=== PATIENT | female | born 1955 | race Caucasian/White ===

== ENCOUNTER 2024-09-24 08:42 | Outpatient (REF) | payer MEDICARE, OTHER, SELFPAY ==
--- NOTE | ~2024-09-24 | XR_ITS ---
CLINICAL HISTORY: S42.309A - Unspecified fracture of shaft of humerus, unspecified arm, in... 2 view right humerus Comparison: None Findings: There is a comminuted humeral neck fracture. No significant arthritic change. No radiopaque foreign body. IMPRESSION: 1. Comminuted humeral neck fracture This document has been electronically signed by: Keegan Jiang MD on 09/25/2024 05:34:53
--- OUTSIDE RECORDS SUMMARY | 2024-09-27 08:45 | XMS_ITS | Encounter Summary ---
Author Organization [facility] Address [address] [place] [address] Care Team Providers Care Extract Operator Name Role Phone Arabella Decker NP Primary Care Provider [phone] Reason for Visit * Auth/Cert (Routine) Specialty Diagnoses / Procedures Referred By Contac t Referred To Contact Diagnoses Malignant neoplasm of ascending colon (CMS/HCC) Malignant neoplasm of ascending colon Procedures NE LAP SURG COLECTOMY PARTIAL W REMOVAL OF TERMINAL ILEUM W ILEOCOLOSTOMY NE HOSPITAL IP/OBS CARE INITIAL MODERATE LEVEL PER DAY LAPAROSCOPIC COLECTOMY ; ? OPEN Diogo Martinez MD [address] [place] [id number] Phone: tel: fax: Referral ID Status Reason Start Date Expiration Date Visits Re quested Visits Authorized [id number] 08/05/2024 1 1 Encounter Details Date Type Department Care Team (Late st Contact Info) Description 08/30/2024 7:31 AM EST Anesthesia Event [facility] Main OR [address] [place] [address] Ramesh Larios MD [address] [place] [address] [phone] Shira Diamond CRNA [address] [place] [id number] Anesthesia Record Procedure Summary Procedure Name Responsible [...] information of this case with the next grocery department manager assuming care of this patient (MD Shawna) [...] 6 L/min O2 via simple mask. -Naresh, CUSTOMER ASSISTANCE REPRESENTATIVE 1012 an stop data 1014 Out of Room 1014 Transport to PACU/ICU Patien t reassessed and ready for transfer, airway stable. Patient transport to designated recovery area. {Transport to PACU/ICU:[id number]} 1019 Handoff to RN I completed my [...] Procedure Summary Date: 08/30/24 Room / Location: [facility] OR [facility] OR Anesthesia Start: 730 Anesthesia Stop: Procedure: [...] stable (see nursing record), report accepted by [facility] CONSULTANT. Stable on release, transfer of care guidelines [...] AM EST 69 y.o. female scheduled for [NE LAP SURG COLECTOMY PARTIAL W REMOVAL OF TERMINAL ILEUM W*] Ht Readings from Last 1 Encounters: 08/10/24 1.626 m (64 ) Wt Readings from Last 1 Encounters: 08/10/24 86.2 kg (190 lb) Body mass index is 32.61 kg/m??. Past Medical History: Diagnosis Date Angina pectoris ([facility]) Anxiety 11/06/2018 DX:Anxiety Arthritis Blindness 2004 Cancer, colon ([facility]) CHF (congestive heart failure) ([facility]) Colon polyp Constipation 11/06/2018 DX:Constipation Depression 11/06/2018 DX:Depression Diabetes mellitus type 1, uncomplicated, on termite helper insulin pump ([facility]) 11/06/2018 DX:Diabetes mellitus type 2, uncomplicated ([facility]) GERD (gastroesophageal reflux disease) 11/06/2018 DX:GERD (gastroesophageal [...] by mouth 2 (two) times a day. swdusthkjp-rjscvoqrrncbd-aofcylqm (FIORICET, ESGIC) 50-325-40 mg per tablet Take [...] 75 mL/hr, Last Rate: 75 mL/hr (08/30/24 0783) PRN medications: Insert peripheral IV AND Maintain [...] Signed Date: 08/23/2024 07:29 ET Workstation ID: [id number] Transcribed By: Self Edit Transcribed Date: 08/23/2024 [...] Signed Date: 08/05/2024 15:06 ET Workstation ID: [id number] Transcribed By: Self Edit Transcribed Date: 08/05/2024 [...] and spouse who. Anesthesia Plan discussed with CUSTOMER ASSISTANCE REPRESENTATIVE and attending. Anesthesia Evaluation Patient summary reviewed [...] Care Team (Late st Contact Info) Description 10/28/2024 10:45 AM EDT Office Visit [facility] Hematology Oncology [address] [place] [phone] Quoc Bernal MD [address] [place] [address] 12/14/2024 11:15 AM EDT Office Visit General Surgery - [place] [address] [place] [address] Diogo Martinez MD [address] [place] [address] documented as of this encounter Procedures Procedure [...] mg documented in this encounter Care Teams Extract Operator Relationship Specialty Start Date End Date Arabella Decker NP [facility] [address] [place] [address] PCP - General 08/20/23 documented as of this encounter
--- OUTSIDE RECORDS SUMMARY | 2024-09-27 08:46 | XMS_ITS | Encounter Summary ---
Author Organization [facility] Address [address] [place] [address] Care Team Providers Care Sliver Machine Operator Name Role Phone Arabella Decker NP Primary Care Provider [phone] Reason for Visit * Auth/Cert (Routine) Specialty Diagnoses / Procedures Referred By Contac t Referred To Contact Diagnoses Malignant neoplasm of ascending colon (CMS/HCC) Malignant neoplasm of ascending colon Procedures RI LAP SURG COLECTOMY PARTIAL W REMOVAL OF TERMINAL ILEUM W ILEOCOLOSTOMY RI HOSPITAL IP/OBS CARE INITIAL MODERATE LEVEL PER DAY LAPAROSCOPIC COLECTOMY ; ? OPEN Diogo Martinez MD [address] [address] Phone: tel: fax: Referral ID Status Reason Start Date Expiration Date Visits Re quested Visits Authorized [id number] 08/05/2024 1 1 Encounter Details Date Type Department Care Team (Latest Contact Info) Description 08/30/2024 5:55 AM EST - 09/01/2024 11:13 AM EST Hospital Encounter [facility] Surgical Unit [address] [place] [address] Diogo Martinez MD [address] [address] Shayy Garcia MD [address] [place] [address] Malignant neoplasm of ascending colon (CMS/HCC) Discharge [...] Martinez's operative note. She was admitted to [facility] and [facility] protocols were followed. [facility] was consulted for medical comanagement. The patient [...] Center 09/14/2024 3:45 PM Diogo Martinez MD [facility] [address] [facility] [place] Discharge Medication List: Your medication list [...] 1 tablet (300 mg total) by mouth. okklvjnotv-xomeycjmmsfhj-aqapdbwx 50-325-40 mg per tablet Commonly known as: [...] Your Medications These medications were sent to [facility]/pharmacy #[id number] - [address] [address] acetaminophen 500 mg tablet oxyCODONE 5 mg [...] mouth 1 (one) time each day. insulin lispro-aabc (LYUMJEV U-100 INSULIN SUBQ) Inject under the skin. isosorbide mononitrate (IMDUR) 60 mg 24 hr tablet Take 1 tablet (60 mg total) by mouth 1 (one) time each day. 05/05/2023 meclizine (ANTIVERT) 25 mg tablet Take 1 [...] by mouth 1 (one) time each day. ranolazine (RANEXA) 500 mg 12 hr tablet [...] by mouth 2 (two) times a day. insulin infusion set-cartridge combo pack isosorbide mononitrate (IMDUR) 120 mg 24 hr tablet Take 60 mg by mouth 1 (one) time each day. 09/24/2024 acetaminophen (TYLENOL) 500 mg tablet Take 2 tablets (1,000 mg total) by mouth every 8 (eight) hours for 10 days. 30 tablet 09/01/2024 09/11/2024 oxyCODONE (ROXICODONE) 5 mg immediate release tablet Take 1 tablet (5 mg total) by mouth every 6 (six) hours if needed for severe pain. 12 tablet 09/01/2024 09/24/2024 pantoprazole (PROTONIX) 40 mg EC tablet Take [...] RN - 09/01/2024 11:09 AM EST 09/01/24 7252 Transportation Transportation at discharge Family What day [...] is soft, without significant tenderness and nondistended. [place] appear C/D/I Musculoskeletal Exam: No lower extremity [...] bypass grafting in 2013 and again around 8149-2373 at which time she required 5 cardiac stents Family Mediator is Dr. Roberts through [facility] -- Continue statin, beta-alvarez -- Resume Plavix [...] Discharge Needs Discipline following for SNF placement Head Of Ethics And Compliance Informed Choice Informed Choice Given? Yes Transportation Transportation at discharge Family (Spouse to transport home once ready for d/c) ICC met with pt and spouse at bedside. Demographics confirmed. Pt pharmacy [facility]. Pt will d/c home with self care when ready * Shayy Garcia MD - 08/31/2024 3:36 PM EST [facility] Provider Response Note PATIENT: CAIT MEDRANO : 1955 ADMIT DATE: 08/30/2024 10:39 AM DISCH DATE: RESPONDING PROVIDER #: [id number] PROVIDER RESPONSE TEXT: Provider disagrees with the [...] per H&P BMI 32.36 per 08/31/24 C: [phone] The patient's clinical indicators include: Options provided: [...] PRN medications: buprenorphine, buprenorphine, [Held by provider] aedollsunm-hmjwnratpolzd-mucgcsvq, dextrose 50%, dextrose 50%, dextrose, dextrose, glucagon [...] bypass grafting in 2013 and again around 5814-1452 at which time she required 5 cardiac stents Family Mediator is Dr. Roberts through [facility] -- Continue statin, beta-alvarez -- Resume Plavix [...] barriers to meeting goals/advancing plan of care: Jewish of bladder & bowel function and pain [...] angioplasty with 5 cardiac stents. Her primary storage engineer is Dr. Ángel Roberts with the [facility]. Remote hysterectomy and subsequent development of [...] Date Noted Malignant neoplasm of ascending colon ([facility]/HCC) 08/05/2024 Anxiety 11/06/2018 Diabetes mellitus type 2, uncomplicated ([facility]) 11/06/2018 Depression 11/06/2018 Hypercholesteremia 11/06/2018 GERD (gastroesophageal [...] 1 tablet (300 mg total) by mouth. onhzidcdbe-thflmkmyyxtji-sxmgsjfk (FIORICET, ESGIC) 50-325-40 mg per tablet Take [...] Signed Date: 08/05/2024 15:06 ET Workstation ID: [id number] Transcribed By: Self Edit Transcribed Date: 08/05/2024 [...] Signed Date: 08/23/2024 07:29 ET Workstation ID: [id number] Transcribed By: Self Edit Transcribed Date: 08/23/2024 [...] Signed Date: 08/23/2024 07:29 ET Workstation ID: [id number] Transcribed By: Self Edit Transcribed Date: 08/23/2024 [...] OPEN (R) OPERATIVE NOTE Date: 08/30/2024 Location: [facility] OR Name: Cait Medrano, : 1955, Diagnosis Pre-Op Diagnosis Codes: * Malignant neoplasm of ascending colon (CMS/HCC) [C18.2] Post-op Diagnosis * Malignant neoplasm of ascending colon (CMS/HCC) [C18.2] Procedures LAPAROSCOPIC COLECTOMY ? OPEN 93324 - RI LAP SURG COLECTOMY PARTIAL W REMOVAL OF TERMINAL ILEUM W ILEOCOLOSTOMY Indications: Cait Medrano is a 69 y.o. female who is having surgery for Pre-Op Diagnosis Codes: * Malignant neoplasm of ascending colon (CMS/HCC) [C18.2]. Surgeon(s) & Sleep Medicine Physician(s) * Diogo Martinez MD - Primary Sleep Medicine Physician: Imer Scott PA-C Anesthesia: general ASA: IV [...] RN - 08/30/2024 6:06 AM EST MALIKA-SPOUSE [phone] documented in this encounter Consult Notes * [...] a past medical history of Angina pectoris ([facility]), Anxiety (11/06/2018), Arthritis, Blindness (2003), Cancer, colon ([facility]), CHF (congestive heart failure) ([facility]), Colon polyp, Constipation (11/06/2018), Depression (11/06/2018), Diabetes mellitus type 1, uncomplicated, on manager terminal insulin pump ([facility]) (11/06/2018), GERD (gastroesophageal reflux disease) (11/06/2018), Heart disease, Hiatal hernia, Hypercholesteremia (11/06/2018), Hypertension, Joint pain, Migraines (11/06/2018), Myocardial infarction ([facility]), PONV (postoperative nausea and vomiting), and Sleep [...] mouth 2 (two) times a day. 08/29/2024 yfvzahiidx-smvklzuxniyms-xdgbnard (FIORICET, ESGIC) 50-325-40 mg per tablet Take [...] 5 cardiac stents. She is followed by storage engineer Dr. Ángel Roberts at [facility]. - Patient does report she occasionally [...] has been seen in the past by [facility] and [facility] Samson Aguilar. She is also followed by [...] Description 10/28/2024 10:45 AM EDT Office Visit [facility] Hematology Oncology [address] [place] [phone] Quoc Bernal MD [address] [place] [address] 12/14/2024 11:15 AM EDT Office Visit General Surgery [facility] [address] [phone] Diogo Martinez MD [address] [address] documented as of this encounter Procedures Procedure [...] EST Malignant neoplasm of ascending colon (CMS/HCC) RI LAP SURG COLECTOMY PARTIAL W REMOVAL OF TERMINAL ILEUM W ILEOCOLOSTOMY 08/30/2024 7:33 AM EST Malignant neoplasm of ascending colon (CMS/HCC) POCT GLUCOSE BLOOD Routine 08/30/2024 6: 20 AM EST documented in this encounter Results * (ABNORMAL) CBC auto differential (09/01/2024 6:25 AM EST) WBC 6.8 4.8 - 10.8 K/mcL LAB HEMETOLOGY METHOD 09/01/2024 6:56 AM [facility] RBC 3.40(L) 3.80 - 4.80 M/mcL LAB HEMETOLOGY METHOD 09/01/2024 6:56 AM [facility] Hemoglobin 10.4(L) 11.5 - 16.0 g/dL LAB HEMETOLOGY METHOD 09/01/2024 6:56 AM [facility] Hematocrit 33.4(L) 35.0 - 47.0 % LAB HEMETOLOGY METHOD 09/01/2024 6:56 AM [facility] MCV 98.5(H) 79.0 - 98.0 FL LAB HEMETOLOGY METHOD 09/01/2024 6:56 AM [facility] MCH 30.7 27.0 - 32.0 pcg LAB HEMETOLOGY METHOD 09/01/2024 6:56 AM [facility] MCHC 31.1(L) 32.0 - 37.0 g/dL LAB HEMETOLOGY METHOD 09/01/2024 6:56 AM [facility] RDW 13.5 11.0 - 15.0 % LAB HEMETOLOGY METHOD 09/01/2024 6:56 AM [facility] Platelets 184 130 - 400 K/mcL LAB HEMETOLOGY METHOD 09/01/2024 6:56 AM [facility] MPV 11.8(H) 7.0 - 11.0 FL LAB HEMETOLOGY METHOD 09/01/2024 6:56 AM [facility] NRBC 0.0 <1.0 % LAB HEMETOLOGY METHOD 09/01/2024 6:56 AM [facility] NRBC Absolute 0.00 <0.10 K/mcL LAB HEMETOLOGY METHOD 09/01/2024 6:56 AM [facility] Neutrophils Relative 58.5 % LAB HEMETOLOGY METHOD 09/01/2024 6:56 AM [facility] Lymphocytes Relative 27.2 % LAB HEMETOLOGY METHOD 09/01/2024 6:56 AM [facility] Monocytes Relative 12.4 % LAB HEMETOLOGY METHOD 09/01/2024 6:56 AM [facility] Eosinophils Relative 1.2 % LAB HEMETOLOGY METHOD 09/01/2024 6:56 AM [facility] Basophils Relative 0.4 % LAB HEMETOLOGY METHOD 09/01/2024 6:56 AM [facility] Immature Granulocytes Relative 0.3 % LAB HEMETOLOGY METHOD 09/01/2024 6:56 AM [facility] Neutrophils Absolute 3.95 1.50 - 7.00 K/mcL LAB HEMETOLOGY METHOD 09/01/2024 6:56 AM EST [facility] Lymphocytes Absolute 1.84 1.00 - 5.00 K/[facility] LAB HEMETOLOGY METHOD 09/01/2024 6:56 AM EST [facility] Monocytes Absolute 0.84 0.20 - 1.00 K/[facility] LAB HEMETOLOGY METHOD 09/01/2024 6:56 AM EST [facility] Eosinophils Absolute 0.08 0.00 - 0.50 K/[facility] LAB HEMETOLOGY METHOD 09/01/2024 6:56 AM EST [facility] Basophils Absolute 0.03 0.00 - 0.20 K/[facility] LAB HEMETOLOGY METHOD 09/01/2024 6:56 AM [facility] Immature Granulocytes Absolute 0.02 0.00 - 0.03 K/[facility] LAB HEMETOLOGY METHOD 09/01/2024 6:56 AM EST [facility] Blood Venous blood specimen / Unknown Venipuncture / Unknown 09/01/2024 6:25 AM EST 09/01/2024 6:40 AM EST us Terrie POWELL LAB BLOOD ORDERABLES Final Re sult Performing Organization Address [facility] Co de Phone Number [facility] [address] [place] [address], * Phosphorus (09/01/2024 6:25 AM EST) Phosphorus 3.9 2.5 - 4.5 mg/dL LAB CHEMISTRY METHOD 09/01/2024 7:29 AM EST [facility] Blood Venous blood specimen / Unknown Venipuncture / Unknown 09/01/2024 6:25 AM EST 09/01/2024 6:38 AM EST us Terrie POWELL LAB BLOOD ORDERABLES Final Re sult [facility] [address] [place] [address], * Magnesium (09/01/2024 6:25 AM EST) [facility] Magnesium 2.3 1.9 - 2.6 mg/dL LAB CHEMISTRY METHOD 09/01/2024 7:29 AM EST [facility] Blood Venous blood specimen / Unknown Venipuncture / Unknown 09/01/2024 6:25 AM EST 09/01/2024 6:38 AM EST Terrie POWELL LAB BLOOD ORDERABLES Final Re sult Performing Organization Address [facility]/ZIP Co de Phone Number [facility] [address] [place] [address], [place] [phone] * (ABNORMAL) Basic metabolic panel (09/01/2024 6:25 AM EST) [facility] Sodium 142 133 - 145 mmol/L LAB CHEMISTRY METHOD 09/01/2024 7:29 AM [facility] Potassium 3.9 3.5 - 5.5 mmol/L LAB CHEMISTRY METHOD 09/01/2024 7:29 AM [facility] Chloride 109 96 - 110 mmol/L LAB CHEMISTRY METHOD 09/01/2024 7:29 AM [facility] CO2 28 21 - 32 mmol/L LAB CHEMISTRY METHOD 09/01/2024 7:29 AM [facility] Anion Gap 5 3 - 11 LAB CHEMISTRY METHOD 09/01/2024 7:29 AM [facility] Glucose 124(H) 70 - 100 mg/dL LAB CHEMISTRY METHOD 09/01/2024 7:29 AM [facility] BUN 7 5 - 25 mg/dL LAB CHEMISTRY METHOD 09/01/2024 7:29 AM [facility] Creatinine 0.84 0.50 - 1.10 mg/dL LAB CHEMISTRY METHOD 09/01/2024 7:29 AM EST [facility] eGFR 76 >=60 mL/min/1. 73m2 LAB CHEMISTRY METHOD 09/01/2024 7:29 AM [facility] Comment:Calculation based on the??Chronic Kidney Disease Epidemiology Collaboration (CKD-EPI) equation refit??without adjustment for race. BUN/Creatinine Ratio 8.3 LAB CHEMISTRY METHOD 09/01/2024 7:29 AM [facility] Calcium 8.4(L) 8.5 - 10.5 mg/dL LAB CHEMISTRY METHOD 09/01/2024 7:29 AM [facility] Blood Venous blood specimen / Unknown Venipuncture / Unknown 09/01/2024 6:25 AM EST 09/01/2024 6:38 AM EST Terrie POWELL LAB BLOOD ORDERABLES Final Re sult [facility] [address] [place] [address], * (ABNORMAL) CBC auto differential (08/31/2024 6:35 AM EST) WBC 9.7 4.8 - 10.8 K/mcL LAB HEMETOLOGY METHOD 08/31/2024 7:07 AM [facility] RBC 3.60(L) 3.80 - 4.80 M/mcL LAB HEMETOLOGY METHOD 08/31/2024 7:07 AM [facility] Hemoglobin 11.2(L) 11.5 - 16.0 g/dL LAB HEMETOLOGY METHOD 08/31/2024 7:07 AM [facility] Hematocrit 36.2 35.0 - 47.0 % LAB HEMETOLOGY METHOD 08/31/2024 7:07 AM [facility] MCV 99.5(H) 79.0 - 98.0 FL LAB HEMETOLOGY METHOD 08/31/2024 7:07 AM [facility] MCH 30.8 27.0 - 32.0 pcg LAB HEMETOLOGY METHOD 08/31/2024 7:07 AM [facility] MCHC 30.9(L) 32.0 - 37.0 g/dL LAB HEMETOLOGY METHOD 08/31/2024 7:07 AM [facility] RDW 13.5 11.0 - 15.0 % LAB HEMETOLOGY METHOD 08/31/2024 7:07 AM [facility] Platelets 216 130 - 400 K/mcL LAB HEMETOLOGY METHOD 08/31/2024 7:07 AM [facility] MPV 11.8(H) 7.0 - 11.0 FL LAB HEMETOLOGY METHOD 08/31/2024 7:07 AM [facility] NRBC 0.0 <1.0 % LAB HEMETOLOGY METHOD 08/31/2024 7:07 AM [facility] NRBC Absolute 0.00 <0.10 K/mcL LAB HEMETOLOGY METHOD 08/31/2024 7:07 AM [facility] Neutrophils Relative 67.3 % LAB HEMETOLOGY METHOD 08/31/2024 7:07 AM [facility] Lymphocytes Relative 21.5 % LAB HEMETOLOGY METHOD 08/31/2024 7:07 AM [facility] Monocytes Relative 10.0 % LAB HEMETOLOGY METHOD 08/31/2024 7:07 AM [facility] Eosinophils Relative 0.6 % LAB HEMETOLOGY METHOD 08/31/2024 7:07 AM [facility] Basophils Relative 0.2 % LAB HEMETOLOGY METHOD 08/31/2024 7:07 AM [facility] Immature Granulocytes Relative 0.4 % LAB HEMETOLOGY METHOD 08/31/2024 7:07 AM EST [facility] Neutrophils Absolute 6.53 1.50 - 7.00 K/mcL LAB HEMETOLOGY METHOD 08/31/2024 7:07 AM EST [facility] Lymphocytes Absolute 2.09 1.00 - 5.00 K/mcL LAB HEMETOLOGY METHOD 08/31/2024 7:07 AM EST [facility] Monocytes Absolute 0.97 0.20 - 1.00 K/[facility] LAB HEMETOLOGY METHOD 08/31/2024 7:07 AM EST [facility] Eosinophils Absolute 0.06 0.00 - 0.50 K/[facility] LAB HEMETOLOGY METHOD 08/31/2024 7:07 AM [facility] Basophils Absolute 0.02 0.00 - 0.20 K/mcL LAB HEMETOLOGY METHOD 08/31/2024 7:07 AM EST [facility] Immature Granulocytes Absolute 0.04(H) 0.00 - 0.03 K/[facility] LAB HEMETOLOGY METHOD 08/31/2024 7:07 AM [facility] Blood Venous blood specimen / Unknown Venipuncture / Unknown 08/31/2024 6:35 AM EST 08/31/2024 6:58 AM EST us ANDRE Howard LAB BLOOD ORDERABLES Final Result [facility] [address] [place] [address], * (ABNORMAL) Basic metabolic panel (08/31/2024 6:35 AM EST) Sodium 138 133 - 145 mmol/L LAB CHEMISTRY METHOD 08/31/2024 7:48 AM EST [facility] Potassium 3.4(L) 3.5 - 5.5 mmol/L LAB CHEMISTRY METHOD 08/31/2024 7:48 AM EST [facility] Chloride 107 96 - 110 mmol/L LAB CHEMISTRY METHOD 08/31/2024 7:48 AM [facility] CO2 25 21 - 32 mmol/L LAB CHEMISTRY METHOD 08/31/2024 7:48 AM [facility] Anion Gap 6 3 - 11 LAB CHEMISTRY METHOD 08/31/2024 7:48 AM [facility] Glucose 147(H) 70 - 100 mg/dL LAB CHEMISTRY METHOD 08/31/2024 7:48 AM [facility] BUN 9 5 - 25 mg/dL LAB CHEMISTRY METHOD 08/31/2024 7:48 AM [facility] Comment:Results verified by repeat testing Creatinine 0.94 0.50 - 1.10 mg/dL LAB CHEMISTRY METHOD 08/31/2024 7:48 AM [facility] eGFR 67 >=60 mL/min/1. 73m2 LAB CHEMISTRY METHOD 08/31/2024 7:48 AM [facility] Comment:Calculation based on the??Chronic Kidney Disease Epidemiology Collaboration (CKD-EPI) equation refit??without adjustment for race. BUN/Creatinine Ratio 9.6 LAB CHEMISTRY METHOD 08/31/2024 7:48 AM [facility] Calcium 8.5 8.5 - 10.5 mg/dL LAB CHEMISTRY METHOD 08/31/2024 7:48 AM [facility] Blood Venous blood specimen / Unknown Venipuncture / Unknown 08/31/2024 6:35 AM EST 08/31/2024 6:58 AM EST us ANDRE Howard LAB BLOOD ORDERABLES Final Result [facility] [address] [place] [address], * Tissue exam (08/30/2024 9:41 AM EST) [...] Stage pT3N2b, see synoptic. 09/01/2024 4:27 PM [facility]) [facility] Gross Description A. Colon, right: Labeled [...] the index mass. The uninvolved mucosa is gai-ufvp-rep glistening with normal folds throughout. Multiple possible [...] fletcher-pink and glistening. Gross photographs are taken. Corporate Quality Engineer sections are submitted as follows: 1, perpendicular [...] lymph nodes each, six pieces each 18, office machines sales representative larger grossly positive possible lymph node, two pieces 19, office machines sales representative larger grossly positive possible lymph node, two pieces ELSA 09/01/2024 4:27 PM EST [facility] HOSPITAL LAB Synoptic Checklist COLON AND RECTUM: [...] Additional Findings: ?Adenoma(s) ?? Comment(s): ?performed on [id number] and reported as RENÉ, HER2 Negative (1+) 09/01/2024 4:27 PM EST [facility] Disclaimer Unless otherwise specified, all tissue is 10% NB formalin fixed and paraffin embedded. 09/01/2024 4:27 PM EST [facility] Tissue (Colon) 08/30/2024 9: 41 AM EST 08/30/2024 10:49 AM EST Diogo Martinez MD LAB PATHOLOGY ORDERABLES Fi nal Result [facility] [address] [place] [address], * (ABNORMAL) POCT Glucose, blood (08/30/2024 6:20 AM EST) Glucose POCT 150(H) 70 - 100 mg/dL 08/30/2024 6:22 AM EST [facility] Blood Capillary blood specimen / Unknown 08/30/2024 6:20 AM EST 08/30/2024 6:23 AM EST us Diogo Martinez MD LAB POINT OF CARE T EST DOCKED DEVICE UNSOLICITED RESULTS Final Result [facility] LAB [address] [place] [address], documented in this encounter Visit Diagnoses Diagnosis [...] Training Kits, available at [facility]: Yes Given 08/30/2024 6:51 AM EST 12 [...] REMS Program and training materials, available at [facility] and in order Reference Links, must be reviewed prior to ordering, dispensing, or administration., I am aware of the [facility] Program requirements and have reviewed the [facility] Training Kits[facility]: Yes Given 08/31/2024 9:18 PM EST 12 [...] Tandem t:slim X2, Insulin Type? lispro (HumaLOG), Adrian / Cartridge Size? Other, Other: Adrian / Cartridge Size? 300ml, Volume Remaining in Adrian? 190ml, Time and Date of last Adrian Fill/Cartridge Change known? Yes, Date? 08/29/2024, Time? [...] Alma Marie RN)143 (Given - Provider: [place] Castillo, DOMINGA)2118 (Given - Provider: Cira Marquez, DOMINGA) 0546 [...] the [facility] Training Kits[facility]: Yes 0651 (Given - Provider: Lizbeth Gill [...] REMS Program and training materials, available [facility] and in order Reference Links, must be reviewed prior to ordering, dispensing, or administration., I am aware of the [facility] Program requirements and have reviewed the [facility] Training Kits, [facility]: Yes 812 (Given - Provider: [place] [...] 2110 (Given - Provider: Alma Marie RN) 211 (Given - Provider: Cira Marquez, DOMINGA) isosorbide mononitrate (IMDUR) 24 hr tablet 60 mg 60 mg, oral, Daily, First dose on Fri08/30/24 at 1530, Do not crush or chew. 1628 (Not Given - Provider: Tammy Cheung RN - Reason: Other - Comment: took this morning) 0812 (Given - Provider: [place] Castillo RN) 818 (Given - Provider: [place] Castillo RN) magnesium oxide (MAG-OX) tablet 400 mg (CANCELED) 400 mg, oral, 2 times daily, First dose on Fri08/31/24 at 0900, Recovery & On Unit 08 (Given - Provider: [place] Castillo RN)2119 (Given - Provider: Cira Marquez, DOMINGA) 817 (Given - Provider: [place] Castillo RN) [...] [place] Castillo RN) 0547 (Given - Provider: Cria Wilmette, RN) potassium chloride (KLOR-CON M20) CR tablet [...] Marie RN) 812 (Given - Provider: [place] Castillo RN)2118 (Given - Provider: Cira Marquez, DOMINGA) 818 [...] Tandem t:slim X2, Insulin Type? lispro (HumaLOG), Adrian / Cartridge Size? Other, Other: Adrian / Cartridge Size? 300ml, Volume Remaining in Adrian? 190ml, Time and Date of last Adrian Fill/Cartridge Change known? Yes, Date? 08/29/2024, Time? [...] PRN, heartburn, indigestion, Starting on Fri08/31/24 at 202, Ordered as calcium carbonate. 500 mg calcium [...] at 1454 2110 (Given - Provider: Alma Marie RN) 2133 (Given - Provider: Cira Marquez, DOMINGA) [...] Marquez, DOMINGA) 1024 (Given - Provider: [place] Castillo, DOMINGA) oxyCODONE (ROXICODONE) immediate release tablet 5 mg 5 mg, oral, Every 4 hours PRN, moderate pain, Starting on Fri08/31/24 at 1534, 1st line for moderate pain (4-6) 1822 (Given - Provider: [place] Castillo, DOMINGA) 0551 (Given - Provider: Cira Marquez, DOMINGA) documented in this encounter Orders Medications Ordered [...] 1 08/30/2024 ALPRAZolam (XANAX) tablet 0.5 mg 08/30/19 alvimopan (ENTEREG) capsule 12 mg 2 025 bupivacaine-EPINEPHrine (MAR ANSON w/EPI) 0.25 %-1:200,000 injection 08/30/2024 buprenorphine (BUPRENEX) inj ection 0.075 mg 2 08/30/2024 buprenorphine (BUPRENEX) injection 0.15 mg 08/30/2024 buprenorphine HCL (BUPRENEX) injection solution 0.15 mg 08/30/2024 hnqwwirmvn-qdqsipvzriyds-aey feine (FIORICET, ESGIC) 50-325-40 mg per tablet [...] 2024 nitroglycerin (NITROSTAT) SL tablet 0.4 mg 08/30/2024 NON FORMULARY 08/30/2024 ondansetron (PF) (ZOFRAN) injection 4 mg 08/30/2024 ondansetron ODT (ZOFRAN-ODT) disintegrating tablet 4 mg 08/30/2024 oxyCODONE (ROXICODONE) immed iate release tablet 5 mg 1 08/30/2024 prochlorperazine (COMPAZINE) injection 10 mg 1 08/30/2024 prochlorperazine (COMPAZINE) suppository 25 mg 1 [...] 09/01/2024 documented in this encounter Care Teams Sliver Machine Operator Relationship Specialty Start Date End Date Arabella Decker NP [facility] [address] [place] [id number] PCP - General 08/20/23 documented as of this encounter
--- OUTSIDE RECORDS SUMMARY | 2024-09-27 08:46 | XMS_ITS | Encounter Summary ---
Author Organization [facility] Address [address] [place] [address] Care Team Providers Care Sales And Training Specialist Name Role Phone Arabella Decker NP Primary Care Provider [phone] Reason for Referral * Consultation (Urgent) - Authorized Specialty Diagnoses / Procedures Referred By Contac t Referred To Contact Hematology and Oncology Diagnoses Malignant neoplasm of ascending colon (CMS/HCC) Procedures OK VISIT OFFICE OUTPATIENT ESTABLISHED MODERATE LEVEL Diogo Martinez MD [address] [place] [address] Phone: tel: fax: [facility] Hematology Oncology [address] [place] [address] Phone: tel: fax: Referral ID Status Reason Start Date Expiration Date Visits Requested Visits Authorized [id number] Authorized Consult and Treat 09/14/2024 09/14/2025 1 1 Reason for Visit * Reason Comments Post-op Right colectomy Encounter Details Date Type Department Care Team (Late st Contact Info) Description 09/14/2024 3:45 PM EST Office Visit General Surgery [facility] [address] [phone] Diogo Martinez MD [address] [place] [id number] Malignant neoplasm of ascending colon (CMS/HCC) (Primary [...] Description 10/28/2024 10:45 AM EDT Office Visit [facility] Hematology Oncology [address] [place] [phone] Quoc Bernal MD [address] [place] [address] 12/14/2024 11:15 AM EDT Office Visit General Surgery [facility] [address] [phone] Diogo Martinez MD [address] [address] Scheduled Referrals Name Type Priority Associated Diagnoses Order Schedule Ambulatory referral to Hematology / Oncology Outpatient Referral Routine Malignant neoplasm of ascending colon (CMS/HCC) Expected: 09/14/2024, Expires: 09/14/2025 documented as of this encounter Visit Diagnoses Diagnosis Malignant neoplasm of ascending colon (CMS/HCC)- Primary Malignant neoplasm of ascending colon documented in this encounter Care Teams Sales And Training Specialist Relationship Specialty Start Date End Date Arabella Decker NP [address] [id number] PCP - General 08/20/23 documented as of this encounter
--- OUTSIDE RECORDS SUMMARY | 2024-09-27 08:46 | XMS_ITS ---
Author Organization [facility] Address [address] [place] [address] Phone Care Team Providers Care Uniform Maker Name Role Phone Arabella Decker NP Primary Care Provider [phone] Active Problems Problem Noted Date Diagnosed Date Malignant neoplasm of ascending colon 08/05/2024 Anxiety 11/06/2018 Diabetes mellitus type 2, uncomplicated 11/07/19 19 Depression 11/06/2018 Hypercholesteremia 11/06/2018 GERD (gastroesophageal reflux disease) 9 Migraines 11/06/2018 Constipation 11/06/2018 Asthmatic bronchitis without complication 2018 Current Oncology Plans FOLFIRI ( Fluorouracil Continuous Infusion / Leucovorin / Irinotecan )* Plan Start Date:10/11/2024 Plan Provider:Quoc Bernal MD Linked Problems Malignant neoplasm of ascend ing colon (CMS/HCC) Treatment Medications Current Day (Day 1 , Prescriptions - Planned for 10/11/2024) Next Day (Day 1, Cycle 1 - Planned for 10/12/2024) 5-FU (ADRUCIL) chemo infusio n 100 mL - for home use solutionfluorouracil (ADRUCIL)irinotecan (CAMPTOSAR) chemo IVPBleucovorinleucovorin IVPB in D5W (350 mg vial) No medications scheduled. fluorouracil (ADRUCIL) chemo infusionfluorouracil (ADRUCIL) chemo injectionirinotecan (CAMPTOSAR) in dextrose 267 mL chemo IVPBleucovorin IVPB Past Plans No past plan information found. Radiation Treatments * No radiation treatments are documented for this patient in [facility]. Treatments may have been administered in another system.
--- OUTSIDE RECORDS SUMMARY | 2024-09-27 08:46 | XMS_ITS | Encounter Summary ---
Author Organization [facility] Address [address] [place] [address] Care Team Providers Care Open Source Developer Name Role Phone Arabella Decker NP Primary Care Provider Reason for Visit * Auth/Cert (Routine) Specialty Diagnoses / Procedures Referred By Contac t Referred To Contact Diagnoses Malignant neoplasm of ascending colon (CMS/HCC) Malignant neoplasm of ascending colon Procedures SC LAP SURG COLECTOMY PARTIAL W REMOVAL OF TERMINAL ILEUM W ILEOCOLOSTOMY SC HOSPITAL IP/OBS CARE INITIAL MODERATE LEVEL PER DAY LAPAROSCOPIC COLECTOMY ; ? OPEN Diogo Martinez MD [address] [address] Phone: tel: fax: Referral ID Status Reason Start Date Expiration Date Visits Re quested Visits Authorized [id number] 08/05/2024 1 1 Encounter Details Date Type Department Care Team (Late st Contact Info) Description 08/30/2024 7:30 AM EST - 08/30/2024 10:[address] [facility] Main OR [address] [place] [address] Diogo Martinez MD [address] [address] LAPAROSCOPIC COLECTOMY [19007 (CPT??)] Surgery Details Date/Time Status Location OR Service Patient Class Case Class Case Type Trauma Case? 08/30/2024 7:30 AM Posted [facility] OR OR 02 General Surgery to the [...] Martinez's operative note. She was admitted to [facility] and ERAS protocols were followed. ARIN was [...] Friday09/03/24. She will follow up in the [facility] as scheduled. Discharge Disposition: Home, self-care Procedures Performed: Procedure(s): LAPAROSCOPIC COLECTOMY Test Results Pending At Discharge: Pending Labs Order Current Status Tissue exam In process Outpatient Follow-Up Care: Future Appointments Date Time Provider Department Center 09/14/2024 3:45 PM Diogo Martinez MD [facility] [address] [facility] Discharge Medication List: Your medication list [...] 1 tablet (300 mg total) by mouth. vyuroztqlx-vpbajnqtnsznn-rirrstru 50-325-40 mg per tablet Commonly known as: [...] Your Medications These medications were sent to [facility]/pharmacy #[id number] - [address] [address] acetaminophen 500 mg tablet oxyCODONE 5 mg [...] is soft, without significant tenderness and nondistended. [place] appear C/D/I Musculoskeletal Exam: No lower extremity [...] bypass grafting in 2013 and again around 0109-6845 at which time she required 5 cardiac stents Chemistry Faculty Member is Dr. 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 Yes Transportation Transportation at discharge Family (Spouse to transport home once ready for d/c) ICC met with pt and spouse at bedside. Demographics confirmed. Pt pharmacy is [facility] on [address] . Pt will d/c home with self care when ready Garcia MD - 08/31/2024 3:[address] [facility] Provider Response Note PATIENT: CAIT MEDRANO : 1955 ADMIT DATE: 08/30/2024 10:39 AM DISCH DATE: RESPONDING PROVIDER #: [id number] PROVIDER RESPONSE TEXT: Provider disagrees with the [...] per H&P BMI 32.36 per 08/31/24 C: [phone] The patient's clinical indicators include: Options provided: -- Obesity, unspecified -- Other - I will add my own diagnosis -- Disagree - Not applicable / Not valid Query created by: Randall Gardner on 08/31/2024 9:38 AM Electronically signed by: SHAYY GARCIA MD 08/31/2024 3:35 PM Castillo RN - 08/31/2024 2:27 PM EST [...] PRN medications: buprenorphine, buprenorphine, [Held by provider] rqbzfmkseq-eabqauwemmjpu-rqmyscds, dextrose 50%, dextrose 50%, dextrose, dextrose, glucagon [...] bypass grafting in 2013 and again around 0868-9090 at which time she required 5 cardiac stents Chemistry Faculty Member is Dr. Roberts through [facility] -- Continue statin, beta-alvarez -- Resume Plavix [...] barriers to meeting goals/advancing plan of care: Nondenominational of bladder & bowel function and pain [...] angioplasty with 5 cardiac stents. Her primary yard motor operator is Dr. Ángel Roberts with the [facility]. Remote hysterectomy and subsequent development of lower [...] Date Noted Malignant neoplasm of ascending colon ([facility]) 08/05/2024 Anxiety 11/06/2018 Diabetes mellitus type 2, uncomplicated ([facility]) 11/06/2018 Depression 11/06/2018 Hypercholesteremia 11/06/2018 GERD (gastroesophageal [...] 1 tablet (300 mg total) by mouth. oczjftiiqi-fqmzjibsotjcm-dqwweuxg (FIORICET, ESGIC) 50-325-40 mg per tablet Take [...] Signed Date: 08/05/2024 15:06 ET Workstation ID: [id number] Transcribed By: Self Edit Transcribed Date: 08/05/2024 [...] Signed Date: 08/23/2024 07:29 ET Workstation ID: [id number] Transcribed By: Self Edit Transcribed Date: 08/23/2024 [...] Signed Date: 08/23/2024 07:29 ET Workstation ID: [id number] Transcribed By: Self Edit Transcribed Date: 08/23/2024 [...] OPEN (R) OPERATIVE NOTE Date: 08/30/2024 Location: [facility] OR Name: Cait Martin Marcela, : 1955, Diagnosis Pre-Op Diagnosis Codes: * Malignant neoplasm of ascending colon (CMS/HCC) [C18.2] Post-op Diagnosis * Malignant neoplasm of ascending colon (CMS/HCC) [C18.2] Procedures LAPAROSCOPIC COLECTOMY ? OPEN 35920 - SC LAP SURG COLECTOMY PARTIAL W REMOVAL OF TERMINAL ILEUM W ILEOCOLOSTOMY Indications: Cait Medrano is a 69 y.o. female who is having surgery for Pre-Op Diagnosis Codes: * Malignant neoplasm of ascending colon (CMS/HCC) [C18.2]. Surgeon(s) & Respiratory Care Specialist(s) * Diogo Martinez MD - Primary Respiratory Care Specialist: Imer Scott PA-C Anesthesia: general ASA: IV [...] RN - 08/30/2024 6:06 AM EST MALIKA-SPOUSE [phone] documented in this encounter Consult Notes * oRcio Harrington NP - 08/30/2024 1:33 PM EST [...] a past medical history of Angina pectoris ([facility]), Anxiety (11/06/2018), Arthritis, Blindness (2003), Cancer, colon ([facility]), CHF (congestive heart failure) ([facility]), Colon polyp, Constipation (11/06/2018), Depression (11/06/2018), Diabetes mellitus type 1, uncomplicated, on nursing home insulin pump ([facility]) (11/06/2018), GERD (gastroesophageal reflux disease) (11/06/2018), Heart disease, Hiatal hernia, Hypercholesteremia (11/06/2018), Hypertension, Joint pain, Migraines (11/06/2018), Myocardial infarction ([facility]), PONV (postoperative nausea and vomiting), and Sleep [...] mouth 2 (two) times a day. 08/29/2024 dapativbrr-qekyfpufqwtox-ynyvnios (FIORICET, ESGIC) 50-325-40 mg per tablet Take [...] 5 cardiac stents. She is followed by yard motor operator Dr. Ángel Roberts at [facility]. - Patient does report she occasionally [...] has been seen in the past by [facility] and [facility]. She is also followed [...] Description 10/28/2024 10:45 AM EDT Office Visit [facility] Hematology Oncology [address] [place] [id number] Quoc Bernal MD [address] [place] [address] 12/14/2024 11:15 AM EDT Office Visit General Surgery - [place] [address] [id number] Diogo Martinez MD [address] [address] documented as of this encounter Procedures Procedure [...] EST Malignant neoplasm of ascending colon (CMS/HCC) SC LAP SURG COLECTOMY PARTIAL W REMOVAL OF TERMINAL ILEUM W ILEOCOLOSTOMY 08/30/2024 7:33 AM EST Malignant neoplasm of ascending colon (CMS/HCC) POCT GLUCOSE BLOOD Routine 08/30/2024 6: 20 AM EST documented in this encounter Results * (ABNORMAL) CBC auto differential (09/01/2024 6:25 AM EST) WBC 6.8 4.8 - 10.8 K/mcL LAB HEMETOLOGY METHOD 09/01/2024 6:56 AM [facility] RBC 3.40(L) 3.80 - 4.80 [...] % LAB HEMETOLOGY METHOD 09/01/2024 6:56 AM EST [facility] Neutrophils Absolute 3.95 1.50 - 7.00 K/mcL LAB HEMETOLOGY METHOD 09/01/2024 6:56 AM EST [facility] Lymphocytes Absolute 1.84 1.00 - 5.00 K/mcL LAB HEMETOLOGY METHOD 09/01/2024 6:56 AM EST [facility] Monocytes Absolute 0.84 0.20 - 1.00 K/[facility] LAB HEMETOLOGY METHOD 09/01/2024 6:56 AM EST [facility] Eosinophils Absolute 0.08 0.00 - 0.50 K/[facility] LAB HEMETOLOGY METHOD 09/01/2024 6:56 AM EST [facility] Basophils Absolute 0.03 0.00 - 0.20 K/mcL LAB HEMETOLOGY METHOD 09/01/2024 6:[address] [facility] Immature Granulocytes Absolute 0.02 0.00 - 0.03 K/[facility] LAB HEMETOLOGY METHOD 09/01/2024 6:56 AM EST [facility] Blood Venous blood specimen / Unknown Venipuncture / Unknown 09/01/2024 6:25 AM EST 09/01/2024 6:40 AM EST Terrie POWELL LAB BLOOD ORDERABLES Final Re sult [facility] [address] [place] [address], * Phosphorus (09/01/2024 6:25 AM EST) Phosphorus 3.9 2.5 - 4.5 mg/dL LAB CHEMISTRY METHOD 09/01/2024 7:29 AM EST [facility] Blood Venous blood specimen / Unknown Venipuncture / Unknown 09/01/2024 6:25 AM EST 09/01/2024 6:38 AM EST Terire POWELL LAB BLOOD ORDERABLES Final Re sult [facility] [address] [place] [address], [place] [phone] * Magnesium (09/01/2024 6:25 AM EST) Pathologist [facility] Magnesium 2.3 1.9 - 2.6 mg/dL LAB CHEMISTRY METHOD 09/01/2024 7:29 AM [facility] Blood Venous blood specimen / Unknown Venipuncture / Unknown 09/01/2024 6:25 AM EST 09/01/2024 6:38 AM EST Terrie POWELL LAB BLOOD ORDERABLES Final Re sult Performing Organization Address [facility]/ZIP Co de Phone Number [facility] [address] [place] [address], [place] [phone] * (ABNORMAL) Basic metabolic panel (09/01/2024 6:25 AM EST) [facility] Sodium 142 133 - 145 mmol/L LAB CHEMISTRY METHOD 09/01/2024 7:29 AM [facility] Potassium 3.9 3.5 - 5.5 [...] POWELL LAB BLOOD ORDERABLES Final Re sult [facility] [address] [place] [address], * (ABNORMAL) CBC auto differential (08/31/2024 6:35 AM EST) WBC 9.7 4.8 - 10.8 K/mcL LAB HEMETOLOGY METHOD 08/31/2024 7:07 AM [facility] RBC 3.60(L) 3.80 - 4.80 M/mcL LAB HEMETOLOGY METHOD 08/31/2024 7:07 AM [facility] Hemoglobin 11.2(L) 11.5 - 16.0 g/dL LAB HEMETOLOGY METHOD 08/31/2024 7:07 AM [facility] Hematocrit 36.2 35.0 - 47.0 % LAB HEMETOLOGY METHOD 08/31/2024 7:07 AM [facility] MCV 99.5(H) 79.0 - 98.0 FL LAB HEMETOLOGY METHOD 08/31/2024 7:07 AM [facility] MCH 30.8 27.0 - 32.0 pcg LAB HEMETOLOGY METHOD 08/31/2024 7:07 AM [facility] MCHC 30.9(L) 32.0 - 37.0 g/dL LAB HEMETOLOGY METHOD 08/31/2024 7:07 AM [facility] RDW 13.5 11.0 - 15.0 % LAB HEMETOLOGY METHOD 08/31/2024 7:07 AM [facility] Platelets 216 130 - 400 K/mcL LAB HEMETOLOGY METHOD 08/31/2024 7:07 AM [facility] MPV 11.8(H) 7.0 - 11.0 FL LAB HEMETOLOGY METHOD 08/31/2024 7:07 AM [facility] NRBC 0.0 <1.0 % LAB HEMETOLOGY METHOD 08/31/2024 7:07 AM [facility] NRBC Absolute 0.00 <0.10 K/mcL LAB HEMETOLOGY METHOD 08/31/2024 7:07 AM [facility] Neutrophils Relative 67.3 % LAB HEMETOLOGY METHOD 08/31/2024 7:07 AM [facility] Lymphocytes Relative 21.5 % LAB HEMETOLOGY METHOD 08/31/2024 7:07 AM [facility] Monocytes Relative 10.0 % LAB HEMETOLOGY METHOD 08/31/2024 7:07 AM [facility] Eosinophils Relative 0.6 % LAB HEMETOLOGY METHOD 08/31/2024 7:07 AM [facility] Basophils Relative 0.2 % LAB HEMETOLOGY METHOD 08/31/2024 7:07 AM EST [facility] Immature Granulocytes Relative 0.4 % LAB HEMETOLOGY METHOD 08/31/2024 7:07 AM EST [facility] Neutrophils Absolute 6.53 1.50 - 7.00 K/mcL LAB HEMETOLOGY METHOD 08/31/2024 7:07 AM EST [facility] Lymphocytes Absolute 2.09 1.00 - 5.00 K/mcL LAB HEMETOLOGY METHOD 08/31/2024 7:07 AM EST [facility] Monocytes Absolute 0.97 0.20 - 1.00 K/mcL LAB HEMETOLOGY METHOD 08/31/2024 7:07 AM EST [facility] Eosinophils Absolute 0.06 0.00 - 0.50 K/mcL LAB HEMETOLOGY METHOD 08/31/2024 7:07 AM EST [facility] Basophils Absolute 0.02 0.00 - 0.20 K/mcL LAB HEMETOLOGY METHOD 08/31/2024 7:07 AM [facility] Immature Granulocytes Absolute 0.04(H) 0.00 - 0.03 K/mcL LAB HEMETOLOGY METHOD 08/31/2024 7:07 AM [facility] Blood Venous blood specimen / Unknown Venipuncture / Unknown 08/31/2024 6:35 AM EST 08/31/2024 6:58 AM EST us ANDRE Howard LAB BLOOD ORDERABLES Final Result [facility] [address] [place] [address], * (ABNORMAL) Basic metabolic panel (08/31/2024 6:35 AM EST) Sodium 138 133 - 145 mmol/L LAB CHEMISTRY METHOD 08/31/2024 7:48 AM EST [facility] Potassium 3.4(L) 3.5 - 5.5 mmol/L LAB CHEMISTRY METHOD 08/31/2024 7:48 AM [facility] Chloride 107 96 - 110 mmol/L LAB CHEMISTRY METHOD 08/31/2024 7:48 AM [facility] CO2 25 21 - 32 mmol/L LAB CHEMISTRY METHOD 08/31/2024 7:48 AM [facility] Anion Gap 6 3 - 11 LAB CHEMISTRY METHOD 08/31/2024 7:48 AM [facility] Glucose 147(H) 70 - 100 mg/dL LAB CHEMISTRY METHOD 08/31/2024 7:48 AM [facility] BUN 9 5 - 25 mg/dL LAB CHEMISTRY METHOD 08/31/2024 7:48 AM [facility] Comment:Results verified by repeat testing Creatinine 0.94 0.50 - 1.10 mg/dL LAB CHEMISTRY METHOD 08/31/2024 7:48 AM [facility] eGFR 67 >=60 mL/min/1. 73m2 LAB CHEMISTRY METHOD 08/31/2024 7:48 AM [facility] Comment:Calculation based on the??Chronic Kidney Disease Epidemiology Collaboration (CKD-EPI) equation refit??without adjustment for race. BUN/Creatinine Ratio 9.6 LAB CHEMISTRY METHOD 08/31/2024 7:48 AM [facility] Calcium 8.5 8.5 - 10.5 mg/dL LAB CHEMISTRY METHOD 08/31/2024 7:48 AM [facility] Blood Venous blood specimen / Unknown Venipuncture / Unknown 08/31/2024 6:35 AM EST 08/31/2024 6:58 AM EST us ANDRE Howard LAB BLOOD ORDERABLES Final Result [facility] [address] [place] [address], [place] [phone] * Tissue exam (08/30/2024 9:41 AM EST) [...] pT3N2b, see synoptic. 09/01/2024 4:27 PM EST [facility] ([facility] Gross Description A. Colon, right: [...] the index mass. The uninvolved mucosa is fsn-utbq-thb glistening with normal folds throughout. Multiple possible [...] fletcher-pink and glistening. Gross photographs are taken. Desk Officer sections are submitted as follows: 1, perpendicular [...] lymph nodes each, six pieces each 18, sales representative graphic art larger grossly positive possible lymph node, two pieces 19, sales representative graphic art larger grossly positive possible lymph node, two pieces ELSA 09/01/2024 4:27 PM EST [facility] ([facility] Synoptic Checklist COLON AND RECTUM: [...] Additional Findings: ?Adenoma(s) ?? Comment(s): ?performed on [id number] and reported as RENÉ, HER2 Negative (1+) 09/01/2024 4:27 PM EST [facility] Disclaimer Unless otherwise specified, all tissue is 10% NB formalin fixed and paraffin embedded. 09/01/2024 4:27 PM EST [facility] Tissue (Colon) 08/30/2024 9: 41 AM EST 08/30/2024 10:49 AM EST Diogo Martinez MD LAB PATHOLOGY ORDERABLES Fi nal Result [facility] [address] [place] [address], * (ABNORMAL) POCT Glucose, blood (08/30/2024 6:20 AM EST) Glucose POCT 150(H) 70 - 100 mg/dL 08/30/2024 6:22 AM EST [facility] Blood Capillary blood specimen / Unknown 08/30/2024 6:20 AM EST 08/30/2024 6:23 AM EST us Diogo Martinez MD LAB POINT OF CARE T EST DOCKED DEVICE UNSOLICITED RESULTS Final Result [facility] ([facility]) [facility] [address] [place] [address], [place] [phone] documented in this encounter Visit Diagnoses Diagnosis [...] Tandem t:slim X2, Insulin Type? lispro (HumaLOG), Wyola / Cartridge Size? Other, Other: [place] / Cartridge Size? 300ml, Volume Remaining in Wyola? 190ml, Time and Date of last Wyola Fill/Cartridge Change known? Yes, Date? 08/29/2024, Time? [...] Unit 1710 (Not Given - Provider: Tammy Cheugn RN - Reason: Other - Comment: given in pacu)2110 (Given - Provider: Alma Marie RN) 05 (Given - Provider: Alma Marie RN)143 (Given - Provider: Lake Castillo RN)2118 (Given - Provider: Cira Marquez RN) 0546 (Given - Provider: Cira Marquez RN) ALPRAZolam (XANAX) tablet 1 mg 1 mg, oral, Nightly, First dose (after last modification) on Fri08/30/24 at 2100 2 (Given - Provider: Alma Marie RN) 2117 (Given - Provider: Cira Marquez RN) alvimopan (ENTEREG) capsule 12 mg (COMPLETED) 12 mg, oral, Once, On Fri08/30/24 at 0630, For 1 dose, Preprocedure, -Give medication once 5 hours to 30 minutes PRIOR to surgery with a sip of water -Do NOT open or crush capsule Alvimopan (ENTEREG??) is part of a REMS Program and training materials, available at [facility] and in order Reference Links, must be reviewed prior to ordering, dispensing, or administration., I am aware of the [facility] REMS Program requirements and have reviewed the [facility]S Training Kits[facility] Yes 650 (Given - Provider: [...] Program and training materials, available at [facility] and in order Reference Links, must be reviewed prior to ordering, dispensing, or administration., I am aware of the [facility] REMS Program requirements and have reviewed the [facility] REMS Training Kits, [facility]: Yes 812 (Given - Provider: Lake Castillo RN)2117 (Given - Provider: Cira Marquez RN) 820 (Hold - Provider: Lake Castillo RN - Reason: Patient/Resident/Age nt refused - education provided - Comment: pt with loose stools) atorvastatin (LIPITOR) tablet 80 mg 80 mg, oral, Nightly, First dose on Fri08/30/24 at 2100 2110 (Given - Provider: Alma Marie RN) 2119 (Given - Provider: Cira Marquez, RN) bumetanide (BUMEX) tablet 1 mg 1 mg, [...] - Reason: Other - Comment: INCREASED BP) 08 (Given - Provider: Lake Castillo RN) pantoprazole [...] 2108 (Given - Provider: Alma Marie RN) 08 (Given - Provider: Lake Castillo RN)2118 (Given - Provider: Cira Marquez, DOMINGA) 08 (Given - Provider: Lake Castillo RN) sertraline (ZOLOFT) tablet 50 mg 50 mg, oral, Nightly, First dose on Fri08/30/24 at 2100 2113 (Given - Provider: Alma Marie RN) 2119 (Given - Provider: Cira Marquez RN) topiramate (TOPAMAX) tablet 200 mg 200 [...] Tandem t:slim X2, Insulin Type? lispro (HumaLOG), Wyola / Cartridge Size? Other, Other: Wyola / Cartridge Size? 300ml, Volume Remaining in Wyola? 190ml, Time and Date of last Wyola Fill/Cartridge Change known? Yes, Date? 08/29/2024, Time? [...] Diamond CRNA)0800 (Anesthesia Volume Adjustment - Provider: Shria Diamond CRNA)0940 (Anesthesia Volume Adjustment - Provider: [...] Marie RN) 2133 (Given - Provider: Cira Marquez RN) nitroglycerin (NITROSTAT) SL tablet 0.4 mg 0.4 [...] (WELLBUTRIN XL) 24 hr tablet 300 mg 08/30/2024 xwqchszdps-vxerzbitzluec-nye feine (FIORICET, ESGIC) 50-325-40 mg per tablet [...] 08/30 nitroglycerin (NITROSTAT) SL tablet 0.4 mg 08/30/2024 NON FORMULARY 2 08/30/2024 ondansetron (PF) (ZOFRAN) injection 4 mg 2 08/30/2024 ondansetron ODT (ZOFRAN-ODT) disintegrating tablet 4 mg 1 08/30/2024 pantoprazole (PROTONIX) EC tablet 40 mg 1 0 08/30/2024 prochlorperazine (COMPAZINE) injection 10 mg 1 [...] 09/01/2024 documented in this encounter Care Teams Open Source Developer Relationship Specialty Start Date End Date Arabella Decker NP [facility] [address] [place] [id number] PCP - General 08/20/23 documented as of this encounter
--- OUTSIDE RECORDS SUMMARY | 2024-09-27 08:46 | XMS_ITS | Encounter Summary ---
Author Organization [facility] Address [address] [place] [address] Care Team Providers Care Customer Service Sales Consultant Name Role Phone Arabella Decker NP Primary Care Provider [phone] Reason for Referral * Consultation (Routine) - Authorized Specialty Diagnoses / Procedures Referred By Contac t Referred To Contact Orthopaedics Diagnoses Fracture of humeral head Procedures NV VISIT OFFICE OUTPATIENT ESTABLISHED MODERATE LEVEL Evangelista Tierney MD [address] [place] [id number] Phone: tel: fax: [facility] [address] [address] Phone: tel: fax: Referral ID Status Reason Start Date Expiration Date Visits Requested Visits Authorized [id number] Authorized Specialty Services Required 09/11/2024 09/11/2025 1 [...] EST - 09/11/2024 6:20 PM EST Emergency [facility] Emergency [address] [place] [phone] Evangelista Tierney MD [address] [place] [address] Fracture of humeral head, closed, right, initial [...] at your next scheduled visit. Call the transition of care specialist tomorrow to discuss when you should [...] Daily Amount: 20 mg 10 capsule 09/11/2024 pantoprazole (PROTONIX) 40 mg EC tabletIndications :GERD [...] for severe pain. 12 tablet 09/01/2024 09/24/2024 documented as of this encounter Ordered Prescriptions [...] Arthritis Blindness 2004 Cancer, colon ([facility]) CHF (congestive heart failure) ([facility]) Colon polyp Constipation 11/06/2018 DX:Constipation Depression 11/06/2018 DX:Depression Diabetes mellitus type 1, uncomplicated, on prison insulin pump ([facility]) 11/06/2018 DX:Diabetes mellitus type 2, uncomplicated ([facility]) GERD (gastroesophageal reflux disease) 11/06/2018 DX:GERD (gastroesophageal reflux disease) Heart disease Hiatal hernia Hypercholesteremia 11/06/2018 DX:Hypercholesteremia Hypertension Joint pain Migraines 11/06/2018 DX:Migraines Myocardial infarction ([facility]) PONV (postoperative nausea and vomiting) Sleep apnea [...] 1 tablet (300 mg total) by mouth. uveyogyffc-jmmytynetriut-pvaeuerr (FIORICET, ESGIC) 50-325-40 mg per tablet Take [...] Given 09/11/24 1527) ED Course as of 09/11/24 1655 Sat Sep 11, [address] of the head and C-spine are [...] Tierney MD 09/11/24 1526 Evangelista Tierney MD 09/11/24 165 documented in this encounter Plan of Treatment Upcoming Encounters Date Type Department Care Team (Late st Contact Info) Description 10/28/2024 10:45 AM EDT Office Visit [facility] Hematology Oncology [address] [place] [phone] Quoc Bernla MD [address] [place] [address] 12/14/2024 11:15 AM EDT Office Visit General Surgery - [place] [address] [phone] Diogo Martinez MD [address] [address] Scheduled Referrals Name Type Priority Associated Diagnoses [...] Date: 09/12/2024 09:39 ET Assigned Physician: Nile Hernánedz Reviewed and Electronically Signed By: Nile Hernández Signed Date: 09/12/2024 09:40 ET Workstation ID: [id number] Transcribed By: Self Edit Transcribed Date: 09/12/2024 [...] Signed Date: 09/12/2024 09:40 ET Workstation ID: [id number] Transcribed By: Self Edit Transcribed Date: 09/12/2024 [...] Signed Date: 09/12/2024 09:48 ET Workstation ID: [id number] Transcribed By: Self Edit Transcribed Date: 09/12/2024 [...] Signed Date: 09/12/2024 09:48 ET Workstation ID: [id number] Transcribed By: Self Edit Transcribed Date: 09/12/2024 09:46 ET us Evangelista Tierney MD IMG XR PROCEDURES Final [...] MD on 09/11/2024 16:39:28 Evangelista Tierney MD IM CT PROCEDURES Final Result documented in this [...] RN) documented in this encounter Care Teams Customer Service Sales Consultant Relationship Specialty Start Date [place] [address] PCP - General 08/20/23 documented as of this encounter
--- OUTSIDE RECORDS SUMMARY | 2024-09-27 08:46 | XMS_ITS | Clinical Summary ---
Author Organization [facility] Address [address] [place] [address] Phone Care Team Providers Care Watch Assembly Inspector Name Role Phone Arabella Decker NP Primary Care Provider [phone] Allergies Active Allergy Reactions Criticality Noted Date [...] a day if needed for dizziness. Active pantoprazole (PROTONIX) 40 mg EC tabletIndicati ons:GERD (gastroesophag eal reflux disease) TAKE 1 TABLET BY MOUTH TWICE A DAY 180 tablet 1 Active oxyCODONE (OXY-IR) 5 mg immediate release capsule Take 1 capsule (5 mg total) by mouth every 6 (six) hours if needed for severe pain for up to 10 doses. Max Daily Amount: 20 mg 10 capsule 025 Active isosorbide mononitrate (IMDUR) 60 mg 24 hr tablet Take 1 tablet (60 mg total) by mouth 1 (one) time each day. 023 Active isosorbide mononitrate (IMDUR) 120 mg 24 hr tablet Take 60 mg by mouth 1 (one) time each day. 2024 Discontinued acetaminophen (TYLENOL 8 HOUR) 650 mg 8 [...] clear!) May add flavor packet. 4000 mL 2024 Discontinued(T herapy completed) neomycin (MYCIFRADIN) 500 mg tablet Take two tablets (1000 mg) by mouth at 2:00pm, 3:00pm and 8:00pm on the day prior to surgery 6 tablet 2024 Discontinued(T herapy completed) acetaminophen (TYLENOL) 500 mg tablet Take 2 tablets (1,000 mg total) by mouth every 8 (eight) hours for 10 days. 30 tablet 025 2024 oxyCODONE (ROXICODONE) 5 mg immediate release tablet Take 1 tablet (5 mg total) by mouth every 6 (six) hours if needed for severe pain. 12 tablet 025 2024 Discontinued Active Problems Problem Noted Date Diagnosed Date Malignant neoplasm of ascending colon 08/05/2024 Anxiety 11/06/2018 Diabetes mellitus type 2, uncomplicated 11/07/19 19 Depression 11/06/2018 Hypercholesteremia 11/06/2018 GERD (gastroesophageal reflux disease) 9 Migraines 11/06/2018 Constipation 11/06/2018 Asthmatic bronchitis without complication 2018 Encounters Date Type Department Care Team Description 09/24/2024 3:30 PM EST Office Visit [facility] Hematology Oncology [address] [place] [address] Quoc Bernal MD Malignant neoplasm of ascending colon (CMS/HCC) 09/14/2024 3:45 PM EST Office Visit General Surgery - [place] [address] [address] Diogo Martinez MD Malignant neoplasm of ascending colon (CMS/HCC) (Primary Dx) 09/11/2024 3:12 PM EST - 09/11/2024 6:20 PM EST Emergency [facility] Emergency [address] [place] [address] Evangelista Tierney MD Fracture of humeral head, closed, right, initial encounter (Primary Dx); Acute head injury without loss of consciousness, initial encounter; Acute pain of right shoulder; Right elbow pain Discharge Disposition: Home or Self Care 08/30/2024 7:31 AM EST Anesthesia Event [facility] Main OR [address] [place] [phone] Ramesh Larios MD Dusza, Sara, CRNA 08/30/2024 7:30 AM EST - 08/30/2024 10:00 AM EST Surgery [facility] Main OR [address] [place] [address] Diogo Martinez MD LAPAROSCOPIC COLECTOMY [90544 (CPT??)] 08/30/2024 5:55 AM EST - 09/01/2024 11:13 AM EST Hospital Encounter [facility] Medical Surgical Unit [address] [place] [address] Diogo Martinez MD Kokosadze, Estate, MD Malignant neoplasm of ascending colon (CMS/HCC) Discharge Disposition: Home or Self Care 08/16/2024 10:16 AM EST - 08/16/2024 11:59 PM EST Hospital Encounter [facility] CT Scan [address] [place] [address] Malignant neoplasm of ascending colon (CMS/HCC) Discharge Disposition: Home or Self Care 2024 Telephone Gastroenterology - [address] [address] Kristin Dey [place] 08/05/2024 2:30 PM EST Consult General Surgery - [place] 175 [facility] [address] [place] [address] Diogo Martinez MD Malignant neoplasm of ascending colon (CMS/HCC) (Primary Dx) 08/05/2024 Telephone Gastroenterology - [address] [address] Ashlyn Shetty [place] 08/05/2024 Telephone Gastroenterology - [address] [address] John Plaza MD 08/03/2024 12:47 PM EST - 08/03/2024 11:59 PM EST Hospital Encounter [facility] CT Scan [address] [place] [address] Adenocarcinoma of colon (CMS/HCC) Discharge Disposition: Home or Self Care 07/30/2024 Telephone Gastroenterology - [address] [address] Tamiko Bazzi [place] SCHEDULING 07/29/2024 8:49 AM EST Anesthesia Event [facility] Endoscopy [address] [place] [phone] Wagner Rivera MD 07/29/2024 8:04 AM EST - 07/29/2024 11:59 PM EST Hospital Encounter [facility] Endoscopy [address] [place] [phone] John Plaza MD Georgette, Nathaniel, CRNA Gomes, Sheldon B, MD Gastroesophageal reflux disease without esophagitis [K21.9] (Primary Dx); Special screening for malignant neoplasms, colon; GERD (gastroesophageal reflux disease) Discharge Disposition: Home or Self Care 07/13/2024 Telephone Gastroenterology - [address] [phone] John Plaza MD 07/12/2024 Telephone Gastroenterology - [address] [phone] Kristin Dey MA from Last 3 Months [...] Diabetes mellitus type 1, un complicated, on chcf insulin pump ([facility]) 11/06/2018 DX:Diabetes mellit us type 2, uncomplicated ([facility]) Hypercholesteremia 11/06/2018 DX:Hyperchole steremia Depression 11/06/2018 DX:Depression Anxiety 11/06/2018 DX:Anxiety GERD (gastroesophageal reflux disease) 11/06/2018 DX:GERD (gastroesophageal reflux disease) Migraines 11/06/2018 DX:Migraines Constipation 11/06/2018 DX:Constipation Blindness 2004 Sleep apnea Hypertension CHF (congestive heart failure) ([facility]) Heart disease Colon polyp Hiatal hernia Angina pectoris ([facility]) Cancer, colon ([facility]) PONV (postoperative nausea and vomiting) Myocardial infarction ([facility]) Arthritis Joint pain Social History Tobacco Use Types Packs/Day Years Used Date Smoking Tobacco: Never Smokeless Tobacco: Never Tobacco Cessation:Counseling Given: Not Answered Alcohol Use Standard Drinks/Week Comments Yes 0 [...] Sign Reading Time Taken Comments Blood Pressure 140/48 09/24/2024 3:26 PM EST Pulse 72 09/24/2024 3:26 PM EST Temperature 36.7 ??C (98 ??F) 09/24/2024 3:26 PM EST Respiratory Rate 18 09/11/2024 4:48 PM EST Oxygen Saturation 100% 09/24/2024 3:26 PM EST Inhaled Oxygen Concentration - - Weight 82.8 kg (182 lb 9.6 oz) 09/24/2024 3:26 P M EST Height 162.6 cm (5' 4 ) 09/24/2024 3:26 PM EST Body Mass Index 31.34 09/24/2024 3:26 PM EST Plan of Treatment Upcoming Encounters Date Type Department Care Team (Late st Contact Info) Description 10/28/2024 10:45 AM EDT Office Visit [facility] Hematology Oncology [address] [place] [phone] Quoc Bernal MD [address] [place] [address] 12/14/2024 11:15 AM EDT Office Visit General Surgery - [place] [address] [phone] Diogo Martinez MD 175 [facility] [address] [place] [address] Health Maintenance Due Date Last Done Comments [...] this topic Medical Devices Implanted Type Area Pre Parole Counseling Aide Device Identifier Shelf Expiration Date Model / [...] ENDOTRACHEAL(NO CHARGE) Routine 08/30/2024 7:55 AM EST SC LAP SURG COLECTOMY PARTIAL W REMOVAL [...] Signed Date: 09/12/2024 09:40 ET Workstation ID: [id number] Transcribed By: Self Edit Transcribed Date: 09/12/2024 09:39 ET Narrative 09/12/2024 9:40 AM EST PROCEDURE: Radiographs of the right elbow. HISTORY: fall pain. COMPARISON: None. FINDINGS: Bones appear demineralized. ??No joint effusion. ??No fracture or malalignment. ??Small dystrophic calcification of the triceps tendon. Procedure Note Snodgress, Nile, MD - 09/12/2024 PROCEDURE: Radiographs of the [...] Signed Date: 09/12/2024 09:40 ET Workstation ID: [id number] Transcribed By: Self Edit Transcribed Date: 09/12/2024 [...] Signed Date: 09/12/2024 09:48 ET Workstation ID: [id number] Transcribed By: Self Edit Transcribed Date: 09/12/2024 [...] Signed Date: 09/12/2024 09:48 ET Workstation ID: [id number] Transcribed By: Self Edit Transcribed Date: 09/12/2024 [...] MD IMG CT PROCEDURES Final Result * (ABNORMAL) CBC auto differential (09/01/2024 6:25 AM EST) Only the most recent of3 resultswithin the time period is included. WBC 6.8 4.8 - 10.8 K/mcL LAB HEMETOLOGY METHOD 09/01/2024 6:56 AM [facility] RBC 3.40(L) 3.80 - 4.80 M/mcL LAB HEMETOLOGY METHOD 09/01/2024 6:56 AM [facility] Hemoglobin 10.4(L) 11.5 - 16.0 g/dL LAB HEMETOLOGY METHOD 09/01/2024 6:56 AM [facility] Hematocrit 33.4(L) 35.0 - 47.0 % LAB HEMETOLOGY METHOD 09/01/2024 6:56 AM [facility] MCV 98.5(H) 79.0 - 98.0 FL LAB HEMETOLOGY METHOD 09/01/2024 6:56 AM [facility] MCH 30.7 27.0 - 32.0 pcg LAB HEMETOLOGY METHOD 09/01/2024 6:56 AM [facility] MCHC 31.1(L) 32.0 - 37.0 g/dL LAB HEMETOLOGY METHOD 09/01/2024 6:56 AM [facility] RDW 13.5 11.0 - 15.0 % LAB HEMETOLOGY METHOD 09/01/2024 6:56 AM [facility] Platelets 184 130 - 400 K/mcL LAB HEMETOLOGY METHOD 09/01/2024 6:56 AM [facility] MPV 11.8(H) 7.0 - 11.0 FL LAB HEMETOLOGY METHOD 09/01/2024 6:56 AM [facility] NRBC 0.0 <1.0 % LAB HEMETOLOGY METHOD 09/01/2024 6:56 AM [facility] NRBC Absolute 0.00 <0.10 K/mcL LAB HEMETOLOGY METHOD 09/01/2024 6:56 AM [facility] Neutrophils Relative 58.5 % LAB HEMETOLOGY METHOD 09/01/2024 6:56 AM [facility] Lymphocytes Relative 27.2 % LAB HEMETOLOGY METHOD 09/01/2024 6:56 AM [facility] Monocytes Relative 12.4 % LAB HEMETOLOGY METHOD 09/01/2024 6:56 AM [facility] Eosinophils Relative 1.2 % LAB HEMETOLOGY METHOD 09/01/2024 6:56 AM [facility] Basophils Relative 0.4 % LAB HEMETOLOGY METHOD 09/01/2024 6:56 AM [facility] Immature Granulocytes Relative 0.3 % LAB HEMETOLOGY METHOD 09/01/2024 6:56 AM [facility] Neutrophils Absolute 3.95 1.50 - 7.00 K/mcL LAB HEMETOLOGY METHOD 09/01/2024 6:56 AM [facility] Lymphocytes Absolute 1.84 1.00 - 5.00 K/mcL LAB HEMETOLOGY METHOD 09/01/2024 6:56 AM [facility] Monocytes Absolute 0.84 0.20 - 1.00 K/mcL LAB HEMETOLOGY METHOD 09/01/2024 6:56 AM [facility] Eosinophils Absolute 0.08 0.00 - 0.50 K/mcL LAB HEMETOLOGY METHOD 09/01/2024 6:56 AM [facility] Basophils Absolute 0.03 0.00 - 0.20 K/mcL LAB HEMETOLOGY METHOD 09/01/2024 6:56 AM [facility] Immature Granulocytes Absolute 0.02 0.00 - 0.03 K/mcL LAB HEMETOLOGY METHOD 09/01/2024 6:56 AM EST [facility] Blood Venous blood specimen / Unknown Venipuncture / Unknown 09/01/2024 6:25 AM EST 09/01/2024 6:40 AM EST us Terrie POWELL LAB BLOOD ORDERABLES Final Re sult Performing Organization Address City/[facility]/ZIP Co de Phone Number [facility] [address] [place] [address], [place] [phone] * Phosphorus (09/01/2024 6:25 AM EST) Phosphorus 3.9 2.5 - 4.5 mg/dL LAB CHEMISTRY METHOD 09/01/2024 7:29 AM EST [facility] Blood Venous blood specimen / Unknown Venipuncture / Unknown 09/01/2024 6:25 AM EST 09/01/2024 6:38 AM EST us Terrie POWELL LAB BLOOD ORDERABLES Final Re sult Performing Organization Address [facility]/ZIP Co de Phone Number [facility] [address] [place] [address], [place] [phone] * Magnesium (09/01/2024 6:25 AM EST) Magnesium 2.3 1.9 - 2.6 mg/dL LAB CHEMISTRY METHOD 09/01/2024 7:29 AM EST [facility] Blood Venous blood specimen / Unknown Venipuncture / Unknown 09/01/2024 6:25 AM EST 09/01/2024 6:38 AM EST us Terrie POWELL LAB BLOOD ORDERABLES Final Re sult Performing Organization Address City/[facility]/ZIP Co de Phone Number [facility] [address] [place] [address], [place] [phone] * (ABNORMAL) Basic metabolic panel (09/01/2024 6:25 AM EST) Only the most recent of2 resultswithin the time period is included. Sodium 142 133 - 145 mmol/L LAB CHEMISTRY METHOD 09/01/2024 7:29 AM [facility] Potassium 3.9 3.5 - 5.5 mmol/L LAB CHEMISTRY METHOD 09/01/2024 7:29 AM [facility] Chloride 109 96 - 110 mmol/L LAB CHEMISTRY METHOD 09/01/2024 7:29 AM [facility] CO2 28 21 - 32 mmol/L LAB CHEMISTRY METHOD 09/01/2024 7:29 AM [facility] Anion Gap 5 3 - 11 LAB CHEMISTRY METHOD 09/01/2024 7:29 AM [facility] Glucose 124(H) 70 - 100 mg/dL LAB CHEMISTRY METHOD 09/01/2024 7:29 AM [facility] BUN 7 5 - 25 mg/dL LAB CHEMISTRY METHOD 09/01/2024 7:29 AM [facility] Creatinine 0.84 0.50 - 1.10 mg/dL LAB CHEMISTRY METHOD 09/01/2024 7:29 AM [facility] eGFR 76 >=60 mL/min/1. 73m2 LAB CHEMISTRY METHOD 09/01/2024 7:29 AM [facility] Comment:Calculation based on the??Chronic Kidney Disease Epidemiology Collaboration (CKD-EPI) equation refit??without adjustment for race. BUN/Creatinine Ratio 8.3 LAB CHEMISTRY METHOD 09/01/2024 7:29 AM [facility] Calcium 8.4(L) 8.5 - 10.5 mg/dL LAB CHEMISTRY METHOD 09/01/2024 7:29 AM [facility] Blood Venous blood specimen / Unknown Venipuncture / Unknown 09/01/2024 6:25 AM EST 09/01/2024 6:38 AM EST Terrie POWELL LAB BLOOD ORDERABLES Final Re sult [facility] [address] [place] [address], [place] [phone] * Tissue exam (08/30/2024 9:41 AM EST) [...] pT3N2b, see synoptic. 09/01/2024 4:27 PM EST [facility] Gross Description [...] the index mass. The uninvolved mucosa is phj-wdbk-esl glistening with normal folds throughout. Multiple possible [...] fletcher-pink and glistening. Gross photographs are taken. Herpetologist sections are submitted as follows: 1, perpendicular [...] each, six pieces each 18, sales representative gas service larger grossly positive possible lymph node, two pieces 19, sales representative gas service larger grossly positive possible lymph node, two pieces ELSA 09/01/2024 4:27 PM EST [facility] ([facility]) [facility] Synoptic Checklist [...] Additional Findings: ?Adenoma(s) ?? Comment(s): ?performed on [id number] and reported as RENÉ, HER2 Negative (1+) 09/01/2024 4:27 PM EST [facility] Disclaimer Unless otherwise specified, all tissue is 10% NB formalin fixed and paraffin embedded. 09/01/2024 4:27 PM EST [facility] Tissue (Colon) 08/30/2024 9: 41 AM EST 08/30/2024 10:49 AM EST us Diogo Martinez MD LAB PATHOLOGY ORDERABLES Fi nal Result [facility]) [facility] [address] [place] [address], [place] [phone] * TH AN ENDOTRACHEAL(NO CHARGE) (08/30/2024 7:55 AM EST) Narrative Shira Diamond CRNA - 08/30/2024 7:55 AM EST hSira Diamond CRNA ? 08/30/2024 ??7:56 AM General [...] - 100 mg/dL 08/30/2024 6:22 AM EST [facility] Blood Capillary blood specimen / Unknown 08/30/2024 6:20 AM EST 08/30/2024 6:23 AM EST Diogo Martinez MD LAB POINT OF CARE T EST DOCKED DEVICE UNSOLICITED RESULTS Final Result [facility] [address] [place] [address], * ECG 12 lead - Procedural (No Charge) (08/18/2024 9:45 AM EST) Ventricular Rate ECG 64 BPM GEMUSE Atrial Rate 64 BPM GEMUSE P-R Interval 188 ms GEMUSE QRS Duration 78 ms GEMUSE Q-T Interval 464 ms GEMUSE QTc 478 ms GEMUSE P Wave [place] 26 degrees GEMUSE R [place] -4 degrees GEMUSE T [place] 62 degrees GEMUSE ECG Interpretation Normal sinus [...] Signed Date: 08/23/2024 07:29 ET Workstation ID: [id number] Transcribed By: Self Edit Transcribed Date: 08/23/2024 [...] Signed Date: 08/23/2024 07:29 ET Workstation ID: [id number] Transcribed By: Self Edit Transcribed Date: 08/23/2024 [...] Signed Date: 08/05/2024 15:06 ET Workstation ID: [id number] Transcribed By: Self Edit Transcribed Date: 08/05/2024 [...] currentsignificant hernia. Mild age-indeterminate compression of the S7jwlmplqyd body. Lung Bases: Clear bilaterally. IMPRESSION: 1. [...] Signed Date: 08/05/2024 15:06 ET Workstation ID: [id number] Transcribed By: Self Edit Transcribed Date: 08/05/2024 14:57 ET us John Plaza MD IMG CT PROCEDURES Final Resul t * (ABNORMAL) CEA (08/02/2024 9:47 AM EST) CEA 6.1(H) 0.0 - 5.0 ng/mL LAB CHEMISTRY METHOD 08/02/2024 11:49 AM EST [facility] Blood Venous blood specimen / Unknown Venipuncture / Unknown 08/02/2024 9:47 AM EST 08/02/2024 11:04 AM EST Narrative [facility] - 08/02/2024 11:49 AM EST The Siemens Advia Centaur Chemiluminescent Immunoassay is used. Results obtained with different assay methods or kits cannot be used interchangeably. Results cannot be interpreted as absolute evidence of the presence or absence of malignant disease. us John Plaza MD LAB BLOOD ORDERABLES Final Re sult [facility] [address] [place] [address], * (ABNORMAL) Comprehensive metabolic panel (08/02/2024 9:47 AM EST) Sodium 141 133 - 145 mmol/L LAB CHEMISTRY METHOD 08/02/2024 11:56 AM EST [facility] Potassium 4.1 3.5 - 5.5 mmol/L LAB CHEMISTRY METHOD 08/02/2024 11:56 AM EST [facility] Chloride 110 96 - 110 mmol/L LAB CHEMISTRY METHOD 08/02/2024 11:56 AM EST [facility] CO2 27 21 - 32 mmol/L LAB CHEMISTRY METHOD 08/02/2024 11:56 AM [facility] Anion Gap 4 3 - 11 LAB CHEMISTRY METHOD 08/02/2024 11:56 AM [facility] Glucose 160(H) 70 - 100 mg/dL LAB CHEMISTRY METHOD 08/02/2024 11:56 AM [facility] BUN 20 5 - 25 mg/dL LAB CHEMISTRY METHOD 08/02/2024 11:56 AM [facility] Creatinine 0.95 0.50 - 1.10 mg/dL LAB CHEMISTRY METHOD 08/02/2024 11:56 AM [facility] eGFR 66 >=60 mL/min/1. 73m2 LAB CHEMISTRY METHOD 08/02/2024 11:56 AM [facility] Comment:Calculation based on the??Chronic Kidney Disease Epidemiology Collaboration (CKD-EPI) equation refit??without adjustment for race. BUN/Creatinine Ratio 21.1 LAB CHEMISTRY METHOD 08/02/2024 11:56 AM [facility] Calcium 9.0 8.5 - 10.5 mg/dL LAB CHEMISTRY METHOD 08/02/2024 11:56 AM [facility] AST (SGOT) 18 10 - 42 unit/L LAB CHEMISTRY METHOD 08/02/2024 11:56 AM [facility] ALT (SGPT) 21 10 - 60 unit/L LAB CHEMISTRY METHOD 08/02/2024 11:56 AM [facility] Alkaline Phosphatase 92 42 - 121 unit/L LAB CHEMISTRY METHOD 08/02/2024 11:56 AM [facility] Total Protein 7.1 6.0 - 8.0 g/dL LAB CHEMISTRY METHOD 08/02/2024 11:56 AM [facility] Albumin 3.4 3.2 - 5.0 g/dL LAB CHEMISTRY METHOD 08/02/2024 11:56 AM [facility] Total Bilirubin 0.3 0.0 - 1.4 mg/dL LAB CHEMISTRY METHOD 08/02/2024 11:56 AM EST [facility] Blood Venous blood specimen / Unknown Venipuncture / Unknown 08/02/2024 9:47 AM EST 08/02/2024 11:04 AM EST us John Plaza MD LAB BLOOD ORDERABLES Final Re sult [facility] ([facility]) [facility] [address] [place] [address], * COLONOSCOPY Anesthesia - MAC; [facility] ENDOSCOPY (07/29/2024 9:17 AM EST) Anatomical [...] pathology results. Narrative 07/29/2024 9:20 AM EST [facility] GI Patient Name: Cait Medrano Procedure [...] Procedure Code(s): ? --- Professional --- ? 36096, Colonoscopy, flexible; with removal of ? tumor(s), polyp(s), or other lesion(s) by snare ? technique ? 44099, Colonoscopy, flexible; with directed submucosal ? injection(s), any substance ? 48720, 59, Colonoscopy, flexible; with biopsy, single ? or multiple Diagnosis Code(s): ? --- Professional --- ? Z86.010, Personal history of colonic polyps ? D49.0, Neoplasm of unspecified behavior of digestive ? system ? D12.6, Benign neoplasm of colon, unspecified CPT copyright 2020 [employer]. All rights reserved. The codes documented in this report are preliminary and upon photographer apprentice lithographic review may be revised to meet current compliance requirements. John Plaza MD 07/29/2024 9:20:29 AM This report has been signed electronically.John Plaza MD Number of Addenda: 0 Note Initiated On: 07/29/2024 8:34 AM Scope In: Scope Out: ? Endoscopy Department at [facility] - [address] [place] [address], ? [place] [address] Procedure Note John Plaza MD - 07/29/2024 [facility] GI Patient Name: Cait Medrano Procedure [...] retroflexion views. Procedure Code(s): --- Professional --- 56201, Colonoscopy, flexible; with removal of tumor(s), polyp(s), or other lesion(s) by snare technique 21832, Colonoscopy, flexible; with directedsubmucosal injection(s), any substance 52862, 59, Colonoscopy, flexible; with biopsy,single or multiple Diagnosis Code(s): --- Professional --- Z86.010, Personal history of colonic polyps D49.0, Neoplasm of unspecified behavior ofdigestive system D12.6, Benign neoplasm of colon, unspecified CPT copyright 2020 [employer]. All rights reserved. The codes documented in this report are preliminary and upon photographer apprentice lithographic reviewmay be revised to meet current compliance requirements. John Plaza MD 07/29/2024 9:20:29 AM This report has been signed electronically.John Plaza MD Number of Addenda: 0 Note Initiated On: 07/29/2024 8:34 AM Scope In: Scope Out: Endoscopy Department at [facility] - [address] [place] [phone] IMPRESSION: - Likely malignant tumor in the [...] Final Result * EGD Anesthesia - MAC; [facility] ENDOSCOPY (07/29/2024 9:17 AM EST) Anatomical [...] dose tomorrow. Narrative 07/29/2024 9:23 AM EST [facility] GI Patient Name: Cait Medrano Procedure [...] Procedure Code(s): ? --- Professional --- ? 30578, Esophagogastroduodenoscopy, flexible, ? transoral; with biopsy, single or multiple Diagnosis Code(s): ? --- Professional --- ? K44.9, Diaphragmatic hernia without obstruction or ? gangrene ? K21.9, Gastro-esophageal reflux disease without ? esophagitis CPT copyright 2020 [employer]. All rights reserved. The codes documented in this report are preliminary and upon photographer apprentice lithographic review may be revised to meet current compliance requirements. John Plaza MD 07/29/2024 9:22:51 AM This report has been signed electronically.John Plaza MD Number of Addenda: 0 Note Initiated On: 07/29/2024 9:11 AM Scope In: Scope Out: ? Endoscopy Department at [facility] - [address] [place] [address], ? [place] [address] Procedure Note John Plaza MD - 07/29/2024 [facility] GI Patient Name: Cait Medrano Procedure [...] was normal. Procedure Code(s): --- Professional --- 84168, Esophagogastroduodenoscopy, flexible, transoral; with biopsy, single or multiple Diagnosis Code(s): --- Professional --- K44.9, Diaphragmatic hernia without obstruction or gangrene K21.9, Gastro-esophageal reflux disease without esophagitis CPT copyright 2020 [employer]. All rights reserved. The codes documented in this report are preliminary and upon photographer apprentice lithographic reviewmay be revised to meet current compliance requirements. John Plaza MD 07/29/2024 9:22:51 AM This report has been signed electronically.John Plaza MD Number of Addenda: 0 Note Initiated On: 07/29/2024 9:11 AM Scope In: Scope Out: Endoscopy Department at [facility] - [address] [place] [phone] IMPRESSION: - Z-line regular, 38 cm from the incisors. - Small hiatal hernia. - Normal stomach. - Normal examined duodenum. - Several biopsies were obtained in the gastricantrum. Recommendation: - Discharge patient to home. - Resume previous diet. - Continue present medications. - Await pathology results. - Return to my office as previously scheduled. - Resume Plavix (clopidogrel) at prior dosetomorrow. us John Plaza MD GI~PROCEDURE ORDERABLES Final Result from Last 3 Months Insurance MEDICARE HUMAN Advance Directives Documents on File Type Date Recorded Patient Herpetologist Expl anation Power of Spray Worker 08/30/2024 7:06 AM HEALT H CARE PROXY * Full Code - [...] currently active code status orders. Care Teams Watch Assembly Inspector Relationship Specialty Start Date End Date Arabella Decker NP [facility] ADULT MEDICINE [address] [place] [address] PCP - General 08/20/23
--- OUTSIDE RECORDS SUMMARY | 2024-09-27 08:47 | XMS_ITS | Encounter Summary ---
Author Organization [facility] Address [address] [place] [address] Care Team Providers Care Biometrics Experimentalist Name Role Phone Arabella Decker NP Primary Care Provider [phone] Encounter Details Date Type Department Care Team (Late st Contact Info) Description 2024 Telephone Gastroenterology - [address] [place] [phone] Kristin Dey MA Social History Tobacco [...] Description 10/28/2024 10:45 AM EDT Office Visit [facility] Hematology Oncology [address] [place] [phone] Quoc Bernal MD [address] [place] [address] 12/14/2024 11:15 AM EDT Office Visit General Surgery [facility] [address] [phone] Diogo Martinez MD [address] [address] documented as of this encounter Visit Diagnoses Not on filedocumented in this encounter Care Teams Biometrics Experimentalist Relationship Specialty Start Date End Date Arabella Decker NP [address] [address] PCP - General 08/20/23 documented as of this encounter
--- OUTSIDE RECORDS SUMMARY | 2024-09-27 08:47 | XMS_ITS | Encounter Summary ---
Author Organization [facility] Address [address] [place] [address] Care Team Providers Care Judicial Assistant Name Role Phone Arabella Decker NP Primary Care Provider [phone] Reason for Referral * Imaging (Emergency) - Authorized Specialty Diagnoses / Procedures Referred By Contac t Referred To Contact Radiology Diagnoses Malignant neoplasm of ascending colon (CMS/HCC) Procedures IR Insert Tunneled CVAD w Subq Port More 5yrs Right Rowan Bernal MD [address] [place] [address] Phone: tel: fax: [address] [phone] Phone: tel: Referral ID Status Reason Start Date Expiration Date V isits Requested Visits Authorized [id number] Authorized 09/24/2024 09/24/2025 1 1 Reason for Visit * Reason Comments Consult * Consultation (Urgent) - Authorized Specialty Diagnoses / Procedures Referred By Contac t Referred To Contact Hematology and Oncology Diagnoses Malignant neoplasm of ascending colon (CMS/HCC) Procedures NC VISIT OFFICE OUTPATIENT ESTABLISHED MODERATE LEVEL Diogo Martinez MD [address] [address] Phone: tel: fax: [facility] Hematology Oncology [address] [place] [phone] Phone: tel: fax: Referral ID Status Reason Start Date Expiration Date Visits Requested Visits Authorized [id number] Authorized Consult and Treat 09/14/2024 09/14/2025 1 1 Encounter Details Date Type Department Care Team (Late st Contact Info) Description 09/24/2024 3:30 PM EST Office Visit [facility] Hematology Oncology [address] [place] [phone] Rowan Bernal MD [address] [place] [address] Malignant neoplasm of ascending colon (CMS/HCC) Social History Tobacco Use Types Packs/Day Years [...] ??F) 09/24/2024 3:26 PM EST Respiratory Rate - - Oxygen Saturation 100% 09/24/2024 3:26 PM EST Inhaled Oxygen Concentration - - Weight 82.8 kg (182 lb 9.6 oz) 09/24/2024 3:26 P M EST Height 162.6 cm (5' 4 ) 09/24/2024 3:26 PM EST Body Mass Index 31.34 09/24/2024 3:26 PM EST documented in this encounter Progress Notes * Rowan Bernal MD - 09/24/2024 3:30 PM ESTAddended by: ROWAN BERNAL on: 09/24/2024 04:55 PM Modules accepted: Orders * Rowan Bernal MD - 09/24/2024 3:30 PM EST ONC CANCER INITIAL VISIT Dear Carson, Thank you very much for referring this patient for consultation. HPI: Patient is a pleasant 69-year-old female, who had colonoscopy more than 5 years ago for screening, at that time patient found to have some suspicious polyp, patient scheduled to have colonoscopy in 2023, patient underwent colonoscopy few weeks/months ago, unfortunately found to have an ulc erated tumor at ascending colon, biopsy showed adenocarcinoma, subsequently patient referred to youfor further evaluation, patient underwent partial colectomy on 08/30/2024, unfortunately patient found to have invasive adenocarcinoma on right hemicolectomy, tumor was 3.2 cm ulcerative with clear margins but lymphovascular invasion was present. Patient had unfortunately 10 out of 28 lymph node positive for malignancy, patient has pathology stage T3 N2b (AJCC eighth edition). Patient has been recovering from surgery and came to me with her to discuss about adjuvant treatment. Patient has multiple medical issues including diabetes for decades and significant neuro dysfunction/autonomic dysfunction. Patient also have significant gastroparesis as well as significant coronaryartery disease (status post coronary artery bypass graft 10 years ago) patient recently had fracture of the right shoulder/humerus and has been recovering. Patient is here with her to discussabout adjuvant treatment. Patient told me she did not have any abdominal pain, black stool blood instool or any significant GI symptom suggestive of any malignant process of bowel ROS: Patient has some anorexia and few pound weight loss Patient also have mild to moderate fatigue lately Patient occasionally get headaches, she has no vision in the right eye Patient have no chest pain chest pressure Patient had issues with gastroparesis for which she has been taking medication Patient had significant autonomic dysfunction with orthostasis and she has been taking medication like midodrine Patient has moderate to severe pain in the right shoulder since she had fracture couple weeks ago otherwise no other new unusual aches and pain PAST MEDICAL HISTORY: Type 2 diabetes GERD Migraine headache Dyslipidemia Coronary artery disease Anxiety/depression Asthma Colon cancer Neuropathy PAST SURGICAL HISTORY: Past Surgical History: Procedure Laterality Date COLON SURGERY COLONOSCOPY CORONARY ARTERY BYPASS GRAFT HERNIA REPAIR WITH MESH HYSTERECTOMY STENT BMS - PERIPHERAL cardiac TOTAL SHOULDER ARTHROPLASTY Right DISLOCATED/FROZEN SHOULDER UPPER GASTROINTESTINAL ENDOSCOPY SOCIAL HISTORY: She never smoked She drinks socially She is lives with her FAMILY HISTORY: No family history of colonic cancer MEDICATIONS: Current Outpatient Medications: ALPRAZolam (XANAX) 1 mg tablet, Take 0.5 tablets (0.5 mg total) by mouth at bedtime., Disp: , Rfl: biotin 10,000 mcg tablet,chewable, Chew 1 (one) time each day., Disp: , Rfl: bumetanide (BUMEX) 1 mg tablet, Take 1 tablet (1 mg total) by mouth 1 (one) time each day., Disp: ,Rfl: buPROPion XL (WELLBUTRIN XL) 300 mg 24 hr tablet, Take 1 tablet (300 mg total) by mouth., Disp: , Rfl: gaxrjflwvl-yilvzoowlaohr-hgvodfez (FIORICET, ESGIC) 50-325-40 mg per tablet, Take 1 tablet by mouthevery 4 (four) hours if needed for headaches., Disp: , Rfl: cevimeline (EVOXAC) 30 mg capsule, Take 1 capsule (30 mg total) by mouth 2 (two) times a day., Disp: , Rfl: cholecalciferol (Vitamin D3) 5,000 Units tablet, Take 1 tablet (5,000 Units total) by mouth 1 (one)time each day., Disp: , Rfl: clopidogreL (PLAVIX) 75 mg tablet, Take 1 tablet (75 mg total) by mouth 1 (one) time each day., Disp: , Rfl: coenzyme Q-10 30 mg capsule, Take 1 capsule (30 mg total) by mouth 1 (one) time each day., Disp: , Rfl: docusate sodium (COLACE) 250 mg capsule, Take 1 capsule (250 mg total) by mouth 1 (one) time each day., Disp: , Rfl: ezetimibe (ZETIA) 10 mg tablet, Take 1 tablet (10 mg total) by mouth 1 (one) time each day., Disp: , Rfl: insulin lispro-aabc (LYUMJEV U-100 INSULIN SUBQ), Inject under the skin., Disp: , Rfl: isosorbide mononitrate (IMDUR) 120 mg 24 hr tablet, Take 60 mg by mouth 1 (one) time each day., Disp: , Rfl: isosorbide mononitrate (IMDUR) 60 mg 24 hr tablet, Take 1 tablet (60 mg total) by mouth 1 (one) time each day., Disp: , Rfl: meclizine (ANTIVERT) 25 mg tablet, Take 1 tablet (25 mg total) by mouth 3 (three) times a day if needed for dizziness., Disp: , Rfl: melatonin 5 mg capsule, Take 10 mg by mouth 1 (one) time each day., Disp: , Rfl: metoprolol succinate (TOPROL-XL) 25 mg 24 hr tablet, Take 1 tablet (25 mg total) by mouth at bedtime. Do not crush or chew., Disp: , Rfl: midodrine (PROAMATINE) 10 mg tablet, Take by mouth 1 (one) time each day., Disp: , Rfl: multivitamin (Multiple Vitamins) tablet, Take 1 tablet by mouth 1 (one) time each day., Disp: , Rfl: nitroglycerin (NITROSTAT) 0.4 mg SL tablet, Place 1 tablet (0.4 mg total) under the tongue., Disp: , Rfl: ondansetron (ZOFRAN) 4 mg tablet, Take 1 tablet (4 mg total) by mouth 1 (one) time each day., Disp:, Rfl: oxyCODONE (OXY-IR) 5 mg immediate release capsule, Take 1 capsule (5 mg total) by mouth every 6 (six) hours if needed for severe pain for up to 10 doses. Max Daily Amount: 20 mg, Disp: 10 capsule, Rfl: 0 pantoprazole (PROTONIX) 40 mg EC tablet, TAKE 1 TABLET BY MOUTH TWICE A DAY, Disp: 180 tablet, Rfl:1 ranolazine (RANEXA) 500 mg 12 hr tablet, Take 2 tablets (1,000 mg total) by mouth 2 (two) times a day., Disp: , Rfl: rosuvastatin (CRESTOR) 20 mg tablet, Take 2 tablets (40 mg total) by mouth at bedtime., Disp: , Rfl: sertraline (ZOLOFT) 25 mg tablet, Take 2 tablets (50 mg total) by mouth at bedtime., Disp: , Rfl: topiramate (TOPAMAX) 50 mg tablet, Take 4 tablets (200 mg total) by mouth at bedtime., Disp: , Rfl: vit C/E/Zn/coppr/lutein/zeaxan (PRESERVISION AREDS-2 ORAL), Take 1 capsule by mouth 2 (two) times aday., Disp: , Rfl: insulin infusion set-cartridge combo pack, , Disp: , Rfl: oxyCODONE (ROXICODONE) 5 mg immediate release tablet, Take 1 tablet (5 mg total) by mouth every 6 (six) hours if needed for severe pain., Disp: 12 tablet, Rfl: 0 Allergies Allergen Reactions Bromfenac Other CAN'T TELL IF HAVING LOW BS Heparin Bleeding retinopathy Nsaids (Non-Steroidal Anti-Inflammatory Drug) Pt. 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 OB Status Postmenopausal Smoking Status Never BSA 1.88 m?? ECOG 0 APPEARANCE: Alert and oriented in no acute distress EYES: nonicteric sclera pink left conjunctiva, no vision in the right eye ORAL CAVITY: No erythema or exudates NECK: Neck supple, no cervical and supraclavicular adenopathy, HEART: normal S1 and S2 LUNG: clear to auscultation bilaterally LYMPH NODES: No palpable superficial adenopathy ABDOMEN: Healing incision soft, nontender and no gross organomegaly appreciated. EXTREMITIES: No significant edema erythema or tenderness NEURO: Oriented X 3, no focal weakness; sensation is normal LABS: Lab Results Component Value Date WBC 6.8 09/01/2024 HGB 10.4 (L) 09/01/2024 HCT 33.4 (L) 09/01/2024 MCV 98.5 (H) 09/01/2024 PLT 184 09/01/2024 Lab Results Component Value Date NA 142 09/01/2024 K 3.9 09/01/2024 CO2 28 09/01/2024 CL 109 09/01/2024 BUN 7 09/01/2024 CEA prior to surgery was 6.1 Surgical specimen showed invasive adenocarcinoma, ulcerated tumor approximately 3.2 cm with clear margins, lymphovascular invasion present, 10 out of 28 lymph node positive for malignancy, AJCC edition 8 pathological stage T3 N2b ASSESSMENT 1. Malignant neoplasm of ascending colon (CMS/HCC) Patient is a very pleasant 69-year-old female, who has multiple medical issues including diabetes for many decades, coronary artery disease (status post coronary artery bypass graft), patient also have significant autonomic dysfunction/gastroparesis, she has been closely followed by a [facility] ologist in [place]. Patient on routine screening colonoscopy found to have an ulcerated mass at the ascending colon, underwent partial colectomy, unfortunately found to have stage III invasive adenocarcinoma of colon, patient had 3.2 cm ulcerated tumor with clear margin but unfortunately have lymphovascular invasion as well as 10 out of 28 lymph node positive for malignancy, obviously patient has high risk of recurrence. I discussed with the patient and her in detail about high risk of recurrence and according to NCCN guideline recommendation regarding adjuvant treatment to decrease the risk of recurrence like FOLFOX but since patient had significant autonomic dysfunction, gastroparesis, long-term diabetes etc. I would be reluctant about going with oxaliplatin, I would prefer FOLFIRI rather than FOLFOX but patient will be seeing Dr. Viraj Villalobos (GI oncologist and [facility] cancer roby next week), I would get his opinion regarding adjuvant treatment. I discussed with the patient and her in detail about rationale of adjuvant treatment, high risk of recurrence, potential risk benefit of each chemotherapy regimen in detail. I answered all their question, I spent with patient and her at least 60 minutes kvra-ln-glau, mainly in explaining, counseling and reviewing records etc. PLAN: My office will arrange Port-A-Cath placement as soon as possible Patient will be seeing Dr. Viraj Villalobos in next 1 to 2-week Patient will tentatively start adjuvant chemotherapy in first week of October I will watch her closely I will check labs including blood count chemistries CEA prior to starting chemotherapy Rowan Bernal MD cc: Diogo Martinez MD documented in this encounter Plan of Treatment Upcoming Encounters Date Type Department Care Team (Late st Contact Info) Description 10/28/2024 10:45 AM EDT Office Visit [facility] Hematology Oncology [address] [place] [phone] Rowan Bernal MD [address] [place] [address] 12/14/2024 11:15 AM EDT Office Visit General Surgery [facility] [address] [phone] Diogo Martinez MD [address] [address] Scheduled Orders Name Type Priority Associated Diagnoses Orde r Schedule IR Insert Tunneled CVAD w Subq Port More 5yrs Right Imaging STAT Malignant neoplasm of ascending colon (CMS/HCC) Ordered: 09/24/2024 documented as of this encounter Visit Diagnoses Diagnosis Malignant neoplasm of ascending colon (CMS/HCC) Malignant neoplasm of ascending colon documented in this encounter Discontinued Medications Medication Sig Discontinue Reason Start Date End Da te isosorbide mononitrate (IMDUR) 120 mg 24 hr tablet Take 60 mg by mouth 1 (one) time each day. 09/24/2024 oxyCODONE (ROXICODONE) 5 mg immediate release tablet Take 1 tablet (5 mg total) by mouth every 6 (six) hours if needed for severe pain. 09/01/2024 09/24/2024 documented as of this encounter Historical Medications * This list may reflect changes made after this encounter. isosorbide mononitrate (IMDUR) 60 mg 24 hr tablet Take 1 tablet (60 mg total) by mouth 1 (one) time each day. 05/05/2023 added in this encounter Orders Outpatient Referral Count Last Ordered Date Fir st Ordered Date AMB REFERRAL TO HEMATOLOGY / ONCOLOGY 1 documented in this encounter Care Teams Judicial Assistant Relationship Specialty Start Date End Date Arabella Decker NP [facility] ADULT MEDICINE [address] [place] [address] PCP - General 08/20/23 documented as of this encounter
== END 2024-09-24 08:43 | disposition home or self-care (01) ==
LOC: HO.HOSX 08:42
PROVIDERS: Visit Provider Physician Assistant
DX: S42.201A Unspecified fracture of upper end of right humerus, initial encounter for closed fracture (principal)
CPT/HCPCS: 73060; 99202

== ENCOUNTER 2024-09-24 10:22 | Outpatient (AMB) | payer MEDICARE, OTHER, SELFPAY ==
--- NOTE | 2024-09-24 10:25 | A.OFFVIS_ITS ---
Vital Signs 09/24/24 10:43 Height 5 ft 4 in Weight 178 lb BMI 30.6 Handedness Right Intake Visit Reasons: FC-proximal RT humerus fx Intake Note: Cait is a 69 year old right hand dominant female who presents today with her for a evaluation of her right humerus fx, DOI 09/11/24. Patient reports she slipped and fell while she was walking to her mailbox. Patient states that she is feeling better today how ever she still is having pain on the lateral aspect of the shoulder. She has been wearing her sling every day due to comfort. She mentions that she has refill with icing. Allergies No Known Allergies Allergy (Verified 09/24/24 10:41) HPI HPI FC-proximal RT humerus fx: Details: Ms. Medrano is a 69-year-old right-hand dominant female who presents to the office today for evaluation of right proximal humerus fracture that was sustained on 09/11/2024 after a slip and fall on black ice while walking to her mailbox. She presents to the office today in a sling. Of note, the patient was recently diagnosed with colon cancer and is to begin chemotherapy in the next few weeks. [facility] Surgical History (Updated 09/24/24 @ 10:43 by Zach Roach) History of shoulder surgery Social History (Updated 09/24/24 @ 10:43 by Zach Roach) Alcohol intake: current Alcohol intake frequency: holidays/special occasions only Patient Tobacco Use Status: Never used Tobacco Current occupational status: retired Current occupation: right hand dominant Review of Systems Const All systems reviewed & are unremarkable except as noted in HPI and below Physical Exam Vital Signs: BMI result Body Mass Index 30.6 Const General: cooperative, healthy appearing and no acute distress Resp Effort & Inspection: normal respiratory effort and able to speak in complete sentences Cardio Rate: regular rate Peripheral pulses: Peripheral pulses 2+ throughout Skin Lesions: no lesions Rashes: no rashes Extrem Other: Right upper extremity: Able to perform wrist flexion and extension. Able to perform full finger flexion and extension finger cross, abduction, adduction, thumbs-up and okay sign without deficit. Sensation is intact. Cap refill is brisk. Assessment & Plan Assessment & Plan (1) Closed fracture of right proximal humerus: Code(s): S42.201A - Unspecified fracture of upper end of right humerus, initial encounter for closed fracture Category: Medical Plan Ms. Medrano is a 69-year-old right-hand dominant female who presents to the office today for evaluation of right proximal humerus fracture that was sustained on 09/11/2024 after a slip and fall on black ice while walking to her mailbox. She presents to the office today in a sling. The patient also reports that in the past she did sustain a right proximal humerus fracture that was treated nonoperatively. Ultimately, the patient did develop adhesive capsulitis it did undergo a capsular release with Dr. Dixon. Of note, the patient was recently diagnosed with colon cancer and is to begin chemotherapy in the next few weeks. Patient may remain in the sling for comfort. I did educate the patient on coming out of the sling to perform gentle [id number] exercises at the elbow hand and wrist. She should not perform any lifting pushing or pulling more than a coffee cup or cell phone. Patient understands and accepts. I would like to see her back in 4 weeks with repeat x-rays, sooner if needed. Patient did request a refill of oxycodone [id number] 5q 8 hours #21, p.r.n. pain. This was sent to her pharmacy. X-rays of the right shoulder which were obtained while in the office today and were reviewed by me, Abbie Holt PA-C, revealed right proximal humerus fracture. Orders: Orders XR humerus RT Today S42.309A - Unspecified fracture of shaft of humerus, unspecified arm, initial encounter for closed fracture Medications: New oxycodone-acetaminophen 5-325 mg Partial Fill upon patient request. 1 tab PO Q8H 7 days PRN 21 tabs 0RF pain Coding Level of Care Code New Pt Level 4 (18213) Diagnoses Closed fracture of right proximal humerus S42.201A
[2024-09-24 10:43] VITALS: BMI 30.6
--- OUTSIDE RECORDS SUMMARY | 2024-09-24 11:12 | XMS_ITS | Encounter Summary ---
Author Organization [facility] Address [address] [place] [address] Care Team Providers Care Department Helper Name Role Phone Arabella Decker NP Primary Care Provider [phone] Reason for Visit * Auth/Cert (Routine) Specialty Diagnoses / Procedures Referred By Contac t Referred To Contact Diagnoses Malignant neoplasm of ascending colon (CMS/HCC) Malignant neoplasm of ascending colon Procedures TX LAP SURG COLECTOMY PARTIAL W REMOVAL OF TERMINAL ILEUM W ILEOCOLOSTOMY TX HOSPITAL IP/OBS CARE INITIAL MODERATE LEVEL PER DAY LAPAROSCOPIC COLECTOMY ; ? OPEN Diogo Martinez MD [address] [address] Phone: tel: fax: Referral ID Status Reason Start Date Expiration Date Visits Re quested Visits Authorized [id number] 08/05/2024 1 1 Encounter Details Date Type Department Care Team (Latest Contact Info) Description 08/30/2024 5:55 AM EST - 09/01/2024 11:13 AM EST Hospital Encounter [facility] Medical Surgical Unit [address] [place] [address] Diogo Martinez MD [address] [address] Shayy Garcia MD [address] [place] [address] Malignant neoplasm of ascending colon (CMS/HCC) Discharge Disposition: Home or Self Care Social History Tobacco Use Types Packs/Day Years Used Date Smoking Tobacco: Never Smokeless Tobacco: Never Alcohol Use Standard Drinks/Week Comments Yes 0 (1 standard drink = 0.6 oz pur e alcohol) SOCIAL Interpersonal Safety Answer Date Record ed Physical Abuse 08/30/2024 Verbal Abuse 08/30/2024 Comments No Sex and Gender Information Value Date Recorded Sex Assigned at Female 08/27/2024 11:55 AM EST Legal Sex Female 9:27 PM EST Gender Identity Female 08/27/2024 11:55 AM EST Sexual Orientation Straight 08/27/2024 11 :55 AM EST documented as of this encounter Last Filed Vital Signs Vital Sign Reading Time Taken Comments Blood Pressure 139/55 09/01/2024 7:53 AM EST Pulse 73 09/01/2024 7:53 AM EST Temperature 36.6 ??C (97.9 ??F) 09/01/2024 7:53 AM ES T Respiratory Rate 18 09/01/2024 7:53 AM EST Oxygen Saturation 100% 09/01/2024 7:53 AM EST Inhaled Oxygen Concentration - - Weight 85.9 kg (189 lb 6.4 oz) 09/01/2024 5:00 A M EST Height 162.5 cm (5' 3.98 ) 08/30/2024 4:17 PM ES T Body Mass Index 32.53 08/30/2024 4:17 PM EST documented in this encounter Discharge Summaries * ANDRE Lawson - 09/01/2024 9:49 AM EST Discharge Final Diagnosis: Malignant neoplasm of ascending colon (CMS/HCC) Past Medical History: Type 1 diabetes on insulin pump Gastroparesis Autonomic dysfunction CAD s/p bypass 2013 and 5 cardiac stents 5 years ago Anxiety Depression Hyperlipidemia GERD Migraines Constipation Asthma Past Surgical History: Hysterectomy Lower abdominal wall hernia repair with mesh HPI: 69-year-old female with the above past medical history presented for an elective laparoscopic rightcolectomy for invasive adenocarcinoma of the ascending colon with Dr. Martinez on 08/30/2023. For further details, please see Dr. Martinez's operative note. She was admitted to [facility] and [facility] protocols were followed. [facility] was consulted for medical comanagement. The patient continued to use her owninsulin pump. Hospital Course: On POD#1, her diet was advanced. Potassium was replaced as needed. Overnight she started to have loose bowel movements and pass flatus. On POD#2, her vitals and labs are stable, pain is controlled with oral analgesia, and she is tolerating her diet. She was evaluated by the surgical team and deemedstable for discharge home. She will resume her Plavix on Friday09/03/24. She will follow up in the ffice as scheduled. Discharge Disposition: Home, self-care Procedures Performed: Procedure(s): LAPAROSCOPIC COLECTOMY Test Results Pending At Discharge: Pending Labs Order Current Status Tissue exam In process Outpatient Follow-Up Care: Future Appointments Date Time Provider Department Center 09/14/2024 3:45 PM Diogo Martinez MD [facility] [address] Discharge Medication List: Your medication list START taking these medications Instructions Last Dose Given Next Dose Due acetaminophen 500 mg tablet Commonly known as: TYLENOL Replaces: acetaminophen 650 mg 8 hr tablet Take 2 tablets (1,000 mg total) by mouth every 8 (eight) hours for 10 days. oxyCODONE 5 mg immediate release tablet Commonly known as: ROXICODONE Take 1 tablet (5 mg total) by mouth every 6 (six) hours if needed for severe pain. CONTINUE taking these medications Instructions Last Dose Given Next Dose Due ALPRAZolam 1 mg tablet Commonly known as: XANAX Take 0.5 tablets (0.5 mg total) by mouth at bedtime. biotin 10,000 mcg tablet,chewable Chew 1 (one) time each day. bumetanide 1 mg tablet Commonly known as: BUMEX Take 1 tablet (1 mg total) by mouth 1 (one) time each day. buPROPion XL 300 mg 24 hr tablet Commonly known as: WELLBUTRIN XL Take 1 tablet (300 mg total) by mouth. irecrgmkyw-emevwulwwmzkq-gchpjwer 50-325-40 mg per tablet Commonly known as: FIORICET, ESGIC Take 1 tablet by mouth every 4 (four) hours if needed for headaches. cevimeline 30 mg capsule Commonly known as: EVOXAC Take 1 capsule (30 mg total) by mouth 2 (two) times a day. clopidogreL 75 mg tablet Commonly known as: PLAVIX Take 1 tablet (75 mg total) by mouth 1 (one) time each day. coenzyme Q-10 30 mg capsule Take 1 capsule (30 mg total) by mouth 1 (one) time each day. docusate sodium 250 mg capsule Commonly known as: COLACE Take 1 capsule (250 mg total) by mouth 1 (one) time each day. ezetimibe 10 mg tablet Commonly known as: ZETIA Take 1 tablet (10 mg total) by mouth 1 (one) time each day. insulin infusion set-cartridge combo pack isosorbide mononitrate 120 mg 24 hr tablet Commonly known as: IMDUR Take 60 mg by mouth 1 (one) time each day. LYUMJEV U-100 INSULIN SUBQ Inject under the skin. meclizine 25 mg tablet Commonly known as: ANTIVERT Take 1 tablet (25 mg total) by mouth 3 (three) times a day if needed for dizziness. melatonin 5 mg capsule Take 10 mg by mouth 1 (one) time each day. metoprolol succinate 25 mg 24 hr tablet Commonly known as: TOPROL-XL Take 1 tablet (25 mg total) by mouth at bedtime. Do not crush or chew. midodrine 10 mg tablet Commonly known as: PROAMATINE Take by mouth 1 (one) time each day. Multiple Vitamins tablet Generic drug: multivitamin Take 1 tablet by mouth 1 (one) time each day. nitroglycerin 0.4 mg SL tablet Commonly known as: NITROSTAT Place 1 tablet (0.4 mg total) under the tongue. ondansetron 4 mg tablet Commonly known as: ZOFRAN Take 1 tablet (4 mg total) by mouth 1 (one) time each day. pantoprazole 40 mg EC tablet Commonly known as: PROTONIX Take 1 tablet (40 mg total) by mouth 2 (two) times a day. Do not crush, chew, or split. PRESERVISION AREDS-2 ORAL Take 1 capsule by mouth 2 (two) times a day. ranolazine 500 mg 12 hr tablet Commonly known as: RANEXA Take 2 tablets (1,000 mg total) by mouth 2 (two) times a day. rosuvastatin 20 mg tablet Commonly known as: CRESTOR Take 2 tablets (40 mg total) by mouth at bedtime. sertraline 25 mg tablet Commonly known as: ZOLOFT Take 2 tablets (50 mg total) by mouth at bedtime. topiramate 50 mg tablet Commonly known as: TOPAMAX Take 4 tablets (200 mg total) by mouth at bedtime. Vitamin D3 5,000 Units tablet Generic drug: cholecalciferol Take 1 tablet (5,000 Units total) by mouth 1 (one) time each day. STOP taking these medications acetaminophen 650 mg 8 hr tablet Commonly known as: TYLENOL 8 HOUR Replaced by: acetaminophen 500 mg tablet Where to Get Your Medications These medications were sent to [facility]/pharmacy #[id number] - [address] [address] acetaminophen 500 mg tablet oxyCODONE 5 mg immediate release tablet Discharge Instructions: You underwent a laparoscopic right colectomy with Dr. Martinez. You may resume a regular diet. Drink plenty of fluids to keep yourself hydrated. Leave wounds open to air. You may shower. Gently cleanse wounds with soap and water. Pat dry. No soaking, scrubbing, pools orhot tubs until after your follow-up appointment. Apply ice to the surgical areas as needed to reduce pain and swelling. Please continue to ambulate as tolerated. No lifting, pushing, or pulling greater than 15 pounds for the next 6 weeks[address] within 24 hours of taking narcotic pain medication. Follow-up as previously scheduled. If you do not have a follow-up appointment, please call the office to schedule one to be seen in the next 10-14 days. Call the office for any questions or concerns including fever greater than 101.5, chills, chest pain, shortness of breath, severe abdominal pain, nausea, vomiting, or signs of wound infection. Medications: Tylenol 1000 mg every 8 hours Oxycodone 5 mg every 6 hours as needed for severe pain. Do not drive within 24 hours of taking thismedication. Colace 100 mg daily. Stop this medication if you develop diarrhea. Resume Plavix on Friday09/03/24 Resume the rest of your home medications as previously prescribed. documented in this encounter Discharge Instructions * Discharge Instructions* ANDRE Lawson - 08/31/2024 10:43 AM EST You underwent a laparoscopic right colectomy with Dr. Martinez. You may resume a regular diet. Drink plenty of fluids to keep yourself hydrated. Leave wounds open to air. You may shower. Gently cleanse wounds with soap and water. Pat dry. No soaking, scrubbing, pools orhot tubs until after your follow-up appointment. Apply ice to the surgical areas as needed to reduce pain and swelling. Please continue to ambulate as tolerated. No lifting, pushing, or pulling greater than 15 pounds for the next 6 weeks[address] within 24 hours of taking narcotic pain medication. Follow-up as previously scheduled. If you do not have a follow-up appointment, please call the office to schedule one to be seen in the next 10-14 days. Call the office for any questions or concerns including fever greater than 101.5, chills, chest pain, shortness of breath, severe abdominal pain, nausea, vomiting, or signs of wound infection. Medications: Tylenol 1000 mg every 8 hours Oxycodone 5 mg every 6 hours as needed for severe pain. Do not drive within 24 hours of taking thismedication. Colace 100 mg daily. Stop this medication if you develop diarrhea. Resume Plavix on Friday09/03/24 Resume the rest of your home medications as previously prescribed. documented in this encounter Medications at Time of Discharge ALPRAZolam (XANAX) 1 mg tablet Take 0.5 tablets (0.5 mg total) by mouth at bedtime. biotin 10,000 mcg tablet,chewable Chew 1 (one) time each day. bumetanide (BUMEX) 1 mg tablet Take 1 tablet (1 mg total) by mouth 1 (one) time each day. buPROPion XL (WELLBUTRIN XL) 300 mg 24 hr tablet Take 1 tablet (300 mg total) by mouth. butalbital-acetam inophen-caffeine (FIORICET, ESGIC) 50-325-40 mg per tablet Take 1 tablet by mouth every 4 (four) hours if needed for headaches. cevimeline (EVOXAC) 30 mg capsule Take 1 capsule (30 mg total) by mouth 2 (two) times a day. cholecalciferol (Vitamin D3) 5,000 Units tablet Take 1 tablet (5,000 Units total) by mouth 1 (one) time each day. clopidogreL (PLAVIX) 75 mg tablet Take 1 tablet (75 mg total) by mouth 1 (one) time each day. coenzyme Q-10 30 mg capsule Take 1 capsule (30 mg total) by mouth 1 (one) time each day. docusate sodium (COLACE) 250 mg capsule Take 1 capsule (250 mg total) by mouth 1 (one) time each day. ezetimibe (ZETIA) 10 mg tablet Take 1 tablet (10 mg total) by mouth 1 (one) time each day. insulin infusion set-cartridge combo pack insulin lispro-aabc (LYUMJEV U-100 INSULIN SUBQ) Inject under the skin. isosorbide mononitrate (IMDUR) 120 mg 24 hr tablet Take 60 mg by mouth 1 (one) time each day. meclizine (ANTIVERT) 25 mg tablet Take 1 tablet (25 mg total) by mouth 3 (three) times a day if needed for dizziness. melatonin 5 mg capsule Take 10 mg by mouth 1 (one) time each day. metoprolol succinate (TOPROL-XL) 25 mg 24 hr tablet Take 1 tablet (25 mg total) by mouth at bedtime. Do not crush or chew. midodrine (PROAMATINE) 10 mg tablet Take by mouth 1 (one) time each day. multivitamin (Multiple Vitamins) tablet Take 1 tablet by mouth 1 (one) time each day. nitroglycerin (NITROSTAT) 0.[address] 1 tablet (0.4 mg total) under the tongue. ondansetron (ZOFRAN) 4 mg tablet Take 1 tablet (4 mg total) by mouth 1 (one) time each day. oxyCODONE (ROXICODONE) 5 mg immediate release tablet Take 1 tablet (5 mg total) by mouth every 6 (six) hours if needed for severe pain. 12 tablet 09/01/2024 ranolazine (RANEXA) 500 mg 12 hr tablet Take 2 tablets (1,000 mg total) by mouth 2 (two) times a day. rosuvastatin (CRESTOR) 20 mg tablet Take 2 tablets (40 mg total) by mouth at bedtime. sertraline (ZOLOFT) 25 mg tablet Take 2 tablets (50 mg total) by mouth at bedtime. topiramate (TOPAMAX) 50 mg tablet Take 4 tablets (200 mg total) by mouth at bedtime. vit C/E/Zn/coppr/lute in/zeaxan (PRESERVISION AREDS-2 ORAL) Take 1 capsule by mouth 2 (two) times a day. acetaminophen (TYLENOL) 500 mg tablet Take 2 tablets (1,000 mg total) by mouth every 8 (eight) hours for 10 days. 30 tablet 09/01/2024 09/11/2024 pantoprazole (PROTONIX) 40 mg EC tablet Take 1 tablet (40 mg total) by mouth 2 (two) times a day. Do not crush, chew, or split. 09/06/2024 documented as of this encounter Ordered Prescriptions Prescription Sig Dispense Quantity Refills Last Filled Start Date End Date oxyCODONE (ROXICODONE) 5 mg immediate release tablet Take 1 tablet (5 mg total) by mouth every 6 (six) hours if needed for severe pain. 12 tablet 09/01/2024 acetaminophen (TYLENOL) 500 mg tablet Take 2 tablets (1,000 mg total) by mouth every 8 (eight) hours for 10 days. 30 tablet 09/01/2024 documented in this encounter Discharge Disposition Disposition Code Departure Means Destination Home or Self Care documented in this encounter Progress Notes * Soraya Lucero RN - 09/01/2024 11:09 AM EST 09/01/24 1108 Transportation Transportation at discharge Family What day is the transport expected? 09/01/24 Final Discharge Disposition Home or Self Care Pt d/c home self care * Dot Montoya RN - 09/01/2024 10:48 AM EST Patient states understanding to discharge instructions. Patient to follow up with Dr. Martinez as scheduled. driving patient home and will stop at the pharmacy on the way home. Patient statesshe does not have an questions. IV line was removed by primary nurse. * Lake Castillo RN - 09/01/2024 10:35 AM EST Problem: Sensory:Periop Procedure - Major Goal: Demonstrates/reports adequate pain control Outcome: Adequate for Discharge Goals: Identify possible barriers to meeting goals/advancing plan of care: none Stability of the patient: Moderately Stable - Low risk of patient condition declining or worsening End of Shift Summary: Pt alert and oriented x3, neuros intact. Pt oob ad tray ambulating with at bedside. Pt tolerating diabetic diet without incident. Pt voiding freely, no signs of urinary retention. Pt with intermittent pain managed by prn oxycodone. Pt resting comfortably awaiting discharge plans. * ANDRE Grimaldo - 09/01/2024 10:13 AM EST Subjective Patient was seen and examined this morning at bedside. She feels better today Reports some loose stool this morning Abdominal pain is minimal and well controlled with current meds Denies nausea, vomiting, CP or SOB Objective Physical Exam General Exam: Age-appropriate female, awake, calm, cooperative, lying in the hospital bed in no acute distress. Skin Exam: Warm, dry and intact without diaphoresis. Rashes noted. HEENT exam: Head appears atraumatic. No scleral icterus. Respiratory Exam: Clear to auscultation bilaterally. Cardiovascular Exam: Regular rate and rhythm. Gastrointestinal Exam: Abdomen is soft, without significant tenderness and nondistended. [place] appear C/D/I Musculoskeletal Exam: No lower extremity edema is appreciated. Neurological Exam: Alert and oriented x 3. Psychiatric: Stable mood and affect. Last Recorded Vitals: Blood pressure 139/55, pulse 73, temperature 36.6 ??C (97.9 ??F), temperature source Temporal, resp. rate 18, height 1.625 m (63.98 ), weight 85.9 kg (189 lb 6.4 oz), SpO2 100%. Lab Results Component Value Date WBC 6.8 09/01/2024 HGB 10.4 (L) 09/01/2024 HCT 33.4 (L) 09/01/2024 MCV 98.5 (H) 09/01/2024 PLT 184 09/01/2024 Lab Results Component Value Date GLUCOSE 124 (H) 09/01/2024 CALCIUM 8.4 (L) 09/01/2024 NA 142 09/01/2024 K 3.9 09/01/2024 CO2 28 09/01/2024 CL 109 09/01/2024 BUN 7 09/01/2024 CREATININE 0.84 09/01/2024 Assessment/Plan This is a 69-year-old female with a past medical history of type 1 diabetes on insulin pump, asthmatic bronchitis, Sjogren's syndrome, small fiber neuropathy, hypercholesterolemia, anxiety/depression, chronic heart failure, invasive adenocarcinoma of the ascending colon who presented to the ED 08/30/2024 for planned laparoscopic right colectomy. Medical service was consulted for medical comanagement. Malignant neoplasm of the ascending colon Status post laparoscopic right colectomy POD #2 status post laparoscopic right colectomy by Dr. Martinez --Management per general surgery team Hypokalemia K 3.4 on 08/31. Replaced. 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 Schmidt --Continue topiramate --Continue Midodrine 10 mg daily Sjogren's syndrome --Continue cevimeline 30 mg twice daily CYNDEE REM behavioral disturbance with insomnia Does not tolerate CPAP --Continue Xanax & melatonin at bedtime Muscle spasm On PRN tizanidine at home Anxiety/depression -- Continue bupropion, sertraline, Xanax Gastroparesis GERD -- Pantoprazole 40 mg twice daily CODE STATUS: Full code DVT prophylaxis: SCDs chemical DVT prophylaxis deferred to surgical team Emergency contact is the patient's , Jerome, . Updated at bedside in the morning on 09/01 Total time spent performing chart review, assessing the patient, documenting, discussing with attending MD/bedside RN/ICC, updating family, arranging care and performing a high level of medical decision making approximately [address] Garcia Cosigned by Shayy Garcia MD at 09/01/2024 4:38 PM EST Associated attestation - Shayy Garcia MD - 09/01/2024 4:38 PM EST This is a split/shared visit with ANDRE Grimaldo. I personally performed the medical decision making (MDM) for the care of this patient on 09/01/24 as documented below Pt seen and examined. Discussed with Brenda Tineo (ANDRE) and agree with her evaluation and management plan. Patient seen in the morning. at bedside. Patient is doing great. Blood sugars have been well-controlled she reports and she has no nausea, vomiting or significant abdominal pain. She is tolerating diet and had been ambulatory. She is being discharged by surgical team this morning. Patient will resume her insulin pump management at home. Plavix will be resumed once cleared by surgical team. She is aware. Shayy Garcia MD 09/01/24 4:37 PM EST * Cira Marquez RN - 09/01/2024 6:00 AM EST Problem: Sensory:Periop Procedure - Major Goal: Demonstrates/reports adequate pain control Outcome: Progressing Problem: Coping:Periop Procedure - Major Goal: Verbalizations of alleviation of anxiety will increase Outcome: Progressing Problem: Cognitive:Periop Procedure - Major Goal: Knowledge of disease or condition will improve Outcome: Progressing Problem: Physical Regulation: Periop Procedure - Major Goal: Postoperative complications will be avoided or minimized Outcome: Progressing Goal: Ability to maintain clinical measurements within normal limits will improve Outcome: Progressing Problem: Skin Integrity: Periop Procedure - Major Goal: Patient will remain free of injury and skin integrity maintained Outcome: Progressing Problem: Respiratory: Periop Procedure - Major Goal: Knowledge of CYNDEE (Obstructive Sleep Apnea) risk and follow-up will improve Outcome: Progressing Problem: Patient Specific Problem:Periop Procedure - Major Goal: Patient Specific Outcome Outcome: Progressing Goals: To improve skin integrity to surgical site and decrease bowel movements Identify possible barriers to meeting goals/advancing plan of care: Pt s/p from lap colectomy Stability of the patient: Moderately Stable - Low risk of patient condition declining or worsening End of Shift Summary: Pt alert and oriented; pleasant and cooperative with care. Reported 5 loose bowel movements overnight; surgical PA notified. Dsg to abd is CDI. + BS. No c/o n/v. Reported 5-7/10pain level and oxycodone was given with positive effect. OOB ad tray in room. * Soraya Lucero RN - 08/31/2024 4:30 PM EST 08/31/24 1630 Initial Transition Plan Initial Transition Plan Home Discharge Planning Living Arrangements Spouse/significant other Type of Residence Private residence Assistive Devices Eyeglasses Support Systems Spouse/significant other;Neighbors;Friends Medication Coverage Has Med Coverage Under Insurance Plan Yes Medication Affordability No concerns related to payment for meds Anticipated Discharge Needs Discipline following for SNF placement Credit Specialist Informed Choice Informed Choice Given? Yes Transportation Transportation at discharge Family (Spouse to transport home once ready for d/c) ICC met with pt and spouse at bedside. Demographics confirmed. Pt pharmacy is [facility] on [address]. Pt will d/c home with self care when ready * Shayy Garcia MD - 08/31/2024 3:36 PM EST [facility] Provider Response Note PATIENT: CAIT MEDRANO : 1955 ADMIT DATE: 08/30/2024 10:39 AM DISCH DATE: RESPONDING PROVIDER #: [id number] PROVIDER RESPONSE TEXT: Provider disagrees with the query because it is not applicable to the patient or not a valid query. QUERY TEXT: QUERY: Please provide a diagnosis, if known, related to the information provided: The following clinical indicators are noted in the documentation regarding this patient: Admitted for/Risk Factors: ?69 y.o. female with a past medical history significant for type 1 diabetes mellitus maintained on a insulin pump, asthmatic bronchitis, Sjogren's syndrome, small fiber neuropathy, hypercholesteremia, anxiety and depression, chronic heart failure, invasive adenocarcinoma of the ascending colon who presents to the hospital today for a planned laparoscopic right colectomy? per H&P BMI 32.36 per 08/31/24 C: [phone] The patient's clinical indicators include: Options provided: -- Obesity, unspecified -- Other - I will add my own diagnosis -- Disagree - Not applicable / Not valid Query created by: Randall Gardner on 08/31/2024 9:38 AM Electronically signed by: SHAYY GARCIA MD 08/31/2024 3:35 PM * Lake Castillo RN - 08/31/2024 2:27 PM EST Problem: Cognitive:Periop Procedure - Major Goal: Knowledge of disease or condition will improve Outcome: Progressing Goals: Identify possible barriers to meeting goals/advancing plan of care: none Stability of the patient: Moderately Stable - Low risk of patient condition declining or worsening End of Shift Summary: Pt alert and oriented x3, neuros intact. Pt with intermittent pain managed byprn buprenex. Pt oob ad tray with ambulating around unit. Pt surgical incision c/d/I. Pt advanced to post op diet- tolerating well. Pt resting comfortably at this time. * ANDRE Grimaldo - 08/31/2024 8:50 AM EST Subjective Patient was seen and examined this morning at bedside. Reports abdomen is more sore compared to yesterday. Currently reports 5/10 pain after receiving pain medication earlier today Reports some nausea earlier. Last episode of vomiting yesterday evening Tolerated some soup broth for breakfast this morning States she is starting to pass gas. Has not moved bowels Had elevated bladder scan earlier but was able to void on her own and subsequent bladder scans havebeen stable Denies chest pain, shortness of breath Mild dizziness with ambulation Objective Physical Exam General Exam: Age-appropriate female, awake, calm, cooperative, lying in the hospital bed in no acute distress. Skin Exam: Warm, dry and intact without diaphoresis. Rashes noted. HEENT exam: Head appears atraumatic. No scleral icterus. Respiratory Exam: Clear to auscultation bilaterally. Cardiovascular Exam: Regular rate and rhythm. Gastrointestinal Exam: Abdomen is soft, with mild incisional tenderness to palpation, and nondistended. Sounds appreciated Musculoskeletal Exam: No lower extremity edema is appreciated. Neurological Exam: Alert and oriented x 3. Psychiatric: Stable mood and affect. Last Recorded Vitals: Blood pressure (!) 149/57, pulse 71, temperature 37.3 ??C (99.1 ??F), temperature source Oral, resp. rate 17, height 1.625 m (63.98 ), weight 85.5 kg (188 lb 6.4 oz), SpO2 100%. Medications: acetaminophen, 1,000 mg, oral, q8h YESENIA ALPRAZolam, 1 mg, oral, Nightly alvimopan, 12 mg, oral, q12h atorvastatin, 80 mg, oral, Nightly [Held by provider] bumetanide, 1 mg, oral, Daily buprenorphine HCL, 0.075 mg, intravenous, q6h buPROPion XL, 300 mg, oral, Daily [Held by provider] clopidogreL, 75 mg, oral, Daily ezetimibe, 10 mg, oral, Nightly isosorbide mononitrate, 60 mg, oral, Daily magnesium oxide, 400 mg, oral, BID metoprolol succinate, 25 mg, oral, Nightly midodrine, 10 mg, oral, Daily NON FORMULARY, 30 mg, oral, BID pantoprazole, 40 mg, oral, BID AC potassium chloride oral extended release, 40 mEq, oral, Once ranolazine, 1,000 mg, oral, BID sertraline, 50 mg, oral, Nightly topiramate, 200 mg, oral, Nightly insulin lispro, 1 EA PRN medications: buprenorphine, buprenorphine, [Held by provider] kfpkoudumg-dmpoermyivxav-dqnjrqlz, dextrose 50%, dextrose 50%, dextrose, dextrose, glucagon injection, melatonin, nitroglycerin, ondansetron Lab Results Component Value Date WBC 9.7 08/31/2024 HGB 11.2 (L) 08/31/2024 HCT 36.2 08/31/2024 MCV 99.5 (H) 08/31/2024 PLT 216 08/31/2024 Lab Results Component Value Date GLUCOSE 147 (H) 08/31/2024 CALCIUM 8.5 08/31/2024 NA 138 08/31/2024 K 3.4 (L) 08/31/2024 CO2 25 08/31/2024 CL 107 08/31/2024 BUN 9 08/31/2024 CREATININE 0.94 08/31/2024 Assessment/Plan This is a 69-year-old female with a past medical history of type 1 diabetes on insulin pump, asthmatic bronchitis, Sjogren's syndrome, small fiber neuropathy, hypercholesterolemia, anxiety/depression, chronic heart failure, invasive adenocarcinoma of the ascending colon who presented to the ED 08/30/2024 for planned laparoscopic right colectomy. Medical service was consulted for medical comanagement. Malignant neoplasm of the ascending colon Status post laparoscopic right colectomy POD #1 status post laparoscopic right colectomy by Dr. Martinez --Management per general surgery team --Clear liquid diet currently --Pain control with as needed Buprenex Hypokalemia K 3.4 on 08/31 --KCL 40 meq p.o. 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 Schmidt --Continue topiramate --Continue Midodrine 10 mg daily Sjogren's syndrome --Continue cevimeline 30 mg twice daily --Pt to remove scopolamine patch today as it is contributing to excessive dryness CYNDEE REM behavioral disturbance with insomnia Does not tolerate CPAP --Continue Xanax & melatonin at bedtime Muscle spasm On PRN tizanidine at home Anxiety/depression -- Continue bupropion, sertraline, Xanax Gastroparesis GERD -- Pantoprazole 40 mg twice daily CODE STATUS: Full code DVT prophylaxis: SCDs chemical DVT prophylaxis deferred to surgical team Emergency contact is the patient's , Jerome, . Updated at bedside in the morning on 08/31. Total time spent performing chart review, assessing the patient, documenting, discussing with attending MD/bedside RN/ICC, updating family, arranging care and performing a high level of medical decision making approximately [address] Garcia Cosigned by Shayy Garcia MD at 08/31/2024 3:24 PM EST Associated attestation - Shayy Garcia MD - 08/31/2024 3:24 PM EST This is a split/shared visit with ANDRE Grimaldo. I personally performed the medical decision making (MDM) for the care of this patient on 08/31/24 as documented below Pt seen and examined. Discussed with Brenda NUNEZ) and agree with her evaluation and management plan. Patient seen in the morning. Had mild nausea earlier and abdominal pain which improved with medications. She had been up and ambulating. She is self-monitoring blood sugars and using insulin pump. Blood sugars 100-130 range and she is doing well. Has history of CAD. No chest pains. Plavix to be resumed once okay from surgical team. Shayy Garcia MD 08/31/24 3:22 PM EST * Alma Marie RN - 08/31/2024 2:19 AM EST Problem: Sensory:Periop Procedure - Major Goal: Demonstrates/reports adequate pain control Outcome: Progressing Problem: Coping:Periop Procedure - Major Goal: Verbalizations of alleviation of anxiety will increase Outcome: Progressing Problem: Cognitive:Periop Procedure - Major Goal: Knowledge of disease or condition will improve Outcome: Progressing Problem: Physical Regulation: Periop Procedure - Major Goal: Postoperative complications will be avoided or minimized Outcome: Progressing Goal: Ability to maintain clinical measurements within normal limits will improve Outcome: Progressing Problem: Skin Integrity: Periop Procedure - Major Goal: Patient will remain free of injury and skin integrity maintained Outcome: Progressing Problem: Respiratory: Periop Procedure - Major Goal: Knowledge of CYNDEE (Obstructive Sleep Apnea) risk and follow-up will improve Outcome: Progressing Problem: Patient Specific Problem:Periop Procedure - Major Goal: Patient Specific Outcome Outcome: Progressing Identify possible barriers to meeting goals/advancing plan of care: Jain of bladder & bowel function and pain control Stability of the patient: Moderately Stable - Low risk of patient condition declining or worsening End of Shift Summary: patient is resting comfortably. * Tammy Cheung RN - 08/30/2024 7:41 PM EST Problem: Sensory:Periop Procedure - Major Goal: Demonstrates/reports adequate pain control Outcome: Progressing Problem: Coping:Periop Procedure - Major Goal: Verbalizations of alleviation of anxiety will increase Outcome: Progressing Problem: Cognitive:Periop Procedure - Major Goal: Knowledge of disease or condition will improve Outcome: Progressing Problem: Physical Regulation: Periop Procedure - Major Goal: Postoperative complications will be avoided or minimized Outcome: Progressing Goal: Ability to maintain clinical measurements within normal limits will improve Outcome: Progressing Problem: Skin Integrity: Periop Procedure - Major Goal: Patient will remain free of injury and skin integrity maintained Outcome: Progressing Problem: Respiratory: Periop Procedure - Major Goal: Knowledge of CYNDEE (Obstructive Sleep Apnea) risk and follow-up will improve Outcome: Progressing Problem: Patient Specific Problem:Periop Procedure - Major Goal: Patient Specific Outcome Outcome: Progressing Goals: Identify possible barriers to meeting goals/advancing plan of care: Stability of the patient: Moderately Stable - Low risk of patient condition declining or worsening End of Shift Summary: * Lou Basilio RN - 08/30/2024 3:53 PM EST Patient given a bed, report called to floor. Pt put in for transfer documented in this encounter H&P Notes * Diogo Martinez MD - 08/30/2024 7:10 AM EST History and Physical Update ( H&P completed within the previous thirty days ) I personally reviewed the History and Physical, interviewed and examined the patient prior to surgery. No changes have occurred in the patient's condition since the History and Physical was completed. Source Note - Diogo Martinez MD - 08/05/2024 2:30 PM EST Referring MD:John Plaza MD Cait Medrano is a 68 y.o. year old female who presents for outpatient consultation regarding the management of newly diagnosed invasive adenocarcinoma of the ascending colon. This was a routinescreening study performed 5 years after her last colonoscopy, where she had some polyps found. Prior to the study, performed July 30, she was having no symptoms referable to this lesion, althoughshe is experiencing some persistent intermittent cramping right sided abdominal discomfort since the colonoscopy but without fevers, chills, blood in her stools, etc. She is interviewed and examined today in the presence of her attentive who is very involved in her health care. No family history of colon cancer. She is medically complex; nearly 50-year history of type 1 diabetes requiringinsulin, uses an insulin pump, longstanding gastroparesis, also autonomic dysfunction; long historyof CAD, had bypass grafting in 2013 and 5 years or so ago was having recurrent symptoms and underwent angioplasty with 5 cardiac stents. Her primary passenger attendant is Dr. Ángel Roberts with the [facility]. Remote hysterectomy and subsequent development of lower abdominal wall hernia with a laparoscopic permanent mesh repair many years ago by Dr. Dominguez; staging CT abdomen and pelvis performed 08/03/2024 does show a row of permanent metal tacks at roughly the level of her umbilicus at what I expect is the superior aspect of the mesh. Unfortunately she did not have CT chest ordered in conjunctionwith the CT AP. No signs or symptoms of metastatic disease by history. ROS: GENERAL: No malaise, significant weight loss or fever HEENT: No changes in hearing or vision, nose bleeds NECK: No lumps, goiter, pain or significant neck swelling RESPIRATORY: No cough, wheezing or shortness of breath CARDIOVASCULAR: No leg swelling or palpitations. She apparently does get exertional angina a few times per year, typically responds quickly to a single SL NTG GI: No blood in stools or black stools; post-procedural cramping as above : No new dysuria, frequency or incontinence SKIN: No lesions, rash or itching HEMATOLOGY/LYMPHOLOGY No prolonged bleeding, easy bruisability or swollen nodes PAST MEDICAL HISTORY: Patient Active Problem List Diagnosis Date Noted Malignant neoplasm of ascending colon ([facility]) 08/05/2024 Anxiety 11/06/2018 Diabetes mellitus type 2, uncomplicated ([facility]) 11/06/2018 Depression 11/06/2018 Hypercholesteremia 11/06/2018 GERD (gastroesophageal reflux disease) 11/06/2018 Migraines 11/06/2018 Constipation 11/06/2018 Asthmatic bronchitis without complication 09/01/2018 PAST SURGICAL HISTORY: Past Surgical History: Procedure Laterality Date CORONARY ARTERY BYPASS GRAFT STENT BMS - PERIPHERAL cardiac SOCIAL HISTORY: Social History Tobacco Use Smoking status: Never Smokeless tobacco: Never Substance Use Topics Alcohol use: Yes FAMILY HISTORY: No family history on file. No family status information on file. ACTIVE MEDICATIONS: Outpatient Medications Marked as Taking for the 08/05/24 encounter (Consult) with Diogo Martinez MD Medication Sig Dispense Refill acetaminophen (TYLENOL 8 HOUR) 650 mg 8 hr tablet Take 1 tablet (650 mg total) by mouth every 8 (eight) hours if needed for mild pain. Do not crush, chew, or split. ALPRAZolam (XANAX) 1 mg tablet Take 0.5 tablets (0.5 mg total) by mouth 1 (one) time each day. biotin 10,000 mcg tablet,chewable Chew 1 (one) time each day. bumetanide (BUMEX) 1 mg tablet Take 1 tablet (1 mg total) by mouth. buPROPion XL (WELLBUTRIN XL) 300 mg 24 hr tablet Take 1 tablet (300 mg total) by mouth. viwysaxgyt-szmnnbycwyusc-yhyynxxr (FIORICET, ESGIC) 50-325-40 mg per tablet Take 1 tablet by mouth every 4 (four) hours if needed for headaches. cevimeline (EVOXAC) 30 mg capsule Take 1 capsule (30 mg total) by mouth 2 (two) times a day. cholecalciferol (Vitamin D3) 5,000 Units tablet Take 1 tablet (5,000 Units total) by mouth 1 (one) time each day. clopidogreL (PLAVIX) 75 mg tablet Take 1 tablet (75 mg total) by mouth 1 (one) time each day. coenzyme Q-10 30 mg capsule Take 1 capsule (30 mg total) by mouth 1 (one) time each day. docusate sodium (COLACE) 250 mg capsule Take 2 capsules (500 mg total) by mouth 1 (one) time each day. ezetimibe (ZETIA) 10 mg tablet Take 1 tablet (10 mg total) by mouth 1 (one) time each day. insulin infusion set-cartridge combo pack insulin lispro-aabc (LYUMJEV U-100 INSULIN SUBQ) Inject under the skin. isosorbide mononitrate (IMDUR) 120 mg 24 hr tablet Take 60 mg by mouth 1 (one) time each day. meclizine (ANTIVERT) 25 mg tablet Chew 1 tablet (25 mg total) 3 (three) times a day if needed for dizziness. melatonin 5 mg capsule Take 10 mg by mouth 1 (one) time each day. metoprolol succinate (TOPROL-XL) 25 mg 24 hr tablet Take 1 tablet (25 mg total) by mouth 1 (one) time each day. Do not crush or chew. midodrine (PROAMATINE) 10 mg tablet Take by mouth 1 (one) time each day. multivitamin (Multiple Vitamins) tablet Take 1 tablet by mouth 1 (one) time each day. nitroglycerin (NITROSTAT) 0.[address] 1 tablet (0.4 mg total) under the tongue. ondansetron (ZOFRAN) 4 mg tablet Take 1 tablet (4 mg total) by mouth 1 (one) time each day. pantoprazole (PROTONIX) 40 mg EC tablet Take 1 tablet (40 mg total) by mouth 2 (two) times a day. Do not crush, chew, or split. ranolazine (RANEXA) 500 mg 12 hr tablet Take 2 tablets (1,000 mg total) by mouth 2 (two) times a day. rosuvastatin (CRESTOR) 20 mg tablet Take 2 tablets (40 mg total) by mouth 1 (one) time each day. sertraline (ZOLOFT) 25 mg tablet Take 2 tablets (50 mg total) by mouth 1 (one) time each day. topiramate (TOPAMAX) 50 mg tablet Take 4 tablets (200 mg total) by mouth 1 (one) time each day. vit C/E/Zn/coppr/lutein/zeaxan (PRESERVISION AREDS-2 ORAL) Take 1 capsule by mouth 2 (two) times a day. ALLERGIES: Allergies Allergen Reactions Bromfenac Other Keratitis diabetic with neurotrophic baseline cornea Heparin Bleeding retinopathy Nsaids (Non-Steroidal Anti-Inflammatory Drug) Pt. Has retinopathy in left eye and is blind in right eye PHYSICAL EXAM: Visit Vitals BP (!) 158/82 (BP Location: Right arm, Patient Position: Sitting, BP Cuff Size: Large adult) Pulse 76 Temp 36.2 ??C (97.1 ??F) (Temporal) Ht 1.626 m (64 ) Wt 86.6 kg (191 lb) BMI 32.79 kg/m?? OB Status Postmenopausal Smoking Status Never BSA 1.92 m?? Pleasant well nourished , well developed white female in no acute distress. Her sclera are non-icteric. Her pupils are round. Her extraocular muscles are grossly intact. Her lungs are clear. Her heart has a regular rate and rhythm. There is no suspicious cervical adenopathy. There is no obvious neck mass. Her abdomen is non-tender, soft and obese. There is no apparent organomegaly. Her skin is warm without obvious cancers or lesions in the limited area seen. There is no peripheral edema. She isalert and oriented to time and place and reason for this consultation. LABS: Lab Results Component Value Date WBC 7.0 08/02/2024 HGB 11.8 08/02/2024 HCT 37.0 08/02/2024 MCV 97.9 08/02/2024 Lab Results Component Value Date NA 141 08/02/2024 K 4.1 08/02/2024 CO2 27 08/02/2024 CL 110 08/02/2024 BUN 20 08/02/2024 ALKPHOS 92 08/02/2024 IMAGING: Results for orders placed during the hospital encounter of 08/03/24 CT Abdomen Pelvis w Contrast Narrative CT abdomen and pelvis with IV contrast TECHNIQUE: Axial and reformatted images were performed of the abdomen and pelvis following administration of IV contrast.90cc of ISOVUE was administered IV for contrast enhanced images DOSE: CTDIvol: 22.2mGy. Total exam DLP: 1129.9mGy-cm COMPARISON: CT abdomen and pelvis December 2012. INDICATION: Right-sided colon cancer. FINDINGS: Liver: The liver appears normal Biliary: Gallbladder appears normal. No biliary dilatation. Pancreas: Atrophic changes of the pancreas. No ductal dilatation.. Spleen: Spleen appears normal. Adrenals: The adrenal glands appear symmetric and normal bilaterally. Kidneys: The kidneys appear normal. No evidence of hydronephrosis. Punctate nonobstructing stone inthe lower pole left kidney. Retroperitoneum: No abnormal lymphadenopathy. Vessels: Minimal plaque in the aorta without aneurysm. Bowel: Enteric contrast was given and extends into the colon without obstruction. Stool is noted throughout the colon. Mucosal lesions are not well evaluated on CT examination. There is a region of slight narrowing of the proximal ascending colon could represent site of disease but should be correla malika with colonoscopy. Mesentery: Mildly prominent and irregular lymph nodes are noted in the right ileal mesentery. The largest of these measures 11 mm in short axis. No ascites. Pelvis: Pelvis appears within normal limits. No abnormal lymphadenopathy. Abdominal wall/bones: Ventral hernia mesh is present. No current significant hernia. Mild age-indeterminate compression of the L2 vertebral body. Lung Bases: Clear bilaterally. Impression 1. Small region of narrowing in the proximal ascending colon could represent site of disease, but this is poorly evaluated on CT examination and should be correlated with colonoscopy. 2. Mildly prominent lymph nodes in the right mesentery are suggestive of local metastases. 3. No other metastatic lesions or lymphadenopathy identified. 4. Age-indeterminate mild compression of the L2 vertebral body. -------- FINAL REPORT -------- Dictated By: Diogenes Beck Dictated Date: 08/05/2024 14:57 ET Assigned Physician: Diogenes Beck Reviewed and Electronically Signed By: KuzminDiogenes tan Signed Date: 08/05/2024 15:06 ET Workstation ID: [id number] Transcribed By: Self Edit Transcribed Date: 08/05/2024 14:57 ET IMPRESSION: 1. Malignant neoplasm of ascending colon (CMS/HCC) Plan: CT chest ordered today. We will try and expedite a preoperative assessment visit with Dr. Roberts. Ideally she would come off her Plavix at least 1, and preferably 2, weeks prior to this operation to diminish the risk of procedural/anastomotic bleeding; however, if he feels her risk for ALEX is too high, it would be preferableif she switches to ASA 81 and stops the Plavix until she has recovered from her right colectomy. We should be proceeding with her right colectomy at some point over the next 3-4 weeks. Higher chance than usual and that this will end up as an open operation, given the presence of an extensive lower abdominal wall mesh. She understands the concern about infection of a mesh prosthetic in the setting of a clean- contaminated case involving transection of the bowel. Informed consent for laparoscopic right colectomy was obtained. We discussed the reason for recommending this technique, enhanced recovery preparation, expected hospital stay and postoperative recovery timeframes, and my own track record with this operation. Risks of this operation include, but arenot limited to, bleeding including need for transfusion, infection and other wound complications, anastomotic dehiscence with need for reoperation and possible ostomy, injury to other abdominal organs, need for further procedures, development of incisional hernia, and more general complications such as DVT or PE, atelectasis or pneumonia, heart attack and stroke, and even . The patient had their questions answered to the best of my ability. We will use most of our standard ERAS protocol, but with her gastroparesis she will not drink the second drink normally scheduled for the morning of the day of surgery. Medication and lab orders: Orders Placed This Encounter Procedures CT Chest w Contrast Other orders: documented in this encounter Procedure Notes * ANDRE Espinoza - 09/01/2024 5:59 AM EST Subjective: Overnight events: Objective: Patient still has operative pain responding well to oxycodone. She had several small bowel movements overnight and 1 large loose bowel movement this morning. Plaints of nausea vomiting. Nochest pain or shortness of breath no lower extremity pain or swelling Visit Vitals BP (!) 158/56 (BP Location: Left arm) Pulse 81 Temp 36.9 ??C (98.5 ??F) (Temporal) Resp 18 Intake/Output Summary (Last 24 hours) at 09/01/2024 0559 Last data filed at 08/31/2024 1200 Gross per 24 hour Intake 1080 ml Output 1722 ml Net -642 ml Admission on 08/30/2024 Component Date Value Glucose POCT 08/30/2024 150 (H) Sodium 08/31/2024 138 Potassium 08/31/2024 3.4 (L) Chloride 08/31/2024 107 CO2 08/31/2024 25 Anion Gap 08/31/2024 6 Glucose 08/31/2024 147 (H) BUN 08/31/2024 9 Creatinine 08/31/2024 0.94 eGFR 08/31/2024 67 BUN/Creatinine Ratio 08/31/2024 9.6 Calcium 08/31/2024 8.5 WBC 08/31/2024 9.7 RBC 08/31/2024 3.60 (L) Hemoglobin 08/31/2024 11.2 (L) Hematocrit 08/31/2024 36.2 MCV 08/31/2024 99.5 (H) MCH 08/31/2024 30.8 MCHC 08/31/2024 30.9 (L) RDW 08/31/2024 13.5 Platelets 08/31/2024 216 MPV 08/31/2024 11.8 (H) NRBC 08/31/2024 0.0 NRBC Absolute 08/31/2024 0.00 Neutrophils Relative 08/31/2024 67.3 Lymphocytes Relative 08/31/2024 21.5 Monocytes Relative 08/31/2024 10.0 Eosinophils Relative 08/31/2024 0.6 Basophils Relative 08/31/2024 0.2 Immature Granulocytes Re* 08/31/2024 0.4 Neutrophils Absolute 08/31/2024 6.53 Lymphocytes Absolute 08/31/2024 2.09 Monocytes Absolute 08/31/2024 0.97 Eosinophils Absolute 08/31/2024 0.06 Basophils Absolute 08/31/2024 0.02 Immature Granulocytes Ab* 08/31/2024 0.04 (H) CT Chest w Contrast Narrative: EXAMINATION: CT CHEST WITH CONTRAST CLINICAL INFORMATION: Colon cancer. Initial staging. Malignant neoplasm of ascending colon COMPARISON: None TECHNIQUE: Multidetector CT. Examination of the chest. Examination of the chest following the IV administration of nonionic contrast. Reformatting in the coronal and sagittal planes. DLP: 289 mGy-cm Dose optimization was performed including the use of low-dose iterative reconstruction technique with automatic exposure control based on patient size. Type of contrast: ISOVUE 370 Volume of IV contrast: 90 mL Volume of contrast discarded: 0 mL FINDINGS: LUNG: No abnormality of the trachea or mainstem bronchi. There are a few scattered micronodules measuring approximately 0.2 cm which are likely granulomata. No convincing evidence of pulmonary metastasis. There is a nonspecific 0.7 cm groundglass nodule of the left apex (3/53). There are a few nonspecific peripheral linear opacities in the dependent lung bases. MEDIASTINUM: There are 3 AP window lymph nodes. The largest measures 0.9 cm. These are relatively low density. There is a hiatal hernia. CARDIAC: The heart is not enlarged. No pericardial fluid or thickening CORONARY CALCIFICATION: Evidence of previous coronary artery bypass grafting. VASCULAR: There is no thoracic aortic aneurysm. The main pulmonary artery is normal caliber PLEURA: There is no pleural fluid or pneumothorax AXILLA/CHEST WALL: There are no enlarged axillary lymph nodes. No chest wall mass demonstrated VISUALIZED UPPER ABDOMEN: The abdomen has been recently examined. No suspicious abnormality demonstrated MUSCULOSKELETAL: No suspicious focal bony lesion. There is an abnormality of the subchondral right humeral head with a serpiginous sclerotic margin but no collapse. This could represent avascular necrosis. Impression: No convincing evidence of thoracic metastasis. Small nonspecific groundglass nodule in the left apex is unlikely to represent malignancy. This could be reexamined at the time of oncologic surveillance. -------- FINAL REPORT -------- Dictated By: Alessandro Sandy Dictated Date: 08/23/2024 07:15 ET Assigned Physician: Alessandro Sandy Reviewed and Electronically Signed By: Alessandro Sandy Signed Date: 08/23/2024 07:29 ET Workstation ID: [id number] Transcribed By: Self Edit Transcribed Date: 08/23/2024 07:15 ET General: no apparent distress HNT: moist mucous membranes Eyes: sclera anicteric Thorax: clear to auscultation bilaterally Cardiovascular: no murmurs, pulse regular rate and rhythm Abdomen: soft, non-tender, non-distended, bowel sounds noted, dressing/incisions clean dry and intact Extremities: no cyanosis or edema Neurologic: alert/awake/oriented Assessment: 69 y.o female Post op day #: 2 s/p lap right colectomy for invasive adenocarcinoma of ascending colon performed by Dr. Diogo Martinez on 08/30/2024. Patient has developed bowel function and had 1 large loose bowel movement this morning. Voiding without difficulty. Tolerating her diet. Pain managed with oxycodone. Plan: Patient with bowel function. Advance diet as tolerated. Continue increasing activity out of bed up at bedside. Managing blood sugars with home insulin pump. She still needs to restart her Plavix. Consider discontinuing Entereg and Mag-Ox. Likely discharge home later today without services. * ANDRE Espinoza - 08/31/2024 6:06 AM EST Subjective: Overnight events: POD 1 status post lap right colectomy for invasive adenocarcinoma of ascending colon. Patient with some nausea improved. Burping this morning but no flatus. Urinating without dysuria. No chest pain or shortness of breath. No leg pain or swelling. Managing blood sugars with home personal insulin pump. Objective: Visit Vitals BP (!) 138/42 (BP Location: Right arm, Patient Position: Lying) Pulse 74 Temp 36.7 ??C (98 ??F) (Temporal) Resp 17 Intake/Output Summary (Last 24 hours) at 08/31/2024 0606 Last data filed at 08/31/2024 0500 Gross per 24 hour Intake 1100 ml Output 1620 ml Net -520 ml Admission on 08/30/2024 Component Date Value Glucose POCT 08/30/2024 150 (H) CT Chest w Contrast Narrative: EXAMINATION: CT CHEST WITH CONTRAST CLINICAL INFORMATION: Colon cancer. Initial staging. Malignant neoplasm of ascending colon COMPARISON: None TECHNIQUE: Multidetector CT. Examination of the chest. Examination of the chest following the IV administration of nonionic contrast. Reformatting in the coronal and sagittal planes. DLP: 289 mGy-cm Dose optimization was performed including the use of low-dose iterative reconstruction technique with automatic exposure control based on patient size. Type of contrast: ISOVUE 370 Volume of IV contrast: 90 mL Volume of contrast discarded: 0 mL FINDINGS: LUNG: No abnormality of the trachea or mainstem bronchi. There are a few scattered micronodules measuring approximately 0.2 cm which are likely granulomata. No convincing evidence of pulmonary metastasis. There is a nonspecific 0.7 cm groundglass nodule of the left apex (3/53). There are a few nonspecific peripheral linear opacities in the dependent lung bases. MEDIASTINUM: There are 3 AP window lymph nodes. The largest measures 0.9 cm. These are relatively low density. There is a hiatal hernia. CARDIAC: The heart is not enlarged. No pericardial fluid or thickening CORONARY CALCIFICATION: Evidence of previous coronary artery bypass grafting. VASCULAR: There is no thoracic aortic aneurysm. The main pulmonary artery is normal caliber PLEURA: There is no pleural fluid or pneumothorax AXILLA/CHEST WALL: There are no enlarged axillary lymph nodes. No chest wall mass demonstrated VISUALIZED UPPER ABDOMEN: The abdomen has been recently examined. No suspicious abnormality demonstrated MUSCULOSKELETAL: No suspicious focal bony lesion. There is an abnormality of the subchondral right humeral head with a serpiginous sclerotic margin but no collapse. This could represent avascular necrosis. Impression: No convincing evidence of thoracic metastasis. Small nonspecific groundglass nodule in the left apex is unlikely to represent malignancy. This could be reexamined at the time of oncologic surveillance. -------- FINAL REPORT -------- Dictated By: Alessandro Sandy Dictated Date: 08/23/2024 07:15 ET Assigned Physician: Alessandro Sandy Reviewed and Electronically Signed By: Alessandro Sandy Signed Date: 08/23/2024 07:29 ET Workstation ID: [id number] Transcribed By: Self Edit Transcribed Date: 08/23/2024 07:15 ET General: no apparent distress HNT: moist mucous membranes Eyes: sclera anicteric Thorax: clear to auscultation bilaterally Cardiovascular: no murmurs, pulse regular rate and rhythm Abdomen: soft, mildly tender, non-distended, bowel sounds noted, no bowel sounds, incisions clean dry and intact Extremities: no cyanosis or edema Neurologic: alert/awake/oriented Assessment: 69 y.o female Post op day #: 1 s/p lap right colectomy performed by Dr. Diogo Espinoza 08/31/2024. Patient passing blood sugar with home insulin pump. No bowel function as of yet however tolerating clears. Plan: POD 1. Encourage out of bed ambulating the hallways and up at bedside. Encourage incentive spirometry. Continue tight control blood sugars. Patient to manage and communicate with nursing. Consider restarting Plavix and Bumex when appropriate. Advance diet as tolerated once she develops bowel function, Entereg and Mag-Ox to begin this a.m.. Morning labs pending. * Jolene Aguilar RN - 08/30/2024 12:23 PM EST Pt napping but wakes, checking her glucometer, VSS, on RA at 100%. She is taking sips of ice water,aware that she is ready to go to the floor, just waiting on bed. * Diogo Martinez MD - 08/30/2024 7:54 AM EST LAPAROSCOPIC COLECTOMY ? OPEN (R) OPERATIVE NOTE Date: 08/30/2024 Location: [facility] OR Name: Cait Medrano, : 1955, Diagnosis Pre-Op Diagnosis Codes: * Malignant neoplasm of ascending colon (CMS/HCC) [C18.2] Post-op Diagnosis * Malignant neoplasm of ascending colon (CMS/HCC) [C18.2] Procedures LAPAROSCOPIC COLECTOMY ? OPEN 09942 - TX LAP SURG COLECTOMY PARTIAL W REMOVAL OF TERMINAL ILEUM W ILEOCOLOSTOMY Indications: Cait Medrano is a 69 y.o. female who is having surgery for Pre-Op Diagnosis Codes: * Malignant neoplasm of ascending colon (CMS/HCC) [C18.2]. Surgeon(s) & Dowel Pin Worker(s) * Diogo Martinez MD - Primary Dowel Pin Worker: Imer Scott PA-C Anesthesia: general ASA: IV Estimated Blood Loss: 20 mL Drains: * No LDAs found * Specimen: Right colon Specimens ID Source Type Tests Collected By Collected At Frozen? Priority Lab ID 1 Colon Tissue TISSUE EXAM Diogo Martinez MD 08/30/24 0941 No Description: right colon Procedure Details: We identified the patient. She was given intravenous antibiotics and general anesthesia. She was positioned with left arm tucked, pressure points padded. Abdomen was widely preppedand draped. Timeout was done. Local was placed and a small incision made in her left upper paramedian abdomen. 5 mm bladeless trocar was advanced through the abdominal wall layers over the 0 degree laparoscope into the peritoneal space without difficulty and we achieved pneumoperitoneum. Laparoscopy revealed the expected dense omental adhesions to the majority of her abdominal wall, related to previous mesh herniorrhaphy. I placed an epigastric 5 mm port and under direct visualization performed approximately 20-25 minutes of careful adhesiolysis, taking the omentum down from the peritoneal surface with LigaSure. At this point I was able to visualize her low midline; the mesh does not go down to below the pubis and I was able to place a low midline 5 mm port and then a left lateral 12 mm port. Standard medial to lateral dissection was performed. Cecum was tented up, ileocolic pedicle was puton stretch, carefully dissected as high as possible and transected separately, artery and vein, with triple application of LigaSure. 5 mm clip was also used to secure the artery on the patient side. Bulky nodes were palpable and visible in the specimen side of this pedicle. Retroperitoneal tissues were now opened and mobilized posteriorly, duodenum was identified and preserved, we came through a diminutive right colic vessel as well with careful application of LigaSure and carried the mesenteric division out to the back wall of the junction of the proximal and mid thirds of the transverse colon. Greater omentum was taken up and off the colon, we the gastrocolic attachments, entering the lesser sac, and proceeded to bring down the hepatic flexure and open up the right gutter. There are post-inflammatory adhesions densely tethering the cecum to the abdominal wall and we carefully worked our way through these with LigaSure. We were now able to complete mobilization of the cecum, and then tented up and transected the mesentery of the terminal ileum, then dividing the TI with awhite VANNA staple load. Colon was divided with a blue VANNA staple load. Specimen was placed in the pelvis. Ileum and transverse colon were apposed with suture, antimesenteric enterotomy and colotomy made, common 60 mm channel opened up with another white VANNA staple load, and we elevated the posteriorcorner of the common opening with a second Ethibond stitch and closed the anastomosis per usual with additional firings of the blue VANNA, amputating the opening. The small additional piece of tissue was added to the specimen. After consideration, we elected to use the left lateral 12 mm port site and extend this for the extraction. Left tap and rectus sheath blocks were performed with a total of 40 cc 0.25% Marcaine with epinephrine. Incision was extended transversely, dissection carried down to the anterior rectus sheath which was opened transversely, and then taken up off the underlying rectus fibers caudad and cephalad with cautery. Rectus muscles were split where they were around the port and the posterior sheath together with the cephalad aspect of the mesh was elevated and divided vertically. Protecting the abdominal wall with the rest of a sterile glove, we extracted the specimen which was sent off the field. Posterior sheath with the associated mesh was closed with 0 Prolene. Muscle was irrigated and hemostasis assured. Anterior sheath was closed with 0 PDS. Subcutaneous tissues were irrigated. We quickly reachieved pneumoperitoneum, made sure of hemostasis, removed the ports and released pneumoperitoneum. Incisions were closed with rehan and she was awakened and transferred to recovery in stable condition. She tolerated the procedure well. Counts are correct x 2. I will update her . Standard debrief was carried out with all room personnel at the close of the case. Findings: As above Colon Resection Operation performed with curative intent Yes Tumor Location Ascending colon Extent of colon and vascular resection Right hemicolectomy - ileocolic, right colic (if present) Complications: None; patient tolerated the procedure well. Disposition: PACU - hemodynamically stable. * Lizbeth Gill RN - 08/30/2024 7:19 AM EST Shira NINO aware insulin pump=spoke with pt and * Lizbeth Gill RN - 08/30/2024 7:[address] Larios aware poc 150 with insulin pump at 0.7 u /hr for basal rate * Lizbeth Gill RN - 08/30/2024 6:[address] Martinez re type/screen-no need per MD * Lizbeth Gill RN - 08/30/2024 6:06 AM EST MALIKA-SPOUSE [phone] documented in this encounter Consult Notes * Rocio Harrington NP - 08/30/2024 1:33 PM EST Consults History Of Present Illness (includes Chief Complaint): Cait Medrano is a 69 y.o. female with a past medical history significant for type 1 diabetes mellitus maintained on a insulin pump, asthmatic bronchitis,Sjogren's syndrome, small fiber neuropathy, hypercholesteremia, anxiety and depression, chronic heart failure, invasive adenocarcinoma of the ascending colon who presents to the hospital today for a planned laparoscopic right colectomy. CT abdomen pelvis with contrast 07/30/2024:1. Small region of narrowing in the proximal ascending colon could represent site of disease, but this is poorly evaluated on CT examination and should be correlated with colonoscopy. 2. Mildly prominent lymph nodes in the right mesentery are suggestive oflocal metastases. 3. No other metastatic lesions or lymphadenopathy identified. 4. Age-indeterminate mild compression of the L2 vertebral body. No labs today for review, these have been ordered however has yet to be obtained. Patient is seen postoperatively. At time of my evaluation of patient, she was originally in the bathroom. She was observed walking out of the bathroom to the bed independently with her by herside. Patient is reporting that her pain is relatively well-managed and controlled at this time. Past Medical History: She has a past medical history of Angina pectoris ([facility]), Anxiety (11/06/2018), Arthritis, Blindness (2003), Cancer, colon ([facility]), CHF (congestive heart failure) ([facility]), Colon polyp, Constipation (11/06/2018), Depression (11/06/2018), Diabetes mellitus type 1, uncomplicated, on intermediate insulin pump ([facility]) (11/06/2018), GERD (gastroesophageal reflux disease) (11/06/2018), Heart disease, Hiatal hernia, Hypercholesteremia (11/06/2018), Hypertension, Joint pain, Migraines (11/06/2018), Myocardial infarction ([facility]), PONV (postoperative nausea and vomiting), and Sleep apnea. Surgical History: She has a past surgical history that includes Coronary artery bypass graft; Stent Bms - Peripheral;Total shoulder arthroplasty (Right); Hysterectomy; Colonoscopy; Upper gastrointestinal endoscopy; and Hernia repair. Family History: family history is not on file. Social History: She reports that she has never smoked. She has never used smokeless tobacco. She reports current alcohol use. She reports that she does not use drugs. Allergies: Bromfenac, Heparin, and Nsaids (non-steroidal anti-inflammatory drug) Home Medications: Medications Prior to Admission Medication Sig Dispense Refill Last Dose acetaminophen (TYLENOL 8 HOUR) 650 mg 8 hr tablet Take 1 tablet (650 mg total) by mouth every 8 (eight) hours if needed for mild pain. Do not crush, chew, or split. Past Week ALPRAZolam (XANAX) 1 mg tablet Take 0.5 tablets (0.5 mg total) by mouth at bedtime. 08/29/2024 biotin 10,000 mcg tablet,chewable Chew 1 (one) time each day. 08/29/2024 bumetanide (BUMEX) 1 mg tablet Take 1 tablet (1 mg total) by mouth 1 (one) time each day. 08/29/2024 buPROPion XL (WELLBUTRIN XL) 300 mg 24 hr tablet Take 1 tablet (300 mg total) by mouth. 08/29/2024 cevimeline (EVOXAC) 30 mg capsule Take 1 capsule (30 mg total) by mouth 2 (two) times a day. 08/30/2024 at 0500 cholecalciferol (Vitamin D3) 5,000 Units tablet Take 1 tablet (5,000 Units total) by mouth 1 (one) time each day. 08/29/2024 coenzyme Q-10 30 mg capsule Take 1 capsule (30 mg total) by mouth 1 (one) time each day. 08/29/2024 docusate sodium (COLACE) 250 mg capsule Take 1 capsule (250 mg total) by mouth 1 (one) time each day. 08/29/2024 ezetimibe (ZETIA) 10 mg tablet Take 1 tablet (10 mg total) by mouth 1 (one) time each day. 08/29/2024 isosorbide mononitrate (IMDUR) 120 mg 24 hr tablet Take 60 mg by mouth 1 (one) time each day. 08/30/2024 at 0500 melatonin 5 mg capsule Take 10 mg by mouth 1 (one) time each day. Past Week metoprolol succinate (TOPROL-XL) 25 mg 24 hr tablet Take 1 tablet (25 mg total) by mouth at bedtime. Do not crush or chew. 08/29/2024 at 2200 metroNIDAZOLE (FLAGYL) 500 mg tablet Take 1 tablet (500 mg total) by mouth See administration instructions for 3 doses. Take at 2pm, 3pm, and 8pm on the day before your scheduled operation. Do not use mouth wash or consume alcohol until 48 hours after last dose. 3 tablet 0 08/29/2024 at 2000 midodrine (PROAMATINE) 10 mg tablet Take by mouth 1 (one) time each day. 08/30/2024 at 0500 multivitamin (Multiple Vitamins) tablet Take 1 tablet by mouth 1 (one) time each day. 08/29/2024 neomycin (MYCIFRADIN) 500 mg tablet Take two tablets (1000 mg) by mouth at 2:00pm, 3:00pm and 8:00pm on the day prior to surgery 6 tablet 0 08/29/2024 at 2000 nitroglycerin (NITROSTAT) 0.[address] 1 tablet (0.4 mg total) under the tongue. Past Month ondansetron (ZOFRAN) 4 mg tablet Take 1 tablet (4 mg total) by mouth 1 (one) time each day. 08/30/2024 at 0500 pantoprazole (PROTONIX) 40 mg EC tablet Take 1 tablet (40 mg total) by mouth 2 (two) times a day. Do not crush, chew, or split. 08/30/2024 at 0500 polyethylene glycol (GoLYTELY) 236-22.74-6.74 -5.86 gram solution Starting at noon on day prior to procedure drink 8 ounces (240 mL) every 30 minutes until complete, or until stools are clear. (No need to finish it once stools are clear!) May add flavor packet. 4000 mL 0 08/29/2024 ranolazine (RANEXA) 500 mg 12 hr tablet Take 2 tablets (1,000 mg total) by mouth 2 (two) times a day. 08/30/2024 at 0500 rosuvastatin (CRESTOR) 20 mg tablet Take 2 tablets (40 mg total) by mouth at bedtime. 08/29/2024 sertraline (ZOLOFT) 25 mg tablet Take 2 tablets (50 mg total) by mouth at bedtime. 08/29/2024 topiramate (TOPAMAX) 50 mg tablet Take 4 tablets (200 mg total) by mouth at bedtime. 08/29/2024 vit C/E/Zn/coppr/lutein/zeaxan (PRESERVISION AREDS-2 ORAL) Take 1 capsule by mouth 2 (two) times a day. 08/29/2024 qyytbfbtdq-cwborvdfbshxj-rsitoneh (FIORICET, ESGIC) 50-325-40 mg per tablet Take 1 tablet by mouth every 4 (four) hours if needed for headaches. clopidogreL (PLAVIX) 75 mg tablet Take 1 tablet (75 mg total) by mouth 1 (one) time each day. 08/23/2024 insulin infusion set-cartridge combo pack insulin lispro-aabc (LYUMJEV U-100 INSULIN SUBQ) Inject under the skin. meclizine (ANTIVERT) 25 mg tablet Take 1 tablet (25 mg total) by mouth 3 (three) times a day if needed for dizziness. Review of Systems A complete 10 point review of systems has been performed and if not noted in HPI is otherwise negative. Last Recorded Vitals: Blood pressure (!) 153/57, pulse 68, temperature 36.7 ??C (98 ??F), resp. rate 11, height 1.626 m (64 ), weight 86.2 kg (190 lb), SpO2 100%. Physical Exam General: Appears stated age, no respiratory distress, observed initially walking from the bathroom to her bed in no acute distress. Skin: Clean, dry and intact, no obvious bruises or abrasions, please see abdominal exam for furtherskin details Cardiac: Regular rate and rhythm, S1-S2 noted, no murmurs, rubs, gallops or clicks, no JVD or interstitial edema, no carotid bruits Respiratory: Lung sounds are CTAB, no expiratory wheezes, rales or rhonchi, no accessory respiratory muscles noted or evidence of nasal flaring. Abdomen: Soft, mildly tender with palpation, hypoactive bowel sounds noted throughout, incisions clean dry and intact Extremities: No peripheral or pedal edema noted. No swelling, redness or tenderness noted to bilateral lower legs. Neuro: Alert and oriented x3, no motor or sensory deficits Psychiatric: Calm, cooperative, without agitation or restlessness. Assessment/Plan ACUTE MEDICAL ISSUES: Malignant neoplasm of ascending colon Status post laperscopic right colectomy - Patient presented today for a planned laparoscopic right colectomy secondary to malignant neoplasm of ascending colon. - CT abdomen pelvis with contrast 07/30/2024:1. Small region of narrowing in the proximal ascendingcolon could represent site of disease, but this is poorly evaluated on CT examination and should becorrelated with colonoscopy. 2. Mildly prominent lymph nodes in the right mesentery are suggestive of local metastases. 3. No other metastatic lesions or lymphadenopathy identified. 4. Age-indeterminate mild compression of the L2 vertebral body. - Patient is seen. Currently on POD 0 CHRONIC MEDICAL ISSUES: Type 1 diabetes mellitus with diabetic polyneuropathy - Patient has an insulin pump, she knows the exact basal, bolus rate, she has an in-depth medication list that explains exactly what she is taking and how she should be using it. Patient is alert andoriented and I do deem her capable to use her own insulin pump. - Patient to sign agreement and informed nurses if she makes any changes to her insulin pump including giving herself boluses if needed. - Patient does understand that if for some reason her insulin pump order to malfunction or if she were to receive alerts of frequent hyperglycemic or hypoglycemic episodes, that she will be asked to take this off and she will be covered with a hospital insulin sliding scale. - Patient's last hemoglobin A1c was 6.2 on 07/27/2024. CAD s/p stenting Hyperlipidemia History of exertional angina - Patient carries a history of CAD and had bypass grafting in 2013 and again around 5 years ago sheunderwent angioplasty requiring 5 cardiac stents. She is followed by passenger attendant Dr. Ángel Roberts at [facility]. - Patient does report she occasionally continues to variance exertional anxiety- which primarily resolved with sublingual nitroglycerin. - Would recommend resuming Plavix within the next 24-48 hours however will defer this to surgical team as patient has already been off of her Plavix for around a week. Asthma - Not appearing in exacerbation. Albuterol ordered as needed. Autonomic dysfunction/small fiber neuropathy Dizziness - Patient has been seen in the past by [facility] and [facility] Jessie Aguilar. She is also followed by Dr. Schmidt - She carries a history of small fiber neuropathy/autonomic dysfunction and migraine headaches. - Regarding dizziness, patient takes meclizine as needed. - She is prescribed Fioricet and topiramate for headaches Sjogren's syndrome - Patient reports improvement in dry eyes and mouth after starting cevimeline. 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 - Patient does have a scopolamine patch which I did inform her will likely cause further dryness however it is recommended that she keeps it on at least the next 24 hours if she can tolerate this. CYNDEE REM behavioral disorder with insomnia - Patient is unable to tolerate CPAP. - Patient normally takes Xanax, melatonin, diphenhydramine Muscle spasms - Takes tizanidine. Anxiety and depression - Patient is prescribed alprazolam, bupropion and sertraline. Denies SI/HI. Gastroparesis GERD - Normally on pantoprazole. Followed by GI outpatient OTHER: DVT Prophylaxis -Will defer chemical DVT prophylaxis per primary/surgical team. Intermittent sequential boots for now. CODE STATUS: Full code HCP/emergency contact is patient's Dexter Medrano, Case and plan discussed with Dr. Raisa Merrill Please note that 75 minutes or greater was spent on performing a medically appropriate history and physical examination, review of laboratory and radiology data requiring a high level of medical decision making. Cosigned by Raisa Merrill MD at 09/07/2024 10:06 AM EST documented in this encounter Plan of Treatment Upcoming Encounters Date Type Department Care Team (Late st Contact Info) Description 09/24/2024 3:30 PM EST Office Visit [facility] Hematology Oncology [address] [place] [phone] Quoc Bernal MD [address] [place] [address] 12/14/2024 11:15 AM EDT Office Visit General Surgery - [place] [facility] [address] [place] [address] [phone] Diogo Martinez MD [address] [address] documented as of this encounter Procedures Procedure Name Priority Date/Time Associated Diagnosis Comments CBC WITH AUTO DIFFERENTIAL Routine 09/01/2024 6:25 AM EST CBC AND DIFFERENTIAL Routine 09/01/2024 6:25 AM EST PHOSPHORUS Routine 09/01/2024 6:25 AM EST MAGNESIUM Routine 09/01/2024 6:25 AM EST BASIC METABOLIC PANEL Routine 09/01/2024 6:25 AM EST CBC WITH AUTO DIFFERENTIAL Routine 08/31/2024 6:35 AM EST CBC AND DIFFERENTIAL Routine 08/31/2024 6:35 AM EST BASIC METABOLIC PANEL Routine 08/31/2024 6:35 AM EST OXYGEN THERAPY, ADULT Routine 08/30/2024 10:25 AM EST OXYGEN THERAPY, ADULT Routine 08/30/2024 10:25 AM EST TISSUE EXAM Routine 08/30/2024 9:41 AM EST Malignant neoplasm of ascending colon (CMS/HCC) TX LAP SURG COLECTOMY PARTIAL W REMOVAL OF TERMINAL ILEUM W ILEOCOLOSTOMY 08/30/2024 7:33 AM EST Malignant neoplasm of ascending colon (CMS/HCC) POCT GLUCOSE BLOOD Routine 08/30/2024 6: 20 AM EST documented in this encounter Results * (ABNORMAL) CBC auto differential (09/01/2024 6:25 AM EST) WBC 6.8 4.8 - 10.8 K/mcL LAB HEMETOLOGY METHOD 09/01/2024 6:56 AM [facility] RBC 3.40(L) 3.80 - 4.80 M/mcL LAB HEMETOLOGY METHOD 09/01/2024 6:56 AM [facility] Hemoglobin 10.4(L) 11.5 - 16.0 g/dL LAB HEMETOLOGY METHOD 09/01/2024 6:56 AM [facility] [facility] Hematocrit 33.4(L) 35.0 - 47.0 % LAB HEMETOLOGY METHOD 09/01/2024 6:56 AM [facility] MCV 98.5(H) 79.0 - 98.0 FL LAB HEMETOLOGY METHOD 09/01/2024 6:56 AM [facility] MCH 30.7 27.0 - 32.0 pcg LAB HEMETOLOGY METHOD 09/01/2024 6:56 AM [facility] MCHC 31.1(L) 32.0 - 37.0 g/dL LAB HEMETOLOGY METHOD 09/01/2024 6:56 AM [facility] RDW 13.5 11.0 - 15.0 % LAB HEMETOLOGY METHOD 09/01/2024 6:56 AM [facility] Platelets 184 130 - 400 K/mcL LAB HEMETOLOGY METHOD 09/01/2024 6:56 AM [facility] MPV 11.8(H) 7.0 - 11.0 FL LAB HEMETOLOGY METHOD 09/01/2024 6:56 AM [facility] NRBC 0.0 <1.0 % LAB HEMETOLOGY METHOD 09/01/2024 6:56 AM [facility] NRBC Absolute 0.00 <0.10 K/mcL LAB HEMETOLOGY METHOD 09/01/2024 6:56 AM [facility] Neutrophils Relative 58.5 % LAB HEMETOLOGY METHOD 09/01/2024 6:56 AM [facility] Lymphocytes Relative 27.2 % LAB HEMETOLOGY METHOD 09/01/2024 6:56 AM [facility] Monocytes Relative 12.4 % LAB HEMETOLOGY METHOD 09/01/2024 6:56 AM [facility] Eosinophils Relative 1.2 % LAB HEMETOLOGY METHOD 09/01/2024 6:56 AM [facility] Basophils Relative 0.4 % LAB HEMETOLOGY METHOD 09/01/2024 6:56 AM [facility] Immature Granulocytes Relative 0.3 % LAB HEMETOLOGY METHOD 09/01/2024 6:56 AM [facility] Neutrophils Absolute 3.95 1.50 - 7.00 K/mcL LAB HEMETOLOGY METHOD 09/01/2024 6:56 AM [facility] Lymphocytes Absolute 1.84 1.00 - 5.00 K/mcL LAB HEMETOLOGY METHOD 09/01/2024 6:56 AM EST [facility] Monocytes Absolute 0.84 0.20 - 1.00 K/mcL LAB HEMETOLOGY METHOD 09/01/2024 6:56 AM EST [facility] Eosinophils Absolute 0.08 0.00 - 0.50 K/mcL LAB HEMETOLOGY METHOD 09/01/2024 6:56 AM EST [facility] Basophils Absolute 0.03 0.00 - 0.20 K/mcL LAB HEMETOLOGY METHOD 09/01/2024 6:56 AM EST [facility]) [facility] Immature Granulocytes Absolute 0.02 0.00 - 0.03 K/mcL LAB HEMETOLOGY METHOD 09/01/2024 6:56 AM [facility] Blood Venous blood specimen / Unknown Venipuncture / Unknown 09/01/2024 6:25 AM EST 09/01/2024 6:40 AM EST Terrie POWELL LAB BLOOD ORDERABLES Final Re sult [facility] [address] [place] [address], [place] [phone] * Phosphorus (09/01/2024 6:25 AM EST) [facility] Signature Phosphorus 3.9 2.5 - 4.5 mg/dL LAB CHEMISTRY METHOD 09/01/2024 7:29 AM EST [facility] Blood Venous blood specimen / Unknown Venipuncture / Unknown 09/01/2024 6:25 AM EST 09/01/2024 6:38 AM EST Terrie POWELL LAB BLOOD ORDERABLES Final Re sult [facility] [address] [place] [address], [place] [phone] * Magnesium (09/01/2024 6:25 AM EST) [facility] Magnesium 2.3 1.9 - 2.6 mg/dL LAB CHEMISTRY METHOD 09/01/2024 7:29 AM [facility] Blood Venous blood specimen / Unknown Venipuncture / Unknown 09/01/2024 6:25 AM EST 09/01/2024 6:38 AM EST Terrie POWELL LAB BLOOD ORDERABLES Final Re sult [facility] [address] [place] [address], [place] [phone] * (ABNORMAL) Basic metabolic panel (09/01/2024 6:25 AM EST) [facility] Sodium 142 133 - 145 mmol/L LAB CHEMISTRY METHOD 09/01/2024 7:29 AM [facility] Potassium 3.9 3.5 - 5.5 mmol/L LAB CHEMISTRY METHOD 09/01/2024 7:29 AM [facility] Chloride 109 96 - 110 mmol/L LAB CHEMISTRY METHOD 09/01/2024 7:29 AM [facility] CO2 28 21 - 32 mmol/L LAB CHEMISTRY METHOD 09/01/2024 7:29 AM [facility] Anion Gap 5 3 - 11 LAB CHEMISTRY METHOD 09/01/2024 7:29 AM [facility] Glucose 124(H) 70 - 100 mg/dL LAB CHEMISTRY METHOD 09/01/2024 7:29 AM [facility] BUN 7 5 - 25 mg/dL LAB CHEMISTRY METHOD 09/01/2024 7:29 AM [facility] Creatinine 0.84 0.50 - 1.10 mg/dL LAB CHEMISTRY METHOD 09/01/2024 7:29 AM [facility] eGFR 76 >=60 mL/min/1. 73m2 LAB CHEMISTRY METHOD 09/01/2024 7:29 AM [facility] Comment:Calculation based on the??Chronic Kidney Disease Epidemiology Collaboration (CKD-EPI) equation refit??without adjustment for race. BUN/Creatinine Ratio 8.3 LAB CHEMISTRY METHOD 09/01/2024 7:29 AM [facility] Calcium 8.4(L) 8.5 - 10.5 mg/dL LAB CHEMISTRY METHOD 09/01/2024 7:29 AM [facility] Blood Venous blood specimen / Unknown Venipuncture / Unknown 09/01/2024 6:25 AM EST 09/01/2024 6:38 AM EST Terrie POWELL LAB BLOOD ORDERABLES Final Re sult [facility] [address] [place] [address], [place] [phone] * (ABNORMAL) CBC auto differential (08/31/2024 6:35 AM EST) WBC 9.7 4.8 - 10.8 K/mcL LAB HEMETOLOGY METHOD 08/31/2024 7:07 AM [facility] RBC 3.60(L) 3.80 - 4.80 M/mcL LAB HEMETOLOGY METHOD 08/31/2024 7:07 AM [facility] Hemoglobin 11.2(L) 11.5 - 16.0 g/dL LAB HEMETOLOGY METHOD 08/31/2024 7:07 AM [facility] Hematocrit 36.2 35.0 - 47.0 % LAB HEMETOLOGY METHOD 08/31/2024 7:07 AM [facility] MCV 99.5(H) 79.0 - 98.0 FL LAB HEMETOLOGY METHOD 08/31/2024 7:07 AM [facility] MCH 30.8 27.0 - 32.0 pcg LAB HEMETOLOGY METHOD 08/31/2024 7:07 AM [facility] MCHC 30.9(L) 32.0 - 37.0 g/dL LAB HEMETOLOGY METHOD 08/31/2024 7:07 AM [facility] RDW 13.5 11.0 - 15.0 % LAB HEMETOLOGY METHOD 08/31/2024 7:07 AM [facility] Platelets 216 130 - 400 K/mcL LAB HEMETOLOGY METHOD 08/31/2024 7:07 AM [facility] MPV 11.8(H) 7.0 - 11.0 FL LAB HEMETOLOGY METHOD 08/31/2024 7:07 AM [facility] NRBC 0.0 <1.0 % LAB HEMETOLOGY METHOD 08/31/2024 7:07 AM [facility] NRBC Absolute 0.00 <0.10 K/mcL LAB HEMETOLOGY METHOD 08/31/2024 7:07 AM [facility] Neutrophils Relative 67.3 % LAB HEMETOLOGY METHOD 08/31/2024 7:07 AM [facility] Lymphocytes Relative 21.5 % LAB HEMETOLOGY METHOD 08/31/2024 7:07 AM [facility] Monocytes Relative 10.0 % LAB HEMETOLOGY METHOD 08/31/2024 7:07 AM [facility] Eosinophils Relative 0.6 % LAB HEMETOLOGY METHOD 08/31/2024 7:07 AM [facility] Basophils Relative 0.2 % LAB HEMETOLOGY METHOD 08/31/2024 7:07 AM [facility] Immature Granulocytes Relative 0.4 % LAB HEMETOLOGY METHOD 08/31/2024 7:07 AM [facility] Neutrophils Absolute 6.53 1.50 - 7.00 K/mcL LAB HEMETOLOGY METHOD 08/31/2024 7:07 AM [facility] Lymphocytes Absolute 2.09 1.00 - 5.00 K/mcL LAB HEMETOLOGY METHOD 08/31/2024 7:07 AM EST [facility] Monocytes Absolute 0.97 0.20 - 1.00 K/[facility] LAB HEMETOLOGY METHOD 08/31/2024 7:07 AM EST [facility] Eosinophils Absolute 0.06 0.00 - 0.50 K/[facility] LAB HEMETOLOGY METHOD 08/31/2024 7:07 AM EST [facility] Basophils Absolute 0.02 0.00 - 0.20 K/[facility] LAB HEMETOLOGY METHOD 08/31/2024 7:07 AM [facility] Immature Granulocytes Absolute 0.04(H) 0.00 - 0.03 K/[facility] LAB HEMETOLOGY METHOD 08/31/2024 7:07 AM [facility] Blood Venous blood specimen / Unknown Venipuncture / Unknown 08/31/2024 6:35 AM EST 08/31/2024 6:58 AM EST us ANDRE Howard LAB BLOOD ORDERABLES Final Result [facility] [address] [place] [address], * (ABNORMAL) Basic metabolic panel (08/31/2024 6:35 AM EST) Sodium 138 133 - 145 mmol/L LAB CHEMISTRY METHOD 08/31/2024 7:48 AM EST [facility] Potassium 3.4(L) 3.5 - 5.5 mmol/L LAB CHEMISTRY METHOD 08/31/2024 7:48 AM [facility] Chloride 107 96 - 110 mmol/L LAB CHEMISTRY METHOD 08/31/2024 7:48 AM [facility] CO2 25 21 - 32 mmol/L LAB CHEMISTRY METHOD 08/31/2024 7:48 AM [facility] Anion Gap 6 3 - 11 LAB CHEMISTRY METHOD 08/31/2024 7:48 AM [facility] Glucose 147(H) 70 - 100 mg/dL LAB CHEMISTRY METHOD 08/31/2024 7:48 AM [facility] BUN 9 5 - 25 mg/dL LAB CHEMISTRY METHOD 08/31/2024 7:48 AM [facility] Comment:Results verified by repeat testing Creatinine 0.94 0.50 - 1.10 mg/dL LAB CHEMISTRY METHOD 08/31/2024 7:48 AM [facility] eGFR 67 >=60 mL/min/1. 73m2 LAB CHEMISTRY METHOD 08/31/2024 7:48 AM [facility] Comment:Calculation based on the??Chronic Kidney Disease Epidemiology Collaboration (CKD-EPI) equation refit??without adjustment for race. BUN/Creatinine Ratio 9.6 LAB CHEMISTRY METHOD 08/31/2024 7:48 AM [facility] Calcium 8.5 8.5 - 10.5 mg/dL LAB CHEMISTRY METHOD 08/31/2024 7:48 AM [facility] Blood Venous blood specimen / Unknown Venipuncture / Unknown 08/31/2024 6:35 AM EST 08/31/2024 6:58 AM EST ANDRE Howard LAB BLOOD ORDERABLES Final Result [facility] [address] [place] [address], * Tissue exam (08/30/2024 9:41 AM EST) Final Diagnosis Colon, right, hemicolectomy: Invasive adenocarcinoma. Carcinoma is a 3.2 cm ulcerating mass with raised borders in the ascending colon. Carcinoma invades through the muscularis propria into attached pericolic fat. Lymph vascular invasion is present. Appendix is surgically absent. Tubular adenoma present in cecum. Margins are uninvolved. Metastatic carcinoma is present in 10 of 28 lymph nodes (10/28). AJCC 8th ed. Stage pT3N2b, see synoptic. 09/01/2024 4:[address] [facility] Gross Description A. Colon, right: Labeled right colon . Received in formalin is a right colon (18 x 4.5 cm) with attached terminal ileum (6 x 2 cm) and abundant pericolic fat. There is black tattoo ink in the midportion of the ascending colon, but the serosa is otherwise fletcher-pink, smooth and glistening. The appendix is surgically absent. The mucosa displays a 3.2 x 2.4 x 0.5 cm firm granular fletcher-pink to red ulcerating mass with raised borders within the ascending colon, 9 cm from the distal margin, 5 cm from the ileocecal valve, 10 cm from the proximal mucosal margin, 0.6 cm from the blue inked serosa, and 1.6 cm from the black inked circumferential resection margin. The mass grossly invades through the muscularis propria into the attached pericolic fat. Also identified on the mucosa is a 1 x 0.8 x 0.6 cm fletcher-pink mucosal polyp within the cecum, located 1 cm from the ileocecal valve and 5.5 cm from the index mass. The uninvolved mucosa is [id number] glistening with normal folds throughout. Multiple possible lymph nodes are identified within the attached pericolic fat, ranging from 0.2 cm to 3.2 cm in greatest dimension. The two largest possible lymph nodes have fletcher-ca firm granular cut surfaces. Also received in same container is an additional 3.2 x 1.5 x 1.3 cm stapled fragment of colon. The serosa is fletcher-pink, smooth and glistening. The mucosa is fletcher-pink and glistening. Gross photographs are taken. Retail Assistant sections are submitted as follows: 1, perpendicular colonic margins (true margin inked black), two pieces 2, mass into pericolic fat, one piece 3 and 4, mass to circumferential resection margin (thinned tissue, possible lymph node adjacent to margin represents one bisected lymph node), one piece each 5-7, mass, one piece each 8, bisected cecal polyp, two pieces 9, ileocecal valve, one piece 10, five possible lymph nodes in toto and additional colonic fragment, six pieces 11, six possible lymph nodes in toto, six pieces 12-17, three differentially inked and bisected lymph nodes each, six pieces each 18, denial management representative larger grossly positive possible lymph node, two pieces 19, denial management representative larger grossly positive possible lymph node, two pieces ELSA 09/01/2024 4:27 PM EST [facility] Synoptic Checklist COLON AND RECTUM: Resection COLON AND RECTUM: RESECTION - All Specimens 8th Edition - Protocol posted: 01/28/2024 SPECIMEN ?? Procedure: ?Right hemicolectomy TUMOR ?? Tumor Site: ?Ascending colon ?? Histologic Type: ?Adenocarcinoma ?? Histologic Grade: ?G2, moderately differentiated ?? Tumor Size: ?Greatest dimension (Centimeters): 3.2 cm ?? Tumor Extent: ?Invades through muscularis propria into the pericolonic or perirectal tissue ?? Macroscopic Tumor Perforation: ?Not identified ?? Lymphatic and / or Vascular Invasion: ?Small vessel ?? Perineural Invasion: ?Not identified ?? Tumor Budding Score: ?Intermediate (5-9) ?? Type of Polyp in which Invasive Carcinoma Arose: ?None identified ?? Treatment Effect: ?No known presurgical therapy MARGINS ?? Margin Status for Invasive Carcinoma: ?All margins negative for invasive carcinoma ? Closest Margin(s) to Invasive Carcinoma: ?Radial (circumferential) ? Distance from Invasive Carcinoma to Closest Margin: ?Greater than 1 cm ?? Margin Status for Non-Invasive Tumor: ?All margins negative for high-grade dysplasia / intramucosal carcinoma and low-grade dysplasia REGIONAL LYMPH NODES ?? Regional Lymph Node Status: ? : ?Tumor present in regional lymph node(s) ? Number of Lymph Nodes with Tumor: ?10 ? Number of Lymph Nodes Examined: ?28 ?? Tumor Deposits: ?Not identified pTNM CLASSIFICATION (AJCC 8th Edition) ?? Reporting of pT, pN, and (when applicable) pM categories is based on information available to the pathologist at the time the report is issued. As per the AJCC (Chapter 1, 8th Ed.) it is the managing physician's responsibility to establish the final pathologic stage based upon all pertinent information, including but potentially not limited to this pathology report. ?? pT Category: ?pT3 ?? pN Category: ?pN2b ADDITIONAL FINDINGS ?? Additional Findings: ?Adenoma(s) ?? Comment(s): ?performed on [id number] and reported as RENÉ, HER2 Negative (1+) 09/01/2024 4:27 PM EST [facility] Disclaimer Unless otherwise specified, all tissue is 10% NB formalin fixed and paraffin embedded. 09/01/2024 4:27 PM EST [facility] Tissue (Colon) 08/30/2024 9: 41 AM EST 08/30/2024 10:49 AM EST us Diogo Martinez MD LAB PATHOLOGY ORDERABLES Fi nal Result Performing Organization Address [facility]/ZIP Co de Phone Number [facility] [address] [place] [address], [place] [phone] * (ABNORMAL) POCT Glucose, blood (08/30/2024 6:20 AM EST) Glucose POCT 150(H) 70 - 100 mg/dL 08/30/2024 6:22 AM EST [facility] Blood Capillary blood specimen / Unknown 08/30/2024 6:20 AM EST 08/30/2024 6:23 AM EST us Diogo Martinez MD LAB POINT OF CARE T EST DOCKED DEVICE UNSOLICITED RESULTS Final Result Performing Organization Address [facility]/ZIP Co de Phone Number [facility] [address] [place] [address], [place] [phone] documented in this encounter Visit Diagnoses Diagnosis Malignant neoplasm of ascending colon (CMS/HCC)- Primary Malignant neoplasm of ascending colon documented in this encounter Admitting Diagnoses Diagnosis Malignant neoplasm of ascending colon (CMS/HCC) Malignant neoplasm of ascending colon documented in this encounter Administered Medications Inactive Administered Medications - up to 3 most recent administrations Medication Order MAR Action Action Date Dose Rate Site acetaminophen (TYLENOL) tablet 1,000 mg 1,000 mg, oral, Once, On Fri08/30/24 at 0630, For 1 dose, Preprocedure, Give 1 hour prior to surgery Given 08/30/2024 6:51 AM EST 1,000 mg acetaminophen (TYLENOL) tablet 1,000 mg 1,000 mg, oral, Every 8 hours scheduled, First dose on Fri08/30/24 at 1400, Recovery [facility] On Unit Given 09/01/2024 5:46 AM EST 1,000 mg Given 08/31/2024 9:19 PM EST 1,000 mg Given 08/31/2024 2:33 PM EST 1,000 mg ALPRAZolam (XANAX) tablet 1 mg 1 mg, oral, Nightly, First dose (after last modification) on Fri08/30/24 at 2100 Given 08/31/2024 9:18 PM EST 1 mg Given 08/30/2024 9:12 PM EST 1 mg alvimopan (ENTEREG) capsule 12 mg 12 mg, oral, Once, On Fri08/30/24 at 0630, For 1 dose, Preprocedure, -Give medication once 5 hours to 30 minutes PRIOR to surgery with a sip of water -Do NOT open or crush capsule Alvimopan (ENTEREG??) is part of a REMS Program and training materials, available at [facility] [facility]S and in order Reference Links, must be reviewed prior to ordering, dispensing, or administration., I am aware of the Alvimopan REMS Program requirements and have reviewed the Alvimopan REMS Training Kits, available at [facility]: Yes Given 08/30/2024 6:51 AM EST 12 mg alvimopan (ENTEREG) capsule 12 mg 12 mg, oral, Every 12 hours, First dose (after last modification) on Fri08/31/24 at 0900, For 13 doses, Recovery & On Unit, -Start in the morning of the day AFTER surgery -Do NOT open or crush capsule -MAX: 15 TOTAL doses (includes the Pre-Operative dose) -Nurse to contact physician for discontinuation orders at discharge or upon recovery of the GI tract (e.g., bowel sounds, flatus, or bowel movement, whichever occurs first) Alvimopan (ENTEREG??) is part of a REMS Program and training materials, available at [facility] and in order Reference Links, must be reviewed prior to ordering, dispensing, or administration., I am aware of the Alvimopan REMS Program requirements and have reviewed the Alvimopan REMS Training Kits, available at [facility]: Yes Given 08/31/2024 9:18 PM EST 12 mg Given 08/31/2024 8:13 AM EST 12 mg atorvastatin (LIPITOR) tablet 80 mg 80 mg, oral, Nightly, First dose on Fri08/30/24 at 2100 Given 08/31/2024 9:19 PM EST 80 mg Given 08/30/2024 9:10 PM EST 80 mg bumetanide (BUMEX) tablet 1 mg 1 mg, oral, Daily, First dose on Fri08/30/24 at 1530 Given 09/01/2024 8:19 AM EST 1 mg buprenorphine HCL (BUPRENEX) injection solution 0.075 mg 0.075 mg, intravenous, Every 6 hours, First dose (after last reorder) on Fri08/30/24 at 1715, Recovery & On Unit Given 08/31/2024 5:23 AM EST 0.075 mg Given 08/31/2024 12:06 AM EST 0.075 mg Given 08/30/2024 6:00 PM EST 0.075 mg buprenorphine HCL (BUPRENEX) injection solution 0.075 mg 0.075 mg, intravenous, Every 4 hours PRN, moderate pain, Starting on Fri08/31/24 at 1232, If unable to tolerate PO or PO ineffective after 30 minutes buprenorphine HCL (BUPRENEX) injection solution 0.15 mg 0.15 mg, intravenous, Every 4 hours PRN, severe pain, Starting on Fri08/31/24 at 1230, If unable to tolerate PO or PO ineffective after 30 minutes Given 08/31/2024 12:40 PM EST 0.15 mg buPROPion XL (WELLBUTRIN XL) 24 hr tablet 300 mg 300 mg, oral, Daily, First dose on Fri08/30/24 at 1530, Do not crush, chew, or split. Given 09/01/2024 8:19 AM EST 300 mg Given 08/31/2024 8:12 AM EST 300 mg calcium carbonate (TUMS) chewable tablet 1,000 mg 1,000 mg, oral, 4 times daily PRN, heartburn, indigestion, Starting on Fri08/31/24 at 2021, Ordered as calcium carbonate. 500 mg calcium carbonate = 200 mg elemental calcium. Given 08/31/2024 9:21 PM EST 1,000 mg cevimeline (EVOXAC) capsule 30 mg Pt Own Med 30 mg, oral, 2 times daily, First dose on Fri08/31/24 at 1100 Given 09/01/2024 9:22 AM EST 30 mg Given 08/31/2024 10:54 PM EST 30 mg Given 08/31/2024 12:39 PM EST 30 mg dextrose (D50W) 50% injection 12.5 g 12.5 g, intravenous, Every 15 min PRN, low blood sugar, moderate hypoglycemia *Patient is Unconscious, NPO, unable to swallow: BG 54 - 69 mg/dl*, Starting on Fri08/30/24 at 1448 dextrose (D50W) 50% injection 25 g 25 g, intravenous, Every 15 min PRN, low blood sugar, severe hypoglycemia *Patient is Unconscious, NPO, unable to swallow: BG LESS than 54 mg/dL*, Starting on Fri08/30/24 at 1448 dextrose 15 gram/60 mL oral solution 15 g 15 g, oral, Every 15 min PRN, low blood sugar, hypoglycemia *Patient conscious AND able to drink and swallow safely*, Starting on Fri08/30/24 at 1448 dextrose 15 gram/60 mL oral solution 30 g 30 g, oral, Every 15 min PRN, low blood sugar, hypoglycemia *Patient conscious AND able to drink and swallow safely*, Starting on Fri08/30/24 at 1448 ezetimibe (ZETIA) tablet 10 mg 10 mg, oral, Nightly, First dose (after last modification) on Fri08/30/24 at 2100 Given 08/31/2024 9:18 PM EST 10 mg Given 08/30/2024 9:10 PM EST 10 mg Glucagon HCl (rDNA) injection 1 mg 1 mg, intramuscular, Once as needed, low blood sugar, severe hypoglycemia, Starting on Fri08/30/24 at 1332, For 1 dose HYDROmorphone (PF) injection 0.5 mg 0.5 mg, intravenous, Every 5 min PRN, severe pain or when therapies for moderate pain were not effective, Starting on Fri08/30/24 at 1024, For 5 doses, Recovery (only) Given 08/30/2024 10:57 AM EST 0.5 mg insulin lispro (HumaLOG) patient supplied pump continuous sub-Q infusn (via wearable injector), Continuous, Starting on Fri08/30/24 at 2045, Until Fri09/01/24 at 1318, Brand Name of Insulin Pump? Tandem t:slim X2, Insulin Type? lispro (HumaLOG), [place] / Cartridge Size? Other, Other: [place] / Cartridge Size? 300ml, Volume Remaining in [place]? 190ml, Time and Date of last [place] Fill/Cartridge Change known? Yes, Date? 08/29/2024, Time? 5:00 PM, Active Insulin Time? 4 Hours Self Administered Via Pump 08/30/2024 9:17 PM EST 1 EA isosorbide mononitrate (IMDUR) 24 hr tablet 60 mg 60 mg, oral, Daily, First dose on Fri08/30/24 at 1530, Do not crush or chew. Given 09/01/2024 8:19 AM EST 60 mg Given 08/31/2024 8:12 AM EST 60 mg lactated Ringer's infusion 75 mL/hr, intravenous, Continuous, Starting on Fri08/30/24 at 0630, Preprocedure New Bag 08/30/2024 10:10 AM EST 75 mL/hr New Bag 08/30/2024 7:17 AM EST 75 mL/hr 75 mL/hr Le ft Hand New Bag 08/30/2024 6:45 AM EST 75 mL/hr magnesium oxide (MAG-OX) tablet 400 mg 400 mg, oral, 2 times daily, First dose on Fri08/31/24 at 0900, Recovery & On Unit Given 09/01/2024 8:18 AM EST 400 mg Given 08/31/2024 9:20 PM EST 400 mg Given 08/31/2024 8:13 AM EST 400 mg melatonin tablet 3 mg 3 mg, oral, Nightly PRN, sleep, Starting on Fri08/30/24 at 1454 Given 08/31/2024 9:33 PM EST 3 mg Given 08/30/2024 9:10 PM EST 3 mg metoprolol succinate (TOPROL-XL) 24 Hour tablet 25 mg 25 mg, oral, Nightly, First dose on Fri08/30/24 at 2100, Do not crush or chew. Given 08/31/2024 9:18 PM EST 25 mg Given 08/30/2024 9:14 PM EST 25 mg midodrine (PROAMATINE) tablet 10 mg 10 mg, oral, Daily, First dose on Fri08/30/24 at 1530 Given 09/01/2024 8:19 AM EST 10 mg nitroglycerin (NITROSTAT) SL tablet 0.4 mg 0.4 mg, sublingual, Every 5 min PRN, chest pain, Starting on Fri08/30/24 at 1558, Give every 5 minutes as needed for chest pain to a maximum of 3 doses. Notify MD to obtain an order for an EKG if no relief after 3 doses or chest pain recurs. HOLD and notify MD if SBP less than 90 mmHg. Do not give if nitroglycerin infusion running concurrently. Do not give within 24 hours of sildenafil citrate (Viagra) or vardenafil (Levitra) use, or within 48 hours of tadalafil (Cialis) use. ondansetron (PF) (ZOFRAN) injection 4 mg 4 mg, intravenous, Every 6 hours PRN, nausea, vomiting, Starting on Fri08/30/24 at 1033, Recovery & On Unit Given 08/30/2024 5:59 PM EST 4 mg oxyCODONE (ROXICODONE) immediate release tablet 10 mg 10 mg, oral, Every 4 hours PRN, severe pain, Starting on Fri08/31/24 at 1534, First line for severe pain (7-10) Given 09/01/2024 10:24 AM EST 10 mg Given 08/31/2024 10:42 PM EST 10 mg oxyCODONE (ROXICODONE) immediate release tablet 5 mg 5 mg, oral, Every 4 hours PRN, moderate pain, Starting on Fri08/31/24 at 1534, 1st line for moderate pain (4-6) Given 09/01/2024 5:51 AM EST 5 mg Given 08/31/2024 6:22 PM EST 5 mg pantoprazole (PROTONIX) EC tablet 40 mg 40 mg, oral, 2 times daily before meals, First dose on Fri08/30/24 at 1630, Do not crush, chew, or split. Given 09/01/2024 5:47 AM EST 40 mg Given 08/31/2024 5:33 PM EST 40 mg Given 08/31/2024 6:30 AM EST 40 mg potassium chloride (KLOR-CON M20) CR tablet 40 mEq 40 mEq, oral, Once, On Fri08/31/24 at 0830, For 1 dose, Tablet may be swallowed whole (do not crush/chew/suck on) OR broken in half and each half swallowed separately OR dissolved (whole tablet) in ~4 ounces of water (allow ~2 minutes to dissolve, stir well and administer immediately). Given 08/31/2024 9:51 AM EST 40 mEq ranolazine (RANEXA) 12 hr tablet 1,000 mg 1,000 mg, oral, 2 times daily, First dose on Fri08/30/24 at 2100, Do not crush, chew, or split. Given 09/01/2024 8:19 AM EST 1,000 mg Given 08/31/2024 9:19 PM EST 1,000 mg Given 08/31/2024 8:13 AM EST 1,000 mg sertraline (ZOLOFT) tablet 50 mg 50 mg, oral, Nightly, First dose on Fri08/30/24 at 2100 Given 08/31/2024 9:20 PM EST 50 mg Given 08/30/2024 9:13 PM EST 50 mg topiramate (TOPAMAX) tablet 200 mg 200 mg, oral, Nightly, First dose on Fri08/30/24 at 2100, HAZARDOUS Drug Precautions - Low Risk (Category A/NIOSH Group 3) Reproductive Risk Only: - Do NOT split, crush, or open dosage units - Single pair of ASTM standard D6978 certified chemotherapy gloves - Eye protection (goggles or face shield) required only with a potential for facial contact (i.e. concern for spitting or vomiting of the dose during or after administration) Given 08/31/2024 9:18 PM EST 200 mg Given 08/30/2024 9:13 PM EST 200 mg documented in this encounter Discontinued Medications Medication Sig Discontinue Reason Start Date End Da te docusate sodium (COLACE) 250 mg capsule Take 2 capsules (500 mg total) by mouth 1 (one) time each day. 08/10/2024 famotidine (PEPCID) 20 mg tablet Take by mouth 2 (two) times a day if needed for heartburn. 08/10/2024 meclizine (ANTIVERT) 25 mg tablet Chew 1 tablet (25 mg total) 3 (three) times a day if needed for dizziness. 08/10/2024 metroNIDAZOLE (FLAGYL) 500 mg tablet Take 1 tablet (500 mg total) by mouth See administration instructions for 3 doses. Take at 2pm, 3pm, and 8pm on the day before your scheduled operation. Do not use mouth wash or consume alcohol until 48 hours after last dose. Therapy completed 08/05/2024 08/30/2024 polyethylene glycol (GoLYTELY) 236-22.74-6.74 -5.86 gram solution Starting at noon on day prior to procedure drink 8 ounces (240 mL) every 30 minutes until complete, or until stools are clear. (No need to finish it once stools are clear!) May add flavor packet. Therapy completed 08/05/2024 08/30/2024 neomycin (MYCIFRADIN) 500 mg tablet Take two tablets (1000 mg) by mouth at 2:00pm, 3:00pm and 8:00pm on the day prior to surgery Therapy completed 08/05/2024 08/30/2024 acetaminophen (TYLENOL 8 HOUR) 650 mg 8 hr tablet Take 1 tablet (650 mg total) by mouth every 8 (eight) hours if needed for mild pain. Do not crush, chew, or split. Stop Taking at Discharge 09/01/2024 documented as of this encounter Historical Medications * This list may reflect changes made after this encounter. meclizine (ANTIVERT) 25 mg tablet Take 1 tablet (25 mg total) by mouth 3 (three) times a day if needed for dizziness. docusate sodium (COLACE) 250 mg capsule Take 1 capsule (250 mg total) by mouth 1 (one) time each day. added in this encounter Active and Recently Administered Medications Times are shown in EST. Scheduled Medication Order 08/30/2024 08/31/2024 09/01/2024 acetaminophen (TYLENOL) tablet 1,000 mg (COMPLETED) 1,000 mg, oral, Once, On Fri08/30/24 at 0630, For 1 dose, Preprocedure, Give 1 hour prior to surgery 0651 (Given - Provider: Lizbeth Gill RN) acetaminophen (TYLENOL) tablet 1,000 mg 1,000 mg, oral, Every 8 hours scheduled, First dose on Fri08/30/24 at 1400, Recovery & On Unit 1710 (Not Given - Provider: Tammy Cheung RN - Reason: Other - Comment: given in pacu)2110 (Given - Provider: Alma Marie RN) 05 (Given - Provider: Alma Marie RN)143 (Given - Provider: Lake Castillo RN)2118 (Given - Provider: Cira Marquez RN) 0546 (Given - Provider: Cira Marquez, DOMINGA) ALPRAZolam (XANAX) tablet 1 mg 1 mg, oral, Nightly, First dose (after last modification) on Fri08/30/24 at 2100 2111 (Given - Provider: Alma Marie RN) 2117 (Given - Provider: Cira Marquez, DOMINGA) alvimopan (ENTEREG) capsule 12 mg (COMPLETED) 12 mg, oral, Once, On Fri08/30/24 at 0630, For 1 dose, Preprocedure, -Give medication once 5 hours to 30 minutes PRIOR to surgery with a sip of water -Do NOT open or crush capsule Alvimopan (ENTEREG??) is part of a REMS Program and training materials, available at [facility] and in order Reference Links, must be reviewed prior to ordering, dispensing, or administration., I am aware of the [facility] Program requirements and have reviewed the [facility] Training Kits, available at [facility]: Yes 0651 (Given - Provider: Lizbeth Gill RN) alvimopan (ENTEREG) capsule 12 mg (CANCELED) 12 mg, oral, Every 12 hours, First dose (after last modification) on Fri08/31/24 at 0900, For 13 doses, Recovery & On Unit, -Start in the morning of the day AFTER surgery -Do NOT open or crush capsule -MAX: 15 TOTAL doses (includes the Pre-Operative dose) -Nurse to contact physician for discontinuation orders at discharge or upon recovery of the GI tract (e.g., bowel sounds, flatus, or bowel movement, whichever occurs first) Alvimopan (ENTEREG??) is part of a REMS Program and training materials, available at [facility] and in order Reference Links, must be reviewed prior to ordering, dispensing, or administration., I am aware of the [facility] REMS Program requirements and have reviewed the [facility] Training Kits, [facility]: Yes 812 (Given - Provider: Lake Castillo RN)2117 (Given - Provider: Cira Marquez, DOMINGA) 820 (Hold - Provider: Lake Castillo RN - Reason: Patient/Resident/Age nt refused - education provided - Comment: pt with loose stools) atorvastatin (LIPITOR) tablet 80 mg 80 mg, oral, Nightly, First dose on Fri08/30/24 at 2100 2110 (Given - Provider: Alma Marie RN) 2118 (Given - Provider: Cira Marquez, DOMINGA) bumetanide (BUMEX) tablet 1 mg 1 mg, oral, Daily, First dose on Fri08/30/24 at 1530 1505 (Held by provider - Provider: ANDRE Bowles - Reason: Post-procedure)1530 (Dose Auto Held) 0900 (Dose Auto Held)0948 (Unheld by provider - Provider: ANDRE Lawson) 0819 (Given - Provider: Lake Castillo RN) buprenorphine HCL (BUPRENEX) injection solution 0.075 mg (CANCELED) 0.075 mg, intravenous, Every 6 hours, First dose (after last reorder) on Fri08/30/24 at 1715, Recovery & On Unit 1800 (Given - Provider: Kourtney Rodriguez RN) 0006 (Given - Provider: Alma Marie RN)0523 (Given - Provider: Alma Marie RN) buPROPion XL (WELLBUTRIN XL) 24 hr tablet 300 mg 300 mg, oral, Daily, First dose on Fri08/30/24 at 1530, Do not crush, chew, or split. 1628 (Not Given - Provider: Tammy Cheung RN - Reason: Other - Comment: took this morning) 811 (Given - Provider: Lake Castillo RN) 08 (Given - Provider: Lake Castillo RN) cevimeline (EVOXAC) capsule 30 mg Pt Own Med 30 mg, oral, 2 times daily, First dose on Fri08/31/24 at 1100 1239 (Given - Provider: Lake Castillo RN)2254 (Given - Provider: Cira Marquez RN) 0922 (Given - Provider: Lake Castillo RN) clopidogreL (PLAVIX) tablet 75 mg 75 mg, oral, Daily, First dose on Fri08/30/24 at 1530, On hold since Fri08/30/2024 at 1505 until manually unheld 1505 (Held by provider - Provider: ANDRE Bowles - Reason: Post-procedure)1530 (Dose Auto Held) 0900 (Dose Auto Held) 0900 (Dose Auto Held)1318 (Unheld by provider - Provider: Automatic Discharge Provider) ezetimibe (ZETIA) tablet 10 mg 10 mg, oral, Nightly, First dose (after last modification) on Fri08/30/24 at 2100 2110 (Given - Provider: Alma Marie RN) 2117 (Given - Provider: Cira Marquez RN) isosorbide mononitrate (IMDUR) 24 hr tablet 60 mg 60 mg, oral, Daily, First dose on Fri08/30/24 at 1530, Do not crush or chew. 1628 (Not Given - Provider: Tammy Cheung RN - Reason: Other - Comment: took this morning) 08 (Given - Provider: Lake Castillo RN) 08 (Given - Provider: Lake Castillo RN) magnesium oxide (MAG-OX) tablet 400 mg (CANCELED) 400 mg, oral, 2 times daily, First dose on Fri08/31/24 at 0900, Recovery & On Unit 0813 (Given - Provider: Lake Castillo RN)2119 (Given - Provider: Cira Marquez, DOMINGA) 817 (Given - Provider: Lake Catsillo RN) metoprolol succinate (TOPROL-XL) 24 Hour tablet 25 mg 25 mg, oral, Nightly, First dose on Fri08/30/24 at 2100, Do not crush or chew. 2113 (Given - Provider: Alma Marie RN) 2117 (Given - Provider: Cira Marquez, DOMINGA) metroNIDAZOLE (FLAGYL) IVPB 500 mg (COMPLETED) 500 mg, intravenous, at 100 mL/hr, Administer over 60 Minutes, Once, On Fri08/30/24 at 0630, For 1 dose, Preprocedure, Administer within 60 minutes of incision. premix bag, Indication: Prophylaxis-Surgical 0749 (Given - Provider: Shira Diamond CRNA) midodrine (PROAMATINE) tablet 10 mg 10 mg, oral, Daily, First dose on Fri08/30/24 at 1530 1629 (Not Given - Provider: Tammy Cheung RN - Reason: Other - Comment: took this morning) 0813 (Not Given - Provider: Lake Castillo RN - Reason: Other - Comment: INCREASED BP) 0819 (Given - Provider: Lake Castillo RN) pantoprazole (PROTONIX) EC tablet 40 mg 40 mg, oral, 2 times daily before meals, First dose on Fri08/30/24 at 1630, Do not crush, chew, or split. 1651 (Given - Provider: Tammy Cheung RN) 0630 (Given - Provider: Alma Marie RN)1733 (Given - Provider: Lake Castillo RN) 0547 (Given - Provider: Cira Marquez, DOMINGA) potassium chloride (KLOR-CON M20) CR tablet 40 mEq (COMPLETED) 40 mEq, oral, Once, On Fri08/31/24 at 0830, For 1 dose, Tablet may be swallowed whole (do not crush/chew/suck on) OR broken in half and each half swallowed separately OR dissolved (whole tablet) in ~4 ounces of water (allow ~2 minutes to dissolve, stir well and administer immediately). 950 (Given - Provider: Lake Castillo, DOMINGA) ranolazine (RANEXA) 12 hr tablet 1,000 mg 1,000 mg, oral, 2 times daily, First dose on Fri08/30/24 at 2100, Do not crush, chew, or split. 2108 (Given - Provider: Alma Marie RN) 812 (Given - Provider: Lake Castillo, DOMINGA)2118 (Given - Provider: Cira Marquez, DOMINGA) 818 (Given - Provider: Lake Castillo, DOMINGA) sertraline (ZOLOFT) tablet 50 mg 50 mg, oral, Nightly, First dose on Fri08/30/24 at 2100 2112 (Given - Provider: Alma Marie RN) 2119 (Given - Provider: Cira Marquez, RN) topiramate (TOPAMAX) tablet 200 mg 200 mg, oral, Nightly, First dose on Fri08/30/24 at 2100, HAZARDOUS Drug Precautions - Low Risk (Category A/NIOSH Group 3) Reproductive Risk Only: - Do NOT split, crush, or open dosage units - Single pair of ASTM standard D6978 certified chemotherapy gloves - Eye protection (goggles or face shield) required only with a potential for facial contact (i.e. concern for spitting or vomiting of the dose during or after administration) 2112 (Given - Provider: Alma Marie RN) 2117 (Given - Provider: Cira Marquez, DOMINGA) Continuous Medication Order 08/30/2024 08/31/2024 09/01/2024 insulin lispro (HumaLOG) patient supplied pump continuous sub-Q infusn (via wearable injector), Continuous, Starting on Fri08/30/24 at 2045, Until Fri09/01/24 at 1318, Brand Name of Insulin Pump? Tandem t:slim X2, Insulin Type? lispro (HumaLOG), [place] / Cartridge Size? Other, Other: [place] / Cartridge Size? 300ml, Volume Remaining in [place]? 190ml, Time and Date of last [place] Fill/Cartridge Change known? Yes, Date? 08/29/2024, Time? 5:00 PM, Active Insulin Time? 4 Hours 2116 (Self Administered Via Pump - Provider: Alma Marie RN) lactated Ringer's infusion (CANCELED) 75 mL/hr, intravenous, Continuous, Starting on Fri08/30/24 at 0630, Preprocedure 0645 (New Bag - Provider: Shira Diamond CRNA)0717 (New Bag - Provider: Lizbeth Gill RN)0731 (Canceled Entry - Provider: Shira Diamond CRNA)0800 (Anesthesia Volume Adjustment - Provider: Shira Diamond CRNA)0940 (Anesthesia Volume Adjustment - Provider: Shira Diamond CRNA)1010 (New Bag - Provider: Shira Diamond CRNA)1013 (Stopped - Provider: Shira Diamond CRNA) PRN Medication Order 08/30/2024 08/31/2024 09/01/2024 bupivacaine-EPINEPHrine (MARCAINE w/EPI) 0.25 %-1:200,000 injection (CANCELED) As needed, Starting on Fri08/30/24 at 1006, Intraprocedure 1006 (Given - Provider: Diogo Martinez MD) buprenorphine HCL (BUPRENEX) injection solution 0.075 mg 0.075 mg, intravenous, Every 4 hours PRN, moderate pain, Starting on Fri08/31/24 at 1232, If unable to tolerate PO or PO ineffective after 30 minutes buprenorphine HCL (BUPRENEX) injection solution 0.15 mg 0.15 mg, intravenous, Every 4 hours PRN, severe pain, Starting on Fri08/31/24 at 1230, If unable to tolerate PO or PO ineffective after 30 minutes 1240 (Given - Provider: Lake Castillo, DOMINGA) butalbital-acetaminophen- caffeine (FIORICET, ESGIC) 50-325-40 mg per tablet 1 tablet 1 tablet, oral, Every 4 hours PRN, headaches, Starting on Fri08/30/24 at 1451, On hold since Fri08/30/2024 at 1505 until manually unheld 1505 (Held by provider - Provider: ANDRE Bowles - Reason: Post-procedure) 1318 (Unheld by provider - Provider: Automatic Discharge Provider) calcium carbonate (TUMS) chewable tablet 1,000 mg 1,000 mg, oral, 4 times daily PRN, heartburn, indigestion, Starting on Fri08/31/24 at 2020, Ordered as calcium carbonate. 500 mg calcium carbonate = 200 mg elemental calcium. 2120 (Given - Provider: Cira Marquez, DOMINGA) dextrose (D50W) 50% injection 12.5 g 12.5 g, intravenous, Every 15 min PRN, low blood sugar, moderate hypoglycemia *Patient is Unconscious, NPO, unable to swallow: BG 54 - 69 mg/dl*, Starting on Fri08/30/24 at 1448 dextrose (D50W) 50% injection 25 g 25 g, intravenous, Every 15 min PRN, low blood sugar, severe hypoglycemia *Patient is Unconscious, NPO, unable to swallow: BG LESS than 54 mg/dL*, Starting on Fri08/30/24 at 1448 dextrose 15 gram/60 mL oral solution 15 g 15 g, oral, Every 15 min PRN, low blood sugar, hypoglycemia *Patient conscious AND able to drink and swallow safely*, Starting on Fri08/30/24 at 1448 dextrose 15 gram/60 mL oral solution 30 g 30 g, oral, Every 15 min PRN, low blood sugar, hypoglycemia *Patient conscious AND able to drink and swallow safely*, Starting on Fri08/30/24 at 1448 Glucagon HCl (rDNA) injection 1 mg 1 mg, intramuscular, Once as needed, low blood sugar, severe hypoglycemia, Starting on Fri08/30/24 at 1332, For 1 dose HYDROmorphone (PF) injection 0.5 mg (CANCELED) 0.5 mg, intravenous, Every 5 min PRN, severe pain or when therapies for moderate pain were not effective, Starting on Fri08/30/24 at 1024, For 5 doses, Recovery (only) 1057 (Given - Provider: Lou Basilio, DOMINGA) melatonin tablet 3 mg 3 mg, oral, Nightly PRN, sleep, Starting on Fri08/30/24 at 1454 2110 (Given - Provider: Alma Marie, DOMINGA) 2132 (Given - Provider: Cira Marquez, DOMINGA) nitroglycerin (NITROSTAT) SL tablet 0.4 mg 0.4 mg, sublingual, Every 5 min PRN, chest pain, Starting on Fri08/30/24 at 1558, Give every 5 minutes as needed for chest pain to a maximum of 3 doses. Notify MD to obtain an order for an EKG if no relief after 3 doses or chest pain recurs. HOLD and notify MD if SBP less than 90 mmHg. Do not give if nitroglycerin infusion running concurrently. Do not give within 24 hours of sildenafil citrate (Viagra) or vardenafil (Levitra) use, or within 48 hours of tadalafil (Cialis) use. ondansetron (PF) (ZOFRAN) injection 4 mg 4 mg, intravenous, Every 6 hours PRN, nausea, vomiting, Starting on Fri08/30/24 at 1033, Recovery & On Unit 1759 (Given - Provider: Kourtney Rodriguez RN) oxyCODONE (ROXICODONE) immediate release tablet 10 mg 10 mg, oral, Every 4 hours PRN, severe pain, Starting on Fri08/31/24 at 1534, First line for severe pain (7-10) 2242 (Given - Provider: Cira Marquez RN) 1024 (Given - Provider: Lake Castillo RN) oxyCODONE (ROXICODONE) immediate release tablet 5 mg 5 mg, oral, Every 4 hours PRN, moderate pain, Starting on Fri08/31/24 at 1534, 1st line for moderate pain (4-6) 1822 (Given - Provider: Lake Castillo RN) 0551 (Given - Provider: Cira Marquez RN) documented in this encounter Orders Medications Ordered That Ramiro ht Not Have Been Administered Count Last Ordered Date First Ordered Date buprenorphine HCL (BUPRENEX) injection solution 0.075 mg 3 08/31/2024 08/30/2024 acetaminophen (TYLENOL) tablet 1,000 mg 1 0 08/30/2024 acetaminophen (TYLENOL) tablet 650 mg 1 albuterol 2.5 mg /3 mL (0.08 3 %) nebulizer solution 2.5 mg 1 08/30/2024 ALPRAZolam (XANAX) tablet 0.5 mg 1 08/30/19 25 alvimopan (ENTEREG) capsule 12 mg 2 025 bupivacaine-EPINEPHrine (MAR ANSON w/EPI) 0.25 %-1:200,000 injection 1 08/30/2024 buprenorphine (BUPRENEX) inj ection 0.075 mg 2 08/30/2024 buprenorphine (BUPRENEX) injection 0.15 mg 08/30/2024 buprenorphine HCL (BUPRENEX) injection solution 0.15 mg 08/30/2024 eqjtynkzjs-bgcvkykfwbilh-fef feine (FIORICET, ESGIC) 50-325-40 mg per tablet 1 tablet 08/30/2024 ceFAZolin (ANCEF) 2 g in tony rile water 20 mL IV syringe 08/30/2024 clopidogreL (PLAVIX) tablet 75 mg 025 dextrose (D50W) 50% injection 12.5 g 08/12 dextrose (D50W) 50% injection 25 g 2024 dextrose 15 gram/60 mL oral solution 15 g 08/30/2024 dextrose 15 gram/60 mL oral solution 30 g 08/30/2024 diphenhydrAMINE (BENADRYL) injection 25 mg 08/30/2024 ezetimibe (ZETIA) tablet 10 mg 08/30/2024 Glucagon HCl (rDNA) injection 1 mg 2024 heparin (UFH) injection 5,000 Units 08/30 lactated Ringer's infusion 08/30/2024 meperidine (PF) (DEMEROL) 25 mg/mL injection 12.5 mg 08/30/2024 metroNIDAZOLE (FLAGYL) IVPB 500 mg 2024 nitroglycerin (NITROSTAT) SL tablet 0.4 mg 2 08/30/2024 NON FORMULARY 2 08/30/2024 ondansetron (PF) (ZOFRAN) injection 4 mg 08/30/2024 ondansetron ODT (ZOFRAN-ODT) disintegrating tablet 4 mg 08/30/2024 oxyCODONE (ROXICODONE) immed iate release tablet 5 mg 08/30/2024 prochlorperazine (COMPAZINE) injection 10 mg 08/30/2024 prochlorperazine (COMPAZINE) suppository 25 mg 08/30/2024 prochlorperazine (COMPAZINE) tablet 10 mg 1 08/30/2024 sodium chloride 0.9 % flush 10 mL 2 025 Respiratory Care Count Last Ordered Date First Ordered Date OXYGEN THERAPY, ADULT 2 08/30/2024 Admission Count Last Ordered Date First Orde red Date ADMIT TO INPATIENT 1 08/30/2024 Discharge Count Last Ordered Date First Orde red Date DISCHARGE PATIENT 1 09/01/2024 documented in this encounter Care Teams Department Helper Relationship Specialty Start Date End Date Arabella Decker NP [facility] [address] [place] [id number] PCP - General 08/20/23 documented as of this encounter
--- OUTSIDE RECORDS SUMMARY | 2024-09-24 11:12 | XMS_ITS | Encounter Summary ---
Author Organization 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 Role Phone Arabella Decker NP Primary Care Provider [phone] Reason for Referral * Consultation (Urgent) - Authorized Specialty Diagnoses / Procedures Referred By Contac t Referred To Contact Hematology and Oncology Diagnoses Malignant neoplasm of ascending colon (CMS/HCC) Procedures OK VISIT OFFICE OUTPATIENT ESTABLISHED MODERATE LEVEL Diogo Martinez MD [address] [place] [id number] Phone: tel: fax: [facility] Hematology Oncology [address] [place] [address] Phone: tel: fax: Referral ID Status Reason Start Date Expiration Date Visits Requested Visits Authorized [id number] Authorized Consult and Treat 09/14/2024 09/14/2025 1 1 Reason for Visit * Reason Comments Post-op Right colectomy Encounter Details Date Type Department Care Team (Late st Contact Info) Description 09/14/2024 3:45 PM EST Office Visit General Surgery [facility] [address] [phone] Diogo Martinez MD [address] [place] [phone] Malignant neoplasm of ascending colon (CMS/HCC) (Primary Dx) Social History Tobacco Use Types Packs/Day Years [...] Sign Reading Time Taken Comments Blood Pressure 140/67 09/14/2024 3:37 PM EST Pulse 78 09/14/2024 3:37 PM EST Temperature 36.2 ??C (97.1 ??F) 09/14/2024 3:37 PM ES T Respiratory Rate - - Oxygen Saturation - - Inhaled Oxygen Concentration - - Weight 82.8 kg (182 lb 8 oz) 09/14/2024 3:37 PM EST Height 162.6 cm (5' 4 ) 09/14/2024 3:37 PM EST Body Mass Index 31.33 09/14/2024 3:37 PM EST documented in this encounter Progress Notes * Diogo Martinez MD - 09/14/2024 3:45 PM EST Cait returns with her for her first postoperative check. She recently slipped and fell on the ice and injured her right shoulder, and her right arm is in a sling. Fortunately, she recovered quickly and smoothly from her somewhat challenging laparoscopic right colectomy and is doing wellfrom that standpoint. No residual diarrhea, eating well, no fevers or night sweats. All incisions of healed well, all rehan removed. Pathology does confirm stage III disease, 10 of 28 nodes positive. I reviewed the implications withthem. We will request prompt evaluation by medical oncology for consideration of systemic treatment. They understand that in general terms, this is administered via Port-A-Cath, and that either I or IR can place this. We reviewed the risks of Port-A-Cath placement, and she would very much like for me to do this, so hopefully we can add her to our surgical schedule in a timely fashion; I await theresult of her consultation with oncology, however. Follow-up with me exclusive of port placement in 3 months. They understand and agree. All questionsanswered to the best of my ability. documented in this encounter Plan of Treatment Upcoming Encounters Date Type Department Care Team (Late st Contact Info) Description 09/24/2024 3:30 PM EST Office Visit [facility] Hematology Oncology [address] [place] [phone] Quoc Bernal MD [address] [place] [address] 12/14/2024 11:15 AM EDT Office Visit General Surgery [facility] [address] [phone] Diogo Martinez MD [address] [address] Scheduled Referrals Name Type Priority Associated Diagnoses Order Schedule Ambulatory referral to Hematology / Oncology Outpatient Referral Routine Malignant neoplasm of ascending colon (CMS/HCC) Expected: 09/14/2024, Expires: 09/14/2025 documented as of this encounter Visit Diagnoses Diagnosis Malignant neoplasm of ascending colon (CMS/HCC)- Primary Malignant neoplasm of ascending colon documented in this encounter Care Teams Upset Welding Machine Operator Relationship Specialty Start Date End Date Arabella Decker NP [address] [id number] PCP - General 08/20/23 documented as of this encounter
--- OUTSIDE RECORDS SUMMARY | 2024-09-24 11:12 | XMS_ITS | Encounter Summary ---
Author Organization [facility] Address [address] [place] [address] Care Team Providers Care Development Representative Name Role Phone Arabella Decker NP Primary Care Provider [phone] Reason for Referral * Consultation (Routine) - Authorized Specialty Diagnoses / Procedures Referred By Contac t Referred To Contact Orthopaedics Diagnoses Fracture of humeral head Procedures AR VISIT OFFICE OUTPATIENT ESTABLISHED MODERATE LEVEL Evangelista Tierney MD [address] [place] [address] Phone: tel: fax: [facility] [address] [address] Phone: tel: fax: Referral ID Status Reason Start Date Expiration Date Visits Requested Visits Authorized [id number] Authorized Specialty Services Required 09/11/2024 09/11/2025 1 1 Reason for Visit * Reason Comments Fall Biba from slip and f all on ice no head strike no loc no back pain. Right arm pain and swelling around wrist diff to move but (+) CMS. C-collar in place Encounter Details Date Type Department Care Team (Late st Contact Info) Description 09/11/2024 3:12 PM EST - 09/11/2024 6:20 PM EST Emergency [facility] Emergency [address] [place] [phone] Evangelista Tierney MD [address] [place] [address] Fracture of humeral head, closed, right, initial encounter (Primary Dx); Acute head injury without loss of consciousness, initial encounter; Acute pain of right shoulder; Right elbow pain Discharge Disposition: Home or Self Care Social [...] Sign Reading Time Taken Comments Blood Pressure 181/56 09/11/2024 4:48 PM EST Pulse 67 09/11/2024 4:48 PM EST Temperature 37.1 ??C (98.8 ??F) 09/11/2024 4:48 PM ES T Respiratory Rate 18 09/11/2024 4:48 PM EST Oxygen Saturation 100% 09/11/2024 4:48 PM EST Inhaled Oxygen Concentration - - Weight - - Height - - Body Mass Index - - documented in this encounter Discharge Instructions * Discharge Instructions* Evangelista Tierney MD - 09/11/2024 4:50 PM EST DIAGNOSIS / RESULTS / PROCEDURES (what was done): You came to the ED after a fall. A CAT scan of your head and neck were normal. An x-ray shows that you broke your shoulder. X-ray of your elbow was normal. INSTRUCTIONS (what you need to do): Call your primary care doctor tomorrow to discuss when you should be seen next. Your doctor may want to arrange follow up for your visit today, or may ask to see you at your next scheduled visit. Call the software implementation specialist tomorrow to discuss when you should be seen next. If you experience worsening pain, new tingling or numbness, the extremity becomes ca or blue, return to the ED immediately. MEDICATIONS (what you need to take): Acetaminophen (Tylenol) 1000 mg (3 regular or 2 extra strength) 3 times a day as needed for pain/fever Oxycodone as needed for pain documented in this encounter Medications at Time [...] mouth 1 (one) time each day. oxyCODONE (OXY-IR) 5 mg immediate release capsule Take 1 capsule (5 mg total) by mouth every 6 (six) hours if needed for severe pain for up to 10 doses. Max Daily Amount: 20 mg 10 capsule 09/11/2024 oxyCODONE (ROXICODONE) 5 mg immediate release tablet Take 1 tablet (5 mg total) by mouth every 6 (six) hours if needed for severe pain. 12 tablet 09/01/2024 pantoprazole (PROTONIX) 40 mg EC tabletIndications :GERD (gastroesophageal reflux disease) TAKE 1 TABLET BY MOUTH TWICE A DAY 180 tablet 1 09/06/2024 ranolazine (RANEXA) 500 mg 12 hr tablet [...] for 10 days. 30 tablet 09/01/2024 09/11/2024 documented as of this encounter Ordered Prescriptions Prescription Sig Dispense Quantity Refills Last Filled Start Date End Date oxyCODONE (OXY-IR) 5 mg immediate release capsule Take 1 capsule (5 mg total) by mouth every 6 (six) hours if needed for severe pain for up to 10 doses. Max Daily Amount: 20 mg 10 capsule 09/11/2024 documented in this encounter Discharge Disposition Disposition Code Departure Means Destination Comment s Home or Self Care documented in this encounter Progress Notes * Onesimo Bell RN - 09/11/2024 3:24 PM EST Biba from slip and fall on ice no head strike no loc no back pain. Right arm pain and swelling around wrist diff to move but (+) CMS * Evangelista Tierney MD - 09/11/2024 3:10 PM EST Emergency Medicine Note Patient Name: Cait Medrano Initial Evaluation: 09/11/2024 : 1955 Patient's PCP: Arabella Decker NP Emergency Physician: Evangelista Tierney MD History of Present Illness Chief Complaint: Chief Complaint Patient presents with Fall Biba from slip and fall on ice no head strike no loc no back pain. Right arm pain and swelling around wrist diff to move but (+) CMS. C-collar in place HPI: 69-year-old female presents after nonsyncopal fall with right shoulder and elbow pain. Patientslipped on black ice when going out to her mailbox this morning. She fell on her butt, denies head strike or LOC. Upon arrival denying neck pain, mostly endorsing shoulder and right elbow pain. Denies weakness tingling or numbness distally in the right hand. ROS: I have performed a ROS with the pertinent positives and negatives documented in the history ofpresent illness. 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 (CMS/HCC) 11/06/2018 DX:Diabetes mellitus type 2, uncomplicated (HCC) GERD (gastroesophageal reflux disease) 11/06/2018 DX:GERD (gastroesophageal reflux disease) Heart disease Hiatal hernia Hypercholesteremia 11/06/2018 DX:Hypercholesteremia Hypertension Joint pain Migraines 11/06/2018 DX:Migraines Myocardial infarction ([facility]) PONV (postoperative nausea and vomiting) Sleep apnea Past Surgical History: Procedure Laterality Date COLONOSCOPY CORONARY ARTERY BYPASS GRAFT HERNIA REPAIR WITH MESH HYSTERECTOMY STENT BMS - PERIPHERAL cardiac TOTAL SHOULDER ARTHROPLASTY Right DISLOCATED/FROZEN SHOULDER UPPER GASTROINTESTINAL ENDOSCOPY Social History Tobacco Use Smoking status: Never Smokeless tobacco: Never Substance Use Topics Alcohol use: Yes Comment: SOCIAL Drug use: Never No family history on file. is allergic to bromfenac, heparin, and nsaids (non-steroidal anti-inflammatory drug). No current facility-administered medications on file prior to encounter. Current Outpatient Medications on File Prior to Encounter Medication Sig Dispense Refill acetaminophen (TYLENOL) 500 mg tablet Take 2 tablets (1,000 mg total) by mouth every 8 (eight) hours for 10 days. 30 tablet 0 ALPRAZolam (XANAX) 1 mg tablet Take 0.5 tablets (0.5 mg total) by mouth at bedtime. biotin 10,000 mcg tablet,chewable Chew 1 (one) time each day. bumetanide (BUMEX) 1 mg tablet Take 1 tablet (1 mg total) by mouth 1 (one) time each day. buPROPion XL (WELLBUTRIN XL) 300 mg 24 hr tablet Take 1 tablet (300 mg total) by mouth. vrukeirydw-yrbdrbdwkhdwu-itckihdq (FIORICET, ESGIC) 50-325-40 mg per tablet Take [...] if needed for severe pain. 12 tablet 0 pantoprazole (PROTONIX) 40 mg EC tablet TAKE 1 TABLET BY MOUTH TWICE A DAY 180 tablet 1 ranolazine (RANEXA) 500 mg 12 hr tablet [...] mg total) by mouth at bedtime. vit C/E/Zn/coppr/lutein/zeaxan (PRESERVISION AREDS-2 ORAL) Take 1 capsule by mouth 2 (two) times a day. [DISCONTINUED] pantoprazole (PROTONIX) 40 mg EC tablet Take 1 tablet (40 mg total) by mouth 2 (two)times a day. Do not crush, chew, or split. Physical Exam ED Triage Vitals Temp Pulse Resp BP -- -- -- -- SpO2 Temp src Heart Rate Source Patient Position -- -- -- -- BP Location FiO2 (%) -- -- GENERAL: Well-Appearing SKIN: Warm, dry, normal for ethnicity. No rashes. HEENT: Normal sclera, noninjected nonicteric. Normocephalic atraumatic Neck: No midline tenderness CHEST: Normal peripheral perfusion, no edema PULMONARY: Normal respiratory effort ABDOMINAL: Nondistended NEURO: Alert and oriented, moving all extremities equally PSYCHIATRIC: Normal affect, fluid speech, good eye contact and appropriate demeanor. MSK: Right shoulder, tender to palpation over the lesser tuberosity, range of motion severely limited by pain. No crepitus. Skin intact. Right elbow, range of motion severely limited by pain, no deformity, skin intact, exquisitely tender to bony palpation throughout. Results Labs Reviewed - No data to display Abnormal Labs Reviewed - No data to display XR Shoulder 2+ Views Right ED Interpretation My independent review and interpretation of plain film right shoulder: Humeral head fracture XR Elbow 3+ Views Right ED Interpretation My independent review and interpretation of right elbow plain film: No fracture or dislocation CT Cervical Spine wo Contrast Final Result No acute fracture or malalignment. Wall thickening of the upper esophagus. Clinical correlation is recommended. This document has been electronically signed by: Kay Cheung MD on 09/11/2024 16:39:28 CT Head wo Contrast ED Interpretation My independent review and interpretation of CT Noncon of the head: No intracranial hemorrhage Final Result Age-related atrophy with chronic microvascular leukomalacia. No hemorrhage, mass effect, or acute findings identified. This document has been electronically signed by: Kay Cheung MD on 09/11/2024 16:21:46 I have discussed the incidental/abnormal imaging and/or lab abnormalities with the patient and haveinstructed them the need for further evaluation and workup with their primary care doctor. I have provided the patient with a paper copy of the abnormality. The laboratory results, imaging results and other diagnostic exam results were reviewed in the EMR. EKG Interpretation Critical Care Time None ? Medical Decision Making Differential Diagnosis: Intracranial injury, C-spine injury, shoulder injury, elbow injury MDM: 79-year-old female presents after nonsyncopal fall with right shoulder and elbow pain. Given advanced age and sudden deceleration, evaluate CT of the head and C-spine. Given shoulder pain, evaluate plain film right shoulder. You have elbow pain, evaluate plain film right elbow. Clinical Impression: Shoulder pain, elbow pain, head injury without loss of consciousness SEPSIS Exemption: [ x ] It is unlikely this patient has sepsis at the time of my evaluation. Medications acetaminophen (TYLENOL) tablet 1,000 mg (1,000 mg oral Given 09/11/24 1527) ED Course as of 09/11/241654 Sat Sep 11, [address] of the head and C-spine are negative. Plain film of the shoulder shows humeral head fracture. Elbow shows no fracture or dislocation. Will discharge patient in sling to follow-up with orthopedics. [MG] ED Course User Index [MG] Evangelista Tierney MD Clinical Impressions as of 09/11/241654 Acute head injury without loss of consciousness, initial encounter Acute pain of right shoulder Right elbow pain Fracture of humeral head, closed, right, initial encounter Procedures Procedures Diagnosis 1. Fracture of humeral head, closed, right, initial encounter 2. Acute head injury without loss of consciousness, initial encounter 3. Acute pain of right shoulder 4. Right elbow pain Disposition Discharge ED Prescriptions Medication Sig Dispense Start Date End Date Auth. Provider oxyCODONE (OXY-IR) 5 mg immediate release capsule Take 1 capsule (5 mg total) by mouth every 6 (six) hours if needed for severe pain for up to 10 doses. Max Daily Amount: 20 mg 10 capsule 09/11/2024 --Evangelista Tierney MD Physician Attestation Evangelista Tierney MD 09/11/24 1526 Evangelista Tierney MD 09/11/241655 documented in this encounter Plan of Treatment Upcoming Encounters Date Type Department Care Team (Late st Contact Info) Description 09/24/2024 3:30 PM EST Office Visit [facility] Hematology Oncology [address] [place] [phone] Quoc Bernal MD [address] [place] [address] 12/14/2024 11:15 AM EDT Office Visit General Surgery - [place] [address] [facility] [address] [place] [phone] Diogo Martinez MD 175 [facility] [address] [place] [address] Scheduled Referrals Name Type Priority Associated Diagnoses Order Schedule Ambulatory referral to Orthopedic Outpatient Referral Routine 1 Occurrence s starting 09/11/2024 until 09/11/2025 documented as of this encounter Procedures Procedure Name Priority Date/Time Associated Diagnosis Comments XR ELBOW 3+ VIEWS RIGHT STAT 09/11/2024 4:13 PM EST XR SHOULDER 2+ VIEWS RIGHT STAT 09/11/2024 4:[address] CERVICAL SPINE WO CONTRAST STAT 09/11/2024 3:[address] HEAD WO CONTRAST STAT 09/11/2024 3 :54 PM EST documented in this encounter Results * XR Elbow 3+ Views Right (09/11/2024 4:13 PM EST) Anatomical Region Laterality Modality Upper Extremities, Elbow Right Radiogr aphic Imaging 09/12/2024 9:39 AM EST Impressions 09/12/2024 9:40 AM EST No acute findings. -------- FINAL REPORT -------- Dictated By: Nile Hernández Dictated Date: 09/12/2024 09:39 ET Assigned Physician: Nile Hernández Reviewed and Electronically Signed By: Nile Hernández Signed Date: 09/12/2024 09:40 ET Workstation ID: [id number] Transcribed By: Self Edit Transcribed Date: 09/12/2024 09:39 ET Narrative 09/12/2024 9:40 AM EST PROCEDURE: Radiographs of the right elbow. HISTORY: fall pain. COMPARISON: None. FINDINGS: Bones appear demineralized. ??No joint effusion. ??No fracture or malalignment. ??Small dystrophic calcification of the triceps tendon. Procedure Note Nile Hernández MD - 09/12/2024 PROCEDURE: Radiographs of the right elbow. HISTORY: fall pain. COMPARISON: None. FINDINGS: Bones appear demineralized. No joint effusion. No fracture ormalalignment. Small dystrophic calcification of the triceps tendon. IMPRESSION: No acute findings. -------- FINAL REPORT -------- Dictated By: Nile Hernández Dictated Date: 09/12/2024 09:39 ET Assigned Physician: Nile Hernández Reviewed and Electronically Signed By: Nile Hernández Signed Date: 09/12/2024 09:40 ET Workstation ID: [id number] Transcribed By: Self Edit Transcribed Date: 09/12/2024 09:39 ET Evangelista Tierney MD IMG XR PROCEDURES Final Result * XR Shoulder 2+ Views Right (09/11/2024 4:13 PM EST) Anatomical Region Laterality Modality Upper Extremities, Shoulder Right Radi ographic Imaging 09/12/2024 9:46 AM EST Impressions 09/12/2024 9:48 AM EST Impacted fracture of the humeral neck with suspected extension into the humeral head. -------- FINAL REPORT -------- Dictated By: Nile Hernández Dictated Date: 09/12/2024 09:46 ET Assigned Physician: Nile Hernández Reviewed and Electronically Signed By: Nile Hernández Signed Date: 09/12/2024 09:48 ET Workstation ID: [id number] Transcribed By: Self Edit Transcribed Date: 09/12/2024 09:46 ET Narrative 09/12/2024 9:48 AM EST PROCEDURE: Radiographs of the right shoulder. HISTORY: fall pain. COMPARISON: None. FINDINGS: The bones are diffusely demineralized. ??There is an impacted fracture of the humeral neck with suspected extension into the humeral head. ??Moderate degenerative changes of the glenohumeral joint and mild degenerative changes of the acromioclavicular joint. Sternotomy wires and post-coronary artery bypass graft changes. Procedure Note Nile Hernández MD - 09/12/2024 PROCEDURE: Radiographs of the right shoulder. HISTORY: fall pain. COMPARISON: None. FINDINGS: The bones are diffusely demineralized. There is an impacted fracture ofthe humeral neck with suspected extension into the humeral head. Moderatedegenerative changes of the glenohumeral joint and mild degenerativechanges of the acromioclavicular joint. Sternotomy wires and post-coronary artery bypass graft changes. IMPRESSION: Impacted fracture of the humeral neck with suspected extension into thehumeral head. -------- FINAL REPORT -------- Dictated By: Nile Hernández Dictated Date: 09/12/2024 09:46 ET Assigned Physician: Nile Hernández Reviewed and Electronically Signed By: Nile Hernández Signed Date: 09/12/2024 09:48 ET Workstation ID: [id number] Transcribed By: Self Edit Transcribed Date: 09/12/2024 09:46 ET Evangelista Tierney MD IMG XR PROCEDURES Final Result * CT Head wo Contrast (09/11/2024 3:54 PM EST) Anatomical Region Laterality Modality Head and Neck Computed Tomogra phy 09/11/2024 4:21 PM EST Impressions 09/11/2024 4:21 PM EST Age-related atrophy with chronic microvascular leukomalacia. No hemorrhage, mass effect, or acute findings identified. This document has been electronically signed by: Kay Cheung MD on 09/11/2024 16:21:46 Narrative 09/11/2024 4:[address] Brain without contrast Comparison: None FINDINGS: Cortical sulci: There is diffuse prominence of the cortical sulci compatible with age-related atrophy. Ventricles: Normal for age Brain parenchyma: There is patchy lucency throughout the deep white matter indicating chronic microvascular leukomalacia. Extra axial spaces: Normal Posterior Fossa: Normal Extracranial soft tissues: Normal Additional abnormality: Atherosclerosis calcification of the distal vertebral artery and carotid artery. Procedure Note Kay Cheung MD - 09/11/2024 CT Brain without contrast Comparison: None FINDINGS: Cortical sulci: There is diffuse prominence of the cortical sulci compatible with age-related atrophy. Ventricles: Normal for age Brain parenchyma: There is patchy lucency throughout the deep whitematter indicating chronic microvascular leukomalacia. Extra axial spaces: Normal Posterior Fossa: Normal Extracranial soft tissues: Normal Additional abnormality: Atherosclerosis calcification of the distal vertebral artery and carotid artery. IMPRESSION: Age-related atrophy with chronic microvascular leukomalacia. No hemorrhage, mass effect, or acute findings identified. This document has been electronically signed by: Kay Cheung MD on 09/11/2024 16:21:46 Evangelista Tierney MD IMG CT PROCEDURES Final Result * CT Cervical Spine wo Contrast (09/11/2024 3:54 PM EST) Anatomical Region Laterality Modality Spine, C-spine Computed Tomogra phy 09/11/2024 4:39 PM EST Impressions 09/11/2024 4:39 PM EST No acute fracture or malalignment. Wall thickening of the upper esophagus. Clinical correlation is recommended. This document has been electronically signed by: Kay Cheung MD on 09/11/2024 16:39:28 Narrative 09/11/2024 4:[address] cervical spine without contrast Comparison: None Findings: Vertebral alignment is within normal limits. There is degenerative change. No acute fractures or dislocations. Visualized intracranial contents are unremarkable. Atherosclerosis calcification of the carotid bulbs. There is wall thickening of the upper esophagus. No consolidation or effusion at the lung apices. Procedure Note Kya Cheung MD - 09/11/2024 CT cervical spine without contrast Comparison: None Findings: Vertebral alignment is within normal limits. There is degenerative change. No acute fractures or dislocations. Visualized intracranial contents are unremarkable. Atherosclerosis calcification of the carotid bulbs. There is wall thickening of the upper esophagus. No consolidation or effusion at the lung apices. IMPRESSION: No acute fracture or malalignment. Wall thickening of the upper esophagus. Clinical correlation is recommended. This document has been electronically signed by: Kay Cheung MD on 09/11/2024 16:39:28 Evangelista Tierney MD IMG CT PROCEDURES Final Result documented in this encounter Visit Diagnoses Diagnosis Fracture of humeral head, closed, right, initial encounter- Primary Acute head injury without loss of consciousness, initial encounter Acute pain of right shoulder Right elbow pain Pain in joint, upper arm documented in this encounter Administered Medications Inactive Administered Medications - up to 3 most recent administrations Medication Order MAR Action Action Date Dose Rate Site acetaminophen (TYLENOL) tablet 1,000 mg 1,000 mg, oral, Every 8 hours scheduled, First dose on 09/11/24 at 1522 Given 09/11/2024 3:27 PM EST 1,000 mg documented in this encounter Active and Recently Administered Medications Times are shown in EST. Scheduled Medication Order 09/09/2024 09/10/2024 09/11/2024 acetaminophen (TYLENOL) tablet 1,000 mg 1,000 mg, oral, Every 8 hours scheduled, First dose on 09/11/24 at 1522 1527 (Given - Provid er: Onesimo Bell RN) documented in this encounter Care Teams Development Representative Relationship Specialty Start Date [place] [address] PCP - General 08/20/23 documented as of this encounter
--- OUTSIDE RECORDS SUMMARY | 2024-09-24 11:12 | XMS_ITS | Encounter Summary ---
Author Organization [facility] Address [address] [place] [address] Care Team Providers Care Inside Meter Tester Name Role Phone Arabella Decker NP Primary Care Provider [phone] Encounter Details Date Type Department Care Team (Late st Contact Info) Description 2024 Telephone Gastroenterology - [address] [place] [phone] Kristin Dey [place] Social History Tobacco Use Types Packs/Day Years Used Date Smoking Tobacco: Never Smokeless Tobacco: Never Alcohol Use Standard Drinks/Week Comments Yes 0 (1 standard drink = 0.6 oz pur e alcohol) Interpersonal Safety Answer Date Record ed Physical Abuse 08/30/2024 Verbal Abuse 08/30/2024 Comments No Sex and Gender Information Value Date Recorded Sex Assigned at Female 08/27/2024 11:55 AM EST Legal Sex Female 9:27 PM EST Gender Identity Female 08/27/2024 11:55 AM EST Sexual Orientation Straight 08/27/2024 11 :55 AM EST documented as of this encounter Progress Notes * Ashlyn Shetty MA - 2024 11:40 AM EST Pt had consult with Dr. Martinez yesterday. She was at the appt the moment you called with ct results. She was concerned about the nodules you mentioned. I suggested to call Dr. Martinez since I faxed report to him at 3:58 pm (after her visit) and get his input. She is scheduled for surgery with Dr. Martinez on 08/30/24. * Kristin Dey MA - 2024 8:45 AM EST PT RETURNED CALL IN REGARDS TO IMAGING RESULTS. documented in this encounter Plan of Treatment Upcoming Encounters Date Type Department Care Team (Late st Contact Info) Description 09/24/2024 3:30 PM EST Office Visit [facility] Hematology Oncology [address] [place] [phone] Quoc Bernla MD [address] [place] [address] 12/14/2024 11:15 AM EDT Office Visit General Surgery [facility] [address] [phone] Diogo Martinez MD [address] [address] documented as of this encounter Visit Diagnoses Not on filedocumented in this encounter Care Teams Inside Meter Tester Relationship Specialty Start Date End Date Arabella Decker NP [facility] [address] [place] [id number] PCP - General 08/20/23 documented as of this encounter
--- OUTSIDE RECORDS SUMMARY | 2024-09-24 11:12 | XMS_ITS | Encounter Summary ---
Author Organization [facility] Address [address] [place] [address] Care Team Providers Care Sales Force Administrator Name Role Phone Arabella Decker NP Primary Care Provider [phone] Reason for Visit * Auth/Cert (Routine) Specialty Diagnoses / Procedures Referred By Contac t Referred To Contact Diagnoses Malignant neoplasm of ascending colon (CMS/HCC) Malignant neoplasm of ascending colon Procedures IN LAP SURG COLECTOMY PARTIAL W REMOVAL OF TERMINAL ILEUM W ILEOCOLOSTOMY IN HOSPITAL IP/OBS CARE INITIAL MODERATE LEVEL PER DAY LAPAROSCOPIC COLECTOMY ; ? OPEN Diogo Martinez MD [address] [address] Phone: tel: fax: Referral ID Status Reason Start Date Expiration Date Visits Re quested Visits Authorized [id number] 08/05/2024 1 1 Encounter Details Date Type Department Care Team (Late st Contact Info) Description 08/30/2024 7:30 AM EST - 08/30/2024 10:00 AM EST Surgery [facility] Main OR [address] [place] [address] Diogo Martinez MD [address] [address] LAPAROSCOPIC COLECTOMY [40498 (CPT??)] Surgery Details Date/Time Status Location OR Service Patient Class Case Class Case Type Trauma Case? 08/30/2024 7:30 AM Posted [facility] OR OR 02 General Surgery to the Floor F - Elective Panel 1 Procedure LRB Anes Op Region Wound Class Comments LAPAROSCOPIC COLECTOMY Right general Abdomen Class I I/ Clean Contaminated Surgeon Surgeon Role Service Panel Diogo Martinez MD Primary General 1 documented in this encounter Social History Tobacco Use Types Packs/Day Years [...] Sign Reading Time Taken Comments Blood Pressure 171/54 08/30/2024 6:20 AM EST Pulse 65 08/30/2024 6:20 AM EST Temperature 36.7 ??C (98.1 ??F) 08/30/2024 6:20 AM ES T Respiratory Rate 16 08/30/2024 6:20 AM EST Oxygen Saturation 100% 08/30/2024 6:20 AM EST Inhaled Oxygen Concentration - - Weight 86.2 kg (190 lb) 08/30/2024 6:51 AM EST Height 162.6 cm (5' 4 ) 08/30/2024 6:51 AM EST Body Mass Index 32.53 08/30/2024 4:17 PM [...] Martinez's operative note. She was admitted to [facility] and ERAS protocols were followed. ARIN was consulted for medical comanagement. The patient [...] Friday09/03/24. She will follow up in the [facility] as scheduled. Discharge Disposition: Home, self-care Procedures Performed: Procedure(s): LAPAROSCOPIC COLECTOMY Test Results Pending At Discharge: Pending Labs Order Current Status Tissue exam In process Outpatient Follow-Up Care: Future Appointments Date Time Provider Department Center 09/14/2024 3:45 PM Diogo Martinez MD [facility] [address] [facility] Discharge Medication List: Your medication list [...] 1 tablet (300 mg total) by mouth. fpzeajuakj-upkqljhlxkqae-bdwzkolz 50-325-40 mg per tablet Commonly known as: [...] Your Medications These medications were sent to [facility]/pharmacy #[id number] - [address] [address] acetaminophen 500 mg tablet oxyCODONE 5 mg [...] hours for 10 days. 30 tablet 09/01/2024 5 documented in this encounter Discharge Disposition Disposition Code Departure Means Destination Home or Self Care documented in this encounter Progress Notes * Soraya Lucero RN - 09/01/2024 11:09 AM EST 09/01/24 8019 Transportation Transportation at discharge Family What day [...] is soft, without significant tenderness and nondistended. Duane appear C/D/I Musculoskeletal Exam: No lower extremity [...] bypass grafting in 2013 and again around 0799-0384 at which time she required 5 cardiac stents Specialist Employee Labor Relations is Dr. Roberts through [facility] -- Continue statin, beta-alvarez -- Resume [...] Discharge Needs Discipline following for SNF placement Sole Conditioner Informed Choice Informed Choice Given? Yes Transportation Transportation at discharge Family (Spouse to transport home once ready for d/c) ICC met with pt and spouse at bedside. Demographics confirmed. Pt pharmacy is [facility] on [address]. Pt will d/c home with self care when ready * Shayy Garcia MD - 08/31/2024 3:36 PM EST [facility] Provider Response Note PATIENT: CAIT MEDRANO : 1955 ADMIT DATE: 08/30/2024 10:39 AM DISCH DATE: RESPONDING PROVIDER #: [id number] PROVIDER RESPONSE TEXT: Provider disagrees with the [...] per H&P BMI 32.36 per 08/31/24 C: [phone] The patient's clinical indicators include: Options provided: [...] PRN medications: buprenorphine, buprenorphine, [Held by provider] oiefrhuewe-jspwxpfnfhurv-sytwtiyn, dextrose 50%, dextrose 50%, dextrose, dextrose, glucagon [...] bypass grafting in 2013 and again around 5850-7233 at which time she required 5 cardiac stents Specialist Employee Labor Relations is Dr. Roberts through [facility] -- Continue statin, beta-alvarez -- Resume [...] barriers to meeting goals/advancing plan of care: Tenriism of bladder & bowel function and pain [...] and Physical was completed. Source Note - Doigo Martinez MD - 08/05/2024 2:30 PM EST [...] angioplasty with 5 cardiac stents. Her primary manager functional is Dr. Ángel Roberts with the [facility] p. Remote hysterectomy and subsequent development of lower [...] Date Noted Malignant neoplasm of ascending colon ([facility]) 08/05/2024 Anxiety 11/06/2018 Diabetes mellitus type 2, uncomplicated ([facility]) 11/06/2018 Depression 11/06/2018 Hypercholesteremia 11/06/2018 GERD (gastroesophageal [...] 1 tablet (300 mg total) by mouth. dyjcubblue-iwgispkslpqxp-gvfqrfgd (FIORICET, ESGIC) 50-325-40 mg per tablet Take [...] Diogenes Beck Reviewed and Electronically Signed By: Diogenes Beck Signed Date: 08/05/2024 15:06 ET Workstation ID: [id number] Transcribed By: Self Edit Transcribed Date: 08/05/2024 [...] Signed Date: 08/23/2024 07:29 ET Workstation ID: [id number] Transcribed By: Self Edit Transcribed Date: 08/23/2024 [...] Signed Date: 08/23/2024 07:29 ET Workstation ID: [id number] Transcribed By: Self Edit Transcribed Date: 08/23/2024 [...] OPEN (R) OPERATIVE NOTE Date: 08/30/2024 Location: [facility] OR Name: Cait Medrano, : 1955, Diagnosis Pre-Op Diagnosis Codes: * Malignant neoplasm of ascending colon (CMS/HCC) [C18.2] Post-op Diagnosis * Malignant neoplasm of ascending colon (CMS/HCC) [C18.2] Procedures LAPAROSCOPIC COLECTOMY ? OPEN 35999 - IN LAP SURG COLECTOMY PARTIAL W REMOVAL OF TERMINAL ILEUM W ILEOCOLOSTOMY Indications: Cait Medrano is a 69 y.o. female who is having surgery for Pre-Op Diagnosis Codes: * Malignant neoplasm of ascending colon (CMS/HCC) [C18.2]. Surgeon(s) & Manager Of It(s) * Diogo Martinez MD - Primary Manager Of It: Imer Scott PA-C Anesthesia: general ASA: IV [...] and released pneumoperitoneum. Incisions were closed with duane and she was awakened and transferred to [...] Messaged Dr Martinez re type/screen-no need per * Lizbeth Gill RN - 08/30/2024 6:06 AM EST MALIKA-SPOUSE [phone] documented in this encounter Consult Notes * [...] a past medical history of Angina pectoris ([facility]), Anxiety (11/06/2018), Arthritis, Blindness (2003), Cancer, colon ([facility]), CHF (congestive heart failure) ([facility]), Colon polyp, Constipation (11/06/2018), Depression (11/06/2018), Diabetes mellitus type 1, uncomplicated, 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 08/29/2024 ypanouqslg-qczmccwvauvax-ejiloubm (FIORICET, ESGIC) 50-325-40 mg per tablet Take [...] 5 cardiac stents. She is followed by manager functional Dr. Ángel Roberts at [facility]. - Patient does report she occasionally [...] has been seen in the past by [facility] and [facility]. She is also followed by Dr. [...] Description 09/24/2024 3:30 PM EST Office Visit [facility] Hematology Oncology [address] [place] [phone] Quoc Bernal MD [address] [place] [address] 12/14/2024 11:15 AM EDT Office Visit General Surgery - [place] [address] [phone] Diogo Martinez MD [address] [address] documented as of this encounter Procedures Procedure [...] EST Malignant neoplasm of ascending colon (CMS/HCC) IN LAP SURG COLECTOMY PARTIAL W REMOVAL OF TERMINAL ILEUM W ILEOCOLOSTOMY 08/30/2024 7:33 AM EST Malignant neoplasm of ascending colon (CMS/HCC) POCT GLUCOSE BLOOD Routine 08/30/2024 6: 20 AM EST documented in this encounter Results * (ABNORMAL) CBC auto differential (09/01/2024 6:25 AM EST) Pathologist [facility] WBC 6.8 4.8 - 10.8 K/mcL LAB HEMETOLOGY METHOD 09/01/2024 6:56 AM [facility] RBC 3.40(L) 3.80 - 4.80 M/mcL LAB HEMETOLOGY METHOD 09/01/2024 6:56 AM [facility] Hemoglobin 10.4(L) 11.5 - 16.0 g/dL LAB HEMETOLOGY METHOD 09/01/2024 6:56 AM [facility] Hematocrit 33.4(L) 35.0 - 47.0 % LAB HEMETOLOGY METHOD 09/01/2024 6:56 AM [facility] MCV 98.5(H) 79.0 - 98.0 FL LAB HEMETOLOGY METHOD 09/01/2024 6:56 AM [facility] MCH 30.7 27.0 - 32.0 pcg LAB HEMETOLOGY METHOD 09/01/2024 6:56 AM [facility] MCHC 31.1(L) 32.0 - 37.0 g/dL LAB HEMETOLOGY METHOD 09/01/2024 6:56 AM [facility] RDW 13.5 11.0 - 15.0 % LAB HEMETOLOGY METHOD 09/01/2024 6:56 AM [facility] Platelets 184 130 - 400 K/mcL LAB HEMETOLOGY METHOD 09/01/2024 6:56 AM [facility] MPV 11.8(H) 7.0 - 11.0 FL LAB HEMETOLOGY METHOD 09/01/2024 6:56 AM [facility] NRBC 0.0 <1.0 % LAB HEMETOLOGY METHOD 09/01/2024 6:56 AM [facility] NRBC Absolute 0.00 <0.10 K/mcL LAB HEMETOLOGY METHOD 09/01/2024 6:56 AM [facility] Neutrophils Relative 58.5 % LAB HEMETOLOGY METHOD 09/01/2024 6:56 AM [facility] Lymphocytes Relative 27.2 % LAB HEMETOLOGY METHOD 09/01/2024 6:56 AM [facility] Monocytes Relative 12.4 % LAB HEMETOLOGY METHOD 09/01/2024 6:56 AM [facility] Eosinophils Relative 1.2 % LAB HEMETOLOGY METHOD 09/01/2024 6:56 AM [facility] Basophils Relative 0.4 % LAB HEMETOLOGY METHOD 09/01/2024 6:56 AM [facility] Immature Granulocytes Relative 0.3 % LAB HEMETOLOGY METHOD 09/01/2024 6:56 AM [facility] Neutrophils Absolute 3.95 1.50 - 7.00 K/mcL LAB HEMETOLOGY METHOD 09/01/2024 6:56 AM [facility] Lymphocytes Absolute 1.84 1.00 - 5.00 K/mcL LAB HEMETOLOGY METHOD 09/01/2024 6:56 AM EST [facility] Monocytes Absolute 0.84 0.20 - 1.00 K/mcL LAB HEMETOLOGY METHOD 09/01/2024 6:56 AM EST [facility] Eosinophils Absolute 0.08 0.00 - 0.50 K/[facility] LAB HEMETOLOGY METHOD 09/01/2024 6:56 AM EST [facility] Basophils Absolute 0.03 0.00 - 0.20 K/[facility] LAB HEMETOLOGY METHOD 09/01/2024 6:56 AM EST [facility]) [facility] Immature Granulocytes Absolute 0.02 0.00 - 0.03 K/[facility] LAB HEMETOLOGY METHOD 09/01/2024 6:56 AM EST [facility] Blood Venous blood specimen / Unknown Venipuncture / Unknown 09/01/2024 6:25 AM EST 09/01/2024 6:40 AM EST Terrie POWELL LAB BLOOD ORDERABLES Final Re sult [facility] [address] [place] [address], * Phosphorus (09/01/2024 6:25 AM EST) Phosphorus 3.9 2.5 - 4.5 mg/dL LAB CHEMISTRY METHOD 09/01/2024 7:29 AM EST [facility] Blood Venous blood specimen / Unknown Venipuncture / Unknown 09/01/2024 6:25 AM EST 09/01/2024 6:38 AM EST Terrie POWELL LAB BLOOD ORDERABLES Final Re sult [facility] [address] [place] [address], [place] [phone] * Magnesium (09/01/2024 6:25 AM EST) Pathologist [facility] Magnesium 2.3 1.9 - 2.6 mg/dL LAB CHEMISTRY METHOD 09/01/2024 7:29 AM [facility] Blood Venous blood specimen / Unknown Venipuncture / Unknown 09/01/2024 6:25 AM EST 09/01/2024 6:38 AM EST Terrie POWELL LAB BLOOD ORDERABLES Final Re sult [facility] [address] [place] [address], [place] [phone] * (ABNORMAL) Basic metabolic panel (09/01/2024 6:25 AM EST) [facility] Sodium 142 133 - 145 mmol/L LAB CHEMISTRY METHOD 09/01/2024 7:29 AM [facility] Potassium 3.9 3.5 - 5.5 mmol/L LAB CHEMISTRY METHOD 09/01/2024 7:29 AM [facility] Chloride 109 96 - 110 mmol/L LAB CHEMISTRY METHOD 09/01/2024 7:29 AM [facility] CO2 28 21 - 32 mmol/L LAB CHEMISTRY METHOD 09/01/2024 7:29 AM [facility] Anion Gap 5 3 - 11 LAB CHEMISTRY METHOD 09/01/2024 7:29 AM [facility] Glucose 124(H) 70 - 100 mg/dL LAB CHEMISTRY METHOD 09/01/2024 7:29 AM [facility] BUN 7 5 - 25 mg/dL LAB CHEMISTRY METHOD 09/01/2024 7:29 AM [facility] Creatinine 0.84 0.50 - 1.10 mg/dL LAB CHEMISTRY METHOD 09/01/2024 7:29 AM [facility] eGFR 76 >=60 mL/min/1. 73m2 LAB CHEMISTRY METHOD 09/01/2024 7:29 AM EST [facility] Comment:Calculation based on the??Chronic Kidney Disease Epidemiology Collaboration (CKD-EPI) equation refit??without adjustment for race. BUN/Creatinine Ratio 8.3 LAB CHEMISTRY METHOD 09/01/2024 7:29 AM [facility] Calcium 8.4(L) 8.5 - 10.5 mg/dL LAB CHEMISTRY METHOD 09/01/2024 7:29 AM [facility] Blood Venous blood specimen / Unknown Venipuncture / Unknown 09/01/2024 6:25 AM EST 09/01/2024 6:38 AM EST Terrie POWELL LAB BLOOD ORDERABLES Final Re sult [facility] [address] [place] [address], * (ABNORMAL) CBC auto differential (08/31/2024 6:35 AM EST) WBC 9.7 4.8 - 10.8 K/mcL LAB HEMETOLOGY METHOD 08/31/2024 7:07 AM [facility] RBC 3.60(L) 3.80 - 4.80 M/mcL LAB HEMETOLOGY METHOD 08/31/2024 7:07 AM [facility] Hemoglobin 11.2(L) 11.5 - 16.0 g/dL LAB HEMETOLOGY METHOD 08/31/2024 7:07 AM [facility] Hematocrit 36.2 35.0 - 47.0 % LAB HEMETOLOGY METHOD 08/31/2024 7:07 AM [facility] MCV 99.5(H) 79.0 - 98.0 FL LAB HEMETOLOGY METHOD 08/31/2024 7:07 AM [facility] MCH 30.8 27.0 - 32.0 pcg LAB HEMETOLOGY METHOD 08/31/2024 7:07 AM [facility] MCHC 30.9(L) 32.0 - 37.0 g/dL LAB HEMETOLOGY METHOD 08/31/2024 7:07 AM [facility] RDW 13.5 11.0 - 15.0 % LAB HEMETOLOGY METHOD 08/31/2024 7:07 AM [facility] Platelets 216 130 - 400 K/mcL LAB HEMETOLOGY METHOD 08/31/2024 7:07 AM [facility] MPV 11.8(H) 7.0 - 11.0 FL LAB HEMETOLOGY METHOD 08/31/2024 7:07 AM [facility] NRBC 0.0 <1.0 % LAB HEMETOLOGY METHOD 08/31/2024 7:07 AM [facility] NRBC Absolute 0.00 <0.10 K/mcL LAB HEMETOLOGY METHOD 08/31/2024 7:07 AM [facility] Neutrophils Relative 67.3 % LAB HEMETOLOGY METHOD 08/31/2024 7:07 AM [facility] Lymphocytes Relative 21.5 % LAB HEMETOLOGY METHOD 08/31/2024 7:07 AM [facility] Monocytes Relative 10.0 % LAB HEMETOLOGY METHOD 08/31/2024 7:07 AM [facility] Eosinophils Relative 0.6 % LAB HEMETOLOGY METHOD 08/31/2024 7:07 AM [facility] Basophils Relative 0.2 % LAB HEMETOLOGY METHOD 08/31/2024 7:07 AM [facility] Immature Granulocytes Relative 0.4 % LAB HEMETOLOGY METHOD 08/31/2024 7:07 AM [facility] Neutrophils Absolute 6.53 1.50 - 7.00 K/mcL LAB HEMETOLOGY METHOD 08/31/2024 7:07 AM EST [facility] Lymphocytes Absolute 2.09 1.00 - 5.00 K/mcL LAB HEMETOLOGY METHOD 08/31/2024 7:07 AM [facility] Monocytes Absolute 0.97 0.20 - 1.00 K/mcL LAB HEMETOLOGY METHOD 08/31/2024 7:07 AM EST [facility] Eosinophils Absolute 0.06 0.00 - 0.50 K/[facility] LAB HEMETOLOGY METHOD 08/31/2024 7:07 AM EST [facility] Basophils Absolute 0.02 0.00 - 0.20 K/[facility] LAB HEMETOLOGY METHOD 08/31/2024 7:07 AM [facility] Immature Granulocytes Absolute 0.04(H) 0.00 - 0.03 K/[facility] LAB HEMETOLOGY METHOD 08/31/2024 7:07 AM EST [facility] Blood Venous blood specimen / Unknown Venipuncture / Unknown 08/31/2024 6:35 AM EST 08/31/2024 6:58 AM EST us ANDRE [place] LAB BLOOD ORDERABLES Final Result [facility] [address] [place] [address], * (ABNORMAL) Basic metabolic panel (08/31/2024 6:35 AM EST) Sodium 138 133 - 145 mmol/L LAB CHEMISTRY METHOD 08/31/2024 7:48 AM [facility] Potassium 3.4(L) 3.5 - 5.5 mmol/L LAB CHEMISTRY METHOD 08/31/2024 7:48 AM [facility] Chloride 107 96 - 110 mmol/L LAB CHEMISTRY METHOD 08/31/2024 7:48 AM [facility] CO2 25 21 - 32 mmol/L LAB CHEMISTRY METHOD 08/31/2024 7:48 AM [facility] Anion Gap 6 3 - 11 LAB CHEMISTRY METHOD 08/31/2024 7:48 AM [facility] Glucose 147(H) 70 - 100 mg/dL LAB CHEMISTRY METHOD 08/31/2024 7:48 AM [facility] BUN 9 5 - 25 mg/dL LAB CHEMISTRY METHOD 08/31/2024 7:48 AM [facility] Comment:Results verified by repeat testing Creatinine 0.94 0.50 - 1.10 mg/dL LAB CHEMISTRY METHOD 08/31/2024 7:48 AM [facility] eGFR 67 >=60 mL/min/1. 73m2 LAB CHEMISTRY METHOD 08/31/2024 7:48 AM [facility] Comment:Calculation based on the??Chronic Kidney Disease Epidemiology Collaboration (CKD-EPI) equation refit??without adjustment for race. BUN/Creatinine Ratio 9.6 LAB CHEMISTRY METHOD 08/31/2024 7:48 AM [facility] Calcium 8.5 8.5 - 10.5 mg/dL LAB CHEMISTRY METHOD 08/31/2024 7:48 AM [facility] Blood Venous blood specimen / Unknown Venipuncture / Unknown 08/31/2024 6:35 AM EST 08/31/2024 6:58 AM EST us ANDRE [facility] LAB BLOOD ORDERABLES Final Result [facility] [address] [place] [address], * Tissue exam (08/30/2024 9:41 AM EST) [...] Stage pT3N2b, see synoptic. 09/01/2024 4:27 PM [facility] ([facility]) [facility] Gross Description A. Colon, right: Labeled [...] the index mass. The uninvolved mucosa is jyv-knmq-wzq glistening with normal folds throughout. Multiple possible [...] fletcher-pink and glistening. Gross photographs are taken. Deburr Technician sections are submitted as follows: 1, perpendicular [...] lymph nodes each, six pieces each 18, technical sales representatives larger grossly positive possible lymph node, two pieces 19, technical sales representatives larger grossly positive possible lymph node, two pieces ELSA 09/01/2024 4:27 PM EST [facility] ([facility] HOSPITAL LAB Synoptic Checklist COLON AND RECTUM: [...] Additional Findings: ?Adenoma(s) ?? Comment(s): ?performed on [id number] and reported as RENÉ, HER2 Negative (1+) 09/01/2024 4:27 PM EST [facility] Disclaimer Unless otherwise specified, all tissue is 10% NB formalin fixed and paraffin embedded. 09/01/2024 4:27 PM EST [facility] Tissue (Colon) 08/30/2024 9: 41 AM EST 08/30/2024 10:49 AM EST us Diogo Martinez MD LAB PATHOLOGY ORDERABLES Fi nal Result Performing Organization Address [facility] Co de Phone Number [facility] [address] [place] [address], * (ABNORMAL) POCT Glucose, blood (08/30/2024 6:20 AM EST) Glucose POCT 150(H) 70 - 100 mg/dL 08/30/2024 6:22 AM EST [facility] Blood Capillary blood specimen / Unknown 08/30/2024 6:20 AM EST 08/30/2024 6:23 AM EST us Diogo Martinez MD LAB POINT OF CARE T EST DOCKED DEVICE UNSOLICITED RESULTS Final Result Performing Organization Address City/[facility]/ZIP Co de Phone Number [facility] [address] [place] [address], documented in this encounter Visit Diagnoses Diagnosis Malignant neoplasm of ascending colon (CMS/HCC)- Primary Malignant neoplasm of ascending colon Malignant neoplasm of ascending colon (CMS/HCC) Malignant [...] Given 08/30/2024 9:12 PM EST 1 mg atorvastatin (LIPITOR) tablet 80 mg 80 mg, oral, Nightly, First dose on Fri08/30/24 at 2100 Given 08/31/2024 9:19 PM EST 80 mg Given 08/30/2024 9:10 PM EST 80 mg bumetanide (BUMEX) tablet 1 mg 1 mg, oral, Daily, First dose on Fri08/30/24 at 1530 Given 09/01/2024 8:19 AM EST 1 mg bupivacaine-EPINEPHrine (MARCAINE w/EPI) 0.25 %-1:200,000 injection As needed, Starting on Fri08/30/24 at 1006, Intraprocedure Given 08/30/2024 10:06 AM EST 45 mL buprenorphine HCL (BUPRENEX) injection solution 0.075 mg [...] on Fri08/30/24 at 1332, For 1 dose insulin lispro (HumaLOG) patient supplied pump continuous sub-Q infusn (via wearable injector), Continuous, Starting on Fri08/30/24 at 2045, Until Fri09/01/24 at 1318, Brand Name of Insulin Pump? Tandem t:slim X2, Insulin Type? lispro (HumaLOG), [place] / Cartridge Size? Other, Other: [place] / Cartridge Size? 300ml, Volume Remaining in [place]? 190ml, Time and Date of last [place] Fill/Cartridge Change known? Yes, Date? 08/29/2024, Time? 5:00 PM, Active Insulin Time? 4 Hours Self Administered Via Pump 08/30/2024 9:17 PM EST 1 EA isosorbide mononitrate (IMDUR) 24 hr tablet 60 mg 60 mg, oral, Daily, First dose on Fri08/30/24 at 1530, Do not crush or chew. Given 09/01/2024 8:19 AM EST 60 mg Given 08/31/2024 8:12 AM EST 60 mg melatonin tablet 3 mg 3 mg, [...] Given 08/31/2024 6:30 AM EST 40 mg ranolazine (RANEXA) 12 hr tablet 1,000 mg [...] [place] Castillo RN)2118 (Given - Provider: Cira Marquez, DOMINGA) 0546 (Given - Provider: Cira Marquez, DOMINGA) ALPRAZolam (XANAX) tablet 1 mg 1 mg, oral, Nightly, First dose (after last modification) on Fri08/30/24 at 2100 2111 (Given - Provider: Alma Marie RN) 2117 (Given - Provider: Cira Marquez, RN) alvimopan (ENTEREG) capsule 12 mg (COMPLETED) 12 [...] the [facility] REMS Training Kits, [facility] Yes 650 (Given - Provider: Lizbeth Gill RN) alvimopan [...] Program and training materials, available at [facility] and in order Reference Links, must be reviewed prior to ordering, dispensing, or administration., I am aware of the [employer]vim[employer] REMS Program requirements and have reviewed the [facility]vim[employer] REMS Training Kits, available at [facility]: Yes 812 (Given - Provider: Lake Castillo RN)2117 (Given - Provider: Cira Marquez, DOMINGA) 820 (Hold - Provider: Lake Castillo RN - Reason: Patient/Resident/Age nt refused - education provided - Comment: pt with loose stools) atorvastatin (LIPITOR) tablet 80 mg 80 mg, oral, Nightly, First dose on Fri08/30/24 at 2100 2110 (Given - Provider: Alma Marie RN) 2119 (Given - Provider: Cira Marquez, DOMINGA) bumetanide [...] Reason: Other - Comment: took this morning) 0812 (Given - Provider: Lake Castillo RN) 0819 (Given - Provider: Lake Castillo RN) cevimeline (EVOXAC) capsule 30 mg Pt Own Med 30 mg, oral, 2 times daily, First dose on Fri08/31/24 at 1100 1239 (Given - Provider: Lake Castillo RN)2254 (Given - Provider: Cira Marquez, DOMINGA) 0922 (Given - Provider: Lake Castillo RN) [...] 2117 (Given - Provider: Cira Marquez, DOMINGA) isosorbide mononitrate (IMDUR) 24 hr tablet 60 mg 60 mg, oral, Daily, First dose on Fri08/30/24 at 1530, Do not crush or chew. 162 (Not Given - Provider: Tammy Cheung RN - Reason: Other - Comment: took this morning) 811 (Given - Provider: Lake Castillo RN) 818 (Given - Provider: [place] Castillo RN) magnesium oxide (MAG-OX) tablet 400 mg (CANCELED) 400 mg, oral, 2 times daily, First dose on Fri08/31/24 at 0900, Recovery & On Unit 08 (Given - Provider: Lake Castillo RN)2119 (Given - Provider: Cira Marquez RN) 817 (Given - Provider: [place] Castillo RN) metoprolol succinate (TOPROL-XL) 24 Hour tablet [...] minutes of incision. premix bag, Indication: Prophylaxis-Surgical 748 (Given - Provider: Shira Diamond CRNA) midodrine (PROAMATINE) tablet 10 mg 10 mg, oral, Daily, First dose on Fri08/30/24 at 1530 1629 (Not Given - Provider: Tammy Cheung RN - Reason: Other - Comment: took this morning) 08 (Not Given - Provider: Lake Castillo RN [...] Castillo RN) 0547 (Given - Provider: Cira Marquez RN) potassium chloride (KLOR-CON M20) CR tablet 40 mEq (COMPLETED) 40 mEq, oral, Once, On Fri08/31/24 at 0830, For 1 dose, Tablet may be swallowed whole (do not crush/chew/suck on) OR broken in half and each half swallowed separately OR dissolved (whole tablet) in ~4 ounces of water (allow ~2 minutes to dissolve, stir well and administer immediately). 0951 (Given - Provider: Lake Castillo RN) ranolazine (RANEXA) 12 hr tablet 1,000 mg 1,000 mg, oral, 2 times daily, First dose on Fri08/30/24 at 2100, Do not crush, chew, or split. 2108 (Given - Provider: Alma Marie RN) 0813 (Given - Provider: Lake Castillo RN)2118 (Given - Provider: Cira Marquez RN) 08 (Given - Provider: Lake Castillo RN) sertraline (ZOLOFT) tablet 50 mg 50 mg, oral, Nightly, First dose on Fri08/30/24 at 2100 2112 (Given - Provider: Alma Marie RN) 2119 (Given - Provider: Cira Marquez, DOMINGA) topiramate (TOPAMAX) tablet 200 mg 200 mg, [...] Tandem t:slim X2, Insulin Type? lispro (HumaLOG), [place] / Cartridge Size? Other, Other: [place] / Cartridge Size? 300ml, Volume Remaining in [place]? 190ml, Time and Date of last [place] Fill/Cartridge Change known? Yes, Date? 08/29/2024, Time? [...] 30 minutes 1240 (Given - Provider: Lake Castillo RN) butalbital-acetaminophen- caffeine (FIORICET, ESGIC) 50-325-40 mg per [...] elemental calcium. 2120 (Given - Provider: Cira Marquez RN) dextrose (D50W) 50% injection 12.5 g 12.5 [...] 2110 (Given - Provider: Alma Marie, DOMINGA) 2133 (Given - Provider: Cira Marquez, DOMINGA) nitroglycerin [...] On Unit 1759 (Given - Provider: Kourtney Rodriguez, [place]) oxyCODONE (ROXICODONE) immediate release tablet 10 mg 10 mg, oral, Every 4 hours PRN, severe pain, Starting on Fri08/31/24 at 1534, First line for severe pain (7-10) 2242 (Given - Provider: Cira Marquez, DOMINGA) 1024 (Given - Provider: Lake Castillo RN) oxyCODONE (ROXICODONE) immediate release tablet 5 mg 5 mg, oral, Every 4 hours PRN, moderate pain, Starting on Fri08/31/24 at 1534, 1st line for moderate pain (4-6) 1822 (Given - Provider: Lake Castillo, DOMINGA) 0551 (Given - Provider: Cira Marquez RN) documented in this encounter Orders Medications Ordered That Ramiro ht Not Have Been Administered Count Last Ordered Date First Ordered Date buprenorphine HCL (BUPRENEX) injection solution 0.075 mg 4 08/31/2024 08/30/2024 buprenorphine HCL (BUPRENEX) injection solution 0.15 mg 2 08/31/2024 08/30/2024 calcium carbonate (TUMS) betty wable tablet 1,000 mg 1 08/31/2024 cevimeline (EVOXAC) capsule 30 mg Pt Own Med 1 08/31/2024 oxyCODONE (ROXICODONE) immed iate release tablet 10 mg 1 08/31/2024 oxyCODONE (ROXICODONE) immed iate release tablet 5 mg 2 08/31/2024 08/30/2024 potassium chloride (KLOR-CON M20) CR tablet 40 mEq 1 08/31/2024 acetaminophen (TYLENOL) tablet 1,000 mg 3 0 08/30/2024 acetaminophen (TYLENOL) tablet 650 mg 1 albuterol 2.5 mg /3 mL (0.08 3 %) nebulizer solution 2.5 mg 1 08/30/2024 ALPRAZolam (XANAX) tablet 0.5 mg 1 08/30/19 25 ALPRAZolam (XANAX) tablet 1 mg 1 08/30/2024 alvimopan (ENTEREG) capsule 12 mg 4 025 atorvastatin (LIPITOR) tablet 80 mg 1 08/30 bumetanide (BUMEX) tablet 1 mg 1 08/30/2024 buprenorphine (BUPRENEX) inj ection 0.075 mg 2 08/30/2024 buprenorphine (BUPRENEX) injection 0.15 mg 1 08/30/2024 buPROPion XL (WELLBUTRIN XL) 24 hr tablet 300 mg 1 08/30/2024 xwcvrygdkf-xaiuggwaeidac-odw feine (FIORICET, ESGIC) 50-325-40 mg per tablet 1 tablet 1 08/30/2024 ceFAZolin (ANCEF) 2 g in tony rile water 20 mL IV syringe 08/30/2024 clopidogreL (PLAVIX) tablet 75 mg 025 dextrose (D50W) 50% injection 12.5 g 08/12 dextrose (D50W) 50% injection 25 g 2024 dextrose 15 gram/60 mL oral solution 15 g 08/30/2024 dextrose 15 gram/60 mL oral solution 30 g 08/30/2024 diphenhydrAMINE (BENADRYL) injection 25 mg 08/30/2024 ezetimibe (ZETIA) tablet 10 mg 2 08/30/2024 Glucagon HCl (rDNA) injection 1 mg 2024 heparin (UFH) injection 5,000 Units 08/30 HYDROmorphone (PF) injection 0.5 mg 08/30 insulin lispro (HumaLOG) pat ient supplied pump 08/30/2024 isosorbide mononitrate (IMDU R) 24 hr tablet 60 mg 08/30/2024 lactated Ringer's infusion 2 08/30/2024 magnesium oxide (MAG-OX) tablet 400 mg melatonin tablet 3 mg 08/30/2024 meperidine (PF) (DEMEROL) 25 mg/mL injection 12.5 mg 08/30/2024 metoprolol succinate (TOPROL -XL) 24 Hour tablet 25 mg 08/30/2024 metroNIDAZOLE (FLAGYL) IVPB 500 mg 2024 midodrine (PROAMATINE) tablet 10 mg 08/30 nitroglycerin (NITROSTAT) SL tablet 0.4 mg 2 08/30/2024 NON FORMULARY 2 08/30/2024 ondansetron (PF) (ZOFRAN) injection 4 mg 2 08/30/2024 ondansetron ODT (ZOFRAN-ODT) disintegrating tablet 4 mg 08/30/2024 pantoprazole (PROTONIX) EC tablet 40 mg 1 0 08/30/2024 prochlorperazine (COMPAZINE) injection 10 mg 08/30/2024 prochlorperazine (COMPAZINE) suppository 25 mg 1 08/30/2024 prochlorperazine (COMPAZINE) tablet 10 mg 1 08/30/2024 ranolazine (RANEXA) 12 hr tablet 1,000 mg 1 08/30/2024 sertraline (ZOLOFT) tablet 50 mg 1 08/30/19 25 sodium chloride 0.9 % flush 10 mL 2 025 topiramate (TOPAMAX) tablet 200 mg 1 2024 Respiratory Care Count Last Ordered Date First Ordered Date OXYGEN THERAPY, ADULT 2 08/30/2024 Admission Count Last Ordered Date First Orde red Date ADMIT TO INPATIENT 1 08/30/2024 Discharge Count Last Ordered Date First Orde red Date DISCHARGE PATIENT 1 09/01/2024 documented in this encounter Care Teams Sales Force Administrator Relationship Specialty Start Date End Date Arabella Decker NP [facility] [address] [place] [id number] PCP - General 08/20/23 documented as of this encounter
--- OUTSIDE RECORDS SUMMARY | 2024-09-24 11:12 | XMS_ITS | Clinical Summary ---
Author Organization [facility] Address [address] [place] [address] Phone Care Team Providers Care Complaint Operator Name Role Phone Arabella Decker NP Primary Care Provider [phone] Allergies Active Allergy Reactions Criticality Noted Date Comments Bromfenac Other High 10/05/2013 CAN'T TELL IF HAVING LOW BS Heparin Bleeding 07/21/2024 retinopathy Nsaids (Non-Steroidal Anti-Inflammatory Drug) 05/14/2018 Pt. Has retinopathy in left eye and is blind in right eye Medications ALPRAZolam (XANAX) 1 mg tablet Take 0.5 tablets (0.5 mg total) by mouth at bedtime. Active bumetanide (BUMEX) 1 mg tablet Take 1 tablet (1 mg total) by mouth 1 (one) time each day. Active buPROPion XL (WELLBUTRIN XL) 300 mg 24 hr tablet Take 1 tablet (300 mg total) by mouth. Active cevimeline (EVOXAC) 30 mg capsule Take 1 capsule (30 mg total) by mouth 2 (two) times a day. Active clopidogreL (PLAVIX) 75 mg tablet Take 1 tablet (75 mg total) by mouth 1 (one) time each day. Active isosorbide mononitrate (IMDUR) 120 mg 24 hr tablet Take 60 mg by mouth 1 (one) time each day. Active melatonin 5 mg capsule Take 10 mg by mouth 1 (one) time each day. Active ranolazine (RANEXA) 500 mg 12 hr tablet Take 2 tablets (1,000 mg total) by mouth 2 (two) times a day. Active rosuvastatin (CRESTOR) 20 mg tablet Take 2 tablets (40 mg total) by mouth at bedtime. Active topiramate (TOPAMAX) 50 mg tablet Take 4 tablets (200 mg total) by mouth at bedtime. Active sertraline (ZOLOFT) 25 mg tablet Take 2 tablets (50 mg total) by mouth at bedtime. Active cholecalcifero l (Vitamin D3) 5,000 Units tablet Take 1 tablet (5,000 Units total) by mouth 1 (one) time each day. Active butalbital-lorene taminophen-caf feine (FIORICET, ESGIC) 50-325-40 mg per tablet Take 1 tablet by mouth every 4 (four) hours if needed for headaches. Active nitroglycerin (NITROSTAT) 0.[address] 1 tablet (0.4 mg total) under the tongue. Active insulin infusion set-cartridge combo pack Active insulin lispro-aabc (LYUMJEV U-100 INSULIN SUBQ) Inject under the skin. Active midodrine (PROAMATINE) 10 mg tablet Take by mouth 1 (one) time each day. Active ezetimibe (ZETIA) 10 mg tablet Take 1 tablet (10 mg total) by mouth 1 (one) time each day. Active biotin 10,000 mcg tablet,chewabl e Chew 1 (one) time each day. Active multivitamin (Multiple Vitamins) tablet Take 1 tablet by mouth 1 (one) time each day. Active metoprolol succinate (TOPROL-XL) 25 mg 24 hr tablet Take 1 tablet (25 mg total) by mouth at bedtime. Do not crush or chew. Active vit C/E/Zn/coppr/l utein/zeaxan (PRESERVISION AREDS-2 ORAL) Take 1 capsule by mouth 2 (two) times a day. Active coenzyme Q-10 30 mg capsule Take 1 capsule (30 mg total) by mouth 1 (one) time each day. Active ondansetron (ZOFRAN) 4 mg tablet Take 1 tablet (4 mg total) by mouth 1 (one) time each day. Active docusate sodium (COLACE) 250 mg capsule Take 1 capsule (250 mg total) by mouth 1 (one) time each day. Active meclizine (ANTIVERT) 25 mg tablet Take 1 tablet (25 mg total) by mouth 3 (three) times a day if needed for dizziness. Active oxyCODONE (ROXICODONE) 5 mg immediate release tablet Take 1 tablet (5 mg total) by mouth every 6 (six) hours if needed for severe pain. 12 tablet 025 Active pantoprazole (PROTONIX) 40 mg EC tabletIndicati ons:GERD (gastroesophag eal reflux disease) TAKE 1 TABLET BY MOUTH TWICE A DAY 180 tablet 1 Active oxyCODONE (OXY-IR) 5 mg immediate release capsule Take 1 capsule (5 mg total) by mouth every 6 (six) hours if needed for severe pain for up to 10 doses. Max Daily Amount: 20 mg 10 capsule Active acetaminophen (TYLENOL 8 HOUR) 650 mg 8 hr tablet Take 1 tablet (650 mg total) by mouth every 8 (eight) hours if needed for mild pain. Do not crush, chew, or split. 2024 Discontinued(S top Taking at Discharge) pantoprazole (PROTONIX) 40 mg EC tablet Take 1 tablet (40 mg total) by mouth 2 (two) times a day. Do not crush, chew, or split. 2024 Discontinued metroNIDAZOLE (FLAGYL) 500 mg tablet Take 1 tablet (500 mg total) by mouth See administration instructions for 3 doses. Take at 2pm, 3pm, and 8pm on the day before your scheduled operation. Do not use mouth wash or consume alcohol until 48 hours after last dose. 3 tablet 2024 Discontinued(T herapy completed) polyethylene glycol (GoLYTELY) 236-22.74-6.74 -5.86 gram solution Starting at noon on day prior to procedure drink 8 ounces (240 mL) every 30 minutes until complete, or until stools are clear. (No need to finish it once stools are clear!) May add flavor packet. 4000 mL 024 2024 Discontinued(T herapy completed) neomycin (MYCIFRADIN) 500 mg tablet Take two tablets (1000 mg) by mouth at 2:00pm, 3:00pm and 8:00pm on the day prior to surgery 6 tablet 024 2024 Discontinued(T herapy completed) acetaminophen (TYLENOL) 500 mg tablet Take 2 tablets (1,000 mg total) by mouth every 8 (eight) hours for 10 days. 30 tablet 025 2024 Active Problems Problem Noted Date Diagnosed Date Malignant neoplasm of ascending colon 08/05/2024 Anxiety 11/06/2018 Diabetes mellitus type 2, uncomplicated 11/07/19 19 Depression 11/06/2018 Hypercholesteremia 11/06/2018 GERD (gastroesophageal reflux disease) 9 Migraines 11/06/2018 Constipation 11/06/2018 Asthmatic bronchitis without complication 2018 Encounters Date Type Department Care Team Description 09/14/2024 3:45 PM EST Office Visit General Surgery - [address] [phone] Diogo Martinez MD Malignant neoplasm of ascending colon (CMS/HCC) (Primary Dx) 09/11/2024 3:12 PM EST - 09/11/2024 6:20 PM EST Emergency [facility] Emergency [address] [place] [address] Evangelista Tiernye MD Fracture of humeral head, closed, right, initial encounter (Primary Dx); Acute head injury without loss of consciousness, initial encounter; Acute pain of right shoulder; Right elbow pain Discharge Disposition: Home or Self Care 08/30/2024 7:31 AM EST Anesthesia Event [facility] Main OR [address] [place] [phone] Ramesh Larios MD Dusza, Sara, TRUNG 08/30/2024 7:30 AM EST - 08/30/2024 10:00 AM EST Surgery [facility] Main OR [address] [place] [phone] Diogo Martinez MD LAPAROSCOPIC COLECTOMY [53563 (CPT??)] 08/30/2024 5:55 AM EST - 09/01/2024 11:13 AM EST Hospital Encounter [facility] Medical Surgical Unit [address] [place] [address] Diogo Martinez MD Kokosadze, Estate, MD Malignant neoplasm of ascending colon (CMS/HCC) Discharge Disposition: Home or Self Care 08/16/2024 10:16 AM EST - 08/16/2024 11:59 PM EST Hospital Encounter [facility] CT Scan [address] [place] [address] Malignant neoplasm of ascending colon (CMS/HCC) Discharge Disposition: Home or Self Care 2024 Telephone Gastroenterology - [address] [phone] Kristin Dey [place] 08/05/2024 2:30 PM EST Consult General Surgery - [place] [address] [facility] [address] [place] [address] Diogo Martinez MD Malignant neoplasm of ascending colon ([facility]/HCC) (Primary Dx) 08/05/2024 Telephone Gastroenterology - [address] [phone] Ashlyn Shetty [place] 08/05/2024 Telephone Gastroenterology - [address] [phone] John Plaza MD 08/03/2024 12:47 PM EST - 08/03/2024 11:59 PM EST Hospital Encounter [facility] CT Scan [address] [place] [address] Adenocarcinoma of colon ([facility]/HCC) Discharge Disposition: Home or Self Care 07/30/2024 Telephone Gastroenterology - [address] [phone] Tamiko Bazzi [place] SCHEDULING 07/29/2024 8:49 AM EST Anesthesia Event [facility] Endoscopy [address] [place] [address] Wagner Rivera MD 07/29/2024 8:04 AM EST - 07/29/2024 11:59 PM EST Hospital Encounter [facility] Endoscopy [address] [place] [address] John Plaza MD Georgette, Nathaniel, CRNA Gomes, Sheldon B, MD Gastroesophageal reflux disease without esophagitis [K21.9] (Primary Dx); Special screening for malignant neoplasms, colon; GERD (gastroesophageal reflux disease) Discharge Disposition: Home or Self Care 07/13/2024 Telephone Gastroenterology - 299 Chemo [address] [facility] [address] [place] [address] John Plaza MD 07/12/2024 Telephone Gastroenterology - 299 Chemo 299 [facility] [address] [place] [address] Kristin Dey [place] from Last 3 Months Immunizations Name Administration Dates Next Due Influenza Quadravalent, 0.5m l (Fluzone High-dose) 65yo and older 05/23/2023,05/01/2020 Influenza Quadravalent, MDCK , 0.5ml, preservative free (Flucelvax) 6mo and older 06/14/2019 Influenza Quadrivalent, 0.5m l, preservative free (Fluarix; FluLaval; Fluzone) ages 6mo and older (Afluria) 3yo and older 05/14/2022,06/13/2021,05/15/2018 Influenza trivalent, 0.5mL ( Fluzone High-dose) 65yo and older 04/15/2024 Pneumococcal conjugate 20 va lent (Prevnar 20, PCV 20) 2mo and older 07/15/2023,07/15/2023 Pneumococcal polysaccharide 23 valent (Pneumovax 23) 2yo and older 09/03/2019 RSV, bivalent, protein subun it RSVpreF, 0.5mL, Preservative Free (Arexvy) 60yo and older 06/23/2023 SARS-COV-2 (COVID-19) Vaccine, Unspecified 05/14 Tdap Tetanus diptheria acell ular pertussis (Boostrix; Adacel) 7yo and older 07/16/2024 Zoster recombinant (Shingrix ) 19yo and older 03/27/2020,09/30/2019 Surgical History Surgery Date Site/Laterality Comments CORONARY ARTERY BYPASS GRAFT STENT BMS - PERIPHERAL cardiac TOTAL SHOULDER ARTHROPLASTY Right DISLOCATED/FROZEN SHOULDER HYSTERECTOMY COLONOSCOPY UPPER GASTROINTESTINAL ENDOSCOPY HERNIA REPAIR WITH MESH COLON SURGERY Medical History Medical History Date Comments Diabetes mellitus type 1, un complicated, on prison insulin pump ([facility]) 11/06/2018 DX:Diabetes mellit us type 2, uncomplicated ([facility]) Hypercholesteremia 11/06/2018 DX:Hyperchole steremia Depression 11/06/2018 DX:Depression Anxiety 11/06/2018 DX:Anxiety GERD (gastroesophageal reflux disease) 11/06/2018 DX:GERD (gastroesophageal reflux disease) Migraines 11/06/2018 DX:Migraines Constipation 11/06/2018 DX:Constipation Blindness 2004 Sleep apnea Hypertension CHF (congestive heart failure) ([facility]) Heart disease Colon polyp Hiatal hernia Angina pectoris ([facility]) Cancer, colon ([facility]) PONV (postoperative nausea and vomiting) Myocardial infarction ([facility]) Arthritis Joint pain Social History Tobacco Use Types Packs/Day Years [...] Orientation Straight 08/27/2024 11 :55 AM EST Obstetrics History Last Filed Vital Signs Vital Sign Reading Time Taken Comments Blood Pressure 140/67 09/14/2024 3:37 PM EST Pulse 78 09/14/2024 3:37 PM EST Temperature 36.2 ??C (97.1 ??F) 09/14/2024 3:37 PM ES T Respiratory Rate 18 09/11/2024 4:48 PM EST Oxygen Saturation 100% 09/11/2024 4:48 PM EST Inhaled Oxygen Concentration - - Weight 82.8 kg (182 lb 8 oz) 09/14/2024 3:37 PM EST Height 162.6 cm (5' 4 ) 09/14/2024 3:37 PM EST Body Mass Index 31.33 09/14/2024 3:37 PM EST Plan of Treatment Upcoming Encounters Date Type Department Care Team (Late st Contact Info) Description 09/24/2024 3:30 PM EST Office Visit [facility] Hematology Oncology [address] [place] [phone] Quoc Bernal MD [address] [place] [address] 12/14/2024 11:15 AM EDT Office Visit General Surgery - [place] [address] [facility] [address] [place] [phone] Diogo Martinez MD 175 [facility] [address] [place] [address] Health Maintenance Due Date Last Done Comments Breast Cancer Screening 1957 Diabetes: Annual Foot Exam 1967 Diabetes: Annual Retina Eye Exam 1967 Cholesterol Screening (Lipid Panel) 07/13/2022 Hepatitis C Screening 07/13/2022 Medicare Annual Wellness Visit 07/13/2022 Osteoporosis Screening (Bone Density Screening) 07/13/2022 Social Influencers of Health Screening 07/13/2022 Diabetes: Blood Sugar Control Test (HGBA1C) 07/25/2022 Depression Screening 04/24/2023 04/24/2022 Diabetes: Annual Urine Albumin-Creatinine Ratio (uACR) 02/15/2024 02/14/2023 Diabetes: Annual GFR (Glomerular Filtration Rate) 09/01/2025 09/01/2024, 08/31/2024, 08/02/2024, Additional history exists Falls Risk Assessment 09/01/2025 09/01/2024 Hypertension/CHF/CAD Annual BMP Blood Test 09/01/2025 09/01/2024, 08/31/2024, 08/02/2024, Additional history exists DTaP,Tdap,and Td Vaccines (2 - Td or Tdap) 07/16/2034 07/16/2024 Colorectal Cancer Screening: Colonoscopy 07/29/2034 07/29/2024 Zoster Vaccines Completed 03/27/2020, 09/30/2019 RSV Immunization Patients 60+ Years Old Completed 06/23/2023 Pneumococcal Vaccine: 50+ Years Completed 07/15/2023, 07/15/2023, 09/03/2019 COVID-19 Vaccine Completed 04/15/2024, , 05/14/2022, Additional history exists Influenza Vaccine Completed 04/15/2024, , 05/14/2022, Additional history exists HIB Vaccines Aged Out No longer eligi ble based on patient's age to complete this topic HPV Vaccines Aged Out No longer eligi ble based on patient's age to complete this topic Hepatitis A Vaccines Aged Out No long er eligible based on patient's age to complete this topic Hepatitis B Vaccines Aged Out No long er eligible based on patient's age to complete this topic IPV Vaccines Aged Out No longer eligi ble based on patient's age to complete this topic MMR Vaccines Aged Out No longer eligi ble based on patient's age to complete this topic Meningococcal ACWY Vaccine Aged Out N o longer eligible based on patient's age to complete this topic Meningococcal B Vacine Aged Out No lo nger eligible based on patient's age to complete this topic RSV Immunization Patients Under 20 months Aged Out No longer eligible based on patient's age to complete this topic Varicella Vaccines Aged Out No longer eligible based on patient's age to complete this topic Medical Devices Implanted Type Area User Interface Developer Device Identifier Shelf Expiration Date Model / Serial / Lot Other Cardiac Implant Other Cardiac Implant N/A: Chest Procedures Procedure Name Priority Date/Time Associated Diagnosis Comments XR ELBOW 3+ VIEWS RIGHT STAT 09/11/19 4:13 PM EST XR SHOULDER 2+ VIEWS RIGHT STAT 09/11/2024 4:[address] HEAD WO CONTRAST STAT 09/11/2024 3 :[address] CERVICAL SPINE WO CONTRAST STAT 09/11/2024 3:54 PM EST CBC WITH AUTO DIFFERENTIAL Routine 09/01/2024 6:25 AM EST PHOSPHORUS Routine 09/01/2024 6:25 AM EST MAGNESIUM Routine 09/01/2024 6:25 AM EST CBC AND DIFFERENTIAL Routine 09/01/2024 6:25 AM EST BASIC METABOLIC PANEL Routine 09/01/2024 6:25 AM EST CBC WITH AUTO DIFFERENTIAL Routine 08/31/2024 6:35 AM EST BASIC METABOLIC PANEL Routine 08/31/2024 6:35 AM EST CBC AND DIFFERENTIAL Routine 08/31/2024 6:35 AM EST OXYGEN THERAPY, ADULT Routine 08/30/2024 10:25 AM EST OXYGEN THERAPY, ADULT Routine 08/30/2024 10:25 AM EST TISSUE EXAM Routine 08/30/2024 9:41 AM EST Malignant neoplasm of ascending colon (CMS/HCC) TH AN ENDOTRACHEAL(NO CHARGE) Routine 08/30/2024 7:55 AM EST [place] LAP SURG COLECTOMY PARTIAL W REMOVAL OF TERMINAL ILEUM W ILEOCOLOSTOMY 08/30/2024 7:33 AM EST Malignant neoplasm of ascending colon (CMS/HCC) POCT GLUCOSE BLOOD Routine 08/30/2024 6: 20 AM EST PROCEDURAL ECG Routine 08/18/2024 9:45 AM EST 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) CT CHEST W CONTRAST Routine 08/16/2024 1 0:43 AM EST Malignant neoplasm of ascending colon (CMS/HCC) CT ABDOMEN PELVIS W CONTRAST Routine 08/03/2024 1:04 PM EST Adenocarcinoma of colon (CMS/HCC) CBC WITH AUTO DIFFERENTIAL Routine 08/02/2024 9:47 AM EST Colon cancer screening Iron deficiency anemia due to chronic blood loss CARCINOEMBRYONIC ANTIGEN Routine 024 9:47 AM EST Colon cancer screening Malignant neoplasm of cecum (CMS/HCC) COMPREHENSIVE METABOLIC PANEL Routine 08/02/2024 9:47 AM EST Colon cancer screening CBC AND DIFFERENTIAL Routine 08/02/2024 9:47 AM EST Colon cancer screening Iron deficiency anemia due to chronic blood loss EGD Routine 07/29/2024 9:17 AM EST GERD (gastroesophageal reflux disease) COLONOSCOPY Routine 07/29/2024 9:17 AM EST Special screening for malignant neoplasms, colon TISSUE EXAM Routine 07/29/2024 8:59 AM EST Special screening for malignant neoplasms, colon GERD (gastroesophageal reflux disease) from Last 3 Months Results * XR Elbow 3+ Views Right [...] Signed Date: 09/12/2024 09:40 ET Workstation ID: [id number] Transcribed By: Self Edit Transcribed Date: 09/12/2024 [...] Signed Date: 09/12/2024 09:40 ET Workstation ID: [id number] Transcribed By: Self Edit Transcribed Date: 09/12/2024 [...] Signed Date: 09/12/2024 09:48 ET Workstation ID: [id number] Transcribed By: Self Edit Transcribed Date: 09/12/2024 [...] artery bypass graft changes. Procedure Note Nile Hernnádez MD - 09/12/2024 PROCEDURE: Radiographs of the [...] Signed Date: 09/12/2024 09:48 ET Workstation ID: [id number] Transcribed By: Self Edit Transcribed Date: 09/12/2024 09:46 ET Evangelista Tierney MD IMG XR PROCEDURES Final Result * CT Cervical Spine [...] effusion at the lung apices. Procedure Note Kay Cheung MD - 09/11/2024 CT cervical spine [...] IMG CT PROCEDURES Final Result * CT Head wo [...] MD on 09/11/2024 16:21:46 Evangelista Tierney MD [facility] CT PROCEDURES Final Result * (ABNORMAL) CBC auto differential (09/01/2024 6:25 AM EST) Only the most recent of3 resultswithin the time period is included. WBC 6.8 4.8 - 10.8 K/[facility] LAB HEMETOLOGY METHOD 09/01/2024 6:56 AM EST [facility] ([facility] RBC 3.40(L) 3.80 - 4.80 M/mcL LAB HEMETOLOGY METHOD 09/01/2024 6:56 AM [facility] Hemoglobin 10.4(L) 11.5 - 16.0 g/dL LAB HEMETOLOGY METHOD 09/01/2024 6:56 AM [facility] Hematocrit 33.4(L) 35.0 - 47.0 % LAB HEMETOLOGY METHOD 09/01/2024 6:56 AM [facility] MCV 98.5(H) 79.0 - 98.0 FL LAB HEMETOLOGY METHOD 09/01/2024 6:56 AM [facility] MCH 30.7 27.0 - 32.0 pcg LAB HEMETOLOGY METHOD 09/01/2024 6:56 AM [facility] MCHC 31.1(L) 32.0 - 37.0 g/dL LAB HEMETOLOGY METHOD 09/01/2024 6:56 AM [facility] RDW 13.5 11.0 - 15.0 % LAB HEMETOLOGY METHOD 09/01/2024 6:56 AM [facility] Platelets 184 130 - 400 K/mcL LAB HEMETOLOGY METHOD 09/01/2024 6:56 AM [facility] MPV 11.8(H) 7.0 - 11.0 FL LAB HEMETOLOGY METHOD 09/01/2024 6:56 AM [facility] NRBC 0.0 <1.0 % LAB HEMETOLOGY METHOD 09/01/2024 6:56 AM [facility] NRBC Absolute 0.00 <0.10 K/mcL LAB HEMETOLOGY METHOD 09/01/2024 6:56 AM [facility] Neutrophils Relative 58.5 % LAB HEMETOLOGY METHOD 09/01/2024 6:56 AM [facility] Lymphocytes Relative 27.2 % LAB HEMETOLOGY METHOD 09/01/2024 6:56 AM [facility] Monocytes Relative 12.4 % LAB HEMETOLOGY METHOD 09/01/2024 6:56 AM [facility] Eosinophils Relative 1.2 % LAB HEMETOLOGY METHOD 09/01/2024 6:56 AM [facility] Basophils Relative 0.4 % LAB HEMETOLOGY METHOD 09/01/2024 6:56 AM [facility] Immature Granulocytes Relative 0.3 % LAB HEMETOLOGY METHOD 09/01/2024 6:56 AM [facility] Neutrophils Absolute 3.95 1.50 - 7.00 K/mcL LAB HEMETOLOGY METHOD 09/01/2024 6:56 AM [facility] Lymphocytes Absolute 1.84 1.00 - 5.00 K/mcL LAB HEMETOLOGY METHOD 09/01/2024 6:56 AM [facility] Monocytes Absolute 0.84 0.20 - 1.00 K/mcL LAB HEMETOLOGY METHOD 09/01/2024 6:56 AM [facility] Eosinophils Absolute 0.08 0.00 - 0.50 K/mcL LAB HEMETOLOGY METHOD 09/01/2024 6:56 AM [facility] Basophils Absolute 0.03 0.00 - 0.20 K/mcL LAB HEMETOLOGY METHOD 09/01/2024 6:56 AM [facility] Immature Granulocytes Absolute 0.02 0.00 - 0.03 K/mcL LAB HEMETOLOGY METHOD 09/01/2024 6:56 AM [facility] Blood Venous blood specimen / Unknown Venipuncture / Unknown 09/01/2024 6:25 AM EST 09/01/2024 6:40 AM EST Terrie POWELL LAB BLOOD ORDERABLES Final Re sult [facility] [address] [place] [address], * Phosphorus (09/01/2024 6:25 AM EST) [facility] Phosphorus 3.9 2.5 - 4.5 mg/dL LAB CHEMISTRY METHOD 09/01/2024 7:29 AM EST [facility] Blood Venous blood specimen / Unknown Venipuncture / Unknown 09/01/2024 6:25 AM EST 09/01/2024 6:38 AM EST us Terrie POWELL LAB BLOOD ORDERABLES Final Re sult Performing Organization Address City/[facility]/ZIP Co de Phone Number [facility] [address] [place] [address], * Magnesium (09/01/2024 6:25 AM EST) [facility] Magnesium 2.3 1.9 - 2.6 mg/dL LAB CHEMISTRY METHOD 09/01/2024 7:29 AM EST [facility] Blood Venous blood specimen / Unknown Venipuncture / Unknown 09/01/2024 6:25 AM EST 09/01/2024 6:38 AM EST us Terrie POWELL LAB BLOOD ORDERABLES Final Re sult [facility] [address] [place] [address], [place] [phone] * (ABNORMAL) Basic metabolic panel (09/01/2024 6:25 AM EST) Only the most recent of2 resultswithin the time period is included. [facility] Sodium 142 133 - 145 mmol/L LAB CHEMISTRY METHOD 09/01/2024 7:29 AM EST [facility] Potassium 3.9 3.5 - 5.5 mmol/L LAB CHEMISTRY METHOD 09/01/2024 7:29 AM [facility] Chloride 109 96 - 110 mmol/L LAB CHEMISTRY METHOD 09/01/2024 7:29 AM [facility] CO2 28 21 - 32 mmol/L LAB CHEMISTRY METHOD 09/01/2024 7:29 AM [facility] Anion Gap 5 3 - 11 LAB CHEMISTRY METHOD 09/01/2024 7:29 AM [facility] Glucose 124(H) 70 - 100 mg/dL LAB CHEMISTRY METHOD 09/01/2024 7:29 AM [facility] BUN 7 5 - 25 mg/dL LAB CHEMISTRY METHOD 09/01/2024 7:29 AM [facility] Creatinine 0.84 0.50 - 1.10 mg/dL LAB CHEMISTRY METHOD 09/01/2024 7:29 AM [facility] eGFR 76 >=60 mL/min/1. 73m2 LAB CHEMISTRY METHOD 09/01/2024 7:29 AM [facility] Comment:Calculation based on the??Chronic Kidney Disease Epidemiology Collaboration (CKD-EPI) equation refit??without adjustment for race. BUN/Creatinine Ratio 8.3 LAB CHEMISTRY METHOD 09/01/2024 7:29 AM [facility] Calcium 8.4(L) 8.5 - 10.5 mg/dL LAB CHEMISTRY METHOD 09/01/2024 7:29 AM [facility] Blood Venous blood specimen / Unknown Venipuncture / Unknown 09/01/2024 6:25 AM EST 09/01/2024 6:38 AM EST Terrie POWELL LAB BLOOD ORDERABLES Final Re sult [facility] [address] [place] [address], * Tissue exam (08/30/2024 9:41 AM EST) Only the most recent of2 resultswithin the time period is included. Final Diagnosis Colon, right, hemicolectomy: Invasive adenocarcinoma. [...] Stage pT3N2b, see synoptic. 09/01/2024 4:27 PM EST [facility] ([facility]) [facility] Gross Description A. Colon, right: [...] the index mass. The uninvolved mucosa is [id number] glistening with normal folds throughout. Multiple possible [...] fletcher-pink and glistening. Gross photographs are taken. Music Specialist sections are submitted as follows: 1, perpendicular [...] lymph nodes each, six pieces each 18, health and safety representative larger grossly positive possible lymph node, two pieces 19, health and safety representative larger grossly positive possible lymph node, two pieces ELSA 09/01/2024 4:27 PM EST [facility] Synoptic Checklist COLON AND RECTUM: [...] Comment(s): ?performed on [id number] and reported as RENÉ, HER2 Negative (1+) 09/01/2024 4:27 PM EST [facility] Disclaimer Unless otherwise specified, all tissue is 10% NB formalin fixed and paraffin embedded. 09/01/2024 4:27 PM EST [facility] Tissue (Colon) 08/30/2024 9: 41 AM EST 08/30/2024 10:49 AM EST Diogo Martinez MD LAB PATHOLOGY ORDERABLES Fi nal Result [facility] [address] [place] [address], * TH AN ENDOTRACHEAL(NO CHARGE) (08/30/2024 7:55 AM EST) Narrative Shira Diamond CRNA - 08/30/2024 7:55 AM EST Shira Diamond CRNA ? 08/30/2024 ??7:56 AM General Information and Staff Patient location during procedure: OR Performed by: Shira Diamond CRNA Authorized by: Ramesh Larios MD ?? Intubation Additional Comments Smooth induction, easy mask, no OPA necessary, Grade IIa view w/ gentle CP for visualization; ETT placed, verified & secured, VSS. ??-TRUNG [place] Urgency: elective Final Airway Details Successful airway: ETT Cuffed: yes Successful intubation technique: direct laryngoscopy Facilitating devices/methods: intubating stylet and cricoid pressure Endotracheal tube insertion site: oral Blade: Buzz Blade size: #3 ETT size (mm): 7.5 Cormack-Lehane Classification: grade IIa - partial view of glottis Placement verified by: chest auscultation and capnometry Measured from: teeth ETT to teeth (cm): 22 Number of attempts at approach: 1 Number of other approaches attempted: 0Final airway type: endotracheal airway Indications and Patient Condition Indications for airway management: anesthesia Spontaneous Ventilation: absent Sedation level: Yes Preoxygenated: yes Soft Tissue Damage: No Dentition Unchanged: Yes Patient position: sniffing MILS maintained throughout Mask difficulty assessment: 1 - vent by mask us Ramesh Larios MD ANESTHESIA ORDERABLES Final Re sult * (ABNORMAL) POCT Glucose, blood (08/30/2024 6:20 AM EST) Glucose POCT 150(H) 70 - 100 mg/dL 08/30/2024 6:22 AM EST [facility] Blood Capillary blood specimen / Unknown 08/30/2024 6:20 AM EST 08/30/2024 6:23 AM EST us Diogo Martinez MD LAB POINT OF CARE T EST DOCKED DEVICE UNSOLICITED RESULTS Final Result [facility] [address] [place] [address], [place] [phone] * ECG 12 lead - Procedural (No Charge) (08/18/2024 9:45 AM EST) Ventricular Rate ECG 64 BPM GEMUSE Atrial Rate 64 BPM GEMUSE P-R Interval 188 ms GEMUSE QRS Duration 78 ms GEMUSE Q-T Interval 464 ms GEMUSE QTc 478 ms GEMUSE P Wave [place] 26 degrees GEMUSE R [place] -4 degrees GEMUSE T [place] 62 degrees GEMUSE ECG Interpretation Normal sinus rhythm Low voltage QRS Borderline ECG When compared with ECG of 16-JUL-2004 15:17, T wave inversion no longer evident in Inferior leads QT has lengthened Confirmed by Isatu NEUMANN JAMES ([id number]) on 08/18/2024 12:28:53 PM GEMUSE 08/18/2024 9:45 AM EST 08/18/2024 12:28 PM EST us Diogo Martinez MD ECG ORDERABLES Final Resul t GEMUSE * CT Chest w Contrast (08/16/2024 10:43 AM EST) Anatomical Region Laterality Modality Body Computed Tomogra phy 08/23/2024 7:15 AM EST Impressions 08/23/2024 7:29 AM EST No convincing evidence of thoracic metastasis. Small nonspecific groundglass nodule in the left apex is unlikely to represent malignancy. This could be reexamined at the time of oncologic surveillance. ?? -------- FINAL REPORT -------- Dictated By: Alessandro Sandy Dictated Date: 08/23/2024 07:15 ET Assigned Physician: Alessandro Sandy Reviewed and Electronically Signed By: Alessandro Sandy Signed Date: 08/23/2024 07:29 ET Workstation ID: [id number] Transcribed By: Self Edit Transcribed Date: 08/23/2024 07:15 ET Narrative 08/23/2024 7:29 AM EST EXAMINATION: CT CHEST WITH CONTRAST CLINICAL INFORMATION: Colon cancer. ??Initial staging. ??Malignant neoplasm of ascending colon COMPARISON: None ?? TECHNIQUE: Multidetector CT. Examination of the chest. [...] linear opacities in the dependent lung bases. ?? MEDIASTINUM: ??There are 3 AP window lymph nodes. ??The largest measures 0.9 cm. ??These are relatively low density. There is a hiatal hernia. CARDIAC: The heart is not enlarged. No pericardial fluid or thickening ?? CORONARY CALCIFICATION: ??Evidence of previous coronary artery bypass grafting. VASCULAR: There is no thoracic aortic aneurysm. The main pulmonary artery is normal caliber ?? PLEURA: There is no pleural fluid or pneumothorax ?? AXILLA/CHEST WALL: There are no enlarged axillary lymph nodes. No chest wall mass demonstrated ?? VISUALIZED UPPER ABDOMEN: ??The abdomen has been recently examined. ??No suspicious abnormality demonstrated MUSCULOSKELETAL: No suspicious focal bony lesion. ??There is an abnormality of the subchondral right humeral head with a serpiginous sclerotic margin but no collapse. ??This could represent avascular necrosis. Procedure Note Alessandro Sandy MD - 08/23/2024 EXAMINATION: CT CHEST WITH CONTRAST CLINICAL INFORMATION: Colon cancer. Initial staging. Malignant neoplasm of ascending colon COMPARISON: None TECHNIQUE: Multidetector CT. Examination of the chest. Examination of the chest following the IV administration of nonioniccontrast. Reformatting in the coronal and sagittal planes. DLP: 289 mGy-cm Dose optimization was performed including the use of low-dose iterativereconstruction technique with automatic exposure control based on patientsize. Type of contrast: ISOVUE 370 Volume of IV contrast: 90 mL Volume of contrast discarded: 0 mL FINDINGS: LUNG: No abnormality of the trachea or mainstem bronchi. There are a few scattered micronodules measuring approximately 0.2 cmwhich are likely granulomata. No convincing evidence of pulmonary metastasis. There is a nonspecific 0.7 cm groundglass nodule of the left apex(3/53). There are a few nonspecific peripheral linear opacities in the dependentlung bases. MEDIASTINUM: There are 3 AP window lymph nodes. The largest measures 0.9cm. These are relatively low density. There is a hiatal hernia. CARDIAC: The heart is not enlarged. No pericardial fluid or thickening CORONARY CALCIFICATION: Evidence of previous coronary artery bypassgrafting. VASCULAR: There is no thoracic aortic aneurysm. The main pulmonary arteryis normal caliber PLEURA: There is no pleural fluid or pneumothorax AXILLA/CHEST WALL: There are no enlarged axillary lymph nodes. No chestwall mass demonstrated VISUALIZED UPPER ABDOMEN: The abdomen has been recently examined. Nosuspicious abnormality demonstrated MUSCULOSKELETAL: No suspicious focal bony lesion. There is an abnormalityof the subchondral right humeral head with a serpiginous sclerotic marginbut no collapse. This could represent avascular necrosis. IMPRESSION: No convincing evidence of thoracic metastasis. Small nonspecific groundglass nodule in the left apex is unlikely torepresent malignancy. This could be reexamined at the time of oncologic surveillance. -------- FINAL REPORT -------- Dictated By: Alessandro Sandy Dictated Date: 08/23/2024 07:15 ET Assigned Physician: Alessandro Sandy Reviewed and Electronically Signed By: Alessandro Sandy Signed Date: 08/23/2024 07:29 ET Workstation ID: [id number] Transcribed By: Self Edit Transcribed Date: 08/23/2024 07:15 ET us Diogo Martinez MD IMG CT PROCEDURES Final Res ult * CT Abdomen Pelvis w Contrast (08/03/2024 1:04 PM EST) Anatomical Region Laterality Modality Body Computed Tomogra phy 08/05/2024 2:57 PM EST Impressions 08/05/2024 3:06 PM EST 1. ??Small region of narrowing in the proximal ascending colon could represent site of disease, but this is poorly evaluated on CT examination and should be correlated with colonoscopy. 2. ??Mildly prominent lymph nodes in the right mesentery are suggestive of local metastases. 3. ??No other metastatic lesions or lymphadenopathy identified. 4. ??Age-indeterminate mild compression of the L2 vertebral body. -------- FINAL REPORT -------- Dictated By: Diogenes Beck Dictated Date: 08/05/2024 14:57 ET Assigned Physician: Diogenes Beck Reviewed and Electronically Signed By: Diogenes Beck Signed Date: 08/05/2024 15:06 ET Workstation ID: [id number] Transcribed By: Self Edit Transcribed Date: 08/05/2024 14:57 ET Narrative 08/05/2024 3:[address] abdomen and pelvis with IV contrast TECHNIQUE: Axial and reformatted images were performed of the abdomen and pelvis following administration of IV contrast.90cc of ISOVUE was administered IV for contrast enhanced images DOSE: CTDIvol: 22.2mGy. ??Total exam DLP: 1129.9mGy-cm COMPARISON: CT abdomen and pelvis December 2012. INDICATION: Right-sided colon cancer. FINDINGS: Liver: The liver appears normal Biliary: Gallbladder appears normal. No biliary dilatation. Pancreas: Atrophic changes of the pancreas. ??No ductal dilatation.. Spleen: Spleen appears normal. ?? Adrenals: The adrenal glands appear symmetric and normal bilaterally. Kidneys: The kidneys appear normal. ??No evidence of hydronephrosis. ??Punctate nonobstructing stone in the lower pole left kidney. Retroperitoneum: No abnormal lymphadenopathy. ?? Vessels: Minimal plaque in the aorta without aneurysm. Bowel: Enteric contrast was given and extends into the colon without obstruction. ??Stool is noted throughout the colon. ??Mucosal lesions are not well evaluated on CT examination. ??There is a region of slight narrowing of the proximal ascending colon could represent site of disease but should be correlated with colonoscopy. Mesentery: Mildly prominent and irregular lymph nodes are noted in the right ileal mesentery. ??The largest of these measures 11 mm in short axis. ??No ascites. Pelvis: Pelvis appears within normal limits. ??No abnormal lymphadenopathy. Abdominal wall/bones: Ventral hernia mesh is present. ??No current significant hernia. ??Mild age-indeterminate compression of the L2 vertebral body. Lung Bases: Clear bilaterally. Procedure Note Diogenes Beck MD - 08/05/2024 CT abdomen and pelvis with IV contrast TECHNIQUE: Axial and reformatted images were performed of the abdomen andpelvis following administration of IV contrast.90cc of ISOVUE wasadministered IV for contrast enhanced images DOSE: CTDIvol: [...] The kidneys appear normal. No evidence of hydronephrosis.Punctate nonobstructing stone in the lower pole left kidney. Retroperitoneum: No abnormal lymphadenopathy. Vessels: Minimal plaque in the aorta without aneurysm. Bowel: Enteric contrast was given and extends into the colon withoutobstruction. Stool is noted throughout the colon. Mucosal lesions arenot well evaluated on CT examination. There is a region of slightnarrowing of the proximal ascending colon could represent site of diseasebut should be correlated with colonoscopy. Mesentery: Mildly prominent and irregular lymph nodes are noted in theright ileal mesentery. The largest of these measures 11 mm in short axis.No ascites. Pelvis: Pelvis appears within normal limits. No abnormallymphadenopathy. Abdominal wall/bones: Ventral hernia mesh is present. No currentsignificant hernia. Mild age-indeterminate compression of the [id number] body. Lung Bases: Clear bilaterally. IMPRESSION: 1. Small region of narrowing in the proximal ascending colon couldrepresent site of disease, but this is poorly evaluated on CT examinationand should be correlated with colonoscopy. 2. Mildly [...] Signed Date: 08/05/2024 15:06 ET Workstation ID: [id number] Transcribed By: Self Edit Transcribed Date: 08/05/2024 14:57 ET us John Plaza MD [facility] CT PROCEDURES Final Resul t * (ABNORMAL) CEA (08/02/2024 9:47 AM EST) Pathologist [facility] CEA 6.1(H) 0.0 - 5.0 ng/mL LAB CHEMISTRY METHOD 08/02/2024 11:49 AM [facility] Blood Venous blood specimen / Unknown Venipuncture / Unknown 08/02/2024 9:47 AM EST 08/02/2024 11:04 AM EST Narrative [facility] - 08/02/2024 11:49 AM EST The Siemens Advia Centaur Chemiluminescent Immunoassay is used. Results obtained with different assay methods or kits cannot be used interchangeably. Results cannot be interpreted as absolute evidence of the presence or absence of malignant disease. us John Plaza MD LAB BLOOD ORDERABLES Final Re sult [facility] [address] [place] [address], * (ABNORMAL) Comprehensive metabolic panel (08/02/2024 9:47 AM EST) Pathologist [facility] Sodium 141 133 - 145 mmol/L LAB CHEMISTRY METHOD 08/02/2024 11:56 AM [facility] Potassium 4.1 3.5 - 5.5 mmol/L LAB CHEMISTRY METHOD 08/02/2024 11:56 AM [facility] Chloride 110 96 - 110 mmol/L LAB CHEMISTRY METHOD 08/02/2024 11:56 AM [facility] CO2 27 21 - 32 mmol/L LAB CHEMISTRY METHOD 08/02/2024 11:56 AM [facility] Anion Gap 4 3 - 11 LAB CHEMISTRY METHOD 08/02/2024 11:56 AM [facility] Glucose 160(H) 70 - 100 mg/dL LAB CHEMISTRY METHOD 08/02/2024 11:56 AM [facility] BUN 20 5 - 25 mg/dL LAB CHEMISTRY METHOD 08/02/2024 11:56 AM EST [facility] Creatinine 0.95 0.50 - 1.10 mg/dL LAB CHEMISTRY METHOD 08/02/2024 11:56 AM [facility] eGFR 66 >=60 mL/min/1. 73m2 LAB CHEMISTRY METHOD 08/02/2024 11:56 AM [facility] Comment:Calculation based on the??Chronic Kidney Disease Epidemiology Collaboration (CKD-EPI) equation refit??without adjustment for race. BUN/Creatinine Ratio 21.1 LAB CHEMISTRY METHOD 08/02/2024 11:56 AM [facility] Calcium 9.0 8.5 - 10.5 mg/dL LAB CHEMISTRY METHOD 08/02/2024 11:56 AM [facility] AST (SGOT) 18 10 - 42 unit/L LAB CHEMISTRY METHOD 08/02/2024 11:56 AM [facility] ALT (SGPT) 21 10 - 60 unit/L LAB CHEMISTRY METHOD 08/02/2024 11:56 AM [facility] Alkaline Phosphatase 92 42 - 121 unit/L LAB CHEMISTRY METHOD 08/02/2024 11:56 AM [facility] Total Protein 7.1 6.0 - 8.0 g/dL LAB CHEMISTRY METHOD 08/02/2024 11:56 AM [facility] Albumin 3.4 3.2 - 5.0 g/dL LAB CHEMISTRY METHOD 08/02/2024 11:56 AM [facility] Total Bilirubin 0.3 0.0 - 1.4 mg/dL LAB CHEMISTRY METHOD 08/02/2024 11:56 AM [facility] Blood Venous blood specimen / Unknown Venipuncture / Unknown 08/02/2024 9:47 AM EST 08/02/2024 11:04 AM EST us John Plaza MD LAB BLOOD ORDERABLES Final Re sult [facility] [address] [place] [address], * COLONOSCOPY Anesthesia - MAC; [facility] ENDOSCOPY (07/29/2024 9:17 AM EST) Anatomical Region Laterality Modality Endoscopy 07/29/2024 8:34 AM EST Impressions 07/29/2024 9:20 AM EST - Likely malignant tumor in the proximal ascending ? colon. Biopsied. Tattooed. ? - One 5 mm polyp at 20 cm proximal to the anus, ? removed with a cold snare. Resected and retrieved. ? - Non-bleeding internal hemorrhoids. ? - The examination was otherwise normal on direct and ? retroflexion views. Recommendation: ?- Perform an upper GI endoscopy today. ? - Await pathology results. ? - Repeat colonoscopy for surveillance based on ? pathology results. Narrative 07/29/2024 9:20 AM EST [facility] Patient Name: Cait Medrano Procedure Date: 07/29/2024 8:34 AM Date of : 1955 Age: 68 Room: ROOM 15 Gender: Female Note Status: Finalized Attending MD: John Plaza MD, Procedure Date No Time: 07/29/2024 Procedure: ? Colonoscopy Indications: ? High risk colon cancer surveillance: Personal history ? of colonic polyps Providers: ? John Plaza MD Referring MD: ?John Plaza MD Medicines: ? Monitored Anesthesia Care Complications: ? No immediate complications. Estimated Blood Loss: ? Estimated blood loss: none. Procedure: ? Pre-Anesthesia Assessment: ? - ASA Grade Assessment: III - A patient with severe ? systemic disease. ? - After reviewing the risks and benefits, the patient ? was deemed in satisfactory condition to undergo the ? procedure. ? After I obtained informed consent, the scope was ? passed under direct vision. Throughout the procedure, ? the patient's blood pressure, pulse, and oxygen ? saturations were monitored continuously.The ? Colonoscope was introduced through the anus and ? advanced to the cecum, identified by appendiceal ? orifice and ileocecal valve. The colonoscopy was ? performed without difficulty. The patient tolerated ? the procedure well. The quality of the bowel ? preparation was good. Findings: ?An ulcerated non-obstructing medium-sized mass was ? found in the proximal ascending colon. The mass was ? non-circumferential. The mass measured two cm in ? length. No bleeding was present. This was biopsied ? with a cold forceps for histology. Estimated blood ? loss was minimal. Area was tattooed with an injection ? of 4 mL of Spot (carbon black). ? A 5 mm polyp was found at 20 cm proximal to the anus. ? The polyp was sessile. The polyp was removed with a ? cold snare. Resection and retrieval were complete. ? Estimated blood loss was minimal. ? Non-bleeding internal hemorrhoids were found during ? retroflexion. The hemorrhoids were small. ? The exam was otherwise without abnormality on direct ? and retroflexion views. Procedure Code(s): ? --- Professional --- ? 90871, Colonoscopy, flexible; with removal of ? tumor(s), polyp(s), or other lesion(s) by snare ? technique ? 10191, Colonoscopy, flexible; with directed submucosal ? injection(s), any substance ? 33892, 59, Colonoscopy, flexible; with biopsy, single ? or multiple Diagnosis Code(s): ? --- Professional --- ? Z86.010, Personal history of colonic polyps ? D49.0, Neoplasm of unspecified behavior of digestive ? system ? D12.6, Benign neoplasm of colon, unspecified CPT copyright 2020 [employer]. All rights reserved. The codes documented in this report are preliminary and upon grid molder review may be revised to meet current compliance requirements. John Plaza MD 07/29/2024 9:20:29 AM This report has been signed electronically.John Plaza MD Number of Addenda: 0 Note Initiated On: 07/29/2024 8:34 AM Scope In: Scope Out: ? Endoscopy Department at [facility] - [address] [place] [address], ? [place] [address] Procedure Note John Plaza MD - 07/29/2024 [facility] Patient Name: Cait Medrano Procedure Date: 07/29/2024 8:34 AM Date of : 1955 Age: 68 Room: ROOM 15 Gender: Female Note Status: Finalized Attending MD: John Plaza MD, Procedure Date No Time: 07/29/2024 Procedure: Colonoscopy Indications: High risk colon cancer surveillance: Personalhistory of colonic polyps Providers: John Plaza MD Referring MD: John Plaza MD Medicines: Monitored Anesthesia Care Complications: No immediate complications. Estimated Blood Loss: Estimated blood loss: none. Procedure: Pre-Anesthesia Assessment: - ASA Grade Assessment: III - A patient with severe systemic disease. - After reviewing the risks and benefits, thepatient was deemed in satisfactory condition to undergo the procedure. After I obtained informed consent, the scope was passed under direct vision. Throughout theprocedure, the patient's blood pressure, pulse, and oxygen saturations were monitored continuously.The Colonoscope was introduced through the anus and advanced to the cecum, identified by appendiceal orifice and ileocecal valve. The colonoscopy was performed without difficulty. The patient tolerated the procedure well. The quality of the bowel preparation was good. Findings: An ulcerated non-obstructing medium-sized mass was found in the proximal ascending colon. The mass was non-circumferential. The mass measured two cm in length. No bleeding was present. This was biopsied with a cold forceps for histology. Estimated blood loss was minimal. Area was tattooed with aninjection of 4 mL of Spot (carbon black). A 5 mm polyp was found at 20 cm proximal to theanus. The polyp was sessile. The polyp was removed with a cold snare. Resection and retrieval were complete. Estimated blood loss was minimal. Non-bleeding internal hemorrhoids were found during retroflexion. The hemorrhoids were small. The exam was otherwise without abnormality ondirect and retroflexion views. Procedure Code(s): --- Professional --- 09149, Colonoscopy, flexible; with removal of tumor(s), polyp(s), or other lesion(s) by snare technique 33779, Colonoscopy, flexible; with directedsubmucosal injection(s), any substance 04030, 59, Colonoscopy, flexible; with biopsy,single or multiple Diagnosis Code(s): --- Professional --- Z86.010, Personal history of colonic polyps D49.0, Neoplasm of unspecified behavior ofdigestive system D12.6, Benign neoplasm of colon, unspecified CPT copyright 2020 [employer]. All rights reserved. The codes documented in this report are preliminary and upon grid molder reviewmay be revised to meet current compliance requirements. John Plaza MD 07/29/2024 9:20:29 AM This report has been signed electronically.John Plaza MD Number of Addenda: 0 Note Initiated On: 07/29/2024 8:34 AM Scope In: Scope Out: Endoscopy Department at [facility] - [address] [place] [id number] IMPRESSION: - Likely malignant tumor in the proximal ascending colon. Biopsied. Tattooed. - One 5 mm polyp at 20 cm proximal to the anus, removed with a cold snare. Resected andretrieved. - Non-bleeding internal hemorrhoids. - The examination was otherwise normal on directand retroflexion views. Recommendation: - Perform an upper GI endoscopy today. - Await pathology results. - Repeat colonoscopy for surveillance based on pathology results. us John Plaza MD GI~PROCEDURE ORDERABLES Final Result * EGD Anesthesia - MAC; [facility] ENDOSCOPY (07/29/2024 9:17 AM EST) Anatomical Region Laterality Modality Endoscopy 07/29/2024 9:11 AM EST Impressions 07/29/2024 9:23 AM EST - Z-line regular, 38 cm from the incisors. ? - Small hiatal hernia. ? - Normal stomach. ? - Normal examined duodenum. ? - Several biopsies were obtained in the gastric antrum. Recommendation: ?- Discharge patient to home. ? - Resume previous diet. ? - Continue present medications. ? - Await pathology results. ? - Return to my office as previously scheduled. ? - Resume Plavix (clopidogrel) at prior dose tomorrow. Narrative 07/29/2024 9:23 AM EST [facility] Patient Name: Cait Medrano Procedure Date: 07/29/2024 9:11 AM Date of : 1955 Age: 68 Room: ROOM 15 Gender: Female Note Status: Finalized Attending MD: John Plaza MD, Procedure Date No Time: 07/29/2024 Procedure: ? Upper GI endoscopy Indications: ? Gastro-esophageal reflux disease, Failure to respond ? to medical treatment Providers: ? John Plaza MD Referring MD: ?John Plaza MD Medicines: ? Monitored Anesthesia Care Complications: ? No immediate complications. Estimated Blood Loss: ? Estimated blood loss: none. Procedure: ? Pre-Anesthesia Assessment: ? - ASA Grade Assessment: III - A patient with severe ? systemic disease. ? - After reviewing the risks and benefits, the patient ? was deemed in satisfactory condition to undergo the ? procedure. ? After obtaining informed consent, the endoscope was ? passed under direct vision. Throughout the procedure, ? the patient's blood pressure, pulse, and oxygen ? saturations were monitored continuously.The Olympus ? Gastroscope was introduced through the mouth, and ? advanced to the second part of duodenum. The upper GI ? endoscopy was accomplished without difficulty. The ? patient tolerated the procedure well. Findings: ?The Z-line was regular and was found 38 cm from the ? incisors. ? A small hiatal hernia was found. The proximal extent ? of the gastric folds (end of tubular esophagus) was 38 ? cm from the incisors. The hiatal narrowing was 42 cm ? from the incisors. ? The exam of the esophagus was otherwise normal. ? The entire examined stomach was normal. Several ? biopsies were obtained in the gastric antrum with cold ? forceps for histology. Estimated blood loss was ? minimal. ? The examined duodenum was normal. Procedure Code(s): ? --- Professional --- ? 32079, Esophagogastroduodenoscopy, flexible, ? transoral; with biopsy, single or multiple Diagnosis Code(s): ? --- Professional --- ? K44.9, Diaphragmatic hernia without obstruction or ? gangrene ? K21.9, Gastro-esophageal reflux disease without ? esophagitis CPT copyright 2020 [employer]. All rights reserved. The codes documented in this report are preliminary and upon grid molder review may be revised to meet current compliance requirements. John Plaza MD 07/29/2024 9:22:51 AM This report has been signed electronically.John Plaza MD Number of Addenda: 0 Note Initiated On: 07/29/2024 9:11 AM Scope In: Scope Out: ? Endoscopy Department at [facility] [facility] - [address] [place] [address], ? [place] [address] Procedure Note John Plaza MD - 07/29/2024 [facility] Patient Name: Cait Medrano Procedure Date: 07/29/2024 9:11 AM Date of : 1955 Age: 68 Room: ROOM 15 Gender: Female Note Status: Finalized Attending MD: John Plaza MD, Procedure Date No Time: 07/29/2024 Procedure: Upper GI endoscopy Indications: Gastro-esophageal reflux disease, Failure torespond to medical treatment Providers: John Plaza MD Referring MD: John Plaza MD Medicines: Monitored Anesthesia Care Complications: No immediate complications. Estimated Blood Loss: Estimated blood loss: none. Procedure: Pre-Anesthesia Assessment: - ASA Grade Assessment: III - A patient with severe systemic disease. - After reviewing the risks and benefits, thepatient was deemed in satisfactory condition to undergo the procedure. After obtaining informed consent, the endoscope was passed under direct vision. Throughout theprocedure, the patient's blood pressure, pulse, and oxygen saturations were monitored continuously.The Olympus Gastroscope was introduced through the mouth, and advanced to the second part of duodenum. The upperGI endoscopy was accomplished without difficulty. The patient tolerated the procedure well. Findings: The Z-line was regular and was found 38 cm from the incisors. A small hiatal hernia was found. The proximalextent of the gastric folds (end of tubular esophagus) was38 cm from the incisors. The hiatal narrowing was 42cm from the incisors. The exam of the esophagus was otherwise normal. The entire examined stomach was normal. Several biopsies were obtained in the gastric antrum withcold forceps for histology. Estimated blood loss was minimal. The examined duodenum was normal. Procedure Code(s): --- Professional --- 65071, Esophagogastroduodenoscopy, flexible, transoral; with biopsy, single or multiple Diagnosis Code(s): --- Professional --- K44.9, Diaphragmatic hernia without obstruction or gangrene K21.9, Gastro-esophageal reflux disease without esophagitis CPT copyright 2020 [employer]. All rights reserved. The codes documented in this report are preliminary and upon grid molder reviewmay be revised to meet current compliance requirements. John Plaza MD 07/29/2024 9:22:51 AM This report has been signed electronically.John Plaza MD Number of Addenda: 0 Note Initiated On: 07/29/2024 9:11 AM Scope In: Scope Out: Endoscopy Department at [facility] - [address] [place] [id number] IMPRESSION: - Z-line regular, 38 cm from the incisors. - Small hiatal hernia. - Normal stomach. - Normal examined duodenum. - Several biopsies were obtained in the gastricantrum. Recommendation: - Discharge patient to home. - Resume previous diet. - Continue present medications. - Await pathology results. - Return to my office as previously scheduled. - Resume Plavix (clopidogrel) at prior dosetomorrow. John Plaza MD GI~PROCEDURE ORDERABLES Final Result from Last 3 Months Insurance MEDICARE [employer] Advance Directives Documents on File Type Date Recorded Patient Music Specialist Expl anation Power of Thread Cutter 08/30/2024 7:06 AM [facility] CARE PROXY * Full Code - Default (Latest Code Status on File) Date Activated Date Inactivated Comments 08/30/2024 6:12 AM 09/01/2024 1:13 PM This is orde r is used when code status has not been discussed with the patient, or code status is otherwise unknown/unconfirmed To update the patient's code status, place a code status order. Do not modify or discontinue any currently active code status orders. Care Teams Complaint Operator Relationship Specialty Start Date End Date Arabella Decker NP [facility] [address] [place] [id number] PCP - General 08/20/23
--- OUTSIDE RECORDS SUMMARY | 2024-09-24 11:12 | XMS_ITS | Encounter Summary ---
Author Organization [facility] Address [address] [place] [address] Care Team Providers Care Section Housekeeper Name Role Phone Arabella Decker NP Primary Care Provider [phone] Reason for Visit * Auth/Cert (Routine) Specialty Diagnoses / Procedures Referred By Contac t Referred To Contact Diagnoses Malignant neoplasm of ascending colon (CMS/HCC) Malignant neoplasm of ascending colon Procedures [place] LAP SURG COLECTOMY PARTIAL W REMOVAL OF TERMINAL ILEUM W [facility]OSTOMY [facility] IP/OBS CARE INITIAL MODERATE LEVEL PER DAY LAPAROSCOPIC COLECTOMY ; ? OPEN Diogo Martinez MD [address] [place] [id number] Phone: tel: fax: Referral ID Status Reason Start Date Expiration Date Visits Re quested Visits Authorized [id number] 08/05/2024 1 1 Encounter Details Date Type Department Care Team (Late st Contact Info) Description 08/30/2024 7:31 AM EST Anesthesia Event [facility] Main OR [address] [place] [address] Ramesh Larios MD [address] [place] [address] [phone] Shira Diamond CRNA [address] [place] [phone] Anesthesia Record Procedure Summary Procedure Name Responsible Anesthesiologist Anesthesia Start Time Anesthesia Stop Time LAPAROSCOPIC COLECTOMY (Right: Abdomen) Ramesh Larios MD 08/30/24 0731 08/30/24 1019 Events Date Time Event Comment 08/30/2024 0731 An Start 0732 0733 In Room 0733 An Start Data The patient wa s reevaluated immediately before moderate or deep sedation use and before anesthesia induction. 0739 An Induction 0741 An Intubation 0745 Anesthesia Ready 0754 Dru Surgical time-o ut completed. 0754 Proc Start 0850 Break I, SAL Infante, attest that I have reviewed the pertinent information of this case with the next supervisor building maintenance assuming care of this patient (MD Shawna) including a summary of events during my staffing of the case. I will be readily available by text for any additional information needed. 0905 Break Naresh Lopez CRN A, reassumed patient care. 1006 Proc Fin 1008 An Extubation ETT awake extu bation, VSS, patient fully reversed w/ Sugammadex, TOF 4/4, spontaneous ventilation w/ adequate RR & appropriate airway reflexes, TV >250 mL, oropharynx suctioned, sustained head lift >5 sec, ETT removed w/o incident on 100% FiO2, pain & hydration well managed. Transported to PACU on 6 L/min O2 via simple mask. -Naresh, PRINTED CIRCUIT BOARD DRAFTER 1012 an stop data 1014 Out of Room 1014 Transport to PACU/ICU Patien t reassessed and ready for transfer, airway stable. Patient transport to designated recovery area. {Transport to PACU/ICU:[id number]} 1019 Handoff to RN I completed my handoff to the receiving nurse during which we: 1. Identified the patient 2. Identified the responsible provider 3. Reviewed the pertinent medical history 4. Discussed the surgical course 5. Reviewed intra-op anesthesia management and issues during anesthesia 6. Set expectations for post-procedure period 7. Allowed opportunity for questions and acknowledgement of understanding. 1019 An Stop Meds Name Total midazolam 1 mg/mL 2 mg fentaNYL (SUBLIMAZE) injection 100 mcg propofol (DIPRIVAN) injection 10 mg/mL 2 00 mg rocuronium 100 mg ondansetron 2 mg/mL 4 mg glycopyrrolate 0.2 mg/mL 0.2 mg phenylephrine (JOSEPHINE-SYNEPHRINE) 100 mcg/m L syringe 10 mL 600 mcg dexamethasone (DECADRON) injection 4 mg/ mL 4 mg lidocaine PF (XYLOCAINE-MPF) local injec tion 2% 100 mg ketamine (KETALAR) injection 50 mg/mL sy ringe 50 mg sugammadex (BRIDION) injection 100 mg/mL 200 mg ceFAZolin (ANCEF) IV syringe 2 g/20 mL 2 g metroNIDAZOLE (FLAGYL) IVPB 500 mg 500 m g scopolamine (TRANSDERM-SCOP) 1 mg/3 days patch 1 patch lactated Ringer's infusion 1,000 mL * Agents Name O2 N2O Air Sevoflurane Inspired Sevoflurane * Blood No blood administrations on file. Lines, Drains, and Airways Type Details Placement Removal Wound Abdomen; Left, Upper 08/30/24 0841 by Wound Abdomen; Left, Lower 08/30/24 0841 by Wound Abdomen; Left, Lower , Medial 08/30/24 0841 by Wound Abdomen; Lower, Medial 08/30/24 0911 by Peripheral IV Placement Date: 08/12 ; Placement Time: 0715; Catheter Size: 20 G; Orientation: Left, Posterior; Location: Hand; Site Prep: Chlorhexidine; Local Anesth: None; Inserted by: Erik bae; Insertion Attempts: 1; Patient Tolerance: Tolerated well; Removal Date: 08/31/24; Removal Time: 0930 08/30/24 0715 by Lizbeth Gill RN 08/31/24 0930 by Lake Castillo RN ETT Placement Date: 08/12 ; Placement Time: 0756 (created via procedure documentation); Mask Ventilation: 1; Technique: Direct laryngoscopy; Type: ETT; Cuffed: Yes; Blade Size: 3; Location: Oral; Insertion Attempts: 1; Placement Verification: Auscultation, Capnometry; Airway Comments: Smooth induction, easy mask, no OPA necessary, Grade IIa view w/ gentle CP for visualization; ETT placed, verified & secured, VSS. TRUNG Christina; Removal Date: 08/30/24; Removal Time: 1008 08/30/24 0756 by Shira Diamond CRNA 08/30/24 1008 by Shira Diamond CRNA documented in this encounter Social History Tobacco [...] as of this encounter Progress Notes * Shira Diamond CRNA - 08/30/2024 10:18 AM EST Patient: Cait Medrano Procedure Summary Date: 08/30/24 Room / Location: [facility] OR [facility] OR Anesthesia Start: 730 Anesthesia Stop: Procedure: LAPAROSCOPIC COLECTOMY (Right: Abdomen) Diagnosis: Malignant neoplasm of ascending colon (CMS/HCC) (Malignant neoplasm of ascending colon) Surgeons: Diogo Martinez MD Responsible Provider: Ramesh Larios MD Anesthesia Type: general ASA Status: 4 Anesthesia Plan: general Last Vitals: Vitals Value Taken Time BP 142/64 08/30/24 1018 Temp 98.1 08/30/24 1018 Pulse 71 08/30/24 1018 Resp 10 08/30/24 1018 SpO2 100 08/30/24 1018 Pain Score: 0 - No pain Anesthesia Post Evaluation Patient location during evaluation: PACU Patient participation: complete - patient participated Level of consciousness: awake and sleepy but conscious Pain score: 0 Pain management: adequate Airway patency: patent Anesthetic complications: no Cardiovascular status: acceptable Respiratory status: acceptable and spontaneous ventilation Hydration status: acceptable Comments: Patient extubated w/out incident, VSS, simple mask in place, on 6 L O2. Transferred from OR to Main PACU, stable throughout transfer, vital signs reviewed & remain stable (see nursing record), report accepted by RAW MATERIAL HANDLER. Stable on release, transfer of care guidelines followed. No complications noted upon sign-out. -TRUNG Infante Nausea: No Vomiting: No There were no known notable events for this encounter. * Shira Diamond CRNA - 08/30/2024 7:55 AM ESTAssociated Order(s): Intubation General Information and Staff Patient location during procedure: OR Performed by: Shira Diamond CRNA Authorized by: Ramesh Larios MD Intubation Additional Comments Smooth induction, easy mask, no OPA necessary, Grade IIa view w/ gentle CP for visualization; ETT placed, verified & secured, VSS. -TRUNG Infante Urgency: elective Final Airway Details Successful [...] difficulty assessment: 1 - vent by mask * Shira Diamond CRNA - 08/30/2024 7:17 AM EST 69 y.o. female scheduled for [[place] LAP SURG COLECTOMY PARTIAL W REMOVAL OF TERMINAL ILEUM W*] Ht Readings from Last 1 Encounters: 08/10/24 1.626 m (64 ) Wt Readings from Last 1 Encounters: 08/10/24 86.2 kg (190 lb) Body mass index is 32.61 kg/m??. Past Medical History: Diagnosis Date Angina pectoris ([facility]) Anxiety 11/06/2018 DX:Anxiety Arthritis Blindness 2004 Cancer, colon ([facility]) CHF (congestive heart failure) ([facility]) Colon polyp Constipation 11/06/2018 DX:Constipation Depression 11/06/2018 DX:Depression Diabetes mellitus type 1, uncomplicated, on termite technician insulin pump ([facility]) 11/06/2018 DX:Diabetes mellitus type 2, uncomplicated ([facility]) GERD (gastroesophageal reflux disease) 11/06/2018 DX:GERD (gastroesophageal reflux disease) Heart disease Hiatal hernia Hypercholesteremia 11/06/2018 DX:Hypercholesteremia Hypertension Joint pain Migraines 11/06/2018 DX:Migraines Myocardial infarction (CMS/HCC) PONV (postoperative nausea and vomiting) Sleep apnea Past Surgical History: Procedure Laterality Date COLONOSCOPY CORONARY ARTERY BYPASS GRAFT HERNIA REPAIR WITH MESH HYSTERECTOMY STENT BMS - PERIPHERAL cardiac TOTAL SHOULDER ARTHROPLASTY Right DISLOCATED/FROZEN SHOULDER UPPER GASTROINTESTINAL ENDOSCOPY Denies anesthesia complications Allergies Allergen Reactions Bromfenac Other CAN'T TELL IF HAVING LOW BS Heparin Bleeding retinopathy Nsaids (Non-Steroidal Anti-Inflammatory Drug) Pt. Has retinopathy in left eye and is blind in right eye No current facility-administered medications on file prior to encounter. Current Outpatient Medications on File Prior to Encounter Medication Sig Dispense Refill acetaminophen (TYLENOL 8 [...] 1 tablet (300 mg total) by mouth. cevimeline (EVOXAC) 30 mg capsule Take 1 [...] by mouth 1 (one) time each day. isosorbide mononitrate (IMDUR) 120 mg 24 hr tablet Take 60 mg by mouth 1 (one) time each day. melatonin 5 mg capsule Take 10 mg by mouth 1 (one) time each day. metoprolol succinate (TOPROL-XL) 25 mg 24 hr tablet Take 1 tablet (25 mg total) by mouth at bedtime. Do not crush or chew. metroNIDAZOLE (FLAGYL) 500 mg tablet Take 1 tablet (500 mg total) by mouth See administration instructions for 3 doses. Take at 2pm, 3pm, and 8pm on the day before your scheduled operation. Do not use mouth wash or consume alcohol until 48 hours after last dose. 3 tablet 0 midodrine (PROAMATINE) 10 mg tablet Take by mouth 1 (one) time each day. multivitamin (Multiple Vitamins) tablet Take 1 tablet by mouth 1 (one) time each day. neomycin (MYCIFRADIN) 500 mg tablet Take two tablets (1000 mg) by mouth at 2:00pm, 3:00pm and 8:00pm on the day prior to surgery 6 tablet 0 nitroglycerin (NITROSTAT) 0.[address] 1 tablet (0.4 mg total) under the tongue. ondansetron (ZOFRAN) 4 mg tablet Take 1 tablet (4 mg total) by mouth 1 (one) time each day. pantoprazole (PROTONIX) 40 mg EC tablet Take 1 tablet (40 mg total) by mouth 2 (two) times a day. Do not crush, chew, or split. polyethylene glycol (GoLYTELY) 236-22.74-6.74 -5.86 gram solution Starting at noon on day prior to procedure drink 8 ounces (240 mL) every 30 minutes until complete, or until stools are clear. (No need to finish it once stools are clear!) May add flavor packet. 4000 mL 0 ranolazine (RANEXA) 500 mg 12 hr tablet [...] by mouth 2 (two) times a day. malgzedjle-twcufgxdvjlbf-wblwrkqo (FIORICET, ESGIC) 50-325-40 mg per tablet Take [...] times a day if needed for dizziness. Current In-hospital Medications ceFAZolin, 2 g, intravenous, Once metroNIDAZOLE, 500 mg, intravenous, Once sodium chloride, 10 mL, intravenous, BID lactated Ringer's, 75 mL/hr, Last Rate: 75 mL/hr (08/30/24 0797) PRN medications: Insert peripheral IV AND Maintain IV access AND Saline lock IV AND sodium chloride AND sodium chloride Social History Tobacco Use Smoking status: Never Smokeless tobacco: Never Substance Use Topics Alcohol use: Yes Comment: SOCIAL Drug use: Never Is the patient a current smoker (e.g. cigarette, cigar, pip, e-cigarette, or mariajuana)? Yes [] No[x] Patient previously instructed to abstain from smoking on the day of procedure? Yes [] No[] Patient smoked on the day of procedure? Yes [] No[] ASPIRE smoking VBR: [] Not interested in quitting [] Interested in quitting- referred to treatment [] Interested in quitting - treatment provided Visit Vitals BP (!) 171/54 Pulse 65 Temp 36.7 ??C (98.1 ??F) Resp 16 Ht 1.626 m (64 ) Wt 86.2 kg (190 lb) SpO2 100% BMI 32.61 kg/m?? Smoking Status Never BSA 1.91 m?? Available cardiac studies reviewed: CT Chest w Contrast Result Date: 08/23/2024 Narrative: EXAMINATION: CT CHEST WITH CONTRAST CLINICAL INFORMATION: Colon cancer. Initial staging.Malignant neoplasm of ascending colon COMPARISON: None TECHNIQUE: Multidetector CT. Examination of the chest. Examination of the chest following the IV administration of nonionic contrast. Reformatting in the coronal and sagittal planes. DLP: 289 mGy-cm Dose optimization was performed including theuse of low-dose iterative reconstruction technique with automatic [...] of the left apex (3/53). There are afew nonspecific peripheral linear opacities in the dependent [...] could be reexamined at the time of oncologicsurveillance. -------- FINAL REPORT -------- Dictated By: Alessandro Sandy Dictated Date: 08/23/2024 07:15 ET Assigned Physician: Alessandro Sandy Reviewed and Electronically Signed By: Alessandro Sandy Signed Date: 08/23/2024 07:29 ET Workstation ID: [id number] Transcribed By: Self Edit Transcribed Date: 08/23/2024 07:[address] Abdomen Pelvis w Contrast Result Date: 08/05/2024 Narrative: CT abdomen and pelvis with IV contrast [...] No evidence of hydronephrosis. Punctate nonobstructing stone in the lower pole left kidney. Retroperitoneum: No abnormal lymphadenopathy. Vessels: Minimal plaque in the aorta without aneurysm. Bowel: Enteric contrast was given and extends into the colon without obstruction. Stool is noted throughout the colon. Mucosal lesions are not well evaluated on CT examination. There is a region of slight narrowing of the proximalascending colon could represent site of disease but should be correlated with colonoscopy. Mesentery: Mildly prominent and irregular lymph nodes are noted in the right ileal mesentery. The largest ofthese measures 11 mm in short axis. No ascites. Pelvis: Pelvis appears within normal limits. No abno rmal lymphadenopathy. Abdominal wall/bones: Ventral hernia mesh is present. No current significant hernia. Mild age-indeterminate compression of the L2 vertebral body. Lung Bases: Clear bilaterally. Impression: 1. Small region of narrowing in the [...] Signed Date: 08/05/2024 15:06 ET Workstation ID: [id number] Transcribed By: Self Edit Transcribed Date: 08/05/2024 14:57 ET EKG No results found for this or any previous visit (from the past 4464 hour(s)). ECHO No results found for this or any previous visit. CATH No results found for this or any previous visit. LABS: Lab Results Component Value Date WBC 7.0 08/02/2024 HGB 11.8 08/02/2024 HCT 37.0 08/02/2024 MCV 97.9 08/02/2024 PLT 242 08/02/2024 Lab Results Component Value Date GLUCOSE 150 (H) 08/30/2024 CALCIUM 9.0 08/02/2024 NA 141 08/02/2024 K 4.1 08/02/2024 CO2 27 08/02/2024 CL 110 08/02/2024 BUN 20 08/02/2024 CREATININE 0.95 08/02/2024 No results found for: INR , PROTIME No results found for: PTT Denies cardiac, pulm, neuro, hepatic or renal s/sx. Patient meets ASA guidelines for NPO status. > 4 mets without anginal symptoms. Relevant labs, vitals, imaging, cardiac and pulmonary studies as well as HPI, Meds, Allergies, ROS,PMH, PSH, SH, and FH reviewed. Relevant Problems Cardio (+) Migraines Pulmonary (+) Asthmatic bronchitis without complication Neuro/Psych (+) Migraines GI (+) GERD (gastroesophageal reflux disease) Other (+) Malignant neoplasm of ascending colon (CMS/HCC) PONV s/p shoulder surgery; prone to motion sickness, scop patch applied in pre- op. TRUNG Christina Clinical information reviewed: Tobacco Allergies Meds Med Hx Surg Hx OB Status Fam Hx Soc Hx Anesthesia Plan ASA 4 Anesthesia Plan: general General Anesthesia Considerations: ETT Anesthesia Considerations general ETT Anesthesia Risks Discussed dental injury, nausea, pain, sore throat, corneal abrasion, allergic reaction and serious complications Plan Factors Patient is not a current smoker Smoking cessation education has not been provided Induction method: intravenous Postoperative administration of opioids is intended. Anesthetic plan and risks discussed with patient and spouse. Use of blood products discussed with patient and spouse who. Anesthesia Plan discussed with PRINTED CIRCUIT BOARD DRAFTER and attending. Anesthesia Evaluation Patient summary reviewed and Nursing notes reviewed History of anesthetic complications Airway Mallampati: III Neck ROM: fullnot intubated Dental - normal exam Pulmonary breath sounds clear to auscultation (+) asthma, sleep apnea Cardiovascular (+) hypertension, angina, CHF Rhythm: regular Neuro/Psych (+) headaches Comment: Anxiety, Depression GI/Hepatic/Renal (+) hiatal hernia, GERD Endo/Other (+) diabetes mellitus Abdominal (+) obese Abdomen: soft. Bowel sounds: normal. PONV RISK SCORE: 3 Vitals: 08/10/24 0900 08/30/24 0620 BP: (!) 171/54 Pulse: 65 Resp: 16 Temp: 36.7 ??C (98.1 ??F) SpO2: 100% Weight: 86.2 kg (190 lb) Height: 1.626 m (64 ) SpO2 Readings from Last 1 Encounters: 08/30/24 100% WBC Date Value Ref Range Status 08/02/2024 7.0 4.8 - 10.8 K/mcL Final RBC Date Value Ref Range Status 08/02/2024 3.80 3.80 - 4.80 M/mcL Final Hemoglobin Date Value Ref Range Status 08/02/2024 11.8 11.5 - 16.0 g/dL Final Hematocrit Date Value Ref Range Status 08/02/2024 37.0 35.0 - 47.0 % Final Platelets Date Value Ref Range Status 08/02/2024 242 130 - 400 K/mcL Final MCV Date Value Ref Range Status 08/02/2024 97.9 79.0 - 98.0 FL Final Allergies Allergen Reactions Bromfenac Other CAN'T TELL IF HAVING LOW BS Heparin Bleeding retinopathy Nsaids (Non-Steroidal Anti-Inflammatory Drug) Pt. Has retinopathy in left eye and is blind in right eye STOP BANG: No data recorded NPO Status: Time of Last Liquid: 1800 Time of Last Solid: 1000 documented in this encounter Plan of Treatment Upcoming Encounters Date Type Department Care Team (Late st Contact Info) Description 09/24/2024 3:30 PM EST Office Visit [facility] Hematology Oncology [address] [place] [id number] Quoc Bernal MD [address] [place] [address] 12/14/2024 11:15 AM EDT Office Visit General Surgery - [place] [address] [place] [address] Diogo Martinez MD [address] [place] [address] documented as of this encounter Procedures Procedure Name Priority Date/Time Associated Diagnosis Comments TH AN ENDOTRACHEAL(NO CHARGE) Routine 08/30/2024 7:55 AM EST documented in this encounter Results * TH AN ENDOTRACHEAL(NO CHARGE) (08/30/2024 7:55 [...] Larios MD ANESTHESIA ORDERABLES Final Re sult documented in this encounter Visit Diagnoses Not on filedocumented in this encounter Administered Medications Inactive Administered Medications - up to 3 most recent administrations Medication Order MAR Action Action Date Dose Rate Site ceFAZolin (ANCEF) 2 gram/20 mL IV syringe intravenous, Administer over 3 Minutes, As needed, Starting on Fri08/30/24 at 0745, Anesthesia Intraprocedure Given 08/30/2024 7:45 AM EST 2 g dexAMETHasone (DECADRON) injection intravenous, As needed, Starting on Fri08/30/24 at 0748, Anesthesia Intraprocedure Given 08/30/2024 7:48 AM EST 4 mg fentaNYL (PF) (SUBLIMAZE) injection intravenous, As needed, Starting on Fri08/30/24 at 0739, Anesthesia Intraprocedure Given 08/30/2024 8:05 AM EST 50 mcg Given 08/30/2024 7:39 AM EST 50 mcg glycopyrrolate (ROBINUL) injection intravenous, As needed, Starting on Fri08/30/24 at 0731, Anesthesia Intraprocedure Given 08/30/2024 7:47 AM EST 0 .1 mg Given 08/30/2024 7:31 AM EST 0.1 mg ketamine (KETALAR) injection intravenous, As needed, Starting on Fri08/30/24 at 0753, Anesthesia Intraprocedure Given 08/30/2024 8:50 AM EST 2 5 mg Given 08/30/2024 7:53 AM EST 25 mg lactated Ringer's infusion 75 mL/hr, intravenous, Continuous, Starting on Fri08/30/24 at 0630, Preprocedure New Bag 08/30/2024 10:10 AM EST 75 mL/hr New Bag 08/30/2024 7:17 AM EST 75 mL/hr 75 mL/hr Le ft Hand New Bag 08/30/2024 6:45 AM EST 75 mL/hr lidocaine (PF) (XYLOCAINE-MPF) 2 % injection injection, As needed, Starting on Fri08/30/24 at 0739, Anesthesia Intraprocedure Given 08/30/2024 7:39 AM EST 100 mg metroNIDAZOLE (FLAGYL) IVPB 500 mg 500 mg, intravenous, at 100 mL/hr, Administer over 60 Minutes, Once, On Fri08/30/24 at 0630, For 1 dose, Preprocedure, Administer within 60 minutes of incision. premix bag, Indication: Prophylaxis-Surgical Given 08/30/2024 7:49 AM EST 500 mg midazolam (VERSED) injection intravenous, As needed, Starting on Fri08/30/24 at 0731, Anesthesia Intraprocedure Given 08/30/2024 7:34 AM EST 1 mg Given 08/30/2024 7:31 AM EST 1 mg ondansetron (PF) (ZOFRAN) injection intravenous, As needed, Starting on Fri08/30/24 at 0748, Anesthesia Intraprocedure Given 08/30/2024 7:48 AM EST 4 mg phenylephrine (JOSEPHINE-SYNEPHRINE) injection intravenous, As needed, Starting on Fri08/30/24 at 0829, Anesthesia Intraprocedure Given 08/30/2024 9:58 AM EST 5 0 mcg Given 08/30/2024 9:53 AM EST 50 mcg Given 08/30/2024 9:50 AM EST 50 mcg propofoL (DIPRIVAN) injection intravenous, As needed, Starting on Fri08/30/24 at 0739, Anesthesia Intraprocedure Given 08/30/2024 9:42 AM EST 5 0 mg Given 08/30/2024 8:05 AM EST 50 mg Given 08/30/2024 7:39 AM EST 100 mg rocuronium (ZEMURON) injection intravenous, As needed, Starting on Fri08/30/24 at 0740, Anesthesia Intraprocedure Given 08/30/2024 9:13 AM EST 2 0 mg Given 08/30/2024 8:33 AM EST 20 mg Given 08/30/2024 7:40 AM EST 60 mg scopolamine (TRANSDERM-SCOP) patch Topical, Administer over 72 Hours, As needed, Starting on Fri08/30/24 at 0731, Anesthesia Intraprocedure Given 08/30/2024 7:31 AM EST 1 patch sugammadex (BRIDION) 100 mg/mL injection intravenous, As needed, Starting on Fri08/30/24 at 1000, Anesthesia Intraprocedure Given 08/30/2024 10:[address] 200 mg documented in this encounter Care Teams Section Housekeeper Relationship Specialty Start Date End Date Arabella Decker NP [facility] [address] [place] [address] PCP - General 08/20/23 documented as of this encounter
== END 2024-09-24 11:12 | disposition home or self-care (01) ==
PROVIDERS: Visit Provider Physician Assistant
DX: S42.201A Unspecified fracture of upper end of right humerus, initial encounter for closed fracture (principal); W00.0XXA Fall on same level due to ice and snow, initial encounter
CPT/HCPCS: 99204

== ENCOUNTER → 2024-09-24 10:26 | Outpatient (BNV) | payer MEDICARE, OTHER, SELFPAY | PROVIDERS: Visit Provider Specialist | DX: S42.211A Unspecified displaced fracture of surgical neck of right humerus, initial encounter for closed fracture (principal) | CPT/HCPCS: 73060 ==

== ENCOUNTER 2024-10-22 08:16 | Outpatient (REF) | payer MEDICARE, OTHER, SELFPAY ==
--- NOTE | ~2024-10-22 | XR_ITS ---
EXAMINATION: XR SHOULDER, RIGHT CLINICAL INFORMATION: M25.519 - Pain in unspecified shoulder COMPARISON: 09/24/2024. TECHNIQUE: Two views of the right shoulder. FINDINGS: Redemonstration mildly impacted, mildly displaced, comminuted fracture of the right humeral surgical neck. Stable alignment. Fracture lines are still visible although they are much less distinct, with increased sclerosis, and there is marginal bony callus present. Findings indicate healing. The glenohumeral joint demonstrates moderate degenerative arthritis. Mild widening of the AC joint, with mild superior and undersurface spurring. This is stable. There is a type I acromion. No undersurface spurring. The subacromial space is preserved. Right chest port in place with tip in the mid SVC. Sternotomy wires noted. Remainder of the soft tissue and osseous structures appear normal. XR/XR shoulder RT min 2V IMPRESSION: 1. Healing comminuted mildly impacted surgical neck fracture of the right proximal humerus, with no change in alignment. 2. Arthritic changes. Electronically signed by: Sonu Darling MD 10/22/2024 02:27 PM EDT
== END 2024-10-22 08:17 | disposition home or self-care (01) ==
LOC: HO.HOSX 08:16
PROVIDERS: Visit Provider Physician Assistant
DX: M25.511 Pain in right shoulder (principal); S42.214D Unspecified nondisplaced fracture of surgical neck of right humerus, subsequent encounter for fracture with routine healing
CPT/HCPCS: 73030; 99212

== ENCOUNTER 2024-10-22 10:33 | Outpatient (AMB) | payer MEDICARE, OTHER, SELFPAY ==
--- NOTE | 2024-10-22 10:40 | A.OFFVIS_ITS ---
Vital Signs 10/22/24 10:43 Height 5 ft 4 in Weight 178 lb BMI 30.6 Handedness Right Intake Visit Reasons: OV-proximal RT humerus fx Intake Note: Cait is a 69 year old right hand dominant female who presents today with her for a evaluation of her right humerus fx, DOI 09/11/24. Patient reports she is feeling a lot better and she has been using her sling every day. Allergies No Known Allergies Allergy (Verified 10/22/24 10:42) HPI HPI OV-proximal RT humerus fx: Details: Ms. Medrano is a 69-year-old right-hand dominant female who presents to the office today for follow-up of a right proximal humerus fracture that she sustained on 09/11/2024 when she slipped and fell while walking to her mailbox. She is wearing a sling for comfort but has come out regularly to perform peuqw-vc-jqiyvk exercises that were demonstrated to her in the office at her last visit. Her pain has been gradually improving. [facility] Surgical History (Updated 09/24/24 @ 10:43 by Zach Roach) History of shoulder surgery Social History Alcohol intake: current Alcohol intake frequency: holidays/special occasions only Patient Tobacco Use Status: Never used Tobacco Current occupational status: retired Current occupation: right hand dominant Review of Systems Const All systems reviewed & are unremarkable except as noted in HPI and below Physical Exam Vital Signs: BMI result Body Mass Index 30.6 Const General: cooperative, healthy appearing and no acute distress Resp Effort & Inspection: normal respiratory effort and able to speak in complete sentences Cardio Rate: regular rate Peripheral pulses: Peripheral pulses 2+ throughout Skin Lesions: no lesions Rashes: no rashes Extrem Other: Right upper extremity: Able to reach his side of her head. Able to perform roughly 60 degrees of forward flexion and abduction. Able to perform wrist flexion and extension. Able to perform full finger flexion and extension finger cross, abduction, adduction, thumbs-up and okay sign without deficit. Sensation is intact. Cap refill is brisk. Assessment & Plan Assessment & Plan (1) Closed fracture of right proximal humerus: Code(s): S42.201A - Unspecified fracture of upper end of right humerus, initial encounter for closed fracture Category: Medical Plan Ms. Medrano is a 69-year-old right-hand dominant female who presents to the office today for follow-up of a right proximal humerus fracture that she sustained on 09/11/2024 when she slipped and fell while walking to her mailbox. She is wearing a sling for comfort but has come out regularly to perform qsqsc-bs-bhixkk exercises that were demonstrated to her in the office at her last visit. Her pain has been gradually improving. While in the office today, we discussed discontinuing the sling use except for while she is out in public to identify that she has an injury. I would like her to begin working with physical therapy in a formal physical therapy order has been placed while the office today. Unfortunately, the patient has just started chemotherapy and will continue doing so for the next 6 months. At her 1st chemotherapy visit she became ill with severe nausea and vomiting. She is concerned with attending physical therapy and her ability to participate. I think that it would be reasonable for the patient to attend a few sessions of formal physical therapy if possible to learn a home exercise program and touch base with physical therapy every few weeks for new exercises as she can tolerate. My worry is that she developed significant stiffness after this injury. She will follow up in 6 weeks with repeat x-rays, sooner if needed. X-rays of the right shoulder which were obtained while in the office today and were reviewed by me, Abbie Holt PA-C, revealed right proximal humerus fracture with routine healing. Orders: Orders XR shoulder RT min 2V Today M25.519 - Pain in unspecified shoulder PT Evaluation and Treatment Today S42.201A - Unspecified fracture of upper end of right humerus, initial encounter for closed fracture Coding Level of Care Code Global (66428) Diagnoses Closed fracture of right proximal humerus S42.201A
[2024-10-22 10:43] VITALS: BMI 30.6
--- OUTSIDE RECORDS SUMMARY | 2024-10-22 12:01 | XMS_ITS | Encounter Summary ---
Author Organization [facility] Address [address] [place] [address] Care Team Providers Care Putter In Name Role Phone Arabella Decker NP Primary Care Provider [phone] Encounter Details Date Type Department Care Team (Latest Contact Info) Description 10/15/2024 1:00 PM EST - 10/15/2024 11:59 PM EST Hospital Encounter [facility] [address] [facility] [address] [place] [phone] Quoc Bernal MD [address] [place] [address] Malignant neoplasm of ascending colon (CMS/HCC) (Primary Dx) Discharge Disposition: Home or Self Care Social [...] Sign Reading Time Taken Comments Blood Pressure 142/65 10/15/2024 1:16 PM EST Pulse 89 10/15/2024 1:16 PM EST Temperature 36.4 ??C (97.6 ??F) 10/15/2024 1:16 PM ES T Respiratory Rate - - Oxygen Saturation 100% 10/15/2024 1:16 PM EST Inhaled Oxygen Concentration - - Weight - - Height - - Body Mass Index - - documented in this encounter Medications at Time of Discharge acetaminophen (TYLENOL 8 HOUR) 650 mg 8 hr tablet Take 2 tablets (1,300 mg total) by mouth every 8 (eight) hours if needed for mild pain. Do not crush, chew, or split. biotin 10,000 mcg tablet,chewable Chew 1 (one) [...] mouth 1 (one) time each day. 05/05/2023 LORazepam (ATIVAN) 1 mg tablet Take 1 tablet (1 mg total) by mouth at bedtime as needed for anxiety or sleep. Max Daily Amount: 1 mg 30 tablet 10/13/2024 11/12/2024 meclizine (ANTIVERT) 25 mg tablet Take 1 [...] TWICE A DAY 180 tablet 1 09/06/2024 prochlorperazine (COMPAZINE) 10 mg tablet Take 1 tablet (10 mg total) by mouth every 8 (eight) hours if needed for nausea. 60 tablet 1 10/15/2024 11/14/2024 ranolazine (RANEXA) 500 mg 12 hr tablet [...] by mouth 2 (two) times a day. sulfamethoxazole- trimethoprim (BACTRIM DS,SEPTRA DS) 800-160 mg per tablet Take 1 tablet by mouth 2 (two) times a day for 5 days. 10 each 10/13/2024 10/18/2024 documented as of this encounter Discharge Disposition Disposition Code Departure Means Destination Home or Self Care documented in this encounter Progress Notes * Iris Palumbo RN - 10/15/2024 1:00 PM EST Cait arrives today for an acute visit due to nausea and vomiting. Since treatment on 10/12/24 her symptoms have progressed in this fashion. She felt well on Friday evening and most of Friday, Friday evening she began feeling some nausea which worsened on . she hadexperienced nausea and vomiting, despite taking her daily ondansetron 4 mg that morning. afternoon while in infusion for 5 fu pump removal, ondansetron 8 mg was administered IV. At that time, no fluids were administered as he was keeping liquids down. Howvers, as time passed she had more episodes of vomiting despite yesterdays dose of ondansetorn and this mornings. She and her are understandably concerned with the weekend ahead. Secure message sent to Dr. Bernal who provided orders for one liter of normal saline hydration today and the administration of compazine and dexamethasone, compazine prescription also sent in for home use, port accessed, skin over port continues to heal and steri strips placed yesterday are clean and intact, there is minimal pink skin below the port and there are no signs of infection. Cait will take the antibiotic as prescribed, she didtake this morning, but is pretty sure she threw it back up when she vomited this morning. She continues to monitor her insulin pump and blood sugar and is comfortable with the reports of there blood glucose, IV fluids initiated and call guerrero in reach. also present, who does most of the symptom reporting. Resting, ice chips provided, 1400 reports feeling a bit better. 1430 sleeping, comfortable 1545 hydration complete and feeling better, blood sugar also within range after dexamethasone administration, and they will continue to monitor and dose with insulin appropriately, Left unit in wheelchair, feeling better, aware to orange picker prescription for compazine and appointment scheduled for Friday int he event she continues to feel poorly, documented in this encounter Plan of Treatment Upcoming Encounters Date Type Department Care Team (Late st Contact Info) Description 10/26/2024 11:00 AM EDT Appointment [facility] [address] [facility] 2nd [place] [phone] 11/04/2024 11:15 AM EDT Office Visit [facility] Hematology Oncology [address] [place] [phone] Quoc Bernal MD [address] [place] [address] 12/14/2024 11:15 AM EDT Office Visit General Surgery [facility] [address] [phone] Diogo Martinez MD [address] [address] documented as of this encounter Visit Diagnoses Diagnosis Malignant neoplasm of ascending colon (CMS/HCC)- Primary Malignant neoplasm of ascending colon documented in this encounter Administered Medications Inactive Administered Medications - up to 3 most recent administrations Medication Order MAR Action Action Date Dose Rate Site dexAMETHasone (DECADRON) injection 4 mg 4 mg, intravenous, Once, On Fri10/15/24 at 1345, For 1 dose Given 10/15/2024 1:37 PM EST 4 mg prochlorperazine (COMPAZINE) injection 10 mg 10 mg, intravenous, Once, On Fri10/15/24 at 1345, For 1 dose Given 10/15/2024 1:42 PM EST 10 mg sodium chloride 0.9 % bolus 1,000 mL 1,000 mL, intravenous, at 500 mL/hr, Administer over 2 Hours, Once, On Fri10/15/24 at 1345, For 1 dose New Bag 10/15/2024 1:30 PM EST 1,000 mL 500 mL/hr documented in this encounter Care Teams Putter In Relationship Specialty Start Date End Date Arabella Decker NP [address] [address] PCP - General 08/20/23 documented as of this encounter
--- OUTSIDE RECORDS SUMMARY | 2024-10-22 12:01 | XMS_ITS | Encounter Summary ---
Author Organization [facility] Address [address] [place] [address] Care Team Providers Care Building Drafting Officer Name Role Phone Arabella Decker NP Primary Care Provider [phone] Encounter Details Date Type Department Care Team (Latest Contact Info) Description 10/20/2024 10:17 AM EDT Hospital Encounter [facility] [address] [phone] Quoc Bernal MD [address] [place] [address] Malignant neoplasm of ascending colon (CMS/HCC) Social [...] as of this encounter Progress Notes * Feli Marshall RN - 10/20/2024 10:30 AM EDT Patient arrives ambulatory to unit for port blood draw prior to dental appt. Patient states that she's feeling much better since receiving hydration and compazine. Patient is now able to eat and drink fluids. Port assessed. Steri strips intact, area has dried blood and scabbing. No discharge, area has improved. Patient took last antibx today. Port accessed below incision. +BR. Labs collected; cbcd cmp. Port flushed per protocol. Deaccessed intact. Sterile bandage applied. Patient aware that shewill receive a call in re to lab results for dental appt tomorrow. Patient discharged stable, with steady gait, accompanied by . 1253 Labs are stable for dental appt. Wbc 4.8, anc 3.16, plt 178. Potassium is 3.4. Patient called at home and advised to eat/drink potassium enriched foods such orange juice, potatoes, bananas. Patient in agreement with plan. Will check potassium on day of treatment to make sure theres improvement. documented in this encounter Plan of Treatment Upcoming Encounters Date Type Department Care Team (Late st Contact Info) Description 10/26/2024 11:00 AM EDT Appointment [facility] [address] [facility] 2nd [place] [phone] 11/04/2024 11:15 AM EDT Office Visit [facility] Hematology Oncology [address] [place] [phone] Quoc Bernal MD [address] [place] [address] 12/14/2024 11:15 AM EDT Office Visit General Surgery - [place] [address] [phone] Diogo Martinez MD [address] [address] documented as of this encounter Procedures Procedure Name Priority Date/Time Associated Diagnosis Comments CBC WITH AUTO DIFFERENTIAL Routine 10/20/2024 10:26 AM EDT Malignant neoplasm of ascending colon (CMS/HCC) CBC AND DIFFERENTIAL Routine 10/20/2024 10:26 AM EDT Malignant neoplasm of ascending colon (CMS/HCC) COMPREHENSIVE METABOLIC PANEL Routine 10/20/2024 10:26 AM EDT Malignant neoplasm of ascending colon (CMS/HCC) documented in this encounter Results * (ABNORMAL) CBC auto differential (10/20/2024 10:26 AM EDT) Pathologist [facility] WBC 4.8 4.8 - 10.8 K/mcL LAB HEMETOLOGY METHOD 10/20/2024 10:52 AM [facility] RBC 3.80 3.80 - 4.80 M/mcL LAB HEMETOLOGY METHOD 10/20/2024 10:52 AM [facility] Hemoglobin 11.7 11.5 - 16.0 g/dL LAB HEMETOLOGY METHOD 10/20/2024 10:52 AM [facility] Hematocrit 37.1 35.0 - 47.0 % LAB HEMETOLOGY METHOD 10/20/2024 10:52 AM [facility] MCV 97.1 79.0 - 98.0 FL LAB HEMETOLOGY METHOD 10/20/2024 10:52 AM [facility] MCH 30.6 27.0 - 32.0 pcg LAB HEMETOLOGY METHOD 10/20/2024 10:52 AM [facility] MCHC 31.5(L) 32.0 - 37.0 g/dL LAB HEMETOLOGY METHOD 10/20/2024 10:52 AM [facility] RDW 13.6 11.0 - 15.0 % LAB HEMETOLOGY METHOD 10/20/2024 10:52 AM [facility] Platelets 178 130 - 400 K/mcL LAB HEMETOLOGY METHOD 10/20/2024 10:52 AM [facility] MPV 12.0(H) 7.0 - 11.0 FL LAB HEMETOLOGY METHOD 10/20/2024 10:52 AM [facility] NRBC 0.0 <1.0 % LAB HEMETOLOGY METHOD 10/20/2024 10:52 AM [facility] NRBC Absolute 0.00 <0.10 K/mcL LAB HEMETOLOGY METHOD 10/20/2024 10:52 AM [facility] Neutrophils Relative 65.6 % LAB HEMETOLOGY METHOD 10/20/2024 10:52 AM [facility] Lymphocytes Relative 22.9 % LAB HEMETOLOGY METHOD 10/20/2024 10:52 AM [facility] Monocytes Relative 4.2 % LAB HEMETOLOGY METHOD 10/20/2024 10:52 AM [facility] Eosinophils Relative 6.9 % LAB HEMETOLOGY METHOD 10/20/2024 10:52 AM [facility] Basophils Relative 0.2 % LAB HEMETOLOGY METHOD 10/20/2024 10:52 AM [facility] Immature Granulocytes Relative 0.2 % LAB HEMETOLOGY METHOD 10/20/2024 10:52 AM [facility] Neutrophils Absolute 3.16 1.50 - 7.00 K/mcL LAB HEMETOLOGY METHOD 10/20/2024 10:52 AM [facility] Lymphocytes Absolute 1.10 1.00 - 5.00 K/mcL LAB HEMETOLOGY METHOD 10/20/2024 10:52 AM [facility] Monocytes Absolute 0.20 0.20 - 1.00 K/mcL LAB HEMETOLOGY METHOD 10/20/2024 10:52 AM [facility] Eosinophils Absolute 0.33 0.00 - 0.50 K/mcL LAB HEMETOLOGY METHOD 10/20/2024 10:52 AM [facility] Basophils Absolute 0.01 0.00 - 0.20 K/[facility] LAB HEMETOLOGY METHOD 10/20/2024 10:52 AM T [facility] Immature Granulocytes Absolute 0.01 0.00 - 0.03 K/[facility] LAB HEMETOLOGY METHOD 10/20/2024 10:52 AM [facility] Blood Blood sample taken from central line / Unknown Existing Catheter / Unknown 10/20/2024 10:26 AM EDT 10/20/2024 10:45 AM EDT us Quoc Bernal MD LAB BLOOD ORDERABLES Final R esult [facility] [address] [place] [address], [place] [phone] * (ABNORMAL) Comprehensive metabolic panel (10/20/2024 10:26 AM EDT) Sodium 136 133 - 145 mmol/L LAB CHEMISTRY METHOD 10/20/2024 12:00 PM [facility] Potassium 3.4(L) 3.5 - 5.5 mmol/L LAB CHEMISTRY METHOD 10/20/2024 12:00 PM [facility] Chloride 105 96 - 110 mmol/L LAB CHEMISTRY METHOD 10/20/2024 12:00 PM [facility] CO2 22 21 - 32 mmol/L LAB CHEMISTRY METHOD 10/20/2024 12:00 PM [facility] Anion Gap 9 3 - 11 LAB CHEMISTRY METHOD 10/20/2024 12:00 PM [facility] Glucose 147(H) 70 - 100 mg/dL LAB CHEMISTRY METHOD 10/20/2024 12:00 PM [facility] BUN 25 5 - 25 mg/dL LAB CHEMISTRY METHOD 10/20/2024 12:00 PM [facility] Comment:Results verified by repeat testing Creatinine 1.00 0.50 - 1.10 mg/dL LAB CHEMISTRY METHOD 10/20/2024 12:00 PM [facility] eGFR 62 >=60 mL/min/1. 73m2 LAB CHEMISTRY METHOD 10/20/2024 12:00 PM [facility] Comment:Calculation based on the??Chronic Kidney Disease Epidemiology Collaboration (CKD-EPI) equation refit??without adjustment for race. BUN/Creatinine Ratio 25.0 LAB CHEMISTRY METHOD 10/20/2024 12:00 PM [facility] Calcium 8.8 8.5 - 10.5 mg/dL LAB CHEMISTRY METHOD 10/20/2024 12:00 PM [facility] AST (SGOT) 10 10 - 42 unit/L LAB CHEMISTRY METHOD 10/20/2024 12:00 PM [facility] ALT (SGPT) 15 10 - 60 unit/L LAB CHEMISTRY METHOD 10/20/2024 12:00 PM [facility] Alkaline Phosphatase 112 42 - 121 unit/L LAB CHEMISTRY METHOD 10/20/2024 12:00 PM [facility] Total Protein 7.0 6.0 - 8.0 g/dL LAB CHEMISTRY METHOD 10/20/2024 12:00 PM [facility] Albumin 3.3 3.2 - 5.0 g/dL LAB CHEMISTRY METHOD 10/20/2024 12:00 PM [facility] Total Bilirubin 0.3 0.0 - 1.4 mg/dL LAB CHEMISTRY METHOD 10/20/2024 12:00 PM [facility] Blood Blood sample taken from central line / Unknown Existing Catheter / Unknown 10/20/2024 10:26 AM EDT 10/20/2024 10:45 AM EDT us Quoc Bernal MD LAB BLOOD ORDERABLES Final R esult [facility] [address] [place] [address], documented in this encounter Visit Diagnoses Diagnosis Malignant neoplasm of ascending colon (CMS/HCC) Malignant neoplasm of ascending colon documented in this encounter Care Teams Building Drafting Officer Relationship Specialty Start Date End Date Arabella Decker NP [address] [address] PCP - General 08/20/23 documented as of this encounter
--- OUTSIDE RECORDS SUMMARY | 2024-10-22 12:01 | XMS_ITS | Encounter Summary ---
Author Organization [facility] Address [address] [place] [address] Care Team Providers Care Natural Foods Clerk Name Role Phone Arabella Decker NP Primary Care Provider [phone] Reason for Visit * Reason Comments Follow-up Encounter Details Date Type Department Care Team (Late st Contact Info) Description 10/12/2024 Social Work [facility] [address] [place] [phone] Ancelmo Beyer LMSW Social History Tobacco Use Types Packs/Day Years [...] as of this encounter Progress Notes * Ancelmo Beyer LMSW - 10/12/2024 11:50 AM EST Progress Note: SW met with patient for initial assessment.Patient is 69 yo female with diagnosis of colon cancer. Patient is alert and oriented, pleasant and engaging. Patient was accompanied by her and best friend. Patient has no children.Patient denied any insurances or financial need. 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 SW explained the community services available as well as foundations and validated patient's feeling of stress. Rachell Beyer LMSW Information Security Analyst [facility] documented in this encounter Plan of Treatment Upcoming Encounters Date Type Department Care Team (Late st Contact Info) Description 10/26/2024 11:00 AM EDT Appointment [facility] [address] [facility] 2nd [place] [address] 11/04/2024 11:15 AM EDT Office Visit [facility] Hematology Oncology [address] [place] [phone] Quoc Bernal MD [address] [place] [address] 12/14/2024 11:15 AM EDT Office Visit General Surgery - [place] [address] [phone] Diogo Martinez MD [address] [address] documented as of this encounter Visit Diagnoses Not on filedocumented in this encounter Care Teams Natural Foods Clerk Relationship Specialty Start Date End Date Arabella Decker NP [facility] [address] [place] [address] PCP - General 08/20/23 documented as of this encounter
--- OUTSIDE RECORDS SUMMARY | 2024-10-22 12:01 | XMS_ITS | Encounter Summary ---
Author Organization [facility] Address [address] [place] [address] Care Team Providers Care Property Claim Rep Name Role Phone Arabella Decker NP Primary Care Provider [phone] Reason for Visit * Imaging (Emergency) - Closed Specialty Diagnoses / Procedures Referred By Contac t Referred To Contact Radiology Diagnoses Malignant neoplasm of ascending colon (CMS/HCC) Procedures IR Insert Tunneled CVAD w Subq Port More 5yrs Right Quoc Bernal MD [address] [place] [address] Phone: tel: fax: [address] [address] Phone: tel: Referral ID Status Reason Start Date Expiration Date Visits Re quested Visits Authorized [id number] Closed 09/24/2024 09/24/2025 1 1 Encounter Details Date Type Department Care Team (Latest Contact Info) Description 10/06/2024 8:05 AM EST - 10/06/2024 11:59 PM EST Hospital Encounter [facility] Interventional Radiology [address] [place] [address] Discharge Disposition: Home or Self Care Social [...] Sign Reading Time Taken Comments Blood Pressure 151/54 10/06/2024 11:00 AM EST Pulse 66 10/06/2024 11:00 AM EST Temperature 36.9 ??C (98.4 ??F) 10/06/2024 8:37 AM ES T Respiratory Rate 10 10/06/2024 10:37 AM EST Oxygen Saturation 100% 10/06/2024 11:00 AM EST Inhaled Oxygen Concentration - - Weight 81.2 kg (179 lb) 10/06/2024 8:30 AM EST Height 160 cm (5' 3 ) 10/06/2024 8:30 AM EST Body Mass Index 31.71 10/06/2024 8:30 AM EST documented in this encounter Discharge Instructions * Discharge Instructions* Lauro Peñaloza MD - 10/06/2024 8:52 AM EST Images from the original note were not included. Implanted Port: What to Expect at Home Your Recovery You've had a procedure to implant a port. A port is a device placed, in most cases, under the skin of your chest below your collarbone. It is made of plastic, stainless steel, or titanium. It's aboutthe size of a quarter, but thicker. It looks like a small bump under your skin. A thin, flexible tube called a catheter runs under the skin from the port into a large vein. With the port, you will be able to get medicines (such as chemotherapy) with more comfort. You also can get blood, nutrients, or other fluids. Blood can be taken through the port for tests. You will probably have some discomfort and bruising at the port site. This will go away in a few days. The port can be used right away. You may have the port for weeks, months, or longer. Your port will need to be flushed out regularly to keep it open. A nurse or other health professional will do this for you. This care sheet gives you a general idea about how long it will take for you to recover. But each person recovers at a different pace. Follow the steps below to feel better as quickly as possible. How can you care for yourself at home? Activity Avoid arm and upper body movements that may pull on the catheter for the first few days. These movements include heavy weight lifting and vigorous use of your arms. You will probably need to take 1 day off from work and will be able to return to normal activities shortly after. This depends on the type of work you do, why you have the catheter, and how you feel. You probably will be able to take baths and swim. But you may need to avoid some activities. Talk to your doctor about any limits on your activity. Ask your doctor when you can drive again. Be careful when you pull your seat belt across your chestso it doesn't pull out the catheter. It's okay if the seat belt lays over the catheter. Medicines Your doctor will tell you if and when you can restart your medicines. He or she will also give you instructions about taking any new medicines. If you stopped taking aspirin or some other blood thinner, your doctor will tell you when to start taking it again. Be safe with medicines. Read and follow all instructions on the label. If the doctor gave you a prescription medicine for pain, take it as prescribed. If you are not taking a prescription pain medicine, ask your doctor if you can take an kbeq-uwn-gjuxpag medicine. Incision care If you have a bandage, your doctor will tell you when you can remove it. After you remove the bandage, you may shower. Wash the area with soap and water and pat it dry. Don't use hydrogen peroxide oralcohol, which can slow healing. You may cover the area with a gauze bandage if it weeps or rubs against clothing. Change the bandage every day. If you have strips of tape on the cut (incision) the doctor made, leave the tape on for a week or until it falls off. Other instructions Always carry the medical alert card that your doctor gives you. It contains information about your port. It will tell health care workers that you have a port in case you need emergency care. When you get dressed, be careful not to rub the port. Do not wear a bra or suspenders that irritateyour skin near the port. Follow-up care is a mathis part of your treatment and safety. Be sure to make and go to all appointments, and call your doctor if you are having problems. It's also a good idea to know your test resultsand keep a list of the medicines you take. When should you call for help? Call your doctor now or seek immediate medical care if: You have signs of infection, such as: Increased pain, swelling, warmth, or redness. Red streaks leading from the area. Pus draining from the area. A fever. You have pain or swelling in your neck or arm. You have trouble breathing. Watch closely for changes in your health, and be sure to contact your doctor if: You have any problems with your line or port. Where can you learn more? Scan the QR code or Go to https://[email or web address]/Thename.ischart Enter M256 in the search box to learn more about Implanted Port: What to Expect at Home. Current as of: March 05, 2023 Content Version: 14.2 ?? 2023 [facility] [employer]. Care instructions adapted under license by your healthcare professional. If you have questions about a medical condition or this instruction, always ask your healthcare professional. [employer] disclaims any warranty or liability for your use of this information. documented in this encounter Medications at Time [...] by mouth 2 (two) times a day. ALPRAZolam (XANAX) 1 mg tablet Take 0.5 tablets (0.5 mg total) by mouth at bedtime. 10/13/2024 documented as of this encounter Discharge Disposition Disposition Code Departure Means Destination Home or Self Care documented in this encounter Procedure Notes * Annalisa Santoro RN - 10/06/2024 9:00 AM EST Shown and explained port to pt and * Maurisio Duffy RN - 10/06/2024 9:00 AM EST Pt port site steri strips intact pt awake alert, oriented vss no c/o pain * Lauro Peñaloza MD - 10/06/2024 8:51 AM EST Interventional Radiology Preprocedure Note: Patient Name: Cait Medrano Procedure Date: Today Indication for procedure: There were no encounter diagnoses. Planned Procedure: Please see associated order History and Physical Update ( H&P completed within the previous thirty days ) I personally reviewed the History and Physical, interviewed and examined the patient prior to surgery. No changes have occurred in the patient's condition since the History and Physical was completed. Allergies: Allergies Allergen Reactions Bromfenac Other CAN'T TELL IF HAVING LOW BS Heparin Bleeding retinopathy Nsaids (Non-Steroidal Anti-Inflammatory Drug) Pt. 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 ([facility]) 11/06/2018 DX:Diabetes mellitus type 2, uncomplicated ([facility]) GERD (gastroesophageal reflux disease) 11/06/2018 DX:GERD (gastroesophageal reflux disease) Heart disease Hiatal hernia Hypercholesteremia 11/06/2018 DX:Hypercholesteremia Hypertension Joint pain Migraines 11/06/2018 DX:Migraines Myocardial infarction ([facility]) PONV (postoperative nausea and vomiting) Sleep apnea Surgical History: Past Surgical History: Procedure Laterality Date COLON SURGERY COLONOSCOPY CORONARY ARTERY BYPASS GRAFT HERNIA REPAIR WITH MESH HYSTERECTOMY STENT BMS - PERIPHERAL cardiac TOTAL SHOULDER ARTHROPLASTY Right DISLOCATED/FROZEN SHOULDER UPPER GASTROINTESTINAL ENDOSCOPY Social History: Social History Socioeconomic History Marital status: Spouse name: Not on file Number of children: Not on file Years of education: Not on file Highest education level: Not on file Occupational History Not on file Tobacco Use Smoking status: Never Smokeless tobacco: Never Substance and Sexual Activity Alcohol use: Yes Comment: SOCIAL Drug use: Never Sexual activity: Not on file Other Topics Concern Not on file Social History Narrative Not on file Medications: Current Outpatient Medications on File Prior to [...] 1 tablet (300 mg total) by mouth. cunylvntrp-ppjumzqstdais-uetpzjip (FIORICET, ESGIC) 50-325-40 mg per tablet Take [...] (60 mg total) by mouth 1 (one) timeeach day. melatonin 5 mg capsule Take 10 [...] day. pantoprazole (PROTONIX) 40 mg EC tablet TAKE [...] mouth 2 (two) times a day. clopidogreL (PLAVIX) 75 mg tablet Take 1 tablet (75 mg total) by mouth 1 (one) time each day. insulin infusion set-cartridge combo pack meclizine (ANTIVERT) 25 mg tablet Take 1 tablet (25 mg total) by mouth 3 (three) times a day if needed for dizziness. oxyCODONE (OXY-IR) 5 mg immediate release capsule Take 1 capsule (5 mg total) by mouth every 6 (six) hours if needed for severe pain for up to 10 doses. Max Daily Amount: 20 mg 10 capsule 0 No current facility-administered medications on file prior to encounter. Directed physical examination: Visit Vitals BP (!) 165/60 Pulse 65 Temp 36.9 ??C (98.4 ??F) (Temporal) Resp 16 HEENT Assessment: Airway patent Cardiovascular Assessment: Monitored rhythm observed. Adequate pulses. Pulmonary Assessment: NARD Abdomen: Soft NT Musculoskeletal Assessment: At baseline Mallampati: 2 ASA Score: 2 Relevant Labs: Lab Results Component Value Date CREATININE 0.84 09/01/2024 EGFR 76 09/01/2024 Immediate reassessment prior to sedation: Unchanged from baseline The patient or designee has a signed a consent that is available in the patient record. Lauro Peñaloza MD documented in this encounter Plan of Treatment Upcoming Encounters Date Type Department Care Team ([facility] st Contact Info) Description 10/26/2024 11:00 AM EDT Appointment [facility] [address] [place] [id number] 11/04/2024 11:15 AM EDT Office Visit [facility] Hematology Oncology [address] [place] [address] Quoc Bernal MD [address] [place] [address] 12/14/2024 11:15 AM EDT Office Visit General Surgery - [place] [address] [place] [phone] Diogo Martinez MD [address] [place] [address] documented as of this encounter Procedures Procedure Name Priority Date/Time Associated Diagnosis Comments IR INSERT TUNNELED CVAD W SUBQ PORT MORE 5YRS RIGHT STAT 10/06/2024 10:26 AM EST Malignant neoplasm of ascending colon (CMS/HCC) CBC WITH AUTO DIFFERENTIAL Routine 10/06/2024 8:50 AM EST CBC AND DIFFERENTIAL Routine 10/06/2024 8:50 AM EST CARCINOEMBRYONIC ANTIGEN Routine 025 8:50 AM EST COMPREHENSIVE METABOLIC PANEL Routine 10/06/2024 8:50 AM EST documented in this encounter Results * (ABNORMAL) CBC auto differential (10/06/2024 8:50 AM EST) WBC 6.1 4.8 - 10.8 K/mcL LAB HEMETOLOGY METHOD 10/06/2024 9:06 AM [facility] RBC 3.80 3.80 - 4.80 M/mcL LAB HEMETOLOGY METHOD 10/06/2024 9:06 AM [facility] Hemoglobin 11.5 11.5 - 16.0 g/dL LAB HEMETOLOGY METHOD 10/06/2024 9:06 AM [facility] Hematocrit 36.5 35.0 - 47.0 % LAB HEMETOLOGY METHOD 10/06/2024 9:06 AM [facility] MCV 96.8 79.0 - 98.0 FL LAB HEMETOLOGY METHOD 10/06/2024 9:06 AM [facility] MCH 30.5 27.0 - 32.0 pcg LAB HEMETOLOGY METHOD 10/06/2024 9:06 AM [facility] MCHC 31.5(L) 32.0 - 37.0 g/dL LAB HEMETOLOGY METHOD 10/06/2024 9:06 AM [facility] RDW 14.5 11.0 - 15.0 % LAB HEMETOLOGY METHOD 10/06/2024 9:06 AM [facility] Platelets 242 130 - 400 K/mcL LAB HEMETOLOGY METHOD 10/06/2024 9:06 AM [facility] MPV 11.6(H) 7.0 - 11.0 FL LAB HEMETOLOGY METHOD 10/06/2024 9:06 AM [facility] NRBC 0.0 <1.0 % LAB HEMETOLOGY METHOD 10/06/2024 9:06 AM [facility] NRBC Absolute 0.00 <0.10 K/mcL LAB HEMETOLOGY METHOD 10/06/2024 9:06 AM [facility] Neutrophils Relative 64.6 % LAB HEMETOLOGY METHOD 10/06/2024 9:06 AM [facility] Lymphocytes Relative 22.8 % LAB HEMETOLOGY METHOD 10/06/2024 9:06 AM [facility] Monocytes Relative 8.6 % LAB HEMETOLOGY METHOD 10/06/2024 9:06 AM [facility] Eosinophils Relative 3.0 % LAB HEMETOLOGY METHOD 10/06/2024 9:06 AM [facility] Basophils Relative 0.7 % LAB HEMETOLOGY METHOD 10/06/2024 9:06 AM [facility] Immature Granulocytes Relative 0.3 % LAB HEMETOLOGY METHOD 10/06/2024 9:06 AM [facility] Neutrophils Absolute 3.92 1.50 - 7.00 K/mcL LAB HEMETOLOGY METHOD 10/06/2024 9:06 AM [facility] Lymphocytes Absolute 1.38 1.00 - 5.00 K/mcL LAB HEMETOLOGY METHOD 10/06/2024 9:06 AM EST [facility] Monocytes Absolute 0.52 0.20 - 1.00 K/[facility] LAB HEMETOLOGY METHOD 10/06/2024 9:06 AM EST [facility] Eosinophils Absolute 0.18 0.00 - 0.50 K/[facility] LAB HEMETOLOGY METHOD 10/06/2024 9:06 AM EST [facility] Basophils Absolute 0.04 0.00 - 0.20 K/[facility] LAB HEMETOLOGY METHOD 10/06/2024 9:06 AM EST [facility] Immature Granulocytes Absolute 0.02 0.00 - 0.03 K/[facility] LAB HEMETOLOGY METHOD 10/06/2024 9:06 AM EST [facility] Blood Venous blood specimen / Unknown Venipuncture / Unknown 10/06/2024 8:50 AM EST 10/06/2024 9:00 AM EST Quoc Bernal MD LAB BLOOD ORDERABLES Final R esult [facility] [address] [place] [address], * (ABNORMAL) CEA (10/06/2024 8:50 AM EST) CEA 5.1(H) 0.0 - 5.0 ng/mL LAB CHEMISTRY METHOD 10/06/2024 9:58 AM EST [facility] Blood Venous blood specimen / Unknown Venipuncture / Unknown 10/06/2024 8:50 AM EST 10/06/2024 9:00 AM EST Narrative [facility] - 10/06/2024 9:58 AM EST The Siemens Advia Centaur Chemiluminescent Immunoassay is used. Results obtained with different assay methods or kits cannot be used interchangeably. Results cannot be interpreted as absolute evidence of the presence or absence of malignant disease. us Quoc Bernal MD LAB BLOOD ORDERABLES Final R esult [facility] [address] [place] [address], [place] [phone] * (ABNORMAL) Comprehensive metabolic panel (10/06/2024 8:50 AM EST) Sodium 142 133 - 145 mmol/L LAB CHEMISTRY METHOD 10/06/2024 10:59 AM EST [facility] Potassium 4.0 3.5 - 5.5 mmol/L LAB CHEMISTRY METHOD 10/06/2024 10:59 AM [facility] Chloride 107 96 - 110 mmol/L LAB CHEMISTRY METHOD 10/06/2024 10:59 AM [facility] CO2 26 21 - 32 mmol/L LAB CHEMISTRY METHOD 10/06/2024 10:59 AM [facility] Anion Gap 9 3 - 11 LAB CHEMISTRY METHOD 10/06/2024 10:59 AM [facility] Glucose 185(H) 70 - 100 mg/dL LAB CHEMISTRY METHOD 10/06/2024 10:59 AM [facility] BUN 23 5 - 25 mg/dL LAB CHEMISTRY METHOD 10/06/2024 10:59 AM [facility] Comment:Results verified by repeat testing Creatinine 0.93 0.50 - 1.10 mg/dL LAB CHEMISTRY METHOD 10/06/2024 10:59 AM [facility] eGFR 68 >=60 mL/min/1. 73m2 LAB CHEMISTRY METHOD 10/06/2024 10:59 AM [facility] Comment:Calculation based on the??Chronic Kidney Disease Epidemiology Collaboration (CKD-EPI) equation refit??without adjustment for race. BUN/Creatinine Ratio 24.7 LAB CHEMISTRY METHOD 10/06/2024 10:59 AM [facility] Calcium 9.1 8.5 - 10.5 mg/dL LAB CHEMISTRY METHOD 10/06/2024 10:59 AM [facility] AST (SGOT) 14 10 - 42 unit/L LAB CHEMISTRY METHOD 10/06/2024 10:59 AM [facility] ALT (SGPT) 17 10 - 60 unit/L LAB CHEMISTRY METHOD 10/06/2024 10:59 AM [facility] Alkaline Phosphatase 122(H) 42 - 121 unit/L LAB CHEMISTRY METHOD 10/06/2024 10:59 AM [facility] Total Protein 6.8 6.0 - 8.0 g/dL LAB CHEMISTRY METHOD 10/06/2024 10:59 AM [facility] Albumin 3.3 3.2 - 5.0 g/dL LAB CHEMISTRY METHOD 10/06/2024 10:59 AM [facility] Total Bilirubin 0.4 0.0 - 1.4 mg/dL LAB CHEMISTRY METHOD 10/06/2024 10:59 AM [facility] Blood Venous blood specimen / Unknown Venipuncture / Unknown 10/06/2024 8:50 AM EST 10/06/2024 9:00 AM EST Quoc Bernal MD LAB BLOOD ORDERABLES Final R esult [facility] [address] [place] [address], documented in this encounter Visit Diagnoses Not on filedocumented in this encounter Administered Medications Inactive Administered Medications - up to 3 most recent administrations Medication Order MAR Action Action Date Dose Rate Site ceFAZolin (ANCEF) 1 gram/10 mL IV syringe intravenous, Administer over 3 Minutes, As needed, Starting on Fri10/06/24 at 0957, Intraprocedure Given 10/06/2024 9:57 AM EST 1 g fentaNYL (PF) (SUBLIMAZE) injection intravenous, As needed, Starting on Fri10/06/24 at 0957, Intraprocedure Given 10/06/2024 9:57 AM EST 50 mcg fentaNYL (PF) (SUBLIMAZE) injection intravenous, As needed, Starting on Fri10/06/24 at 1005, Intraprocedure Given 10/06/2024 10:19 AM EST 25 mcg Given 10/06/2024 10:11 AM EST 25 mcg Given 10/06/2024 10:05 AM EST 25 mcg lidocaine with sodium bicarbonate 1 % injection As needed, Starting on Fri10/06/24 at 1034, Intraprocedure Given 10/06/2024 10:34 AM EST 20 mL Right Chest lidocaine-EPINEPHrine (XYLOCAINE W/EPI) 1 %-1:100,000 injection As needed, Starting on Fri10/06/24 at 1035, Intraprocedure Given 10/06/2024 10:35 AM EST 8 mL Right Chest midazolam (VERSED) injection intravenous, As needed, Starting on Fri10/06/24 at 0957, Intraprocedure Given 10/06/2024 10:11 AM EST 1 mg Given 10/06/2024 10:06 AM EST 1 mg Given 10/06/2024 9:57 AM EST 1 mg midazolam (VERSED) injection intravenous, As needed, Starting on Fri10/06/24 at 1020, Intraprocedure Given 10/06/2024 10:20 AM EST 0.5 mg documented in this encounter Historical Medications * This list may reflect changes made after this encounter. acetaminophen (TYLENOL 8 HOUR) 650 mg 8 hr tablet Take 2 tablets (1,300 mg total) by mouth every 8 (eight) hours if needed for mild pain. Do not crush, chew, or split. added in this encounter Orders Discharge Count Last Ordered Date First Orde red Date DISCHARGE PATIENT 1 10/06/2024 documented in this encounter Care Teams Property Claim Rep Relationship Specialty Start Date End Date Arabella Decker NP [address] [address] PCP - General 08/20/23 documented as of this encounter
--- OUTSIDE RECORDS SUMMARY | 2024-10-22 12:01 | XMS_ITS | Encounter Summary ---
Author Organization [facility] Address [address] [place] [address] Care Team Providers Care Bath Steward/Stewardess Name Role Phone Arabella Decker NP Primary Care Provider [phone] Reason for Referral * Imaging (Emergency) - Closed Specialty Diagnoses / Procedures Referred By Contac t Referred To Contact Radiology Diagnoses Malignant neoplasm of ascending colon (CMS/HCC) Procedures IR Insert Tunneled CVAD w Subq Port More 5yrs Right Rowan Bernal MD [address] [place] [address] Phone: tel: fax: [address] [address] Phone: tel: Referral ID Status Reason Start Date Expiration Date Visits Re quested Visits Authorized [id number] Closed 09/24/2024 09/24/2025 1 1 Reason for Visit * Reason Comments Consult * Consultation (Urgent) - Closed Specialty Diagnoses / Procedures Referred By Contac t Referred To Contact Hematology and Oncology Diagnoses Malignant neoplasm of ascending colon (CMS/HCC) Procedures ME VISIT OFFICE OUTPATIENT ESTABLISHED MODERATE LEVEL Diogo Martinez MD [address] [address] Phone: tel: fax: [facility] Hematology Oncology [address] [place] [phone] Phone: tel: fax: Referral ID Status Reason Start Date Expiration Date V isits Requested Visits Authorized [id number] Closed Consult and Treat 09/14/2024 09/14/2025 1 1 Encounter Details Date Type Department Care Team (Late st Contact Info) Description 09/24/2024 3:30 PM EST Office Visit [facility] Hematology Oncology [address] [place] [phone] Rowan Bernal MD [address] [place] [address] Malignant neoplasm of ascending colon (CMS/HCC) Social [...] mg total) by mouth., Disp: , Rfl: odyvnfevqq-yobnklstidjpf-zvseuaks (FIORICET, ESGIC) 50-325-40 mg per tablet, Take [...] she has been closely followed by a [facility] ologist in [place]. Patient on routine screening colonoscopy found to [...] seeing Dr. Viraj Villalobos (GI oncologist and [facility] next week), I would get his opinion regarding adjuvant treatment. I discussed with the patient and her in detail about rationale of adjuvant treatment, high risk of recurrence, potential risk benefit of each chemotherapy regimen in detail. I answered all their question, I spent with patient and her at least 60 minutes gwhm-hm-enmv, mainly in explaining, counseling and reviewing records [...] Info) Description 10/26/2024 11:00 AM EDT Appointment [facility] [address] [facility] 2nd [place] [phone] 11/04/2024 11:15 AM EDT Office Visit [facility] Hematology Oncology [address] [place] [phone] Rowan Bernal MD [address] [place] [address] 12/14/2024 11:15 AM EDT Office Visit General Surgery - [place] [address] [phone] Diogo Martinez MD [address] [address] documented as of this encounter Procedures Procedure Name Priority Date/Time Associated Diagnosis Comments IR INSERT TUNNELED CVAD W SUBQ PORT MORE 5YRS RIGHT STAT 10/06/2024 10:26 AM EST Malignant neoplasm of ascending colon (CMS/HCC) documented in this encounter Results * IR Insert Tunneled CVAD w Subq Port More 5yrs Right (10/06/2024 10:26 AM EST) Anatomical Region Laterality Modality Right Interventional R adiology 10/06/2024 11:4 9 AM EST Impressions 10/06/2024 11:51 AM EST Successful placement of a right ??internal jugular [address] [place] compatible PowerPort. ?? The port is available for immediate use. -------- FINAL REPORT -------- Dictated By: Lauro Peñaloza Dictated Date: 10/06/2024 11:49 ET Assigned Physician: Lauro Peñaloza Reviewed and Electronically Signed By: Lauro Peñaloza Signed Date: 10/06/2024 11:51 ET Workstation ID: [id number] Transcribed By: Self Edit Transcribed Date: 10/06/2024 11:49 ET Narrative 10/06/2024 11:51 AM EST Port placement INDICATION: Colon cancer, monitor, stage II/III Infusional chemotherapy Interventionalists: Dr. Lauro Jh Fluoroscopic time: 0.3 minutes. MEDICATIONS: Fentanyl 125 mcg, Versed 3.5 mg and 2% lidocaine. ??1 gram of Ancef ??provided for prophylaxis. ?? PROCEDURE: Informed written consent obtained. ??Patient brought to angiography placed in supine position. ??The internal jugular veins were assessed with ultrasound for patency and images were saved to PACS for later review. ??The skin overlying the right neck and chest wall were prepped and draped in usual in sterile fashion utilizing maximal sterile barrier technique. ?? Under physician supervision, midazolam and fentanyl was administered intravenously for procedural sedation. ??Continuous physiologic monitoring was performed throughout the entirety of the procedure by the seamless hosiery knitter. ?? The physician spent 30 minutes of gbqj-pm-sstk sedation time with the patient. ?? Skin was anesthetized with lidocaine. ??Small stab incision made with a #11 blade scalpel. ??Under continuous ultrasound guidance, a micropuncture needle was utilized to cannulate the internal jugular vein. ??Images were stored to PACS. ??A mandrel wire was then advanced into the superior vena cava. ??The needle was removed and a 3-5 sheath dilator advanced over the wire. ??The inner dilator and wire were removed and a 0.035 wire was then advanced into the inferior vena cava. ??This was then locked in place with a flow switch. Attention was then turned to the pocket and tunnel. ??After appropriate determination of positioning, additional local anesthetic was injected into the subcutaneous and soft tissues of the anterior chest wall and neck. ??A linear incision was then made with a #15 blade scalpel. ??An appropriate sized pocket was bluntly dissected. Hemostasis was achieved in the pocket. ?? Preflushed catheter tubing was then tunneled through to the puncture site in the neck. ??The flow switch and sheath were then removed and a peel-away sheath was advanced over the wire. ??The tubing was then advanced into the right atrium and pulled back to the appropriate level after removal of the peel-away sheath. ??The port reservoir was then connected to the tubing after trimming to the appropriate length. The tubing was secured with the locking device. ??The port was then tested demonstrating excellent pull and flush. ??The port was then placed in the pocket. ??The port was ultimately locked with the appropriate volume of heparin. ??Radiographically image demonstrates appropriate positioning and appearance of the port. ?? Multilevel closure of the port pocket was then performed utilizing 3-0 Vicryl and liquid adhesive. ??The puncture site was closed utilizing additional Vicryl and liquid adhesive. ??Overlying Steri-Strips were placed at both sites followed by a sterile dressing. The patient tolerated procedure well with no immediate complications. ?? Procedure Note Lauro Peñaloza MD - 10/06/2024 Port placement INDICATION: Colon cancer, monitor, stage II/III Infusional chemotherapy Interventionalists: Dr. Lauro Peñaloza Fluoroscopic time: 0.3 minutes. MEDICATIONS: Fentanyl 125 mcg, Versed 3.5 mg and 2% lidocaine. 1 gram ofAncef provided for prophylaxis. PROCEDURE: Informed written consent obtained. Patient brought to angiography placedin supine position. The internal jugular veins were assessed withultrasound for patency and images were saved to PACS for later review.The skin overlying the right neck and chest wall were prepped and drapedin usual in sterile fashion utilizing maximal sterile barrier technique. Under physician supervision, midazolam and fentanyl was administeredintravenously for procedural sedation. Continuous physiologic monitoringwas performed throughout the entirety of the procedure by the radiologyRN. The physician spent 30 minutes of waqd-fe-uxrm sedation time with thepatient. Skin was anesthetized with lidocaine. Small stab incision made with a #11blade scalpel. Under continuous ultrasound guidance, a micropunctureneedle was utilized to cannulate the internal jugular vein. Images werestored to PACS. A mandrel wire was then advanced into the superior venacava. The needle was removed and a 3-5 sheath dilator advanced over thewire. The inner dilator and wire were removed and a 0.035 wire was thenadvanced into the inferior vena cava. This was then locked in place witha flow switch. Attention was then turned to the pocket and tunnel. After appropriatedetermination of positioning, additional local anesthetic was injectedinto the subcutaneous and soft tissues of the anterior chest wall andneck. A linear incision was then made with a #15 blade scalpel. Anappropriate sized pocket was bluntly dissected. Hemostasis was achieved inthe pocket. Preflushed catheter tubing was then tunneled through to thepuncture site in the neck. The flow switch and sheath were then removedand a peel-away sheath was advanced over the wire. The tubing was thenadvanced into the right atrium and pulled back to the appropriate levelafter removal of the peel- away sheath. The port reservoir was thenconnected to the tubing after trimming to the appropriate length. Thetubing was secured with the locking device. The port was then testeddemonstrating excellent pull and flush. The port was then placed in thepocket. The port was ultimately locked with the appropriate volume of heparin. Radiographically image demonstrates appropriate positioning andappearance of the port. Multilevel closure of the port pocket was then performed utilizing 3-0Vicryl and liquid adhesive. The puncture site was closed utilizingadditional Vicryl and liquid adhesive. Overlying Steri-Strips were placedat both sites followed by a sterile dressing. The patient tolerated procedure well with no immediate complications. IMPRESSION: Successful placement of a right internal jugular [address] [place] [address] compatiblePowerPort. The port is available for immediate use. -------- FINAL REPORT -------- Dictated By: Lauro Peñaloza Dictated Date: 10/06/2024 11:49 ET Assigned Physician: Lauro Peñaloza Reviewed and Electronically Signed By: Lauro Peñaloza Signed Date: 10/06/2024 11:51 ET Workstation ID: [id number] Transcribed By: Self Edit Transcribed Date: 10/06/2024 11:49 ET us Rowan BARRERA IR PROCEDURES Final Resu lt documented in this encounter Visit Diagnoses Diagnosis [...] 1 documented in this encounter Care Teams Bath Steward/Stewardess Relationship Specialty Start Date End Date Arabella Decker NP [facility] [address] [place] [address] PCP - General 08/20/23 documented as of this encounter
--- OUTSIDE RECORDS SUMMARY | 2024-10-22 12:01 | XMS_ITS | Encounter Summary ---
Author Organization [facility] Address [address] [place] [address] Care Team Providers Care Burn Out Tender Lace Name Role Phone Arabella Decker NP Primary Care Provider [phone] Reason for Visit * Reason Comments Follow-up Encounter Details Date Type Department Care Team (Late st Contact Info) Description 10/21/2024 10:45 AM EDT Office Visit [facility] Hematology Oncology [address] [place] [phone] Quoc Bernal MD [address] [place] [address] Malignant neoplasm of ascending colon (CMS/HCC) (Primary [...] Sign Reading Time Taken Comments Blood Pressure 151/58 10/21/2024 10:45 AM EDT Pulse 77 10/21/2024 10:45 AM EDT Temperature 36.6 ??C (97.9 ??F) 10/21/2024 10:45 AM E DT Respiratory Rate - - Oxygen Saturation 100% 10/21/2024 10:45 AM EDT Inhaled Oxygen Concentration - - Weight 81.2 kg (179 lb) 10/21/2024 10:45 AM EDT Height - - Body Mass Index 30.73 10/08/2024 11:47 AM EST documented in this encounter Progress Notes * Quoc Bernal MD - 10/21/2024 10:45 AM EDT ONC CANCER FOLLOW UP CHIEF COMPLAINT: Follow-up IDENTIFIER:Cait Medrano is a 69 y.o. female. HPI: 69-year-old woman who had a stage III adenocarcinoma of ascending colon, patient had T3 N2b pathology, patient has been started on adjuvant chemotherapy with low dose oxaliplatin because of her history of significant neuro dysfunction ROS: Post chemo developed severe nausea vomiting and needed IV fluid as well as different nausea medication, since I started patient on Compazine and nausea has almost disappeared, today patient has been feeling much better, patient has left arm neurological issue which is unchanged, patient denies any tingling numbness or any other neurological symptom, other review of system is basically unchanged from previous visit of 10/08/2024 Oncology History Malignant neoplasm of ascending colon (CMS/HCC) 08/05/2024 Initial Diagnosis Malignant neoplasm of ascending colon (CMS/HCC) 10/12/2024 - Chemotherapy leucovorin 750 mg in dextrose 287.5 mL IVPB, 400 mg/m2 = 750 mg, intravenous, Once, 1 of 12 cycles Administration: 750 mg (10/12/2024) fosaprepitant (EMEND) 150 mg in sodium chloride 0.9 % 100 mL IVPB, 150 mg, intravenous, Once, 0 of 11 cycles fluorouracil (ADRUCIL) 4,500 mg in sodium chloride 0.9 % 92 mL chemo infusion, 2,400 mg/m2 = 4,500 mg, intravenous, Once, 1 of 12 cycles Administration: 4,500 mg (10/12/2024) OXALIplatin (ELOXATIN) 95 mg in dextrose 269 mL chemo infusion, 50 mg/m2 = 95 mg (58.8 % of original dose 85 mg/m2), intravenous, Once, 1 of 12 cycles Dose modification: 50 mg/m2 (original dose 85 mg/m2, Cycle 1, Reason: Other (See Comments)) Administration: 95 mg (10/12/2024) palonosetron (ALOXI) injection 250 mcg, 250 mcg, intravenous, Once, 1 of 12 cycles Administration: 250 mcg (10/12/2024) fluorouracil (ADRUCIL) chemo injection 750 mg, 400 mg/m2 = 750 mg, intravenous, Once, 1 of 12 cycles Administration: 750 mg (10/12/2024) Oncology history; Patient had colonoscopy in 2018 that showed some suspicious polyp and was supposed to have follow-up colonoscopy in 3-year but patient underwent colonoscopy in July 2024 Patient colonoscopy showed ulcerated tumor of ascending colon, biopsy confirmed invasive adenocarcinoma Patient was seen by Dr. Martinez and underwent partial colectomy on 08/30/2024, final pathology results showed 3.2 cm ulcerative tumor with clear margin but unfortunately lymphovascular invasion was identified as well as patient had 10 out of 28 lymph node positive for malignancy (pathological [id number]. Patient saw me on 09/24/2024, we had a discussion regarding adjuvant chemotherapy FOLFOX versus FOLFIRI, because of her significant neurological issues/autonomic dysfunction, I was reluctant about using full dose oxaliplatin in adjuvant setting, patient was seen by Dr. Chandler, GI oncologist in [facility], who recommended no benefit of FOLFOX and try close to 50% dose of oxaliplatinand a cycle of FOLFOX Patient will be starting adjuvant chemotherapy/FOLFOX from first week of October 2024. PAST MEDICAL HISTORY: Patient Active Problem List Diagnosis Asthmatic bronchitis without complication Anxiety Diabetes mellitus type 2, uncomplicated (CMS/HCC) Depression Hypercholesteremia GERD (gastroesophageal reflux disease) Migraines Constipation Malignant neoplasm of ascending colon (CMS/HCC) Past Medical History: Diagnosis Date Angina pectoris (CMS/HCC) Anxiety 11/06/2018 DX:Anxiety Arthritis Blindness 2004 Cancer, colon (CMS/HCC) CHF (congestive heart failure) (CMS/HCC) Colon polyp Constipation 11/06/2018 DX:Constipation Depression 11/06/2018 DX:Depression Diabetes mellitus type 1, uncomplicated, on chcf insulin pump (CMS/HCC) 11/06/2018 DX:Diabetes mellitus type 2, uncomplicated (HCC) GERD (gastroesophageal reflux disease) 11/06/2018 DX:GERD (gastroesophageal reflux disease) Heart disease Hiatal hernia Hypercholesteremia 11/06/2018 DX:Hypercholesteremia Hypertension Joint pain Migraines 11/06/2018 DX:Migraines Myocardial infarction (CMS/HCC) PONV (postoperative nausea and vomiting) Sleep apnea SOCIAL HISTORY: She never smoke She drinks occasionally/socially She is lives with her FAMILY HISTORY: Noncontributory Current Outpatient Medications: acetaminophen (TYLENOL 8 HOUR) 650 mg 8 hr tablet, Take 2 tablets (1,300 mg total) by mouth every 8(eight) hours if needed for mild pain. Do not crush, chew, or split., Disp: , Rfl: biotin 10,000 mcg tablet,chewable, Chew 1 (one) time each day., Disp: , Rfl: bumetanide (BUMEX) 1 mg tablet, Take 1 tablet (1 mg total) by mouth 1 (one) time each day., Disp: ,Rfl: buPROPion XL (WELLBUTRIN XL) 300 mg 24 hr tablet, Take 1 tablet (300 mg total) by mouth., Disp: , Rfl: vxdleizfem-lkgpssgsqjcbz-mfzljbbj (FIORICET, ESGIC) 50-325-40 mg per tablet, Take [...] time each day., Disp: , Rfl: insulin infusion set-cartridge combo pack, , Disp: , Rfl: insulin lispro-aabc (LYUMJEV U-100 INSULIN SUBQ), Inject under the skin., Disp: , Rfl: isosorbide mononitrate (IMDUR) 60 mg 24 hr tablet, Take 1 tablet (60 mg total) by mouth 1 (one) time each day., Disp: , Rfl: LORazepam (ATIVAN) 1 mg tablet, Take 1 tablet (1 mg total) by mouth at bedtime as needed for anxiety or sleep. Max Daily Amount: 1 mg, Disp: 30 tablet, Rfl: 0 meclizine (ANTIVERT) 25 mg tablet, Take 1 [...] TWICE A DAY, Disp: 180 tablet, Rfl:1 prochlorperazine (COMPAZINE) 10 mg tablet, Take 1 tablet (10 mg total) by mouth every 8 (eight) hours if needed for nausea., Disp: 60 tablet, Rfl: 1 ranolazine (RANEXA) 500 mg 12 hr tablet, [...] 2 (two) times aday., Disp: , Rfl: Allergies Allergen Reactions Bromfenac Other CAN'T TELL IF HAVING LOW BS Heparin Bleeding retinopathy Nsaids (Non-Steroidal Anti-Inflammatory Drug) Pt. Has retinopathy in left eye and is blind in right eye PHYSICAL EXAM: Visit Vitals BP (!) 151/58 (BP Location: Left arm, Patient Position: Sitting, BP Cuff Size: Adult) Pulse 77 Temp 36.6 ??C (97.9 ??F) (Temporal) Wt 81.2 kg (179 lb) SpO2 100% BMI 30.73 kg/m?? OB Status Postmenopausal Smoking Status Never BSA 1.87 m?? ECOG 0-1 APPEARANCE: Alert and oriented in no acute distress EYES: nonicteric sclera pink conjunctiva ORAL CAVITY: No erythema or exudates NECK: Neck supple, no significant adenopathy, HEART: normal S1 and S2 LUNG: clear to auscultation bilaterally LYMPH NODES: No palpable superficial adenopathy ABDOMEN: soft, nontender and no organomegaly appreciated EXTREMITIES: No edema erythema tenderness IMPRESSION: 1. Malignant neoplasm of ascending colon (CMS/HCC) Since patient did not have any significant neurological worsening of her symptoms as well as to nothave any neuropathy signs symptom, no tingling numbness, I would increase dose of oxaliplatin to 60mg and reassess her in couple week. Patient unfortunately had severe nausea vomiting dehydration etc. and received intravenous iron fluid with good response, we will add more effective antinausea medicine and recommend to continue Compazine which is working much better than Zofran PLAN: I will increase the dose of oxaliplatin to 60 mg/m Squire and second infusion and titrate slowly, if she tolerated well from neurological standpoint. Because of significant nausea vomiting we will add Emend in her prechemo medication I will see her back before third infusion Quoc Bernal MD documented in this encounter Plan of Treatment Upcoming Encounters Date Type Department Care Team (Late st Contact Info) Description 10/26/2024 11:00 AM EDT Appointment [facility] [address] [facility] [address] [place] [address] 11/04/2024 11:15 AM EDT Office Visit [facility] Hematology Oncology [address] [place] [phone] Quoc Bernal MD [address] [place] [address] 12/14/2024 11:15 AM EDT Office Visit General Surgery [facility] [address] [phone] Diogo Martinez MD [address] [address] documented as of this encounter Visit Diagnoses Diagnosis Malignant neoplasm of ascending colon (CMS/HCC)- Primary Malignant neoplasm of ascending colon documented in this encounter Care Teams Burn Out Tender Lace Relationship Specialty Start Date End Date Arabella Decker NP [facility] [address] [place] [address] PCP - General 08/20/23 documented as of this encounter
--- OUTSIDE RECORDS SUMMARY | 2024-10-22 12:01 | XMS_ITS | Encounter Summary ---
Author Organization [facility] Address [address] [place] [address] Care Team Providers Care Immersion Metalcleaner Name Role Phone Arabella Decker NP Primary Care Provider [phone] Encounter Details Date Type Department Care Team (Latest Contact Info) Description 10/14/2024 1:26 PM EST - 10/14/2024 11:59 PM EST Hospital Encounter [facility] Infusion Center [address] [facility] [address] [place] [phone] Quoc Bernal MD [address] [place] [address] Malignant neoplasm of ascending colon (CMS/HCC) (Primary [...] Sign Reading Time Taken Comments Blood Pressure 145/68 10/14/2024 1:37 PM EST Pulse 81 10/14/2024 1:37 PM EST Temperature 36.6 ??C (97.8 ??F) 10/14/2024 1:37 PM ES T Respiratory Rate - - Oxygen Saturation 99% 10/14/2024 1:37 PM EST Inhaled Oxygen Concentration - - [...] documented in this encounter Progress Notes * Feli Marshall RN - 10/14/2024 1:30 PM EST Patient arrives ambulatory to unit for a pump disconnect. Patient reports that she had nausea and vomiting over the last 46 hours despite taking zofran. Patient states that she continues to drink fluids but can't keep food down. Emend ordered by Dr. Bernal and added to treatment plan starting cycle 2. OK to administer zofran 8 mg today, ordered by Dr. Bernal. Patient instructed to keep room temp water and crackers at bedside. When waking in the morning, take aurea sips of water and a cracker, wait about 10 minutes before rising. Patient and in agreement. Patient received 100% of 5FU. Pump disconnected, port flushed, +BR. NS KVO. Zofran administered IVP without incident. Port flushed per protocol. Deaccessed, intact. Tegaderm removed. Incision is pink, looks better. Existing steri strips removed when taking the clorhexidine patch off. Small open area in center of incision. Small amount of blood, no purulent discharge. Patient currently on bactrim DS for 5 days for infectedincision. Area cleansed under sterile technique, new sutures applied. Patient instructed to keep area clean, try not to disrupt steri strips, let fall off on their own. Patient d/c'd xanax. Dr. Bernal sent in one time script for Lorazepam 1 mg q hs PRN. Patient will use as needed. Patient is in process of finding new pcp and psych. Patient and have no further concerns or questions. Patient discharged stable, with steady gait, accompanied by . documented in this encounter Plan of Treatment Upcoming Encounters Date Type Department Care Team (Late st Contact Info) Description 10/26/2024 11:00 AM EDT Appointment [facility] [address] [place] [address] [address] [place] [phone] 11/04/2024 11:15 AM EDT Office Visit [facility] Hematology Oncology [address] [place] [phone] Quoc Bernal MD [address] [place] [address] 12/14/2024 11:15 AM EDT Office Visit General Surgery - [place] [address] [phone] Diogo Martinez MD 175 [facility] [address] [place] [address] documented as of this encounter Visit Diagnoses Diagnosis Malignant neoplasm of ascending colon (CMS/HCC)- Primary Malignant neoplasm of ascending colon documented in this encounter Administered Medications Inactive Administered Medications - up to 3 most recent administrations Medication Order MAR Action Action Date Dose Rate Site ondansetron (PF) (ZOFRAN) injection 4 mg 4 mg, intravenous, Once, On Julianna 10/14/24 at 1400, For 1 dose, Infuse over 2 minutes.Indications:Malignant neoplasm of ascending colon (CMS/HCC) Given 10/14/2024 1:52 PM EST 4 mg ondansetron (PF) (ZOFRAN) injection 4 mg 4 mg, intravenous, Once, On Julianna 10/14/24 at 1415, For 1 dose, Infuse over 2 minutes.Indications:Malignant neoplasm of ascending colon (CMS/HCC) Given 10/14/2024 1:53 PM EST 4 mg documented in this encounter Discontinued Medications Medication Sig Discontinue Reason Start Date End Da te doxycycline (DORYX) 100 mg EC tablet Take 1 tablet (100 mg total) by mouth 2 (two) times a day for 5 days. Do not crush or chew. Take with a full glass of water and do not lie down for at least 30 minutes after. 10/13/2024 10/14/2024 documented as of this encounter Orders Medications Ordered That Ramiro ht Not Have Been Administered Count Last Ordered Date First Ordered Date ondansetron (PF) (ZOFRAN) injection 4 mg 1 10/14/2024 documented in this encounter Care Teams Immersion Metalcleaner Relationship Specialty Start Date End Date Arabella Decker NP [facility] [address] [place] [id number] PCP - General 08/20/23 documented as of this encounter
--- OUTSIDE RECORDS SUMMARY | 2024-10-22 12:01 | XMS_ITS ---
Author Organization [facility] Address [address] [place] [address] Phone Care Team Providers Care Student Services Representative Name Role Phone Arabella Decker NP Primary Care Provider [phone] Active Problems Problem Noted Date Diagnosed Date Malignant neoplasm of ascending colon 08/05/2024 Anxiety 11/06/2018 Diabetes mellitus type 2, uncomplicated 11/07/19 19 Depression 11/06/2018 Hypercholesteremia 11/06/2018 GERD (gastroesophageal reflux disease) 9 Migraines 11/06/2018 Constipation 11/06/2018 Asthmatic bronchitis without complication 2018 Current Oncology Plans FOLFOX ( Fluorouracil Continuous Infusion / Leucovorin / OXALIplatin )* Plan Start Date:10/08/2024 Plan Provider:Quoc Bernal MD Linked Problems Malignant neoplasm of ascend ing colon (CMS/HCC) Treatment Medications Current Day (Day 1 , Cycle 2 - Planned for 10/26/2024) Next Day (Day 3, Cycle 2 - Planned for 10/28/2024) 5-FU (ADRUCIL) chemo infusio n 100 mL - for home use solutionfluorouracil (ADRUCIL)leucovorinleucovorin IVPB in D5W (350 mg vial)OXALIplatin (ELOXATIN)OXALIplatin (ELOXATIN) chemo infusion fluorouracil (ADRUCIL) 4,500 mg in sodium chloride 0.9 % 100 mL chemo infusionfluorouracil (ADRUCIL) chemo injection 750 mgleucovorin 750 mg in dextrose 287.5 mL IVPBOXALIplatin (ELOXATIN) chemo infusion No medications scheduled. Past Plans No past plan information found. Radiation Treatments * No radiation treatments are documented for this patient in [facility]. Treatments may have been administered in another system. Lifetime Dose Tracking * Chemical Lifetime Dose Automatic Entry Manual Entr y Fluoro Time 0.3 minutes 0.3 minutes 0 minutes Air Kerma 1 mGy 1 mGy 0 mGy
--- OUTSIDE RECORDS SUMMARY | 2024-10-22 12:01 | XMS_ITS ---
Author Name [facility] Organization Unknown Encounters Encounter Type Encounter Reason Primary Diagnosis Location Date Ambulatory [facility] 09/13/2024 Ambulatory [facility] 09/13/2024
--- OUTSIDE RECORDS SUMMARY | 2024-10-22 12:01 | XMS_ITS | Encounter Summary ---
Author Organization [facility] Address [address] [place] [address] Care Team Providers Care Final Coat Sprayer Name Role Phone Arabella Decker NP Primary Care Provider [phone] Reason for Visit * Episode Based Medications (Routine) - Authorized Specialty Diagnoses / Procedures Referred By Contac t Referred To Contact Diagnoses Malignant neoplasm of ascending colon (CMS/HCC) Quoc Bernal MD [address] [place] [address] Phone: tel: fax: [facility] [address] [place] [phone] Phone: tel: fax: Referral ID Status Reason Start Date Expiration Date V isits Requested Visits Authorized [id number] Authorized 10/08/2024 10/08/2025 1 12 Encounter Details Date Type Department Care Team (Latest Contact Info) Description 10/12/2024 10:55 AM EST - 10/12/2024 11:59 PM EST Hospital Encounter [facility] [address] [place] [phone] Quoc Bernal MD [address] [place] [address] Malignant neoplasm of ascending colon (CMS/HCC) (Primary [...] Sign Reading Time Taken Comments Blood Pressure 147/59 10/12/2024 11:15 AM EST Pulse 70 10/12/2024 11:15 AM EST Temperature 36.5 ??C (97.7 ??F) 10/12/2024 11:[address] Respiratory Rate - - Oxygen Saturation 100% 10/12/2024 11:15 AM EST Inhaled Oxygen Concentration - - Weight 82.8 kg (182 lb 9.6 oz) 10/12/2024 11:15 AM EST Height - - Body Mass Index 31.34 10/08/2024 11:47 AM EST documented in this encounter Medications at Time [...] mg total) by mouth at bedtime. 10/13/2024 doxycycline (DORYX) 100 mg EC tablet Take 1 tablet (100 mg total) by mouth 2 (two) times a day for 5 days. Do not crush or chew. Take with a full glass of water and do not lie down for at least 30 minutes after. 10 tablet 10/13/2024 10/14/2024 documented as of this encounter Ordered Prescriptions Prescription Sig Dispense Quantity Refills Last Filled Start Date End Date doxycycline (DORYX) 100 mg EC tablet Take 1 tablet (100 mg total) by mouth 2 (two) times a day for 5 days. Do not crush or chew. Take with a full glass of water and do not lie down for at least 30 minutes after. 10 tablet 10/13/2024 documented in this encounter Discharge Disposition Disposition Code Departure Means Destination Home or Self Care documented in this encounter Progress Notes * Feli Marshall RN - 10/12/2024 11:00 AM [place] addended by: Feli Marshall RN on: 10/13/2024 2:27 PM Actions taken: Order list changed, Medication List reviewed * Feli Marshall RN - 10/12/2024 11:00 AM EST Patient arrives ambulatory to unit accompanied by for first modified Folfox treatment (oxaliplatin 50 mg/m2). Patient has her right arm in a sling after having surgery for a broken humerus, sustained by a fall, slipping on ice. Patient reports that she is a very anxious person and is nervous about having chemotherapy. Reassurance given to patient and her . Treatment protocol and potential adverse reactions discussed. Lab changes explained. Lifestyle changes discussed. Patient encouraged to continue doing the things she enjoys doing to keep her mind from being stressed. Patient is diabetic, has been made aware that her glucose readings may be high due to decadron and dextrose s olution the chemo is mixed in. Patient aware that we can adjust the steroid dose. In the mean time, states that they can call cartography teacher to discuss insulin adjustments. Patient currentlynot sleeping due to stress about disease and and treatment. Patient and are questioning ifthey can have something different from xanax. Patient is currently in the process of changing psychiatrist and PCP. Patient currently taking 0.5 mg of xanax, one after dinner and the other at bedtimewith melatonin. Will discuss with Dr. Bernal. Will make a referral to supervising airplane pilot in regards to healthy diet for diabetes while having chemo. Rachell Beyer, social work nurse in to visit with patient. Vitals and labs are stable. Treatment released pharmacy. [place] cath incision is red slightly raised, area is bruised, looks irritated. Patient denies pain. Site is not warm to touch, no discharge. Incision made over the port. Steri strips applied. Area cleansed under sterile technique, chlorhexidine gel patch applied. Port accessed right below incision, +BR. NS KVO. Patient tolerated procedure well without complaint. Patient is comfortable in recliner, at chairside. 1227 Premedications administered IVP without incident. 1255 Oxaliplatin and leucovorin infusing over 2 hours. Call guerrero within reach. Patient aware that if she experiences anything uncomfortable, she's to ring guerrero. 1330 Patient tolerating treatment well, remains comfortable. at chairside. 1400 Patient and watched the cadd pump video. Consent form signed. Patient given packet with insurance information and spill kit with flushes. shown what to do in the event of pump isdisconnected. Numbers reviewed to call in case of emergency. shown how to shut the pump offin the event that patient is unable to tolerated treatment. 1518 Patient tolerated oxaliplatin and leucovorin without adverse reaction/complaint. 5FU bolus administered IVP, +BR throughout per protocol. Patient tolerated well. 5FU pump infusing at 2 mL/hr over 46 hours with a 92 mL fill. Green light flashing. Pump infusion reviewed once more with patient and . All questions answered to patient and satisfaction. Patient discharged stable, with steady gait, accompanied by . documented in this encounter Plan of Treatment Upcoming Encounters Date Type Department Care Team (Late st Contact Info) Description 10/26/2024 11:00 AM EDT Appointment [facility] [address] [facility] [address]nd [place] [address] 11/04/2024 11:15 AM EDT Office Visit [facility] Hematology Oncology [address] [place] [phone] Quoc Bernal MD [address] [place] [address] 12/14/2024 11:15 AM EDT Office Visit General Surgery - [place] [address] [phone] Diogo Martinez MD [address] [address] documented as of this encounter Visit Diagnoses Diagnosis Malignant neoplasm of ascending colon (CMS/HCC)- Primary Malignant neoplasm of ascending colon documented in this encounter Administered Medications Inactive Administered Medications - up to 3 most recent administrations Medication Order MAR Action Action Date Dose Rate Site acetaminophen (TYLENOL) tablet 650 mg 650 mg, oral, Once as needed, fever - temperature GREATER than 38 C (100.4 F), headaches, generalized pain, back pain, abdominal cramping, Starting on Fri10/12/24 at 1204, Administer per institutional policyIndications:Malignant neoplasm of ascending colon (CMS/HCC) Given 10/12/2024 2:31 PM EST 650 mg dexAMETHasone (DECADRON) injection 12 mg 12 mg, intravenous, Once, On Fri10/12/24 at 1230, For 1 doseIndications:Malignant neoplasm of ascending colon (CMS/HCC) Given 10/12/2024 12:27 PM EST 12 mg fluorouracil (ADRUCIL) 4,500 mg in sodium chloride 0.9 % 92 mL chemo infusion 4,500 mg (rounded from 4,512 mg = 2,400 mg/m2 ? 1.88 m2), intravenous, at 2 mL/hr, Administer over 46 Hours, Once, On Fri10/12/24 at 1445, For 1 dose, Fluorouracil is administered as a continuous infusion over multiple days within this regimen. This agent requires a central venous access device for administration in this regimen. Protect from light HAZARDOUS Drug Precautions - High Risk (Category C/NIOSH Group 1) Antineoplastic: - Double pair of ASTM standard [id number] certified chemotherapy gloves - Chemotherapy gown - Closed-System Transfer Device (CSTD) recommended - Eye protection (goggles or face shield) required only with a potential for facial contact (i.e. concern for spitting or vomiting of the dose during or after administration)Indications:M alignant neoplasm of ascending colon (CMS/HCC) Given 10/12/2024 3:18 PM EST 4,500 mg 2 mL/hr fluorouracil (ADRUCIL) chemo injection 750 mg 750 mg (rounded from 752 mg = 400 mg/m2 ? 1.88 m2), intravenous, at 90 mL/hr, Administer over 10 Minutes, Once, On Fri10/12/24 at 1430, For 1 dose, IV push Protect from light HAZARDOUS Drug Precautions - High Risk (Category C/NIOSH Group 1) Antineoplastic: - Double pair of ASTM standard [id number] certified chemotherapy gloves - Chemotherapy gown - Closed-System Transfer Device (CSTD) recommended - Eye protection (goggles or face shield) required only with a potential for facial contact (i.e. concern for spitting or vomiting of the dose during or after administration)Indications:M alignant neoplasm of ascending colon (CMS/HCC) Given 10/12/2024 3:18 PM EST 750 mg 90 mL/hr leucovorin 750 mg in dextrose 287.5 mL IVPB 750 mg (rounded from 752 mg = 400 mg/m2 ? 1.88 m2), intravenous, at 191.7 mL/hr, Administer over 90 Minutes, Once, On Fri10/12/24 at 1300, For 1 dose, Run concurrent with OXALIplatin infusion, so that the two drugs end at approximately the same time. Protect from lightIndications:Malignant neoplasm of ascending colon (CMS/HCC) New Bag 10/12/2024 12:55 PM EST 750 mg 191.7 mL/hr OXALIplatin (ELOXATIN) 95 mg in dextrose 269 mL chemo infusion 95 mg (rounded from 94 mg = 50 mg/m2 ? 1.88 m2), intravenous, at 179.3 mL/hr, Administer over 90 Minutes, Once, On Fri10/12/24 at 1300, For 1 dose, DEXTROSE flush only. This agent is an irritant. Infuse OXALiplatin and leucovorin concurrently. HAZARDOUS Drug Precautions - High Risk (Category C/NIOSH Group 1) Antineoplastic: - Double pair of ASTM standard [id number] certified chemotherapy gloves - Chemotherapy gown - Closed-System Transfer Device (CSTD) recommended - Eye protection (goggles or face shield) required only with a potential for facial contact (i.e. concern for spitting or vomiting of the dose during or after administration)Indications:M alignant neoplasm of ascending colon (CMS/HCC) New Bag 10/12/2024 12:55 PM EST 95 mg 179.3 mL/hr palonosetron (ALOXI) injection 250 mcg 250 mcg, intravenous, Once, On Fri10/12/24 at 1230, For 1 doseIndications:Malignant neoplasm of ascending colon (CMS/HCC) Given 10/12/2024 12:24 PM EST 250 mcg documented in this encounter Discontinued Medications Medication Sig Discontinue Reason Start Date End Da te ALPRAZolam (XANAX) 1 mg tablet Take 0.5 tablets (0.5 mg total) by mouth at bedtime. 10/13/2024 documented as of this encounter Orders Medications Ordered That Ramiro ht Not Have Been Administered Count Last Ordered Date First Ordered Date doxycycline (MONODOX) capsule 100 mg 1 12/2024 albuterol 2.5 mg /3 mL (0.08 3 %) nebulizer solution 2.5 mg 1 10/12/2024 albuterol HFA (PROAIR HFA ; PROVENTIL HFA ; VENTOLIN HFA) 90 mcg/actuation inhaler 2 puff 1 10/12/2024 diphenhydrAMINE (BENADRYL) injection 25 mg 1 10/12/2024 diphenhydrAMINE (BENADRYL) injection 50 mg 1 10/12/2024 EPINEPHrine (ADRENALIN) IM K it - adult 0.3 mg 1 10/12/2024 famotidine (PF) (PEPCID) injection 20 mg 1 10/12/2024 hydrocortisone sod succ (PF) (SOLU-CORTEF) injection 100 mg 1 10/12/2024 meperidine (PF) (DEMEROL) 25 mg/mL injection 25 mg 1 10/12/2024 sodium chloride 0.9 % bolus 500 mL 1 2024 Nursing Count Last Ordered Date First Orde red Date [facility] PARAMETERS 1 10/12/2024 [facility] PARAMETERS - FLUOROURACIL 1 10/12/2024 [facility] PARAMETERS - LEUCOVORIN 1 10/12/2024 [facility]N PARAMETERS - OXALIPLATIN 1 10/12/2024 ONC NURSING COMMUNICATION 2 10/12/2024 ONC NURSING COMMUNICATION 10 1 10/12/2024 ONC NURSING COMMUNICATION 11 1 10/12/2024 ONC NURSING COMMUNICATION 2 1 10/12/2024 ONC NURSING COMMUNICATION 3 1 10/12/2024 TREATMENT CONDITIONS 3 10/12/2024 documented in this encounter Care Teams Final Coat Sprayer Relationship Specialty Start Date End Date Arabella Decker NP [facility] [address] [place] [id number] PCP - General 08/20/23 documented as of this encounter
--- OUTSIDE RECORDS SUMMARY | 2024-10-22 12:01 | XMS_ITS | Clinical Summary ---
Author Organization [facility] Address [address] [place] [address] Phone Care Team Providers Care Student Services Director Name Role Phone Arabella Decker NP Primary Care Provider [phone] Allergies Active Allergy Reactions Criticality Noted Date Comments Bromfenac Other High 10/05/2013 CAN'T TELL IF HAVING LOW BS Heparin Bleeding 07/21/2024 retinopathy Nsaids (Non-Steroidal Anti-Inflammatory Drug) 05/14/2018 Pt. Has retinopathy in left eye and is blind in right eye Medications bumetanide (BUMEX) 1 mg tablet Take 1 [...] mg total) by mouth at bedtime. Active cholecalciferol (Vitamin D3) 5,000 Units tablet Take 1 tablet (5,000 Units total) by mouth 1 (one) time each day. Active butalbital-acet aminophen-caffe ine (FIORICET, ESGIC) 50-325-40 mg per tablet Take [...] time each day. Active biotin 10,000 mcg tablet,chewable Chew 1 (one) time each day. Active multivitamin (Multiple Vitamins) tablet Take 1 tablet by mouth 1 (one) time each day. Active metoprolol succinate (TOPROL-XL) 25 mg 24 hr tablet Take 1 tablet (25 mg total) by mouth at bedtime. Do not crush or chew. Active vit C/E/Zn/coppr/quin tein/zeaxan (PRESERVISION AREDS-2 ORAL) Take 1 capsule by [...] dizziness. Active pantoprazole (PROTONIX) 40 mg EC tabletIndicatio ns:GERD (gastroesophage al reflux disease) TAKE 1 TABLET BY MOUTH TWICE A DAY 180 tablet 1 01/27/20 25 Active oxyCODONE (OXY-IR) 5 mg immediate release capsule Take 1 capsule (5 mg total) by mouth every 6 (six) hours if needed for severe pain for up to 10 doses. Max Daily Amount: 20 mg 10 capsule 09/11/19 Active isosorbide mononitrate (IMDUR) 60 mg 24 hr tablet Take 1 tablet (60 mg total) by mouth 1 (one) time each day. 05/05/20 Active acetaminophen (TYLENOL 8 HOUR) 650 mg 8 hr tablet Take 2 tablets (1,300 mg total) by mouth every 8 (eight) hours if needed for mild pain. Do not crush, chew, or split. Active LORazepam (ATIVAN) 1 mg tablet Take 1 tablet (1 mg total) by mouth at bedtime as needed for anxiety or sleep. Max Daily Amount: 1 mg 30 tablet 10/14/19 25 Active prochlorperazin e (COMPAZINE) 10 mg tablet Take 1 tablet (10 mg total) by mouth every 8 (eight) hours if needed for nausea. 60 tablet 1 10/16/19 25 Active ALPRAZolam (XANAX) 1 mg tablet Take 0.5 tablets (0.5 mg total) by mouth at bedtime. 025 Discontinued isosorbide mononitrate (IMDUR) 120 mg 24 hr tablet Take 60 mg by mouth 1 (one) time each day. Discontinued oxyCODONE (ROXICODONE) 5 mg immediate release tablet Take 1 tablet (5 mg total) by mouth every 6 (six) hours if needed for severe pain. 12 tablet 09/01/19 025 Discontinued lidocaine-prilo chante (EMLA) 2.5-2.5 % cream Apply 1 Application topically 1 (one) time for 1 dose. 30 minutes prior to Mediport access 30 g 2 10/12/19 doxycycline (DORYX) 100 mg EC tablet Take 1 tablet (100 mg total) by mouth 2 (two) times a day for 5 days. Do not crush or chew. Take with a full glass of water and do not lie down for at least 30 minutes after. 10 tablet 10/14/19 25 025 Discontinued sulfamethoxazol e-trimethoprim (BACTRIM DS,SEPTRA DS) 800-160 mg per tablet Take 1 tablet by mouth 2 (two) times a day for 5 days. 10 each 10/14/19 25 025 Active Problems Problem Noted Date Diagnosed Date Malignant neoplasm of ascending colon 08/05/2024 Anxiety 11/06/2018 Diabetes mellitus type 2, uncomplicated 11/07/19 19 Depression 11/06/2018 Hypercholesteremia 11/06/2018 GERD (gastroesophageal reflux disease) 9 Migraines 11/06/2018 Constipation 11/06/2018 Asthmatic bronchitis without complication 2018 Encounters Date Type Department Care Team Description 10/21/2024 10:45 AM EDT Office Visit [facility] Hematology Oncology [address] [place] [phone] Quoc Bernal MD Malignant neoplasm of ascending colon (CMS/HCC) (Primary Dx) 10/20/2024 10:17 AM EDT Hospital Encounter [facility] [address] [place] [phone] Quoc Bernal MD Malignant neoplasm of ascending colon (CMS/HCC) 10/15/2024 1:00 PM EST - 10/15/2024 11:59 PM EST Hospital Encounter [facility] [address] [place] [phone] Quoc Bernal MD Malignant neoplasm of ascending colon (CMS/HCC) (Primary Dx) Discharge Disposition: Home or Self Care 10/14/2024 1:26 PM EST - 10/14/2024 11:59 PM EST Hospital Encounter [facility] Infusion Center [address] [place] [phone] Quoc Bernal MD Malignant neoplasm of ascending colon (CMS/HCC) (Primary Dx) Discharge Disposition: Home or Self Care 10/12/2024 10:55 AM EST - 10/12/2024 11:59 PM EST Hospital Encounter [facility] Infusion [address] [phone] Quoc Bernal MD Malignant neoplasm of ascending colon (CMS/HCC) (Primary Dx) Discharge Disposition: Home or Self Care 10/12/2024 Social Work [facility] Infusion Center [address] [place] [phone] Ancelmo BeyerHILDASW 10/11/2024 11:30 AM EST - 10/11/2024 11:59 PM EST Hospital Encounter [facility] Infusion Center [address] [place] [phone] Quoc Bernal MD Malignant neoplasm of ascending colon (CMS/HCC) Discharge Disposition: Home or Self Care 10/08/2024 11:45 AM EST Office Visit [facility] Hematology Oncology [address] [place] [phone] Quoc Bernal MD Malignant neoplasm of ascending colon (CMS/HCC) (Primary Dx) 10/06/2024 8:05 AM EST - 10/06/2024 11:59 PM EST Hospital Encounter [facility] Interventional Radiology [address] [place] [phone] Discharge Disposition: Home or Self Care 09/27/2024 Telephone [facility] Hematology Oncology [address] [place] [phone] Emily Zuniga MA Port Placement appt 09/24/2024 3:30 PM EST Office Visit [facility] Hematology Oncology [address] [place] [phone] Quoc Bernal MD Malignant neoplasm of ascending colon (CMS/HCC) 09/14/2024 3:45 PM EST Office Visit General Surgery - [place] [facility] [address] [place] [phone] Diogo Martinez MD Malignant neoplasm of ascending colon (CMS/HCC) (Primary Dx) 09/11/2024 3:12 PM EST - 09/11/2024 6:20 PM EST Emergency [facility] Emergency [address] [place] [phone] Evangelista Tierney MD Fracture of humeral head, closed, right, initial encounter (Primary Dx); Acute head injury without loss of consciousness, initial encounter; Acute pain of right shoulder; Right elbow pain Discharge Disposition: Home or Self Care 08/30/2024 7:31 AM EST Anesthesia Event [facility] Main OR [address] [place] [phone] Ramesh Larios MD Dusza, Sara, CRNA 08/30/2024 7:30 AM EST - 08/30/2024 10:00 AM EST Surgery [facility] Main OR [address] [place] [phone] Diogo Martinez MD LAPAROSCOPIC COLECTOMY [17968 (CPT??)] 08/30/2024 5:55 AM EST - 09/01/2024 11:13 AM EST Hospital Encounter [facility] Medical Surgical Unit [address] [place] [address] Diogo Martinez MD Kokosadze, Estate, MD Malignant neoplasm of ascending colon (CMS/HCC) Discharge Disposition: Home or Self Care 08/16/2024 10:16 AM EST - 08/16/2024 11:59 PM EST Hospital Encounter [facility] CT Scan [address] [place] [phone] Malignant neoplasm of ascending colon (CMS/HCC) Discharge Disposition: Home or Self Care 2024 Telephone Gastroenterology - [address] [phone] Kristin Dey [place] 08/05/2024 2:30 PM EST Consult General Surgery - [place] [facility] [address] [place] [phone] Diogo Martinez MD Malignant neoplasm of ascending colon (CMS/HCC) (Primary Dx); Malignant neoplasm of cecum (CMS/HCC) 08/05/2024 Telephone Gastroenterology - [address] [phone] Ashlyn Shetty [place] 08/05/2024 Telephone Gastroenterology - [address] [phone] John Plaza MD 08/03/2024 12:47 PM EST - 08/03/2024 11:59 PM EST Hospital Encounter [facility] CT Scan [address] [place] [phone] Adenocarcinoma of colon ([facility]/HCC) Discharge Disposition: Home or Self Care 07/30/2024 Telephone Gastroenterology - [address] [phone] Tamiko Bazzi MA SCHEDULING 07/29/2024 8:49 AM EST Anesthesia Event [facility] Endoscopy [address] [place] [phone] Wagner Rivera MD 07/29/2024 8:04 AM EST - 07/29/2024 11:59 PM EST Hospital Encounter [facility] Endoscopy [address] [place] [phone] John Plaza MD Georgette, Nathaniel, CRNA Gomes, Sheldon B, MD Gastroesophageal reflux disease without esophagitis [K21.9] (Primary Dx); Special screening for malignant neoplasms, colon; GERD (gastroesophageal reflux disease) Discharge Disposition: Home or Self Care from Last 3 Months Immunizations Name Administration [...] Diabetes mellitus type 1, un complicated, on rn long term care insulin pump ([facility]) 11/06/2018 DX:Diabetes mellit us type 2, uncomplicated ([facility]) Hypercholesteremia 11/06/2018 DX:Hyperchole steremia Depression 11/06/2018 DX:Depression Anxiety 11/06/2018 DX:Anxiety GERD (gastroesophageal reflux disease) 11/06/2018 DX:GERD (gastroesophageal reflux disease) Migraines 11/06/2018 DX:Migraines Constipation 11/06/2018 DX:Constipation Blindness 2004 Sleep apnea Hypertension CHF (congestive heart failure) ([facility]) Heart disease Colon polyp Hiatal hernia Angina pectoris ([facility]) Cancer, colon ([facility]) PONV (postoperative nausea and vomiting) Myocardial infarction ([facility]) Arthritis Joint pain Social History Tobacco Use [...] 10/21/2024 10:45 AM E DT Respiratory Rate 10 10/06/2024 10:37 AM EST Oxygen Saturation 100% 10/21/2024 10:45 AM EDT Inhaled Oxygen Concentration - - Weight 81.2 kg (179 lb) 10/21/2024 10:45 AM EDT Height 162.6 cm (5' 4 ) 10/08/2024 11:47 AM EST Body Mass Index 30.73 10/08/2024 11:47 AM EST Plan of Treatment Upcoming Encounters Date Type Department Care Team (Late st Contact Info) Description 10/26/2024 11:00 AM EDT Appointment [facility] Infusion Center [address] [facility] [address] [place] [phone] 11/04/2024 11:15 AM EDT Office Visit [facility] Hematology Oncology [address] [place] [phone] Quoc Bernal MD [address] [place] [address] 12/14/2024 11:15 AM EDT Office Visit General Surgery - [place] [address] [phone] Diogo Martinez MD [address] [phone] Health Maintenance Due Date Last Done Comments [...] Annual Urine Albumin-Creatinine Ratio (uACR) 02/15/2024 02/14/2023 Falls Risk Assessment 09/01/2025 09/01/2024 Diabetes: Annual GFR (Glomerular Filtration Rate) 10/20/2025 10/20/2024, 10/11/2024, 10/06/2024, Additional history exists Hypertension/CHF/CAD Annual BMP Blood Test 10/20/2025 10/20/2024, 10/11/2024, 10/06/2024, Additional history exists DTaP,Tdap,and Td Vaccines (2 [...] this topic Medical Devices Implanted Type Area Paint Supervisor Device Identifier Shelf Expiration Date Model / Serial / Lot Port Pwr Isp Attach 6f Interm Nenita - [id number] - [id number] Implanted:Qty: 1 on 10/06/2024 by Lauro Peñaloza MD at [facility] Central/Mandy pheral Catheters and Ports Right: Chest Wall CR BARD PERIPHERAL VASCULAR [id number] 06/10/2025 [id number] / [id number] / [id number] Other Cardiac Implant Other Cardiac Implant N/A: [...] colon (CMS/HCC) CBC WITH AUTO DIFFERENTIAL Routine 10/11/2024 12:00 PM EST Malignant neoplasm of ascending colon (CMS/HCC) COMPREHENSIVE METABOLIC PANEL Routine 10/11/2024 12:00 PM EST Malignant neoplasm of ascending colon (CMS/HCC) CBC AND DIFFERENTIAL Routine 10/11/2024 12:00 PM EST Malignant neoplasm of ascending colon (CMS/HCC) IR INSERT TUNNELED CVAD W SUBQ PORT MORE 5YRS RIGHT STAT 10/06/2024 10:26 AM EST Malignant neoplasm of ascending colon (CMS/HCC) CBC WITH AUTO DIFFERENTIAL Routine 10/06/2024 8:50 AM EST CARCINOEMBRYONIC ANTIGEN Routine 025 8:50 AM EST COMPREHENSIVE METABOLIC PANEL Routine 10/06/2024 8:50 AM EST CBC AND DIFFERENTIAL Routine 10/06/2024 8:50 AM EST XR ELBOW 3+ VIEWS RIGHT STAT 09/11/19 25 4:13 PM EST XR SHOULDER 2+ VIEWS [...] ENDOTRACHEAL(NO CHARGE) Routine 08/30/2024 7:55 AM EST [place] LAP SURG COLECTOMY PARTIAL W REMOVAL OF [...] disease) from Last 3 Months Results * (ABNORMAL) CBC auto differential (10/20/2024 10:26 AM EDT) Only the most recent of6 resultswithin the time period is included. WBC 4.8 4.8 - 10.8 K/mcL LAB HEMETOLOGY METHOD 10/20/2024 10:52 AM EDT [facility] RBC 3.80 3.80 - 4.80 M/mcL LAB HEMETOLOGY METHOD 10/20/2024 10:52 AM EDT [facility] Hemoglobin 11.7 11.5 - 16.0 g/dL LAB HEMETOLOGY METHOD 10/20/2024 10:52 AM EDT [facility] Hematocrit 37.1 35.0 - 47.0 % LAB HEMETOLOGY METHOD 10/20/2024 10:52 AM [facility] MCV 97.1 79.0 - 98.0 FL LAB HEMETOLOGY METHOD 10/20/2024 10:52 AM [facility] MCH 30.6 27.0 - 32.0 pcg LAB HEMETOLOGY METHOD 10/20/2024 10:52 AM [facility] MCHC 31.5(L) 32.0 - 37.0 g/dL LAB HEMETOLOGY METHOD 10/20/2024 10:52 AM [facility] RDW 13.6 11.0 - 15.0 % LAB HEMETOLOGY METHOD 10/20/2024 10:52 AM [facility] Platelets 178 130 - 400 K/mcL LAB HEMETOLOGY METHOD 10/20/2024 10:52 AM [facility] MPV 12.0(H) 7.0 - 11.0 FL LAB HEMETOLOGY METHOD 10/20/2024 10:52 AM [facility] NRBC 0.0 <1.0 % LAB HEMETOLOGY METHOD 10/20/2024 10:52 AM [facility] NRBC Absolute 0.00 <0.10 K/mcL LAB HEMETOLOGY METHOD 10/20/2024 10:52 AM [facility] Neutrophils Relative 65.6 % LAB HEMETOLOGY METHOD 10/20/2024 10:52 AM [facility] Lymphocytes Relative 22.9 % LAB HEMETOLOGY METHOD 10/20/2024 10:52 AM [facility] Monocytes Relative 4.2 % LAB HEMETOLOGY METHOD 10/20/2024 10:52 AM [facility] Eosinophils Relative 6.9 % LAB HEMETOLOGY METHOD 10/20/2024 10:52 AM EDT [facility] Basophils Relative 0.2 % LAB HEMETOLOGY METHOD 10/20/2024 10:52 AM EDT [facility] Immature Granulocytes Relative 0.2 % LAB HEMETOLOGY METHOD 10/20/2024 10:52 AM EDT [facility] Neutrophils Absolute 3.16 1.50 - 7.00 K/mcL LAB HEMETOLOGY METHOD 10/20/2024 10:52 AM EDT [facility] Lymphocytes Absolute 1.10 1.00 - 5.00 K/mcL LAB HEMETOLOGY METHOD 10/20/2024 10:52 AM EDT [facility] Monocytes Absolute 0.20 0.20 - 1.00 K/mcL LAB HEMETOLOGY METHOD 10/20/2024 10:52 AM EDT [facility] Eosinophils Absolute 0.33 0.00 - 0.50 K/mcL LAB HEMETOLOGY METHOD 10/20/2024 10:52 AM EDT [facility] Basophils Absolute 0.01 0.00 - 0.20 K/mcL LAB HEMETOLOGY METHOD 10/20/2024 10:52 AM EDT [facility] Immature Granulocytes Absolute 0.01 0.00 - 0.03 K/mcL LAB HEMETOLOGY METHOD 10/20/2024 10:52 AM [facility] Blood Blood sample taken from central line / Unknown Existing Catheter / Unknown 10/20/2024 10:26 AM EDT 10/20/2024 10:45 AM EDT us Quoc Bernal MD LAB BLOOD ORDERABLES Final R esult [facility] [address] [place] [address], * (ABNORMAL) Comprehensive metabolic panel (10/20/2024 10:26 AM EDT) Only the most recent of4 resultswithin the time period is included. Sodium 136 133 - 145 mmol/L LAB CHEMISTRY METHOD 10/20/2024 12:00 PM [facility] Potassium 3.4(L) 3.5 - 5.5 mmol/L LAB CHEMISTRY METHOD 10/20/2024 12:00 PM [facility] Chloride 105 96 - 110 mmol/L LAB CHEMISTRY METHOD 10/20/2024 12:00 PM [facility] CO2 22 21 - 32 mmol/L LAB CHEMISTRY METHOD 10/20/2024 12:00 PM [facility] Anion Gap 9 3 - 11 LAB CHEMISTRY METHOD 10/20/2024 12:00 PM [facility] Glucose 147(H) 70 - 100 mg/dL LAB CHEMISTRY METHOD 10/20/2024 12:00 PM [facility] BUN 25 5 - 25 mg/dL LAB CHEMISTRY METHOD 10/20/2024 12:00 PM [facility] Comment:Results verified by repeat testing Creatinine 1.00 0.50 - 1.10 mg/dL LAB CHEMISTRY METHOD 10/20/2024 12:00 PM [facility] eGFR 62 >=60 mL/min/1. 73m2 LAB CHEMISTRY METHOD 10/20/2024 12:00 PM [facility] Comment:Calculation based on the??Chronic Kidney Disease Epidemiology Collaboration (CKD-EPI) equation refit??without adjustment for race. BUN/Creatinine Ratio 25.0 LAB CHEMISTRY METHOD 10/20/2024 12:00 PM [facility] Calcium 8.8 8.5 - 10.5 mg/dL LAB CHEMISTRY METHOD 10/20/2024 12:00 PM [facility] AST (SGOT) 10 10 - 42 unit/L LAB CHEMISTRY METHOD 10/20/2024 12:00 PM [facility] ALT (SGPT) 15 10 - 60 unit/L LAB CHEMISTRY METHOD 10/20/2024 12:00 PM EDT [facility] Alkaline Phosphatase 112 42 - 121 unit/L LAB CHEMISTRY METHOD 10/20/2024 12:00 PM EDT [facility] Total Protein 7.0 6.0 - 8.0 g/dL LAB CHEMISTRY METHOD 10/20/2024 12:00 PM EDT [facility] Albumin 3.3 3.2 - 5.0 g/dL LAB CHEMISTRY METHOD 10/20/2024 12:00 PM EDT [facility] Total Bilirubin 0.3 0.0 - 1.4 mg/dL LAB CHEMISTRY METHOD 10/20/2024 12:00 PM EDT [facility] Blood Blood sample taken from central line / Unknown Existing Catheter / Unknown 10/20/2024 10:26 AM EDT 10/20/2024 10:45 AM EDT us Quoc Bernal MD LAB BLOOD ORDERABLES Final R esult [facility] [address] [place] [address], * IR Insert Tunneled CVAD w Subq Port More 5yrs Right (10/06/2024 10:26 AM EST) Anatomical Region Laterality Modality Right Interventional R adiology 10/06/2024 11:4 9 AM EST Impressions 10/06/2024 11:51 AM EST Successful placement of a right ??internal jugular [address] compatible PowerPort. ?? The port is available for immediate use. -------- FINAL REPORT -------- Dictated By: Lauro Peñaloza Dictated Date: 10/06/2024 11:49 ET Assigned Physician: Lauro Peñaloza Reviewed and Electronically Signed By: Lauro Peñaloza Signed Date: 10/06/2024 11:51 ET Workstation ID: [id number] Transcribed By: Self Edit Transcribed Date: 10/06/2024 [...] the entirety of the procedure by the nurse recruiter. ?? The physician spent 30 minutes of gmis-mb-odiw sedation time with the patient. ?? Skin [...] radiologyRN. The physician spent 30 minutes of ohku-fr-pxhx sedation time with thepatient. Skin was anesthetized [...] placement of a right internal jugular [address] compatiblePowerPort. The port is available for immediate use. -------- FINAL REPORT -------- Dictated By: Lauro Peñaloza Dictated Date: 10/06/2024 11:49 ET Assigned Physician: Lauro Peñaloza Reviewed and Electronically Signed By: Lauro Peñaloza Signed Date: 10/06/2024 11:51 ET Workstation ID: [id number] Transcribed By: Self Edit Transcribed Date: 10/06/2024 11:49 ET us Quoc Bernal MD IMG IR PROCEDURES Final Resu lt * (ABNORMAL) CEA (10/06/2024 8:50 AM EST) Only the most recent of2 resultswithin the time period is included. CEA 5.1(H) 0.0 - 5.0 ng/mL LAB CHEMISTRY METHOD 10/06/2024 9:58 AM EST [facility] Blood Venous blood specimen / Unknown Venipuncture / Unknown 10/06/2024 8:50 AM EST 10/06/2024 9:00 AM EST [facility]ative [facility] - 10/06/2024 9:58 AM EST The Siemens Advia Centaur Chemiluminescent Immunoassay is used. Results obtained with different assay methods or kits cannot be used interchangeably. Results cannot be interpreted as absolute evidence of the presence or absence of malignant disease. us Quoc Bernal MD LAB BLOOD ORDERABLES Final R esult [facility] ([facility]) [facility] [address] [place] [address], [place] [phone] * XR Elbow 3+ Views Right (09/11/2024 [...] Signed Date: 09/12/2024 09:40 ET Workstation ID: [id number] Transcribed By: Self Edit Transcribed Date: 09/12/2024 [...] Signed Date: 09/12/2024 09:40 ET Workstation ID: [id number] Transcribed By: Self Edit Transcribed Date: 09/12/2024 [...] Signed Date: 09/12/2024 09:48 ET Workstation ID: [id number] Transcribed By: Self Edit Transcribed Date: 09/12/2024 [...] Signed Date: 09/12/2024 09:48 ET Workstation ID: [id number] Transcribed By: Self Edit Transcribed Date: 09/12/2024 [...] MD on 09/11/2024 16:39:28 Evangelista Tierney MD [facility] [place] PROCEDURES Final Result * CT Head [...] MD on 09/11/2024 16:21:46 Evangelista Tierney MD [facility] [place] PROCEDURES Final Result * Phosphorus (09/01/2024 6:25 AM EST) [facility] Phosphorus 3.9 2.5 - 4.5 mg/dL LAB CHEMISTRY METHOD 09/01/2024 7:29 AM EST [facility] Blood Venous blood specimen / Unknown Venipuncture / Unknown 09/01/2024 6:25 AM EST 09/01/2024 6:38 AM EST Terrie POWELL LAB BLOOD ORDERABLES Final Re sult [facility] [address] [place] [address], [place] [phone] * Magnesium (09/01/2024 6:25 AM EST) Pathologist [facility] [place] Magnesium 2.3 1.9 - 2.6 mg/dL LAB CHEMISTRY METHOD 09/01/2024 7:29 AM [facility] Blood Venous blood specimen / Unknown Venipuncture / Unknown 09/01/2024 6:25 AM EST 09/01/2024 6:38 AM EST Terrie POWELL LAB BLOOD ORDERABLES Final Re sult [facility] [address] [place] [address], [place] [phone] * (ABNORMAL) Basic metabolic panel (09/01/2024 6:25 AM EST) Only the most recent of2 resultswithin the time period is included. Pathologist [facility] [place] Sodium 142 133 - 145 mmol/L LAB CHEMISTRY METHOD 09/01/2024 7:29 AM [facility] Potassium 3.9 3.5 - 5.5 mmol/L LAB CHEMISTRY METHOD 09/01/2024 7:29 AM [facility] Chloride 109 96 - 110 mmol/L LAB CHEMISTRY METHOD 09/01/2024 7:29 AM [facility] CO2 28 21 - 32 mmol/L LAB CHEMISTRY METHOD 09/01/2024 7:29 AM [facility] Anion Gap 5 3 - 11 LAB CHEMISTRY METHOD 09/01/2024 7:29 AM [facility] Glucose 124(H) 70 - 100 mg/dL LAB CHEMISTRY METHOD 09/01/2024 7:29 AM [facility] BUN 7 5 - 25 mg/dL LAB CHEMISTRY METHOD 09/01/2024 7:29 AM [facility] Creatinine 0.84 0.50 - 1.10 mg/dL LAB CHEMISTRY METHOD 09/01/2024 7:29 AM [facility] eGFR 76 >=60 mL/min/1. 73m2 LAB CHEMISTRY METHOD 09/01/2024 7:29 AM [facility] Comment:Calculation based on the??Chronic Kidney Disease Epidemiology Collaboration (CKD-EPI) equation refit??without adjustment for race. BUN/Creatinine Ratio 8.3 LAB CHEMISTRY METHOD 09/01/2024 7:29 AM [facility] Calcium 8.4(L) 8.5 - 10.5 mg/dL LAB CHEMISTRY METHOD 09/01/2024 7:29 AM [facility] Blood Venous blood specimen / Unknown Venipuncture / Unknown 09/01/2024 6:25 AM EST 09/01/2024 6:38 AM EST Terrie POWELL LAB BLOOD ORDERABLES Final Re sult [facility] [address] [place] [address], * Tissue exam (08/30/2024 9:41 AM EST) [...] [id number], see synoptic. 09/01/2024 4:27 PM EST [facility] ([facility]) [facility] Gross Description A. Colon, [...] the index mass. The uninvolved mucosa is ytu-kajb-rgd glistening with normal folds throughout. Multiple possible [...] fletcher-pink and glistening. Gross photographs are taken. Food Counselor sections are submitted as follows: 1, perpendicular [...] lymph nodes each, six pieces each 18, charter representative larger grossly positive possible lymph node, two pieces 19, charter representative larger grossly positive possible lymph node, two pieces ELSA 09/01/2024 4:27 PM EST [facility] ([facility]) HOSPITAL LAB Synoptic Checklist COLON AND [...] Additional Findings: ?Adenoma(s) ?? Comment(s): ?performed on [id number] and reported as RENÉ, HER2 Negative (1+) 09/01/2024 4:27 PM EST [facility] Disclaimer Unless otherwise specified, all tissue is 10% NB formalin fixed and paraffin embedded. 09/01/2024 4:27 PM EST [facility] Tissue Colon structure / Unknown 08/30/2024 9:41 AM EST 08/30/2024 10:49 AM EST Diogo Martinez MD LAB PATHOLOGY ORDERABLES Fi nal Result [facility] [address] [place] [address], * TH AN ENDOTRACHEAL(NO CHARGE) (08/30/2024 7:55 [...] - 100 mg/dL 08/30/2024 6:22 AM EST [facility] Blood Capillary blood specimen / Unknown 08/30/2024 6:20 AM EST 08/30/2024 6:23 AM EST Diogo Martinez MD LAB POINT OF CARE T EST DOCKED DEVICE UNSOLICITED RESULTS Final Result [facility]) [facility] [address] [place] [address], [place] [phone] * ECG 12 lead - Procedural (No Charge) (08/18/2024 9:45 AM EST) Ventricular Rate ECG 64 BPM GEMUSE Atrial Rate 64 BPM GEMUSE P-R Interval 188 ms GEMUSE QRS Duration 78 ms GEMUSE Q-T Interval 464 ms GEMUSE QTc 478 ms GEMUSE P Wave [place] 26 degrees GEMUSE R [place] -4 degrees GEMUSE T [place] 62 degrees GEMUSE ECG Interpretation Normal sinus [...] Signed Date: 08/23/2024 07:29 ET Workstation ID: [id number] Transcribed By: Self Edit Transcribed Date: 08/23/2024 [...] cm groundglass nodule of the left apex (/53). There are a few nonspecific peripheral linear [...] Signed Date: 08/23/2024 07:29 ET Workstation ID: [id number] Transcribed By: Self Edit Transcribed Date: 08/23/2024 [...] Signed Date: 08/05/2024 15:06 ET Workstation ID: [id number] Transcribed By: Self Edit Transcribed Date: 08/05/2024 [...] currentsignificant hernia. Mild age-indeterminate compression of the [id number] body. Lung Bases: Clear bilaterally. IMPRESSION: 1. [...] Signed Date: 08/05/2024 15:06 ET Workstation ID: [id number] Transcribed By: Self Edit Transcribed Date: 08/05/2024 14:57 ET John Plaza MD [facility] [place] PROCEDURES Final Resul t * COLONOSCOPY Anesthesia - MAC; [facility] ENDOSCOPY (07/29/2024 9:17 AM EST) Anatomical [...] pathology results. Narrative 07/29/2024 9:20 AM EST [facility] GI Patient Name: Cait Medrano Procedure Date: [...] Procedure Code(s): ? --- Professional --- ? 48748, Colonoscopy, flexible; with removal of ? tumor(s), polyp(s), or other lesion(s) by snare ? technique ? 93001, Colonoscopy, flexible; with directed submucosal ? injection(s), any substance ? 87443, 59, Colonoscopy, flexible; with biopsy, single ? or multiple Diagnosis Code(s): ? --- Professional --- ? Z86.010, Personal history of colonic polyps ? D49.0, Neoplasm of unspecified behavior of digestive ? system ? D12.6, Benign neoplasm of colon, unspecified CPT copyright 2020 [employer]. All rights reserved. The codes documented in this report are preliminary and upon payment specialist review may be revised to meet current compliance requirements. John Plaza MD 07/29/2024 9:20:29 AM This report has been signed electronically.John Plaza MD Number of Addenda: 0 Note Initiated On: 07/29/2024 8:34 AM Scope In: Scope Out: ? Endoscopy Department at [facility] - [address] [place] [address], ? [place] [phone] Procedure Note John Plaza MD - 07/29/2024 [facility] GI Patient Name: Cait Medrano Procedure Date: [...] retroflexion views. Procedure Code(s): --- Professional --- 18344, Colonoscopy, flexible; with removal of tumor(s), polyp(s), or other lesion(s) by snare technique 35763, Colonoscopy, flexible; with directedsubmucosal injection(s), any substance 66172, 59, Colonoscopy, flexible; with biopsy,single or multiple Diagnosis Code(s): --- Professional --- Z86.010, Personal history of colonic polyps D49.0, Neoplasm of unspecified behavior ofdigestive system D12.6, Benign neoplasm of colon, unspecified CPT copyright 2020 [employer]. All rights reserved. The codes documented in this report are preliminary and upon payment specialist reviewmay be revised to meet current compliance requirements. John Plaza MD 07/29/2024 9:20:29 AM This report has been signed electronically.John Plaza MD Number of Addenda: 0 Note Initiated On: 07/29/2024 8:34 AM Scope In: Scope Out: Endoscopy Department at [facility] - [address] [place] [phone] IMPRESSION: - Likely malignant tumor in the [...] Final Result * EGD Anesthesia - MAC; [facility] ENDOSCOPY (07/29/2024 9:17 AM EST) Anatomical [...] dose tomorrow. Narrative 07/29/2024 9:23 AM EST [facility] GI Patient Name: Cait Medrano Procedure Date: [...] Procedure Code(s): ? --- Professional --- ? 32684, Esophagogastroduodenoscopy, flexible, ? transoral; with biopsy, single or multiple Diagnosis Code(s): ? --- Professional --- ? K44.9, Diaphragmatic hernia without obstruction or ? gangrene ? K21.9, Gastro-esophageal reflux disease without ? esophagitis CPT copyright 2020 [employer]. All rights reserved. The codes documented in this report are preliminary and upon payment specialist review may be revised to meet current compliance requirements. John Plaza MD 07/29/2024 9:22:51 AM This report has been signed electronically.John Plaza MD Number of Addenda: 0 Note Initiated On: 07/29/2024 9:11 AM Scope In: Scope Out: ? Endoscopy Department at [facility] - [address] [place] [address], ? [place] [address] Procedure Note John Plaza MD - 07/29/2024 [facility] GI Patient Name: Cait Medrano Procedure Date: [...] was normal. Procedure Code(s): --- Professional --- 98580, Esophagogastroduodenoscopy, flexible, transoral; with biopsy, single or multiple Diagnosis Code(s): --- Professional --- K44.9, Diaphragmatic hernia without obstruction or gangrene K21.9, Gastro-esophageal reflux disease without esophagitis CPT copyright 2020 [employer]. All rights reserved. The codes documented in this report are preliminary and upon payment specialist reviewmay be revised to meet current compliance requirements. John Plaza MD 07/29/2024 9:22:51 AM This report has been signed electronically.John Plaza MD Number of Addenda: 0 Note Initiated On: 07/29/2024 9:11 AM Scope In: Scope Out: Endoscopy Department at [facility] - [address] [place] [phone] IMPRESSION: - Z-line regular, 38 cm from [...] Result from Last 3 Months Insurance MEDICARE [facility] Advance Directives Documents on File Type Date Recorded Patient Food Counselor Expl anation Power of Wick Tender 08/30/2024 7:06 AM МАРИЯ Vu CARE PROXY * Full Code - Default [...] currently active code status orders. Care Teams Student Services Director Relationship Specialty Start Date End Date Arabella Decker NP [address] [address] PCP - General 08/20/23
--- OUTSIDE RECORDS SUMMARY | 2024-10-22 12:01 | XMS_ITS | Encounter Summary ---
Author Organization [facility] Address [address] [place] [address] Care Team Providers Care Rn Integrated Name Role Phone Arabella Decker NP Primary Care Provider [phone] Reason for Visit * Reason Onset Date Comments Port Placement appt 09/27/2024 Encounter Details Date Type Department Care Team (Late st Contact Info) Description 09/27/2024 Telephone [facility] Hematology Oncology [address] [place] [address] Emily Zuniga MA Port Placement appt Social History Tobacco Use Types Packs/Day Years [...] as of this encounter Progress Notes * Emily Zuniga MA - 09/27/2024 1:55 PM EST Pt has been booked for Port placement at [facility] on 10/06 at 9 am. Pt aware to arrive for 8 am, Pt awareNPO after midnight. Pt also will stop plavix x 5 days, per tiffany Parker for ASA if pt needs a bridge. Pt will have a corporate driver with her as well. documented in this encounter Plan of Treatment Upcoming Encounters Date Type Department Care Team (Late st Contact Info) Description 10/26/2024 11:00 AM EDT Appointment [facility] Infusion Center [address] [facility] 2nd [place] [address] 11/04/2024 11:15 AM EDT Office Visit [facility] Hematology Oncology [address] [place] [address] Quoc Bernal MD [address] [place] [address] 12/14/2024 11:15 AM EDT Office Visit General Surgery [facility] [address] [phone] Diogo Martinez MD [address] [address] documented as of this encounter Visit Diagnoses Not on filedocumented in this encounter Care Teams Rn Integrated Relationship Specialty Start Date End Date Arabella Decker NP [facility] ADULT MED[facility]INE [address] [place] [address] PCP - General 08/20/23 documented as of this encounter
--- OUTSIDE RECORDS SUMMARY | 2024-10-22 12:01 | XMS_ITS | Encounter Summary ---
Author Organization [facility] Address [address] [place] [address] Care Team Providers Care Meat Stringer Name Role Phone Arabella Decker NP Primary Care Provider [phone] Encounter Details Date Type Department Care Team (Latest Contact Info) Description 10/11/2024 11:30 AM EST - 10/11/2024 11:59 PM EST Hospital Encounter [facility] Infusion Center [address] [phone] Quoc Bernal MD [address] [place] [address] Malignant neoplasm of ascending colon (CMS/HCC) Discharge [...] AM EST documented as of this encounter Medications at Time of Discharge [...] in this encounter Progress Notes * Iris Palumbo, DOMINGA - 10/11/2024 11:30 AM EST Cait arrives for routine port labs in preparation for treatment tomorrow. She had her port placed on 10/06/24 and it is still healing. There are steri strips present. Decision made not to use porttoday, to allow for healing and to draw labs peripherally. Labs drawn easily from left antecubital vein. Pressure dressing applied. Some teaching provided with regard to oxaliplatin and fluorouracil , FOLFOX, treatment and all questions answered. Teaching provided on use of EMLA cream too. Left unit ambulatory. documented in this encounter Plan of Treatment Upcoming Encounters Date Type Department Care Team (Late st Contact Info) Description 10/26/2024 11:00 AM EDT Appointment [facility] Infusion Center [address] [facility] 2nd [place] [phone] 11/04/2024 11:15 AM EDT Office Visit [facility] Hematology Oncology [address] [place] [phone] Quoc Bernal MD [address] [place] [address] 12/14/2024 11:15 AM EDT Office Visit General Surgery [facility] [address] [phone] Diogo Martinez MD [address] [address] documented as of this encounter Procedures Procedure Name Priority Date/Time Associated Diagnosis Comments CBC WITH AUTO DIFFERENTIAL Routine 10/11/2024 12:00 PM EST Malignant neoplasm of ascending colon (CMS/HCC) CBC AND DIFFERENTIAL Routine 10/11/2024 12:00 PM EST Malignant neoplasm of ascending colon (CMS/HCC) COMPREHENSIVE METABOLIC PANEL Routine 10/11/2024 12:00 PM EST Malignant neoplasm of ascending colon (CMS/HCC) documented in this encounter Results * (ABNORMAL) CBC auto differential (10/11/2024 12:00 PM EST) WBC 6.4 4.8 - 10.8 K/mcL LAB HEMETOLOGY METHOD 10/11/2024 1:04 PM EST [facility] RBC 3.90 3.80 - 4.80 M/mcL LAB HEMETOLOGY METHOD 10/11/2024 1:04 PM EST [facility] Hemoglobin 12.3 11.5 - 16.0 g/dL LAB HEMETOLOGY METHOD 10/11/2024 1:04 PM [facility] Hematocrit 39.0 35.0 - 47.0 % LAB HEMETOLOGY METHOD 10/11/2024 1:04 PM [facility] MCV 99.0(H) 79.0 - 98.0 FL LAB HEMETOLOGY METHOD 10/11/2024 1:04 PM [facility] MCH 31.2 27.0 - 32.0 pcg LAB HEMETOLOGY METHOD 10/11/2024 1:04 PM [facility] MCHC 31.5(L) 32.0 - 37.0 g/dL LAB HEMETOLOGY METHOD 10/11/2024 1:04 PM [facility] RDW 14.3 11.0 - 15.0 % LAB HEMETOLOGY METHOD 10/11/2024 1:04 PM [facility] Platelets 238 130 - 400 K/mcL LAB HEMETOLOGY METHOD 10/11/2024 1:04 PM [facility] MPV 12.2(H) 7.0 - 11.0 FL LAB HEMETOLOGY METHOD 10/11/2024 1:04 PM [facility] NRBC 0.0 <1.0 % LAB HEMETOLOGY METHOD 10/11/2024 1:04 PM [facility] NRBC Absolute 0.00 <0.10 K/mcL LAB HEMETOLOGY METHOD 10/11/2024 1:04 PM [facility] Neutrophils Relative 70.2 % LAB HEMETOLOGY METHOD 10/11/2024 1:04 PM [facility] Lymphocytes Relative 18.1 % LAB HEMETOLOGY METHOD 10/11/2024 1:04 PM [facility] Monocytes Relative 7.5 % LAB HEMETOLOGY METHOD 10/11/2024 1:04 PM [facility] Eosinophils Relative 3.0 % LAB HEMETOLOGY METHOD 10/11/2024 1:04 PM [facility] Basophils Relative 0.9 % LAB HEMETOLOGY METHOD 10/11/2024 1:04 PM [facility] Immature Granulocytes Relative 0.3 % LAB HEMETOLOGY METHOD 10/11/2024 1:04 PM [facility] Neutrophils Absolute 4.51 1.50 - 7.00 K/mcL LAB HEMETOLOGY METHOD 10/11/2024 1:04 PM [facility] Lymphocytes Absolute 1.16 1.00 - 5.00 K/mcL LAB HEMETOLOGY METHOD 10/11/2024 1:04 PM [facility] Monocytes Absolute 0.48 0.20 - 1.00 K/mcL LAB HEMETOLOGY METHOD 10/11/2024 1:04 PM [facility] Eosinophils Absolute 0.19 0.00 - 0.50 K/mcL LAB HEMETOLOGY METHOD 10/11/2024 1:04 PM [facility] Basophils Absolute 0.06 0.00 - 0.20 K/mcL LAB HEMETOLOGY METHOD 10/11/2024 1:04 PM [facility] Immature Granulocytes Absolute 0.02 0.00 - 0.03 K/mcL LAB HEMETOLOGY METHOD 10/11/2024 1:04 PM [facility] Blood Venous blood specimen / Unknown Venipuncture / Unknown 10/11/2024 12:00 PM EST 10/11/2024 12:44 PM EST us Quoc Bernal MD LAB BLOOD ORDERABLES Final R esult [facility] [address] [place] [address], * Comprehensive metabolic panel (10/11/2024 12:00 PM EST) Sodium 143 133 - 145 mmol/L LAB CHEMISTRY METHOD 10/11/2024 1:48 PM [facility] Potassium 3.6 3.5 - 5.5 mmol/L LAB CHEMISTRY METHOD 10/11/2024 1:48 PM [facility] Chloride 110 96 - 110 mmol/L LAB CHEMISTRY METHOD 10/11/2024 1:48 PM [facility] CO2 25 21 - 32 mmol/L LAB CHEMISTRY METHOD 10/11/2024 1:48 PM [facility] Anion Gap 8 3 - 11 LAB CHEMISTRY METHOD 10/11/2024 1:48 PM [facility] Glucose 88 70 - 100 mg/dL LAB CHEMISTRY METHOD 10/11/2024 1:48 PM [facility] BUN 17 5 - 25 mg/dL LAB CHEMISTRY METHOD 10/11/2024 1:48 PM [facility] Creatinine 0.94 0.50 - 1.10 mg/dL LAB CHEMISTRY METHOD 10/11/2024 1:48 PM [facility] eGFR 67 >=60 mL/min/1. 73m2 LAB CHEMISTRY METHOD 10/11/2024 1:48 PM [facility] Comment:Calculation based on the??Chronic Kidney Disease Epidemiology Collaboration (CKD-EPI) equation refit??without adjustment for race. BUN/Creatinine Ratio 18.1 LAB CHEMISTRY METHOD 10/11/2024 1:48 PM [facility] Calcium 9.0 8.5 - 10.5 mg/dL LAB CHEMISTRY METHOD 10/11/2024 1:48 PM [facility] AST (SGOT) 16 10 - 42 unit/L LAB CHEMISTRY METHOD 10/11/2024 1:48 PM [facility] ALT (SGPT) 16 10 - 60 unit/L LAB CHEMISTRY METHOD 10/11/2024 1:48 PM [facility] Alkaline Phosphatase 118 42 - 121 unit/L LAB CHEMISTRY METHOD 10/11/2024 1:48 PM EST [facility] Total Protein 7.1 6.0 - 8.0 g/dL LAB CHEMISTRY METHOD 10/11/2024 1:48 PM EST [facility] Albumin 3.3 3.2 - 5.0 g/dL LAB CHEMISTRY METHOD 10/11/2024 1:48 PM EST [facility] Total Bilirubin 0.3 0.0 - 1.4 mg/dL LAB CHEMISTRY METHOD 10/11/2024 1:48 PM EST [facility] Blood Venous blood specimen / Unknown Venipuncture / Unknown 10/11/2024 12:00 PM EST 10/11/2024 12:44 PM EST us Quoc Bernal MD LAB BLOOD ORDERABLES Final R esult [facility] [address] [place] [address], documented in this encounter Visit Diagnoses Diagnosis Malignant neoplasm of ascending colon (CMS/HCC) Malignant neoplasm of ascending colon documented in this encounter Care Teams Meat Stringer Relationship Specialty Start Date End Date Arabella Decker NP [address] [address] PCP - General 08/20/23 documented as of this encounter
--- OUTSIDE RECORDS SUMMARY | 2024-10-22 12:01 | XMS_ITS | Encounter Summary ---
Author Organization [facility] Address [address] [place] [address] Care Team Providers Care Warehouse Delivery Manager Name Role Phone Arabella Decker NP Primary Care Provider [phone] Reason for Visit * Reason Comments Follow-up Encounter Details Date Type Department Care Team (Late st Contact Info) Description 10/08/2024 11:45 AM EST Office Visit [facility] Hematology Oncology [address] [place] [phone] Quoc Bernal MD [address] [place] [address] Malignant neoplasm of ascending colon (CMS/HCC) (Primary [...] Sign Reading Time Taken Comments Blood Pressure 153/58 10/08/2024 11:47 AM EST Pulse 76 10/08/2024 11:47 AM EST Temperature 36.8 ??C (98.3 ??F) 10/08/2024 11:[address] Respiratory Rate - - Oxygen Saturation 100% 10/08/2024 11:47 AM EST Inhaled Oxygen Concentration - - Weight 82.1 kg (181 lb) 10/08/2024 11:47 AM EST Height 162.6 cm (5' 4 ) 10/08/2024 11:47 AM EST Body Mass Index 31.07 10/08/2024 11:47 AM EST documented in this encounter Progress Notes * Quoc Bernal MD - 10/08/2024 11:45 AM EST ONC CANCER FOLLOW UP CHIEF COMPLAINT: Follow-up IDENTIFIER:Cait Medrano is a 69 y.o. female. HPI: Patient is a very pleasant 69-year-old female, who recently diagnosed with stage III adenocarcinomaascending colon (T3 N2b pathology), patient will be starting adjuvant chemotherapy from next week ROS: Patient has been feeling fair Patient denies any new unusual complain, review of system is basically unchanged from previous visit of 09/24/2024 Oncology History Malignant neoplasm of ascending colon (CMS/HCC) 08/05/2024 Initial Diagnosis Malignant neoplasm of ascending colon (CMS/HCC) 10/12/2024 - Chemotherapy leucovorin IVPB, 400 mg/m2 = 750 mg, intravenous, Once, 0 of 12 cycles fluorouracil (ADRUCIL) chemo infusion, 2,400 mg/m2 = 4,500 mg, intravenous, Once, 0 of 12 cycles OXALIplatin (ELOXATIN) chemo infusion, 50 mg/m2 = 95 mg (58.8 % of original dose 85 mg/m2), intravenous, Once, 0 of 12 cycles Dose modification: 50 mg/m2 (original dose 85 mg/m2, Cycle 1, Reason: Other (See Comments)) palonosetron (ALOXI) injection 250 mcg, 250 mcg, intravenous, Once, 0 of 12 cycles fluorouracil (ADRUCIL) chemo injection, 400 mg/m2 = 750 mg, intravenous, Once, 0 of 12 cycles Oncology history; Patient had colonoscopy in 2017 that showed some suspicious polyp and was [...] 28 lymph node positive for malignancy (pathological [id number]. Patient saw me on 09/24/2024, we had a discussion regarding adjuvant chemotherapy FOLFOX versus FOLFIRI, because of her significant neurological issues/autonomic dysfunction, I was reluctant about using full dose oxaliplatin in adjuvant setting, patient was seen by Dr. Chandler, GI oncologist in [facility], who recommended no benefit of FOLFOX and [...] DX:Depression Diabetes mellitus type 1, uncomplicated, on usp insulin pump (CMS/HCC) 11/06/2018 DX:Diabetes mellitus type 2, uncomplicated (HCC) GERD (gastroesophageal reflux disease) 11/06/2018 DX:GERD (gastroesophageal reflux disease) Heart disease Hiatal hernia Hypercholesteremia 11/06/2018 DX:Hypercholesteremia Hypertension Joint pain Migraines 11/06/2018 DX:Migraines Myocardial infarction ([facility]/HCC) PONV (postoperative nausea and vomiting) Sleep apnea SOCIAL HISTORY: Social History Tobacco Use Smoking status: Never Smokeless tobacco: Never Substance Use Topics Alcohol use: Yes Comment: SOCIAL FAMILY HISTORY: No family history on file. No family status information on file. Current Outpatient Medications: acetaminophen (TYLENOL 8 HOUR) 650 mg 8 hr tablet, Take 2 tablets (1,300 mg total) by mouth every 8(eight) hours if needed for mild pain. Do not crush, chew, or split., Disp: , Rfl: ALPRAZolam (XANAX) 1 mg tablet, Take 0.5 [...] mg total) by mouth., Disp: , Rfl: kzpohpvurz-txtnkfpazlngr-duavjxuv (FIORICET, ESGIC) 50-325-40 mg per tablet, Take [...] eye PHYSICAL EXAM: Visit Vitals BP (!) 153/58 (BP Location: Left arm, Patient Position: Sitting, BP Cuff Size: Large adult) Pulse 76 Temp 36.8 ??C (98.3 ??F) (Temporal) Ht 1.626 m (64 ) Wt 82.1 kg (181 lb) SpO2 100% BMI 31.07 kg/m?? OB Status Postmenopausal Smoking Status Never BSA 1.88 m?? ECOG 0-1 APPEARANCE: Alert and oriented in no acute distress EYES: nonicteric sclera pink conjunctiva ORAL CAVITY: No erythema or exudates NECK: Neck supple, no significant adenopathy, HEART: normal S1 and S2 LUNG: clear to auscultation bilaterally LYMPH NODES: No palpable superficial adenopathy ABDOMEN: soft, nontender and no organomegaly appreciated EXTREMITIES: No significant edema erythema or tenderness LABS: WBC 6.1, hemoglobin 11.5 g, hematocrit 36.5% and platelet count 242 CEA 5 BUN 23 creatinine 0.93 SGOT 14, SGPT 17 and alk phos 122 with total bilirubin of 0.4 IMPRESSION: 1. Malignant neoplasm of ascending colon (CMS/HCC) Patient is a 69-year-old female who has multiple medical issues including diabetes as well as significant neurological issues including autonomic dysfunction, patient diagnosed recently with stage IIIb adenocarcinoma of ascending colon, patient has pathological stage T3 N2b disease, patient will be starting FOLFOX with modified dose of oxaliplatin, I discussed with the patient and her in detail about potential neurotoxicity of oxaliplatin and rationale of using modified dose and titrateif she tolerates very well otherwise I will switch oxaliplatin to irinotecan, if she cannot handle or tolerate oxaliplatin very well. I explained patient and in detail about potential risk benefit of this chemotherapy regimen as well as potential side effect of these drugs PLAN: Patient will be starting FOLFOX from next week in adjuvant setting, he will be getting oxaliplatin dose of 50 mg/m [place] in the first infusion and then we will titrate accordingly Quoc Bernal MD documented in this encounter Plan of Treatment Upcoming Encounters Date Type Department Care Team (Late st Contact Info) Description 10/26/2024 11:00 AM EDT Appointment [facility] Infusion Center [address] [place] [phone] 11/04/2024 11:15 AM EDT Office Visit [facility] Hematology Oncology [address] [place] [phone] Quoc Bernal MD [address] [place] [address] 12/14/2024 11:15 AM EDT Office Visit General Surgery - [place] [address] [phone] Diogo Martinez MD [address] [address] documented as of this encounter Visit Diagnoses Diagnosis Malignant neoplasm of ascending colon (CMS/HCC)- Primary Malignant neoplasm of ascending colon documented in this encounter Care Teams Warehouse Delivery Manager Relationship Specialty Start Date End Date Arabella Decker NP [facility] [address] [place] [address] PCP - General 08/20/23 documented as of this encounter
== END 2024-10-22 11:07 | disposition home or self-care (01) ==
LOC: HO.HOS 10:34
PROVIDERS: Visit Provider Physician Assistant
DX: S42.201A Unspecified fracture of upper end of right humerus, initial encounter for closed fracture (principal)
CPT/HCPCS: 99213

== ENCOUNTER → 2024-10-22 10:35 | Outpatient (BNV) | payer MEDICARE, OTHER, SELFPAY | PROVIDERS: Visit Provider Radiology Diagnostic Radiology | DX: S42.211D Unspecified displaced fracture of surgical neck of right humerus, subsequent encounter for fracture with routine healing (principal) | CPT/HCPCS: 73030 ==

== ENCOUNTER 2024-12-03 09:25 | Outpatient (REF) | payer MEDICARE, OTHER, SELFPAY ==
--- NOTE | ~2024-12-03 | XR_ITS ---
EXAMINATION: XR SHOULDER, RIGHT CLINICAL INFORMATION: M25.519 - Pain in unspecified shoulder COMPARISON: October 22, 2024 TECHNIQUE: Two views of the right shoulder. FINDINGS: Comminuted deformity right humeral head neck. Degenerative changes in the common clavicular joint. Sternal wires. Left-sided central venous line no fully included in the [id number]. XR/XR shoulder RT min 2V IMPRESSION: Comminuted fracture without gross healing, right humeral head neck. Electronically signed by: Kendall South MD 12/06/2024 03:01 PM EDT
--- OUTSIDE RECORDS SUMMARY | 2024-12-06 10:26 | XMS_ITS | Encounter Summary ---
Author Organization [facility] Address [address] [place] [address] Care Team Providers Care Central Station Operator Name Role Phone Arabella Decker NP Primary Care Provider [phone] Reason for Visit * Reason Onset Date Comments insurance 11/16/2024 Encounter Details Date Type Department Care Team ([facility] st Contact Info) Description 11/16/2024 Telephone Gastroenterology - [address] [place] [phone] Susy Kaiser NP [address] [place] [place] [address] insurance Social History Tobacco Use Types Packs/Day [...] Info) Description 12/06/2024 1:00 PM EDT Appointment [address] [phone] 12/07/2024 10:00 AM EDT Appointment [facility] Center [address] [place] [phone] 12/09/2024 9:00 AM EDT Office Visit [facility] Hematology Oncology [address] [place] [phone] Quoc Bernal MD [address] [place] [address] 12/14/2024 11:15 AM EDT Office Visit General Surgery [facility] [address] [phone] Diogo Martinez MD [address] [address] documented as of this encounter Visit Diagnoses Not on filedocumented in this encounter Care Teams Central Station Operator Relationship Specialty Start Date End Date Arabella Decker NP [facility] [address] [place] [address] PCP - General 08/20/23 documented as of this encounter
--- OUTSIDE RECORDS SUMMARY | 2024-12-06 10:26 | XMS_ITS | Clinical Summary ---
Author Organization [facility] Address [address] [place] [address] Phone Care Team Providers Care Vp Rheumatology Name Role Phone Arabella Decker NP Primary Care Provider [phone] Allergies Active Allergy Reactions Criticality Noted Date [...] Date Malignant neoplasm of ascend ing colon ([facility] V24, [facility] V28) 08/05/2024 Assessment & Plan (11/23/2024 1:00 PM EDT): Followed by Dr. Bernal Repeat colonoscopy in July Anxiety 11/06/2018 Diabetes mellitus type 2, un complicated ([facility] V24, [facility] V28) 11/06/2018 Depression 11/06/2018 Hypercholesteremia 11/06/2018 GERD (gastroesophageal reflux disease) 9 Migraines 11/06/2018 Constipation 11/06/2018 Asthmatic bronchitis without complication 2018 Encounters Date Type Department Care Team Description 11/30/2024 11:00 AM EDT - 11/30/2024 11:59 PM EDT Hospital Encounter [facility] [address] [place] [phone] Quoc Bernal MD Malignant neoplasm of ascending colon (CMS/HCC V24, CMS/HCC V28) (Primary Dx) Discharge Disposition: Home or Self Care 11/29/2024 1:30 PM EDT - 11/29/2024 11:59 PM EDT Hospital Encounter [address] [phone] Quoc Bernal MD Malignant neoplasm of ascending colon (CMS/HCC V24, CMS/HCC V28) Discharge Disposition: Home or Self Care 11/23/2024 1:00 PM EDT Office Visit Gastroenterology - [address] [place] [phone] Susy Kaiser, ANTHONY Malignant neoplasm of ascending colon (CMS/HCC V24, CMS/HCC V28) (Primary Dx) 11/18/2024 1:59 PM EDT - 11/18/2024 11:59 PM EDT Hospital Encounter [address] [phone] Quoc Bernal MD Malignant neoplasm of ascending colon (CMS/HCC V24, CMS/HCC V28) (Primary Dx) Discharge Disposition: Home or Self Care 11/16/2024 10:55 AM EDT - 11/16/2024 11:59 PM EDT Hospital Encounter [facility] [address] [place] [phone] Quoc Bernal MD Malignant neoplasm of ascending colon (CMS/HCC V24, CMS/HCC V28) (Primary Dx) Discharge Disposition: Home or Self Care 11/16/2024 Telephone Gastroenterology - [address] [place] [phone] Susy Kaiser, PREP PERSON insurance 11/15/2024 1:27 PM EDT - 11/15/2024 11:59 PM EDT Hospital Encounter [address] [place] [phone] Quoc Bernal MD Malignant neoplasm of ascending colon ([facility]/HCC V24, CMS/HCC V28) Discharge Disposition: Home or Self Care 11/11/2024 11:45 AM EDT Office Visit [facility] Hematology Oncology [address] [place] [phone] Quoc Bernal MD Malignant neoplasm of ascending colon (CMS/HCC V24, CMS/HCC V28) (Primary Dx); Chemotherapy induced nausea and vomiting 11/04/2024 1:30 PM EDT - 11/04/2024 11:59 PM EDT Hospital Encounter [facility] [address] [place] [phone] Quoc Bernal MD Malignant neoplasm of ascending colon ([facility]/HCC V24, CMS/HCC V28) (Primary Dx) Discharge Disposition: Home or Self Care 11/02/2024 10:55 AM EDT - 11/02/2024 11:59 PM EDT Hospital Encounter [facility] [address] [place] [phone] Quoc Bernal MD Malignant neoplasm of ascending colon ([facility]/HCC V24, CMS/HCC V28) (Primary Dx) Discharge Disposition: Home or Self Care 10/29/2024 8:49 AM EDT - 10/29/2024 11:59 PM EDT Hospital Encounter [facility] Interventional Radiology [address] [place] [phone] Malignant neoplasm of ascending colon ([facility]/HCC V24, CMS/HCC V28) Discharge Disposition: Home or Self Care 10/26/2024 Telephone Gastroenterology - [address] [phone] Susy Kaiser, PREP PERSON Med Refill 10/25/2024 Telephone [facility] Hematology Oncology [address] [place] [phone] Emily Zuniga MA Port Removal/ Port Placement appt 10/21/2024 10:45 AM EDT Office Visit [facility] Hematology Oncology [address] [place] [phone] Quoc Bernal MD Malignant neoplasm of ascending colon (CMS/HCC V24, CMS/HCC V28) (Primary Dx) 10/20/2024 10:17 AM EDT - 10/20/2024 11:59 PM EDT Hospital Encounter [facility] [address] [place] [phone] Qouc Bernal MD Malignant neoplasm of ascending colon (CMS/HCC V24, CMS/HCC V28) Discharge Disposition: Home or Self Care 10/15/2024 1:00 PM EST - 10/15/2024 11:59 PM EST Hospital Encounter [facility] [address] [place] [phone] Quoc Bernal MD Malignant neoplasm of ascending colon (CMS/HCC V24, CMS/HCC V28) (Primary Dx) Discharge Disposition: Home or Self Care 10/14/2024 1:26 PM EST - 10/14/2024 11:59 PM EST Hospital Encounter [facility] [address] [place] [phone] Quoc Bernal MD Malignant neoplasm of ascending colon (CMS/HCC V24, CMS/HCC V28) (Primary Dx) Discharge Disposition: Home or Self Care 10/12/2024 10:55 AM EST - 10/12/2024 11:59 PM EST Hospital Encounter [facility] [address] [place] [phone] Quoc Bernal MD Malignant neoplasm of ascending colon (CMS/HCC V24, CMS/HCC V28) (Primary Dx) Discharge Disposition: Home or Self Care 10/12/2024 Social Work [facility] [address] [place] [phone] Ancelmo Beyer LMSW 10/11/2024 11:30 AM EST - 10/11/2024 11:59 PM EST Hospital Encounter [facility] [address] [facility] [facility] [address] [place] [phone] Quoc Bernal MD Malignant neoplasm of ascending colon ([facility]/HCC V24, [facility] V28) Discharge Disposition: Home or Self Care 10/08/2024 11:45 AM EST Office Visit [facility] H[facility]ology Oncology [address] [place] [phone] Quoc Bernal MD Malignant neoplasm of ascending colon ([facility]/HCC V24, [facility] V28) (Primary Dx) 10/06/2024 8:05 AM EST - 10/06/2024 11:59 PM EST Hospital Encounter [facility] Inter[facility]iology [address] [place] [phone] Discharge Disposition: Home or Self Care 09/27/2024 Telephone [facility]cology [address] [place] [phone] Emily Zuniga MA Port Placement appt 09/24/2024 3:30 PM EST Office Visit [facility] H[facility]cology [address] [place] [phone] Quoc Bernal MD Malignant neoplasm of ascending colon ([facility] V24, [facility] V28) 09/14/2024 3:45 PM EST Office Visit General Surgery - [place] [address] [place] [phone] Diogo Martinez MD Malignant neoplasm of ascending colon ([facility]/HCC V24, [facility]/HCC V28) (Primary Dx) 09/11/2024 3:12 PM EST - 09/11/2024 6:20 PM EST Emergency [facility] [address] [place] [phone] Evangelista Tierney MD Fracture of humeral head, [...] Diabetes mellitus type 1, un complicated, 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 insulin pump ([facility] V24, [facility] V28) 11/06/2018 DX:Diabetes mellitus type 2, uncomplicated ([facility]) Hypercholesteremia 11/06/2018 DX:Hyperchole steremia Depression 11/06/2018 DX:Depression Anxiety 11/06/2018 DX:Anxiety GERD (gastroesophageal reflux disease) 11/06/2018 DX:GERD (gastroesophageal reflux disease) Migraines 11/06/2018 DX:Migraines Constipation 11/06/2018 DX:Constipation Blindness 2004 Sleep apnea Hypertension CHF (congestive heart failur e) ([facility] V24, [facility] V28) Heart disease Colon polyp Hiatal hernia Angina pectoris ([facility] V24) Cancer, colon ([facility] V24, [facility] V28) PONV (postoperative nausea and vomiting) Myocardial infarction ([facility]/ CC V24, [facility] V28) Arthritis Joint pain Social History Tobacco [...] Info) Description 12/06/2024 1:00 PM EDT Appointment [facility] [address] [place] [phone] 12/07/2024 10:00 AM EDT Appointment [facility] [address] [place] [phone] 12/09/2024 9:00 AM EDT Office Visit [facility] H[facility]cology [address] [place] [phone] Quoc Bernal MD [address] [place] [address] 12/14/2024 11:15 AM EDT Office Visit General Surgery - [place] [address] [phone] Diogo Martinez MD [address] [facility] [address] [place] [address] Health Maintenance Due Date Last Done Comments [...] this topic Medical Devices Implanted Type Area Leaf Conditioner Device Identifier Shelf Expiration Date Model / Serial / Lot Port Pwr Isp Attach 6f Interm Nenita - [id number] - [id number] Implanted:Qty: 1 on 10/06/2024 by Lauro Peñaloza MD at [facility] Central/Mandy pheral Catheters and Ports Right: Chest Wall CR [employer]ARD [employer] V[employer] [id number] 06/10/2025 [id number] / [id number] / [id number] Port Pwr Slim Poly 6f Nenita Inte Attach - [id number] - [id number] Implanted:Qty: 1 on 10/29/2024 by Leandro Zaldivar MD at [facility] Central/Mandy pheral Catheters and Ports Left: Chest Wall CR BARD PERIPHERAL VASCULAR [id number] 06/10/2025 [id number] / [id number] / [id number] Other Cardiac Implant Other Cardiac Implant N/A: [...] Results * Magnesium (11/30/2024 11:28 AM EDT) [facility] Magnesium 2.1 1.9 - 2.6 mg/dL LAB CHEMISTRY METHOD 11/30/2024 11:58 AM EDT [facility] Blood Blood sample taken from central line / Unknown Existing Catheter / Unknown 11/30/2024 11:28 AM EDT 11/30/2024 11:38 AM EDT Quoc Bernal MD LAB BLOOD ORDERABLES Final R esult [facility] [address] [place] [address], * (ABNORMAL) CBC auto differential (11/29/2024 1:37 PM EDT) Only the most recent of6 resultswithin the time period is included. [facility] WBC 7.7 4.8 - 10.8 K/mcL LAB HEMETOLOGY METHOD 11/29/2024 2:13 PM EDT [facility] RBC 3.50(L) 3.80 - 4.80 M/mcL LAB HEMETOLOGY METHOD 11/29/2024 2:13 PM EDT [facility] Hemoglobin 11.2(L) 11.5 - 16.0 g/dL LAB HEMETOLOGY METHOD 11/29/2024 2:13 PM EDT [facility] Hematocrit 33.9(L) 35.0 - 47.0 % LAB HEMETOLOGY METHOD 11/29/2024 2:13 PM EDT [facility] MCV 97.1 79.0 - 98.0 FL LAB HEMETOLOGY METHOD 11/29/2024 2:13 PM EDT [facility] MCH 32.1(H) 27.0 - 32.0 pcg LAB HEMETOLOGY METHOD 11/29/2024 2:13 PM [facility] MCHC 33.0 32.0 - 37.0 g/dL LAB HEMETOLOGY METHOD 11/29/2024 2:13 PM [facility] RDW 16.9(H) 11.0 - 15.0 % LAB HEMETOLOGY METHOD 11/29/2024 2:13 PM [facility] Platelets 201 130 - 400 K/mcL LAB HEMETOLOGY METHOD 11/29/2024 2:13 PM [facility] MPV 10.8 7.0 - 11.0 FL LAB HEMETOLOGY METHOD 11/29/2024 2:13 PM [facility] NRBC 0.0 <1.0 % LAB HEMETOLOGY METHOD 11/29/2024 2:13 PM [facility] NRBC Absolute 0.00 <0.10 K/mcL LAB HEMETOLOGY METHOD 11/29/2024 2:13 PM [facility] Neutrophils Relative 61.8 % LAB HEMETOLOGY METHOD 11/29/2024 2:13 PM [facility] Lymphocytes Relative 23.6 % LAB HEMETOLOGY METHOD 11/29/2024 2:13 PM [facility] Monocytes Relative 11.4 % LAB HEMETOLOGY METHOD 11/29/2024 2:13 PM [facility] Eosinophils Relative 2.6 % LAB HEMETOLOGY METHOD 11/29/2024 2:13 PM [facility] Basophils Relative 0.3 % LAB HEMETOLOGY METHOD 11/29/2024 2:13 PM [facility] Immature Granulocytes Relative 0.3 % LAB HEMETOLOGY METHOD 11/29/2024 2:13 PM EDT [facility] Neutrophils Absolute 4.76 1.50 - 7.00 K/mcL LAB HEMETOLOGY METHOD 11/29/2024 2:13 PM EDT [facility] Lymphocytes Absolute 1.82 1.00 - 5.00 K/mcL LAB HEMETOLOGY METHOD 11/29/2024 2:13 PM EDT [facility] Monocytes Absolute 0.88 0.20 - 1.00 K/mcL LAB HEMETOLOGY METHOD 11/29/2024 2:13 PM EDT [facility] Eosinophils Absolute 0.20 0.00 - 0.50 K/mcL LAB HEMETOLOGY METHOD 11/29/2024 2:13 PM EDT [facility] Basophils Absolute 0.02 0.00 - 0.20 K/mcL LAB HEMETOLOGY METHOD 11/29/2024 2:13 PM EDT [facility] Immature Granulocytes Absolute 0.02 0.00 - 0.03 K/mcL LAB HEMETOLOGY METHOD 11/29/2024 2:13 PM EDT [facility] Blood Blood sample taken from central line / Unknown Existing Catheter / Unknown 11/29/2024 1:37 PM EDT 11/29/2024 2:04 PM EDT us Quoc Bernal MD LAB BLOOD ORDERABLES Final R esult [facility] [address] [place] [address], * (ABNORMAL) Comprehensive metabolic panel (11/29/2024 1:37 PM EDT) Only the most recent of6 resultswithin the time period is included. Sodium 139 133 - 145 mmol/L LAB CHEMISTRY METHOD 11/29/2024 2:46 PM EDT [facility] Potassium 3.0(L) 3.5 - 5.5 mmol/L LAB CHEMISTRY METHOD 11/29/2024 2:46 PM [facility] Chloride 106 96 - 110 mmol/L LAB CHEMISTRY METHOD 11/29/2024 2:46 PM [facility] CO2 23 21 - 32 mmol/L LAB CHEMISTRY METHOD 11/29/2024 2:46 PM [facility] Anion Gap 10 3 - 11 LAB CHEMISTRY METHOD 11/29/2024 2:46 PM [facility] Glucose 159(H) 70 - 100 mg/dL LAB CHEMISTRY METHOD 11/29/2024 2:46 PM [facility] BUN 24 5 - 25 mg/dL LAB CHEMISTRY METHOD 11/29/2024 2:46 PM [facility] Creatinine 0.94 0.50 - 1.10 mg/dL LAB CHEMISTRY METHOD 11/29/2024 2:46 PM [facility] eGFR 67 >=60 mL/min/1. 73m2 LAB CHEMISTRY METHOD 11/29/2024 2:46 PM [facility] Comment:Calculation based on the??Chronic Kidney Disease Epidemiology Collaboration (CKD-EPI) equation refit??without adjustment for race. BUN/Creatinine Ratio 25.5 LAB CHEMISTRY METHOD 11/29/2024 2:46 PM [facility] Calcium 8.9 8.5 - 10.5 mg/dL LAB CHEMISTRY METHOD 11/29/2024 2:46 PM [facility] AST (SGOT) 14 10 - 42 unit/L LAB CHEMISTRY METHOD 11/29/2024 2:46 PM [facility] ALT (SGPT) 19 10 - 60 unit/L LAB CHEMISTRY METHOD 11/29/2024 2:46 PM [facility] Alkaline Phosphatase 114 42 - 121 unit/L LAB CHEMISTRY METHOD 11/29/2024 2:46 PM [facility] Total Protein 6.7 6.0 - 8.0 g/dL LAB CHEMISTRY METHOD 11/29/2024 2:46 PM EDT [facility] Albumin 3.1(L) 3.2 - 5.0 g/dL LAB CHEMISTRY METHOD 11/29/2024 2:46 PM EDT [facility] Total Bilirubin 0.3 0.0 - 1.4 mg/dL LAB CHEMISTRY METHOD 11/29/2024 2:46 PM EDT [facility] Blood Blood sample taken from central line / Unknown Existing Catheter / Unknown 11/29/2024 1:37 PM EDT 11/29/2024 2:04 PM EDT Quoc Bernal MD LAB BLOOD ORDERABLES Final R esult Performing Organization Address [facility]/ZIP Co de Phone Number [facility] [address] [place] [address], * CEA (11/15/2024 1:52 PM EDT) Only the most recent of2 resultswithin the time period is included. [facility] Signature CEA 2.5 0.0 - 5.0 ng/mL LAB CHEMISTRY METHOD 11/15/2024 4:32 PM EDT [facility] Blood Blood sample taken from central line / Unknown Existing Catheter / Unknown 11/15/2024 1:52 PM EDT 11/15/2024 2:08 PM EDT Narrative [facility] - 11/15/2024 4:32 PM EDT The Siemens Advia Centaur Chemiluminescent Immunoassay is used. Results obtained with different assay methods or kits cannot be used interchangeably. Results cannot be interpreted as absolute evidence of the presence or absence of malignant disease. us Quoc Bernal MD LAB BLOOD ORDERABLES Final R esult Performing Organization Address City/[facility]/ZIP Co de Phone Number [facility] [address] [place] [address], * IR Insert Tunneled CVAD w Subq [...] Signed Date: 10/29/2024 13:07 ET Workstation ID: [id number] Transcribed By: Self Edit Transcribed Date: 10/29/2024 [...] left neck. From the pocket, we curved y32-lrhoi needle and steered it under ultrasound along [...] Signed Date: 10/29/2024 13:07 ET Workstation ID: [id number] Transcribed By: Self Edit Transcribed Date: 10/29/2024 12:59 ET us Quoc Bernal MD IMG IR PROCEDURES Final Resu lt * IR Insert Tunneled CVAD w Subq Port More 5yrs Right (10/06/2024 10:26 AM EST) Anatomical Region Laterality Modality Right Interventional R adiology 10/06/2024 11:4 9 AM EST Impressions 10/06/2024 11:51 AM EST Successful placement of a right ??internal jugular [address] compatible PowerPort. ?? The port is available for immediate use. -------- FINAL REPORT -------- Dictated By: Lauro Peñaloza Dictated Date: 10/06/2024 11:49 ET Assigned Physician: Lauro Peñaloza Reviewed and Electronically Signed By: Lauro Peñaloza Signed Date: 10/06/2024 11:51 ET Workstation ID: [id number] Transcribed By: Self Edit Transcribed Date: 10/06/2024 [...] the entirety of the procedure by the radiology equipment servicer. ?? The physician spent 30 minutes of kypv-sd-[id number] sedation time with the patient. ?? Skin [...] radiologyRN. The physician spent 30 minutes of [id number]-[id number] sedation time with thepatient. Skin was anesthetized [...] placement of a right internal jugular [address] compatiblePowerPort. The port is available for immediate use. -------- FINAL REPORT -------- Dictated By: Lauro Peñaloza Dictated Date: 10/06/2024 11:49 ET Assigned Physician: Lauro Peñaloza Reviewed and Electronically Signed By: Lauro Peñaloza Signed Date: 10/06/2024 11:51 ET Workstation ID: [id number] Transcribed By: Self Edit Transcribed Date: 10/06/2024 [...] Signed Date: 09/12/2024 09:40 ET Workstation ID: [id number] Transcribed By: Self Edit Transcribed Date: 09/12/2024 [...] Signed Date: 09/12/2024 09:40 ET Workstation ID: [id number] Transcribed By: Self Edit Transcribed Date: 09/12/2024 [...] Signed Date: 09/12/2024 09:48 ET Workstation ID: [id number] Transcribed By: Self Edit Transcribed Date: 09/12/2024 [...] Signed Date: 09/12/2024 09:48 ET Workstation ID: [id number] Transcribed By: Self Edit Transcribed Date: 09/12/2024 [...] MD IMG CT PROCEDURES Final Result * COLONOSCOPY Anesthesia - MAC; [facility] ENDOSCOPY (07/29/2024 9:17 AM EST) Anatomical [...] pathology results. Narrative 07/29/2024 9:20 AM EST [facility] GI Patient Name: Cait Medrano Procedure [...] Procedure Code(s): ? --- Professional --- ? 69397, Colonoscopy, flexible; with removal of ? tumor(s), polyp(s), or other lesion(s) by snare ? technique ? 96708, Colonoscopy, flexible; with directed submucosal ? injection(s), any substance ? 20520, 59, Colonoscopy, flexible; with biopsy, single ? or multiple Diagnosis Code(s): ? --- Professional --- ? Z86.010, Personal history of colonic polyps ? D49.0, Neoplasm of unspecified behavior of digestive ? system ? D12.6, Benign neoplasm of colon, unspecified CPT copyright 2020 [employer]. All rights reserved. The codes documented in this report are preliminary and upon industrial ecologist review may be revised to meet current compliance requirements. John Plaza MD 07/29/2024 9:20:29 AM This report has been signed electronically.John Plaza MD Number of Addenda: 0 Note Initiated On: 07/29/2024 8:34 AM Scope In: Scope Out: ? Endoscopy Department at [facility] - [address] [place] [address], ? [place] [address] Procedure Note John Plaza MD - 07/29/2024 [facility] GI Patient Name: Cait Medrano Procedure [...] retroflexion views. Procedure Code(s): --- Professional --- 99973, Colonoscopy, flexible; with removal of tumor(s), polyp(s), or other lesion(s) by snare technique 42697, Colonoscopy, flexible; with directedsubmucosal injection(s), any substance 45404, 59, Colonoscopy, flexible; with biopsy,single or multiple Diagnosis Code(s): --- Professional --- Z86.010, Personal history of colonic polyps D49.0, Neoplasm of unspecified behavior ofdigestive system D12.6, Benign neoplasm of colon, unspecified CPT copyright 2020 [employer]. All rights reserved. The codes documented in this report are preliminary and upon industrial ecologist reviewmay be revised to meet current compliance requirements. John Plaza MD 07/29/2024 9:20:29 AM This report has been signed electronically.John Plaza MD Number of Addenda: 0 Note Initiated On: 07/29/2024 8:34 AM Scope In: Scope Out: Endoscopy Department at [facility] - [address] [place] [phone] IMPRESSION: - Likely malignant tumor in the [...] Recently Relevant to Health Maintenance Insurance [facility]ICARE [facility] Advance Directives Documents on File Type Date Recorded Patient Optimization Manager Expl anation Power of Environmental Field Professional 08/30/2024 7:06 AM HEALT H CARE PROXY [...] currently active code status orders. Care Teams Vp Rheumatology Relationship Specialty Start Date End Date [place] [address] PCP - General 08/20/23
--- OUTSIDE RECORDS SUMMARY | 2024-12-06 10:27 | XMS_ITS | Encounter Summary ---
Author Organization [facility] Address [address] [place] [address] Care Team Providers Care Architect Manager Name Role Phone Arabella Decker NP Primary Care Provider [phone] Reason for Visit * Episode Based Medications (Routine) - Authorized Specialty Diagnoses / Procedures Referred By Contac t Referred To Contact Diagnoses Malignant neoplasm of ascending colon (CMS/HCC V24, CMS/HCC V28) Quoc Bernal MD [address] [place] [phone] Phone: tel: fax: [address] [address] Phone: tel: fax: Referral ID Status Reason Start Date Expiration Date V isits Requested Visits Authorized [id number] Authorized 10/08/2024 10/08/2025 1 13 Encounter Details Date Type Department Care Team (Latest Contact Info) Description 11/30/2024 11:00 AM EDT - 11/30/2024 11:59 PM EDT Hospital Encounter [address] [phone] Quoc Bernal MD [address] [place] [id number] Malignant neoplasm of ascending colon (CMS/HCC V24, [...] 9:07 AM EDT documented in this encounter Medications at Time [...] Info) Description 12/06/2024 1:00 PM EDT Appointment [facility] [address] [phone] 12/07/2024 10:00 AM EDT Appointment [address] [address] 12/09/2024 9:00 AM EDT Office Visit [facility] [address] [place] [phone] Quoc Beranl MD [address] [place] [address] 12/14/2024 11:15 AM EDT Office Visit General Surgery [facility] [address] [phone] Diogo Martinez MD [address] [address] documented as of this encounter Procedures Procedure Name Priority Date/Time Associated Diagnosis Comments MAGNESIUM STAT 11/30/2024 11:28 AM EDT Malignant neoplasm of ascending colon (CMS/HCC V24, CMS/HCC V28) documented in this encounter Results * Magnesium (11/30/2024 11:28 AM EDT) Magnesium 2.1 1.9 - 2.6 mg/dL LAB CHEMISTRY METHOD 11/30/2024 11:58 AM EDT [facility] ([facility]) [facility] Blood Blood sample taken from central line / Unknown Existing Catheter / Unknown 11/30/2024 11:28 AM EDT 11/30/2024 11:38 AM EDT Quoc Bernal MD LAB BLOOD ORDERABLES Final R esult [facility] [address] [place] [address], documented in this encounter Visit Diagnoses Diagnosis [...] 11/30/2024 documented in this encounter Care Teams Architect Manager Relationship Specialty Start Date End Date Arabella Decker NP [address] [address] PCP - General 08/20/23 documented as of this encounter
--- OUTSIDE RECORDS SUMMARY | 2024-12-06 10:27 | XMS_ITS ---
Author Organization [facility] Address [address] [place] [address] Phone Care Team Providers Care Leasing Representative Name Role Phone Jeronimo Arablela CRUZ Primary Care Provider [phone] Active Problems Problem Noted Date Diagnosed Date Malignant neoplasm of ascend ing colon ([facility] V24, [facility] V28) 08/05/2024 Assessment & Plan (11/23/2024 1:00 PM EDT): Followed by Dr. Bernal Repeat colonoscopy in July Anxiety 11/06/2018 Diabetes mellitus type 2, un complicated ([facility] V24, [facility] V28) 11/06/2018 Depression 11/06/2018 Hypercholesteremia 11/06/2018 GERD (gastroesophageal reflux disease) 9 Migraines 11/06/2018 Constipation 11/06/2018 Asthmatic bronchitis without complication 2018 Current Oncology Plans FOLFOX ( Fluorouracil Continuous Infusion / Leucovorin / OXALIplatin )* Plan Start Date:10/08/2024 Plan Provider:Quoc Bernal MD Linked Problems Malignant neoplasm of ascend ing colon ([facility] V24, [facility] V28) Treatment Medications Current Day (Day 1 [...] are documented for this patient in [facility]. Treatments may have been administered in another system. Lifetime Dose Tracking * Chemical Lifetime Dose Automatic Entry Manual Entr y Fluoro Time 1.5 minutes 1.5 minutes 0 minutes Air Kerma 10 mGy 10 mGy 0 mGy
== END 2024-12-03 09:26 | disposition home or self-care (01) ==
LOC: HO.HOSX 09:25
PROVIDERS: Visit Provider Physician Assistant
DX: M25.511 Pain in right shoulder (principal); S42.214D Unspecified nondisplaced fracture of surgical neck of right humerus, subsequent encounter for fracture with routine healing; Z79.899 Other long term (current) drug therapy; Z92.21 Personal history of antineoplastic chemotherapy
CPT/HCPCS: 73030; 99212

== ENCOUNTER 2024-12-03 10:55 | Outpatient (AMB) | payer MEDICARE, OTHER, SELFPAY ==
--- NOTE | 2024-12-03 11:12 | A.OFFVIS_ITS ---
Vital Signs 12/03/24 11:17 Height 5 ft 4 in Weight 178 lb BMI 30.6 Handedness Right Intake Visit Reasons: OV-proximal RT humerus fx Intake Note: Cait is a 69 year old right hand dominant female who presents today with her for a evaluation of her right humerus fx, DOI 09/11/24. Patient reports she was doing well until she started with physical therapy. She states that they might of over manipulated her shoulder which is causing her a lot of pain. Allergies No Known Allergies Allergy (Verified 10/22/24 10:42) HPI HPI OV-proximal RT humerus fx: Details: Ms. Medrano is a 69-year-old right-hand dominant female who presents to the office today accompanied by her for routine follow-up of a right proximal humerus fracture. Date of injury was 09/11/2024. At her last appointment on 10/22/2024 she was encouraged to begin working with physical therapy. She has begun doing that at [facility] about 1 week ago she was attending her physical therapy sessions and felt an increase in pain and ever since has had a decrease in range of motion and continued increase in pain. Prior to this last therapy session she was able to reach the top of her head with ease but now has difficult time with this motion. [facility] Surgical History (Updated 09/24/24 @ 10:43 by Zach Roach) History of shoulder surgery Social History Alcohol intake: current Alcohol intake frequency: holidays/special occasions only Patient Tobacco Use Status: Never used Tobacco Current occupational status: retired Current occupation: right hand dominant Review of Systems Const All systems reviewed & are unremarkable except as noted in HPI and below Physical Exam Vital Signs: BMI result Body Mass Index 30.6 Const General: cooperative, healthy appearing and no acute distress Resp Effort & Inspection: normal respiratory effort and able to speak in complete sentences Cardio Rate: regular rate Peripheral pulses: Peripheral pulses 2+ throughout Skin Lesions: no lesions Rashes: no rashes Extrem Other: Right upper extremity: Able to reach his side of her head but improved since last visit. Able to perform roughly 80 degrees of forward flexion and abduction. Able to perform wrist flexion and extension. Able to perform full finger flexion and extension finger cross, abduction, adduction, thumbs-up and okay sign without deficit. Sensation is intact. Cap refill is brisk. Assessment & Plan Assessment & Plan (1) Closed fracture of right proximal humerus: Code(s): S42.201A - Unspecified fracture of upper end of right humerus, initial encounter for closed fracture Category: Medical Plan Ms. Medrano is a 69-year-old right-hand dominant female who presents to the office today accompanied by her for routine follow-up of a right proximal humerus fracture. Date of injury was 09/11/2024. At her last appointment on 10/22/2024 she was encouraged to begin working with physical therapy. She has begun doing that at [facility] about 1 week ago she was attending her physical therapy sessions and felt an increase in pain and ever since has had a decrease in range of motion and continued increase in pain. Prior to this last therapy session she was able to reach the top of her head with ease but now has difficult time with this motion. On the office today, we discussed holding on physical therapy for the next 1-2 weeks to allow the shoulder to rest. She will continue performing gentle [id number] exercises on her own during this time. In addition to treating her right proximal humerus fracture the patient is also undergoing chemotherapy treatments simultaneously. She missed her most recent chemotherapy session due to fatigue and not feeling well. She will follow up in 4 weeks, sooner if needed. X-rays of the right shoulder which were obtained while in the office today and were reviewed by me, Abbie Holt PA-C, revealed redemonstration of proximal humerus fracture. Orders: Orders XR shoulder RT min 2V Today M25.519 - Pain in unspecified shoulder Coding Level of Care Code Global (22387) Diagnoses Closed fracture of right proximal humerus S42.201A
[2024-12-03 11:17] VITALS: BMI 30.6
--- OUTSIDE RECORDS SUMMARY | 2024-12-03 11:40 | XMS_ITS | Clinical Summary ---
Author Organization [facility] Address [address] [place] [address] Phone Care Team Providers Care Curriculum Specialist Name Role Phone Arabella Decker NP Primary Care Provider [phone] Allergies Active Allergy Reactions Criticality Noted Date [...] Active sertraline (ZOLOFT) 25 mg tablet Take 8 tablets (200 mg total) by mouth at bedtime. Active cholecalciferol (Vitamin D3) 5,000 Units tablet Take 1 tablet (5,000 Units total) by mouth 1 (one) time each day. Active butalbital-aceta minophen-caffein e (FIORICET, ESGIC) 50-325-40 mg per tablet Take [...] Do not crush or chew. Active vit C/E/Zn/coppr/lut ein/zeaxan (PRESERVISION AREDS-2 ORAL) Take 1 capsule by [...] day if needed for dizziness. Active oxyCODONE (OXY-IR) 5 mg immediate release capsule Take 1 capsule (5 mg total) by mouth every 6 (six) hours if needed for severe pain for up to 10 doses. Max Daily Amount: 20 mg 10 capsule 5 Active isosorbide mononitrate (IMDUR) 60 mg 24 hr tablet Take 1 tablet (60 mg total) by mouth 1 (one) time each day. 3 Active acetaminophen (TYLENOL 8 HOUR) 650 mg 8 hr tablet Take 2 tablets (1,300 mg total) by mouth every 8 (eight) hours if needed for mild pain. Do not crush, chew, or split. Active pantoprazole (PROTONIX) 40 mg EC tabletIndication s:GERD (gastroesophagea l reflux disease) Take 1 tablet (40 mg total) by mouth 2 (two) times a day. 180 tablet 1 5 Active LORazepam (ATIVAN) 1 mg tablet Take 1 tablet (1 mg total) by mouth at bedtime as needed for anxiety or sleep. Max Daily Amount: 1 mg 30 tablet 5 12/17/19 25 Active LORazepam (ATIVAN) 1 mg tablet Take 1 tablet (1 mg total) by mouth at bedtime as needed for anxiety or sleep. Max Daily Amount: 1 mg 30 tablet 5 11/17/19 25 Discontinue d(Reorder) prochlorperazine (COMPAZINE) 10 mg tablet Take 1 tablet (10 mg total) by mouth every 8 (eight) hours if needed for nausea. 60 tablet 1 5 11/15/19 25 Active Problems Problem Noted Date Diagnosed Date Malignant neoplasm of ascend ing colon ([facility] V24, [facility] V28) 08/05/2024 Assessment & Plan (11/23/2024 1:00 PM EDT): Followed by Dr. Bernal Repeat colonoscopy in July Anxiety 11/06/2018 Diabetes mellitus type 2, un complicated ([facility] V24, [facility] V28) 11/06/2018 Depression 11/06/2018 Hypercholesteremia 11/06/2018 GERD (gastroesophageal reflux disease) 9 Migraines 11/06/2018 Constipation 11/06/2018 Asthmatic bronchitis without complication 2018 Encounters Date Type Department Care Team Description 11/30/2024 11:00 AM EDT Hospital Encounter [facility] [address] [place] [phone] Quoc Bernal MD Malignant neoplasm of ascending colon (CMS/HCC V24, CMS/HCC V28) (Primary Dx) 11/29/2024 1:30 PM EDT - 11/29/2024 11:59 PM EDT Hospital Encounter [address] [phone] Quoc Bernal MD Malignant neoplasm of ascending colon (CMS/HCC V24, CMS/HCC V28) Discharge Disposition: Home or Self Care 11/23/2024 1:00 PM EDT Office Visit Gastroenterology - [address] [phone] Susy Kaiser, ANTHONY Malignant neoplasm of ascending colon (CMS/HCC V24, CMS/HCC V28) (Primary Dx) 11/18/2024 1:59 PM EDT - 11/18/2024 11:59 PM EDT Hospital Encounter [facility] [address] [place] [phone] Quoc Bernal MD Malignant neoplasm of ascending colon ([facility]/HCC V24, CMS/HCC V28) (Primary Dx) Discharge Disposition: Home or Self Care 11/16/2024 10:55 AM EDT - 11/16/2024 11:59 PM EDT Hospital Encounter [address] [phone] Quoc Bernal MD Malignant neoplasm of ascending colon ([facility]/HCC V24, CMS/HCC V28) (Primary Dx) Discharge Disposition: Home or Self Care 11/16/2024 Telephone Gastroenterology - [address] [phone] Susy Kaiser NP insurance 11/15/2024 1:27 PM EDT - 11/15/2024 11:59 PM EDT Hospital Encounter [address] [phone] Quoc Bernal MD Malignant neoplasm of ascending colon (CMS/HCC V24, CMS/HCC V28) Discharge Disposition: Home or Self Care 11/11/2024 11:45 AM EDT Office Visit [facility] Hematology Oncology [address] [place] [phone] Quoc Bernal MD Malignant neoplasm of ascending colon (CMS/HCC V24, CMS/HCC V28) (Primary Dx); Chemotherapy induced nausea and vomiting 11/04/2024 1:30 PM EDT - 11/04/2024 11:59 PM EDT Hospital Encounter [facility] [address] [place] [phone] Quoc Bernal MD Malignant neoplasm of ascending colon (CMS/HCC V24, CMS/HCC V28) (Primary Dx) Discharge Disposition: Home or Self Care 11/02/2024 10:55 AM EDT - 11/02/2024 11:59 PM EDT Hospital Encounter [facility] [address] [place] [phone] Quoc Bernal MD Malignant neoplasm of ascending colon (CMS/HCC V24, CMS/HCC V28) (Primary Dx) Discharge Disposition: Home or Self Care 10/29/2024 8:49 AM EDT - 10/29/2024 11:59 PM EDT Hospital Encounter [facility] Interventional Radiology [address] [place] [phone] Malignant neoplasm of ascending colon ([facility]/HCC V24, CMS/HCC V28) Discharge Disposition: Home or Self Care 10/26/2024 Telephone Gastroenterology - [address] [phone] Susy Kaiser, RECORDS MANAGEMENT ASSOCIATE Med Refill 10/25/2024 Telephone [facility] Hematology Oncology [address] [place] [phone] Emily Zuniga MA Port Removal/ Port Placement appt 10/21/2024 10:45 AM EDT Office Visit [facility] Hematology Oncology [address] [place] [phone] Quoc Bernal MD Malignant neoplasm of ascending colon (CMS/HCC V24, CMS/HCC V28) (Primary Dx) 10/20/2024 10:17 AM EDT - 10/20/2024 11:59 PM EDT Hospital Encounter [facility] [address] [place] [phone] Quoc Bernal MD Malignant neoplasm of ascending colon (CMS/HCC V24, CMS/HCC V28) Discharge Disposition: Home or Self Care 10/15/2024 1:00 PM EST - 10/15/2024 11:59 PM EST Hospital Encounter [facility] [address] [place] [phone] Quoc Bernal MD Malignant neoplasm of ascending colon (CMS/HCC V24, CMS/HCC V28) (Primary Dx) Discharge Disposition: Home or Self Care 10/14/2024 1:26 PM EST - 10/14/2024 11:59 PM EST Hospital Encounter [facility] [address] [place] [phone] Quoc Bernal MD Malignant neoplasm of ascending colon (CMS/HCC V24, CMS/HCC V28) (Primary Dx) Discharge Disposition: Home or Self Care 10/12/2024 10:55 AM EST - 10/12/2024 11:59 PM EST Hospital Encounter [facility] [address] [place] [phone] Quoc Bernal MD Malignant neoplasm of ascending colon (CMS/HCC V24, CMS/HCC V28) (Primary Dx) Discharge Disposition: Home or Self Care 10/12/2024 Social Work [facility] [address] [place] [phone] Ancelmo Beyer LMSW 10/11/2024 11:30 AM EST - 10/11/2024 11:59 PM EST Hospital Encounter [facility] [address] [place] [phone] Quoc Bernal MD Malignant neoplasm of ascending colon ([facility]/HCC V24, [facility]/HCC V28) Discharge Disposition: Home or Self Care 10/08/2024 11:45 AM EST Office Visit [facility] Hematology Oncology [address] [place] [phone] Quoc Bernal MD Malignant neoplasm of ascending colon ([facility] V24, [facility] V28) (Primary Dx) 10/06/2024 8:05 AM EST - 10/06/2024 11:59 PM EST Hospital Encounter [facility] Interventional Radiology [address] [place] [phone] Discharge Disposition: Home or Self Care 09/27/2024 Telephone [facility] Hematology Oncology [address] [place] [phone] Emily Zuniga MA Port Placement appt 09/24/2024 3:30 PM EST Office Visit [facility] Hematology Oncology [address] [place] [phone] Quoc Bernal MD Malignant neoplasm of ascending colon ([facility] V24, [facility] V28) 09/14/2024 3:45 PM EST Office Visit General Surgery - [place] [address] [place] [phone] Diogo Martinez MD Malignant neoplasm of ascending colon ([facility] V24, [facility] V28) (Primary Dx) 09/11/2024 3:12 PM EST - 09/11/2024 6:20 PM EST Emergency [facility] Emergency [address] [place] [phone] Evangelista Tierney MD Fracture of humeral head, closed, right, initial encounter (Primary Dx); Acute head injury without loss of consciousness, initial encounter; Acute pain of right shoulder; Right elbow pain Discharge Disposition: Home or Self Care from [...] Diabetes mellitus type 1, un complicated, on terminal superintendent insulin pump ([facility] V24, [facility] V28) 11/06/2018 DX:Diabetes mellitus type 2, uncomplicated ([facility]) Hypercholesteremia 11/06/2018 DX:Hyperchole steremia Depression 11/06/2018 DX:Depression Anxiety 11/06/2018 DX:Anxiety GERD (gastroesophageal reflux disease) 11/06/2018 DX:GERD (gastroesophageal reflux disease) Migraines 11/06/2018 DX:Migraines Constipation 11/06/2018 DX:Constipation Blindness 2004 Sleep apnea Hypertension CHF (congestive heart failur e) ([facility] V24, [facility] V28) Heart disease Colon polyp Hiatal hernia Angina pectoris ([facility] V24) Cancer, colon ([facility] V24, [facility] V28) PONV (postoperative nausea and vomiting) Myocardial infarction (CMS/H CC V24, CMS/HCC V28) Arthritis Joint pain Social History Tobacco Use [...] Sign Reading Time Taken Comments Blood Pressure 151/60 11/30/2024 11:22 AM EDT Pulse 67 11/30/2024 11:22 AM EDT Temperature 36.4 ??C (97.6 ??F) 11/30/2024 1 1:22 AM EDT Respiratory Rate 18 11/18/2024 3:10 PM EDT Oxygen Saturation 100% 11/30/2024 11: 22 AM EDT Inhaled Oxygen Concentration - - Weight 81.1 kg (178 lb 12.8 oz) 025 11:22 AM EDT Height 162.6 cm (5' 4 ) 10/29/2024 9:07 AM EDT Body Mass Index 30.69 10/29/2024 9:07 AM EDT Plan of Treatment Upcoming Encounters Date Type Department Care Team (Late st Contact Info) Description 12/06/2024 1:00 PM EDT Appointment [facility] [address] [place] [phone] 12/07/2024 10:00 AM EDT Appointment [facility] [address] [place] [phone] 12/09/2024 9:00 AM EDT Office Visit [facility] Hematology Oncology [address] [place] [phone] Quoc Bernal MD [address] [place] [address] 12/14/2024 11:15 AM EDT Office Visit General Surgery - [place] [address] [facility] [address] [place] [phone] Diogo Martinez MD 175 [facility] [address] [place] [address] Health Maintenance Due Date Last Done Comments [...] Annual Urine Albumin-Creatinine Ratio (uACR) 02/15/2024 02/14/2023 COVID-19 Vaccine (8 - Pfizer risk 2023- season) 2024 04/15/2024, 05/23/2023, 05/14/2022, Additional history exists Falls Risk Assessment 11/16/2025 11/16/2024 Diabetes: Annual GFR (Glomerular Filtration Rate) 11/29/2025 11/29/2024, 11/15/2024, 10/29/2024, Additional history exists Hypertension/CHF/CAD Annual BMP Blood Test 11/29/2025 11/29/2024, 11/15/2024, 10/29/2024, Additional history exists DTaP,Tdap,and Td Vaccines (2 - Td or Tdap) 07/16/2034 07/16/2024 Colorectal Cancer Screening: Colonoscopy 07/29/2034 07/29/2024 Zoster Vaccines Completed 03/27/2020, 09/30/2019 RSV Immunization Adult Patients Completed 06/23/2023 Pneumococcal Vaccine: 50+ Years Completed 07/15/2023, 07/15/2023, 09/03/2019 Influenza Vaccine Completed 04/15/2024, , 05/14/2022, Additional [...] age to complete this topic Meningococcal B Vaccine Aged Out No l onger eligible based on patient's age to complete this topic RSV Immunization Patients Under 20 months Aged Out No longer eligible based on patient's age to complete this topic Varicella Vaccines Aged Out No longer eligible based on patient's age to complete this topic Medical Devices Implanted Type Area Insulation Sprayer Device Identifier Shelf Expiration Date Model / Serial / Lot Port Pwr Isp Attach 6f Interm Nenita - [id number] - [id number] Implanted:Qty: 1 on 10/06/2024 by Lauro Peñaloza MD at [facility] Central/Mandy pheral Catheters and Ports Right: Chest Wall CR BARD PERIPHERAL VASCULAR [id number] 06/10/2025 [id number] / [id number] / [id number] Port Pwr Slim Poly 6f Nenita Inte Attach - [id number] - [id number] Implanted:Qty: 1 on 10/29/2024 by Leandro Zaldivar MD at [facility] Central/Mandy pheral Catheters and Ports Left: Chest Wall CR BARD PERIPHERAL VASCULAR [id number] 06/10/2025 [id number] / [id number] / [id number] Other Cardiac Implant Other Cardiac Implant N/A: Chest Procedures Procedure Name Priority Date/Time Associated Diagnosis Comments MAGNESIUM STAT 11/30/2024 11:28 AM EDT Malignant neoplasm of ascending colon (CMS/HCC V24, CMS/HCC V28) CBC WITH AUTO DIFFERENTIAL Routine 11/29/2024 1:37 PM EDT Malignant neoplasm of ascending colon (CMS/HCC V24, CMS/HCC V28) COMPREHENSIVE METABOLIC PANEL Routine 11/29/2024 1:37 PM EDT Malignant neoplasm of ascending colon (CMS/HCC V24, CMS/HCC V28) CBC AND DIFFERENTIAL Routine 11/29/2024 1:37 PM EDT Malignant neoplasm of ascending colon (CMS/HCC V24, CMS/HCC V28) CBC WITH AUTO DIFFERENTIAL Routine 11/15/2024 1:52 PM EDT Malignant neoplasm of ascending colon (CMS/HCC V24, CMS/HCC V28) CARCINOEMBRYONIC ANTIGEN Routine 025 1:52 PM EDT Malignant neoplasm of ascending colon (CMS/HCC V24, CMS/HCC V28) COMPREHENSIVE METABOLIC PANEL Routine 11/15/2024 1:52 PM EDT Malignant neoplasm of ascending colon (CMS/HCC V24, CMS/HCC V28) CBC AND DIFFERENTIAL Routine 11/15/2024 1:52 PM EDT Malignant neoplasm of ascending colon (CMS/HCC V24, CMS/HCC V28) IR INSERT TUNNELED CVAD W SUBQ PORT MORE 5YRS LEFT STAT 10/29/2024 12:07 PM EDT Malignant neoplasm of ascending colon (CMS/HCC V24, CMS/HCC V28) CBC WITH AUTO DIFFERENTIAL Routine 10/29/2024 9:32 AM EDT COMPREHENSIVE METABOLIC PANEL Routine 10/29/2024 9:32 AM EDT CBC AND DIFFERENTIAL Routine 10/29/2024 9:32 AM EDT CBC WITH AUTO DIFFERENTIAL Routine 10/20/2024 10:26 AM EDT Malignant neoplasm of ascending colon (CMS/HCC V24, CMS/HCC V28) COMPREHENSIVE METABOLIC PANEL Routine 10/20/2024 10:26 AM EDT Malignant neoplasm of ascending colon (CMS/HCC V24, CMS/HCC V28) CBC AND DIFFERENTIAL Routine 10/20/2024 10:26 AM EDT Malignant neoplasm of ascending colon (CMS/HCC V24, CMS/HCC V28) CBC WITH AUTO DIFFERENTIAL Routine 10/11/2024 12:00 PM EST Malignant neoplasm of ascending colon (CMS/HCC V24, CMS/HCC V28) COMPREHENSIVE METABOLIC PANEL Routine 10/11/2024 12:00 PM EST Malignant neoplasm of ascending colon (CMS/HCC V24, CMS/HCC V28) CBC AND DIFFERENTIAL Routine 10/11/2024 12:00 PM EST Malignant neoplasm of ascending colon (CMS/HCC V24, CMS/HCC V28) IR INSERT TUNNELED CVAD W SUBQ PORT MORE 5YRS RIGHT STAT 10/06/2024 10:26 AM EST Malignant neoplasm of ascending colon (CMS/HCC V24, CMS/HCC V28) CBC WITH AUTO DIFFERENTIAL Routine 10/06/2024 8:50 [...] WO CONTRAST STAT 09/11/2024 3:54 PM EST COLONOSCOPY Routine 07/29/2024 9:17 AM EST Special screening for malignant neoplasms, colon from Last 3 Months or Most Recently Relevant to Health Maintenance Results * Magnesium (11/30/2024 11:28 AM EDT) [facility] Magnesium 2.1 1.9 - 2.6 mg/dL LAB CHEMISTRY METHOD 11/30/2024 11:58 AM EDT [facility] Blood Blood sample taken from central line / Unknown Existing Catheter / Unknown 11/30/2024 11:28 AM EDT 11/30/2024 11:38 AM EDT Quoc Bernal MD LAB BLOOD ORDERABLES Final R esult [facility] [address] [place] [address], * (ABNORMAL) CBC auto differential (11/29/2024 1:37 PM EDT) Only the most recent of6 resultswithin the time period is included. [facility] WBC 7.7 4.8 - 10.8 K/mcL LAB HEMETOLOGY METHOD 11/29/2024 2:13 PM EDT [facility] RBC 3.50(L) 3.80 - 4.80 M/mcL LAB HEMETOLOGY METHOD 11/29/2024 2:13 PM EDT [facility] Hemoglobin 11.2(L) 11.5 - 16.0 g/dL LAB HEMETOLOGY METHOD 11/29/2024 2:13 PM EDT [facility] Hematocrit 33.9(L) 35.0 - 47.0 % LAB HEMETOLOGY METHOD 11/29/2024 2:13 PM EDT [facility] MCV 97.1 79.0 - 98.0 FL LAB HEMETOLOGY METHOD 11/29/2024 2:13 PM EDT [facility] MCH 32.1(H) 27.0 - 32.0 pcg LAB HEMETOLOGY METHOD 11/29/2024 2:13 PM EDT [facility] MCHC 33.0 32.0 - 37.0 g/dL LAB HEMETOLOGY METHOD 11/29/2024 2:13 PM T [facility] RDW 16.9(H) 11.0 - 15.0 % LAB HEMETOLOGY METHOD 11/29/2024 2:13 PM EDT [facility] Platelets 201 130 - 400 K/mcL LAB HEMETOLOGY METHOD 11/29/2024 2:13 PM EDT [facility] MPV 10.8 7.0 - 11.0 FL LAB HEMETOLOGY [facility]24 [facility] NRBC 0.0 <1.0 % LAB HEMETOLOGY METHOD 11/29/2024 2:13 PM EDT [facility] NRBC Absolute 0.00 <0.10 K/mcL LAB HEMETOLOGY METHOD 11/29/2024 2:13 PM [facility] Neutrophils Relative 61.8 % LAB HEMETOLOGY METHOD 11/29/2024 2:13 PM [facility] Lymphocytes Relative 23.6 % LAB HEMETOLOGY METHOD 11/29/2024 2:13 PM [facility] Monocytes Relative 11.4 % LAB HEMETOLOGY METHOD 11/29/2024 2:13 PM [facility] Eosinophils Relative 2.6 % LAB [facility]EMETOLOGY METHOD [facility]/29[facility]24 [facility] Basophils Relative 0.3 % LAB HEMETOLOGY METHOD 11/29/2024 2:13 PM [facility] Immature Granulocytes Relative 0.3 % LAB HEMETOLOGY METHOD 11/29/2024 2:13 PM EDT [facility] Neutrophils Absolute 4.76 1.50 - 7.00 K/mcL LAB HEMETOLOGY METHOD 11/29/2024 2:13 PM EDT [facility] Lymphocytes Absolute 1.82 1.00 - 5.00 K/mcL LAB HEMETOLOGY METHOD 11/29/2024 2:13 PM EDT [facility] Monocytes Absolute 0.88 0.20 - 1.00 K/mcL LAB HEMETOLOGY METHOD 11/29/2024 2:13 PM EDT [facility] Eosinophils Absolute 0.20 0.00 - 0.50 K/mcL LAB HEMETOLOGY METHOD 11/29/2024 2:13 PM EDT [facility] Basophils Absolute 0.02 0.00 - 0.20 K/mcL LAB HEMETOLOGY METHOD 11/29/2024 2:13 PM EDT [facility] Immature Granulocytes Absolute 0.02 0.00 - 0.03 K/mcL LAB HEMETOLOGY METHOD 11/29/2024 2:13 PM EDT [facility] Blood Blood sample taken from central line / Unknown Existing Catheter / Unknown 11/29/2024 1:37 PM EDT 11/29/2024 2:04 PM EDT us Quoc Bernal MD LAB BLOOD ORDERABLES Final R esult [facility] [address] [place] [address], * (ABNORMAL) Comprehensive metabolic panel (11/29/2024 1:37 PM EDT) Only the most recent of6 resultswithin the time period is included. Sodium 139 133 - 145 mmol/L LAB CHEMISTRY METHOD 11/29/2024 2:46 PM EDT [facility] Potassium 3.0(L) 3.5 - 5.5 mmol/L LAB CHEMISTRY METHOD 11/29/2024 2:46 PM [facility] Chloride 106 96 - 110 mmol/L LAB CHEMISTRY METHOD 11/29/2024 2:46 PM [facility] CO2 23 21 - 32 mmol/L LAB CHEMISTRY METHOD 11/29/2024 2:46 PM [facility] Anion Gap 10 3 - 11 LAB CHEMISTRY METHOD 11/29/2024 2:46 PM [facility] Glucose 159(H) 70 - 100 mg/dL LAB CHEMISTRY METHOD 11/29/2024 2:46 PM [facility] BUN 24 5 - 25 mg/dL LAB CHEMISTRY METHOD 11/29/2024 2:46 PM [facility] Creatinine 0.94 0.50 - 1.10 mg/dL LAB CHEMISTRY METHOD 11/29/2024 2:46 PM [facility] eGFR 67 >=60 mL/min/1. 73m2 LAB CHEMISTRY METHOD 11/29/2024 2:46 PM [facility] Comment:Calculation based on the??Chronic Kidney Disease Epidemiology Collaboration (CKD-EPI) equation refit??without adjustment for race. BUN/Creatinine Ratio 25.5 LAB CHEMISTRY METHOD 11/29/2024 2:46 PM [facility] Calcium 8.9 8.5 - 10.5 mg/dL LAB CHEMISTRY METHOD 11/29/2024 2:46 PM [facility] AST (SGOT) 14 10 - 42 unit/L LAB CHEMISTRY METHOD 11/29/2024 2:46 PM [facility] ALT (SGPT) 19 10 - 60 unit/L LAB CHEMISTRY METHOD 11/29/2024 2:46 PM [facility] Alkaline Phosphatase 114 42 - 121 unit/L LAB CHEMISTRY METHOD 11/29/2024 2:46 PM [facility] Total Protein 6.7 6.0 - 8.0 g/dL LAB CHEMISTRY METHOD 11/29/2024 2:46 PM EDT [facility] Albumin 3.1(L) 3.2 - 5.0 g/dL LAB CHEMISTRY METHOD 11/29/2024 2:46 PM EDT [facility] Total Bilirubin 0.3 0.0 - 1.4 mg/dL LAB CHEMISTRY METHOD 11/29/2024 2:46 PM EDT [facility] Blood Blood sample taken from central line / Unknown Existing Catheter / Unknown 11/29/2024 1:37 PM EDT 11/29/2024 2:04 PM EDT us Quoc Bernal MD LAB BLOOD ORDERABLES Final R esult Performing Organization Address [facility] Co de Phone Number [facility] [address] [place] [address], [place] [phone] * CEA (11/15/2024 1:52 PM EDT) Only the most recent of2 resultswithin the time period is included. CEA 2.5 0.0 - 5.0 ng/mL LAB CHEMISTRY METHOD 11/15/2024 4:32 PM EDT [facility] Blood Blood sample taken from central line / Unknown Existing Catheter / Unknown 11/15/2024 1:52 PM EDT 11/15/2024 2:08 PM EDT Narrative [facility] - 11/15/2024 4:32 PM EDT The Siemens Advia Centaur Chemiluminescent Immunoassay is used. Results obtained with different assay methods or kits cannot be used interchangeably. Results cannot be interpreted as absolute evidence of the presence or absence of malignant disease. us Quoc Bernal MD LAB BLOOD ORDERABLES Final R esult Performing Organization Address [facility]/ZIP Co de Phone Number [facility] [address] [place] [address], [place] [phone] * IR Insert Tunneled CVAD w Subq Port More 5yrs Left (10/29/2024 12:07 PM EDT) Anatomical Region Laterality Modality Left Interventional R adiology 10/29/2024 12:5 9 PM EDT Narrative 10/29/2024 1:07 PM EDT History: Cancer. Dehiscence of port incision on right. Procedures performed: 1. ??Removal of a port from the right chest 2. ??Placement of a new port via the left internal jugular vein Physician: Chong Zaldivar MD Anesthesia: IV moderate sedation with intravenous fentanyl and versed was administered under my direct supervision for a total of 60 minutes with continuous physiologic monitoring. ??On the right side, 15 mL of 1% lidocaine was injected subcutaneously for local anesthesia. ??On the left, 10 mL of lidocaine was injected subcutaneously at the port site and along the tract to the neck where the catheter entered the jugular vein. Specimen: None Drain: None Estimated blood loss: Minimal Consultations: None Procedure in detail: Informed and written consent was obtained. ??The patient was positioned on the angiography table and the right upper chest was prepped and draped. ??Local anesthesia was administered subcutaneously at the location of the existing port. ??The incision was partially dehisced. ??The incision was opened with a #15 blade and blunt dissection was performed to free the existing port from the pocket. ??The pocket was copiously irrigated with antibiotic solution. ??We felt that it was safe to move forward with closure of the incision. ??The pocket was closed initially with vertical mattress 2-0 interrupted Vicryl suture. ??This was followed by a subcuticular 4-0 Monocryl suture. ??Two layers of Dermabond were then applied to the incision. ??A sterile dressing was applied after the glue dried. Next, we directed our attention to the left side and the left neck and chest were prepped and draped. ??At the planned location for the port, local anesthesia was administered to the subcutaneous tissues. ??A small incision was made with a #15 blade and blunt dissection was performed to create a pocket for the port. ??Local anesthesia was then extended along a subcutaneous tract to the left neck. ??From the pocket, we curved a 21-gauge needle and steered it under ultrasound along a subcutaneous tunnel from the port incision to the neck and then steered the needle into the left internal jugular vein. ??The microwire was threaded into this needle and the needle was removed. ??A transitional dilator was then used to exchange for a stiff Glidewire, which we advanced to the inferior vena cava. ??Over the stiff Glidewire, the peel-away sheath was placed. ??We then removed the dilator of the peel-away sheath and over the wire advanced the catheter of the port. ??The peel-away sheath was removed as well as the wire. ??The port was then cut to the appropriate length such that the tip terminates in the right atrium. ??It was connected to the port. ??The port was tested and flushes and aspirates appropriately. ??We then locked it with heparin and inserted the port into the pocket we had created. ??The patient noted that heparin was safe for use and that the only restriction was long-term use because of her diabetic retinopathy. ??The pocket was copiously irrigated with antibiotic solution. ??The pocket was closed initially with vertical mattress 2-0 interrupted Vicryl suture. ??This was followed by a subcuticular 4-0 Monocryl suture. ??Two layers of Dermabond were then applied to the incision. ??A sterile dressing was applied after the glue dried. ??A saved fluoroscopic image shows that the catheter tip terminates in the right atrium. Summary: Successful removal of a port from the right chest because of incisional dehiscence. ??Successful placement of a new port in the left chest via the left internal jugular vein as described. -------- FINAL REPORT -------- Dictated By: Leandro Zaldivar Dictated Date: 10/29/2024 12:59 ET Assigned Physician: Leandro Zaldivar Reviewed and Electronically Signed By: Leandro Zaldivar Signed Date: 10/29/2024 13:07 ET Workstation ID: [id number] Transcribed By: Self Edit Transcribed Date: 10/29/2024 12:59 ET Procedure Note Leandro Zaldivar MD - 10/29/2024 History: Cancer. Dehiscence of port incision on right. Procedures performed: 1. Removal of a port from the right chest 2. Placement of a new port via the left internal jugular vein Physician: Chong Zaldivar MD Anesthesia: IV moderate sedation with intravenous fentanyl and versed wasadministered under my direct supervision for a total of 60 minutes withcontinuous physiologic monitoring. On the right side, 15 mL of 1%lidocaine was injected subcutaneously for local anesthesia. On the left,10 mL of lidocaine was injected subcutaneously at the port site and alongthe tract to the neck where the catheter entered the jugular vein. Specimen: None Drain: None Estimated blood loss: Minimal Consultations: None Procedure in detail: Informed and written consent was obtained. The patient was positioned onthe angiography table and the right upper chest was prepped and draped.Local anesthesia was administered subcutaneously at the location of theexisting port. The incision was partially dehisced. The incision wasopened with a #15 blade and blunt dissection was performed to free theexisting port from the pocket. The pocket was copiously irrigated withantibiotic solution. We felt that it was safe to move forward withclosure of the incision. The pocket was closed initially with verticalmattress 2-0 interrupted Vicryl suture. This was followed by asubcuticular 4-0 Monocryl suture. Two layers of Dermabond were thenapplied to the incision. A sterile dressing was applied after the gluedried. Next, we directed our attention to the left side and the left neck andchest were prepped and draped. At the planned location for the port,local anesthesia was administered to the subcutaneous tissues. A smallincision was made with a #15 blade and blunt dissection was performed tocreate a pocket for the port. Local anesthesia was then extended along asubcutaneous tract to the left neck. From the pocket, we curved [id number] needle and steered it under ultrasound along a subcutaneoustunnel from the port incision to the neck and then steered the needle intothe left internal jugular vein. The microwire was threaded into thisneedle and the needle was removed. A transitional dilator was then usedto exchange for a stiff Glidewire, which we advanced to the inferior venacava. Over the stiff Glidewire, the peel-away sheath was placed. We thenremoved the dilator of the peel-away sheath and over the wire advanced thecatheter of the port. The peel-away sheath was removed as well as the wire. The port was then cut to the appropriate length suchthat the tip terminates in the right atrium. It was connected to theport. The port was tested and flushes and aspirates appropriately. Julio César locked it with heparin and inserted the port into the pocket we hadcreated. The patient noted that heparin was safe for use and that theonly restriction was long-term use because of her diabetic retinopathy.The pocket was copiously irrigated with antibiotic solution. The pocketwas closed initially with vertical mattress 2-0 interrupted Vicryl suture.This was followed by a subcuticular 4-0 Monocryl suture. Two layers ofDermabond were then applied to the incision. A sterile dressing wasapplied after the glue dried. A saved fluoroscopic image shows that thecatheter tip terminates in the right atrium. Summary: Successful removal of a port from the right chest because ofincisional dehiscence. Successful placement of a new port in the leftchest via the left internal jugular vein as described. -------- FINAL REPORT -------- Dictated By: Leandro Zaldivar Dictated Date: 10/29/2024 12:59 ET Assigned Physician: Leandro Zaldivar Reviewed and Electronically Signed By: Leandro Zaldivar Signed Date: 10/29/2024 13:07 ET Workstation ID: [id number] Transcribed By: Self Edit Transcribed Date: 10/29/2024 12:59 ET Quoc Bernal MD IMG IR PROCEDURES Final Resu lt * IR Insert Tunneled CVAD w Subq Port More 5yrs Right (10/06/2024 10:26 AM EST) Anatomical Region Laterality Modality Right Interventional R adiology 10/06/2024 11:4 9 AM EST Impressions 10/06/2024 11:51 AM EST Successful placement of a right ??internal jugular [address] compatible PowerPort. ?? The port is available for immediate use. -------- FINAL REPORT -------- Dictated By: Lauro Peñaloza Dictated Date: 10/06/2024 11:49 ET Assigned Physician: Lauro Peñaloza Reviewed and Electronically Signed By: Lauro Peñaloza Signed Date: 10/06/2024 11:51 ET Workstation ID: [id number] Transcribed By: Self Edit Transcribed Date: 10/06/2024 [...] the entirety of the procedure by the assistant professor of anthropology. ?? The physician spent 30 minutes of aiwq-ma-sdnw sedation time with the patient. ?? Skin [...] radiologyRN. The physician spent 30 minutes of uatc-[id number]-gsbn sedation time with thepatient. Skin was anesthetized [...] placement of a right internal jugular [address]PowerPort. The port is available for immediate use. -------- FINAL REPORT -------- Dictated By: Lauro Peñaloza Dictated Date: 10/06/2024 11:49 ET Assigned Physician: Lauro Peñaloza Reviewed and Electronically Signed By: Lauro Peñaloza Signed Date: 10/06/2024 11:51 ET Workstation ID: [id number] Transcribed By: Self Edit Transcribed Date: 10/06/2024 11:49 ET us Quoc Bernal MD IMG IR PROCEDURES Final Resu lt * XR Elbow 3+ Views Right (09/11/2024 [...] Signed Date: 09/12/2024 09:40 ET Workstation ID: [id number] Transcribed By: Self Edit Transcribed Date: 09/12/2024 [...] Signed Date: 09/12/2024 09:40 ET Workstation ID: [id number] Transcribed By: Self Edit Transcribed Date: 09/12/2024 09:39 ET us Evangelista Tierney MD IMG XR [...] Signed Date: 09/12/2024 09:48 ET Workstation ID: [id number] Transcribed By: Self Edit Transcribed Date: 09/12/2024 [...] Signed Date: 09/12/2024 09:48 ET Workstation ID: [id number] Transcribed By: Self Edit Transcribed Date: 09/12/2024 [...] Tierney MD IM CT PROCEDURES Final Result * CT Head [...] MD on 09/11/2024 16:21:46 Evangelista Tierney MD [facility] CT PROCEDURES Final Result * COLONOSCOPY Anesthesia - MAC; [facility] ENDOSCOPY (07/29/2024 9:17 AM EST) Anatomical Region [...] pathology results. Narrative 07/29/2024 9:20 AM EST [facility] GI Patient Name: Cait Medrano Procedure [...] Procedure Code(s): ? --- Professional --- ? 81688, Colonoscopy, flexible; with removal of ? tumor(s), polyp(s), or other lesion(s) by snare ? technique ? 05382, Colonoscopy, flexible; with directed submucosal ? injection(s), any substance ? 83626, 59, Colonoscopy, flexible; with biopsy, single ? or multiple Diagnosis Code(s): ? --- Professional --- ? Z86.010, Personal history of colonic polyps ? D49.0, Neoplasm of unspecified behavior of digestive ? system ? D12.6, Benign neoplasm of colon, unspecified CPT copyright 2020 [employer]. All rights reserved. The codes documented in this report are preliminary and upon de icer review may be revised to meet current compliance requirements. John Plaza MD 07/29/2024 9:20:29 AM This report has been signed electronically.John Plaza MD Number of Addenda: 0 Note Initiated On: 07/29/2024 8:34 AM Scope In: Scope Out: ? Endoscopy Department at [facility] - [address] [place] [address], ? [place] [address] Procedure Note John Plaza MD - 07/29/2024 [facility] GI Patient Name: Cait Medrano Procedure [...] retroflexion views. Procedure Code(s): --- Professional --- 26817, Colonoscopy, flexible; with removal of tumor(s), polyp(s), or other lesion(s) by snare technique 14804, Colonoscopy, flexible; with directedsubmucosal injection(s), any substance 33188, 59, Colonoscopy, flexible; with biopsy,single or multiple Diagnosis Code(s): --- Professional --- Z86.010, Personal history of colonic polyps D49.0, Neoplasm of unspecified behavior ofdigestive system D12.6, Benign neoplasm of colon, unspecified CPT copyright 2020 [employer]. All rights reserved. The codes documented in this report are preliminary and upon de icer reviewmay be revised to meet current compliance requirements. John Plaza MD 07/29/2024 9:20:29 AM This report has been signed electronically.John Plaza MD Number of Addenda: 0 Note Initiated On: 07/29/2024 8:34 AM Scope In: Scope Out: Endoscopy Department at [facility] - [address] [place] [id number] IMPRESSION: - Likely malignant tumor in the [...] colonoscopy for surveillance based on pathology results. 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 Care Teams Curriculum Specialist Relationship Specialty Start Date End Date Arabella Decker NP [address] [address] PCP - General 08/20/23
--- OUTSIDE RECORDS SUMMARY | 2024-12-03 11:40 | XMS_ITS | Encounter Summary ---
Author Organization [facility] Address [address] [place] [address] Care Team Providers Care Dentistry Professor Name Role Phone Arabella Decker NP Primary Care Provider [phone] Reason for Visit * Reason Onset Date Comments insurance 11/16/2024 Encounter Details Date Type Department Care Team ([facility] st Contact Info) Description 11/16/2024 Telephone Gastroenterology - [address] [place] [phone] Susy Kaiser NP [address] [place] [address] [place] [id number] insurance Social History Tobacco Use Types Packs/Day Years [...] as of this encounter Progress Notes * Marisa Mendes - 11/16/2024 2:34 PM EDT Lmom for pt stating we are out of network with Kiya for her 11/23 appt and she would be responsible for the 20% [employer]care doesn't cover, also stated for her to c/b to r/s if she wasn't ok with that documented in this encounter Plan of Treatment Upcoming Encounters Date Type Department Care Team (Late st Contact Info) Description 12/06/2024 1:00 PM EDT Appointment [address] [phone] 12/07/2024 10:00 AM EDT Appointment [facility] [address] [place] [phone] 12/09/2024 9:00 AM EDT Office Visit [facility] Hematology Oncology [address] [place] [phone] Quoc Bernal MD [address] [place] [address] 12/14/2024 11:15 AM EDT Office Visit General [facility] [address] [phone] Diogo Martinez MD [address] [address] documented as of this encounter Visit Diagnoses Not on filedocumented in this encounter Care Teams Dentistry Professor Relationship Specialty Start Date End Date Arabella Decker NP [facility] [address] [place] [phone] PCP - General 08/20/23 documented as of this encounter
--- OUTSIDE RECORDS SUMMARY | 2024-12-03 11:40 | XMS_ITS ---
Author Organization [facility] Address [address] [place] [address] Phone Care Team Providers Care Overcoiler Name Role Phone Jeronimo Arabella CRUZ Primary Care Provider [phone] Active Problems Problem Noted Date Diagnosed Date Malignant neoplasm of ascend ing colon ([facility] V24, [facility] V28) 08/05/2024 Assessment & Plan (11/23/2024 1:00 PM EDT): Followed by Dr. Bernal Repeat colonoscopy in July Anxiety 11/06/2018 Diabetes mellitus type 2, un complicated ([facility] V24, [facility] V28) 11/06/2018 Depression 11/06/2018 Hypercholesteremia 11/06/2018 GERD (gastroesophageal reflux disease) 9 Migraines 11/06/2018 Constipation 11/06/2018 Asthmatic bronchitis without complication 2018 Current Oncology Plans FOLFOX ( Fluorouracil Continuous Infusion / Leucovorin / OXALIplatin )* Plan Start Date:10/08/2024 Plan Provider:Quoc Bernal MD Linked Problems Malignant neoplasm of ascend ing colon ([facility] V24, [facility] V28) Treatment Medications Current Day (Day 1 , Cycle 4 - Planned for 11/29/2024) Next Day (Day 3, Cycle 4 - Planned for 12/01/2024) 5-FU (ADRUCIL) chemo infusio n 100 mL - for home use solutionfluorouracil (ADRUCIL)leucovorinleucovorin IVPB in D5W (350 mg vial)OXALIplatin (ELOXATIN)OXALIplatin (ELOXATIN) chemo infusion fluorouracil (ADRUCIL) 4,500 mg in sodium chloride 0.9 % 100 mL chemo infusionfluorouracil (ADRUCIL) chemo injection 750 mgleucovorin 750 mg in dextrose 287.5 mL IVPBOXALIplatin (ELOXATIN) 130 mg in dextrose 276 mL chemo infusion No medications scheduled. HYDRATION AND ELECTROLYTES* Plan Start Date:11/30/2024 Plan Provider:Quoc Bernal MD Linked Problems Malignant neoplasm of ascend ing colon (CMS/HCC V24, CMS/HCC V28) Treatment Medications No medications scheduled. Past Plans No past plan information found. Radiation Treatments * No radiation treatments are documented for this patient in [facility]. Treatments may have been administered in another system. Lifetime Dose Tracking * Chemical Lifetime Dose Automatic Entry Manual Entr y Fluoro Time 1.5 minutes 1.5 minutes 0 minutes Air Kerma 10 mGy 10 mGy 0 mGy
--- OUTSIDE RECORDS SUMMARY | 2024-12-03 11:41 | XMS_ITS | Encounter Summary ---
Author Organization [facility] Address [address] [place] [address] Care Team Providers Care Porter Luggage Name Role Phone Arabella Decker NP Primary Care Provider [phone] Encounter Details Date Type Department Care Team (Latest Contact Info) Description 11/29/2024 1:30 PM EDT - 11/29/2024 11:59 PM EDT Hospital Encounter Infusion Center [address] [phone] Quoc Bernal MD [address] [place] [address] Malignant neoplasm of ascending colon ([facility]/HCC V24, CMS/HCC V28) Discharge Disposition: Home or Self Care Social [...] Max Daily Amount: 1 mg 30 tablet 11/16/2024 12/16/2024 meclizine (ANTIVERT) 25 mg tablet Take 1 [...] mg EC tabletIndications :GERD (gastroesophageal reflux disease) Take 1 tablet (40 mg total) by mouth 2 (two) times a day. 180 tablet 1 10/26/2024 ranolazine (RANEXA) 500 mg 12 hr tablet Take 2 tablets (1,000 mg total) by mouth 2 (two) times a day. rosuvastatin (CRESTOR) 20 mg tablet Take 2 tablets (40 mg total) by mouth at bedtime. sertraline (ZOLOFT) 25 mg tablet Take 8 tablets (200 mg total) by mouth at bedtime. topiramate (TOPAMAX) 50 mg tablet Take 4 tablets (200 mg total) by mouth at bedtime. vit C/E/Zn/coppr/lute in/zeaxan (PRESERVISION AREDS-2 ORAL) Take 1 capsule by mouth 2 (two) times a day. documented as of this encounter Discharge Disposition Disposition Code Departure Means Destination Home or Self Care documented in this encounter Progress Notes * Feli Marshall RN - 11/29/2024 1:30 PM EDT Patient arrives ambulatory to unit for port blood draw. Port accessed, +BR. Labs collected per physician order.Port flushed per protocol. Patient discharged stable, with steady gait. Next appt scheduled. documented in this encounter Plan of Treatment Upcoming Encounters Date Type Department Care Team (Late st Contact Info) Description 12/06/2024 1:00 PM EDT Appointment [facility] [address] [address] 12/07/2024 10:00 AM EDT Appointment [facility] [address] [place] [phone] 12/09/2024 9:00 AM EDT Office Visit Hematology Oncology [address] [place] [address] Quoc Bernal MD [address] [place] [address] 12/14/2024 11:15 AM EDT Office Visit General Surgery [facility] [address] [phone] Diogo Martinez MD [address] [address] documented as of this encounter Procedures Procedure Name Priority Date/Time Associated Diagnosis Comments CBC WITH AUTO DIFFERENTIAL Routine 11/29/2024 1:37 PM EDT Malignant neoplasm of ascending colon ([facility]/HCC V24, CMS/HCC V28) CBC AND DIFFERENTIAL Routine 11/29/2024 1:37 PM EDT Malignant neoplasm of ascending colon (CMS/HCC V24, CMS/HCC V28) COMPREHENSIVE METABOLIC PANEL Routine 11/29/2024 1:37 PM EDT Malignant neoplasm of ascending colon (CMS/HCC V24, CMS/HCC V28) documented in this encounter Results * (ABNORMAL) CBC auto differential (11/29/2024 1:37 PM EDT) WBC 7.7 4.8 - 10.8 K/mcL LAB HEMETOLOGY METHOD 11/29/2024 2:13 PM EDT [facility] RBC 3.50(L) 3.80 - 4.80 M/mcL LAB HEMETOLOGY METHOD 11/[facility] Hemoglobin 11.2(L) 11.5 - 16.0 g/dL LAB HEMETOLOGY METHOD 11/29/2024 2:13 PM [facility] Hematocrit 33.9(L) 35.0 - 47.0 % LAB HEMETOLOGY METHOD 11/29/2024 2:13 PM [facility] MCV 97.1 79.0 - 98.0 FL LAB HEMETOLOGY METHOD 11/29/2024 2:13 PM [facility] MCH 32.1(H) 27.0 - 32.0 pcg LAB HEMETOLOGY METHOD 11/29/2024 2:13 PM [facility] MCHC 33.0 32.0 - 37.0 g/dL LAB HEMETOLOGY METHOD 11/29/2024 2:13 PM [facility] RDW 16.9(H) 11.0 - 15.0 % LAB HEMETOLOGY METHOD 11/29/2024 2:13 PM [facility] Platelets 201 130 - 400 K/mcL LAB HEMETOLOGY METHOD 11/29/2024 2:13 PM [facility] MPV 10.8 7.0 - 11.0 FL LAB HEMETOLOGY METHOD 11/29/2024 2:13 PM [facility] NRBC 0.0 <1.0 % LAB HEMETOLOGY METHOD 11/29/2024 2:13 PM [facility] NRBC Absolute 0.00 <0.10 K/mcL LAB HEMETOLOGY METHOD 11/29/2024 2:13 PM [facility] Neutrophils Relative 61.8 % LAB HEMETOLOGY METHOD 11/29/2024 2:13 PM [facility] Lymphocytes Relative 23.6 % LAB HEMETOLOGY METHOD 11/29/2024 2:[address] [facility] Monocytes Relative 11.4 % LAB HEMETOLOGY METHOD 11/29/2024 2:[address] [facility] Eosinophils Relative 2.6 % LAB HEMETOLOGY METHOD 11/29/2024 2:[address] [facility] Basophils Relative 0.3 % LAB HEMETOLOGY METHOD 11/29/2024 2:[address] [facility] Immature Granulocytes Relative 0.3 % LAB HEMETOLOGY METHOD 11/29/2024 2:[address] [facility] Neutrophils Absolute 4.76 1.50 - 7.00 K/mcL LAB HEMETOLOGY METHOD 11/29/2024 2:[address] [facility] Lymphocytes Absolute 1.82 1.00 - 5.00 K/mcL LAB HEMETOLOGY METHOD 11/29/2024 2:[address] [facility] Monocytes Absolute 0.88 0.20 - 1.00 K/mcL LAB HEMETOLOGY METHOD 11/29/2024 2:[address] [facility] Eosinophils Absolute 0.20 0.00 - 0.50 K/mcL LAB HEMETOLOGY METHOD 11/29/2024 2:[address] [facility] Basophils Absolute 0.02 0.00 - 0.20 K/mcL LAB HEMETOLOGY METHOD 11/29/2024 2:[address] [facility] Immature Granulocytes Absolute 0.02 0.00 - 0.03 K/mcL LAB HEMETOLOGY METHOD 11/29/2024 2:13 PM [facility] Blood Blood sample taken from central line / Unknown Existing Catheter / Unknown 11/29/2024 1:37 PM EDT 11/29/2024 2:04 PM EDT Quoc Bernal MD LAB BLOOD ORDERABLES Final R esult [facility] [address] [place] [address], * (ABNORMAL) Comprehensive metabolic panel (11/29/2024 1:37 PM EDT) Sodium 139 133 - 145 mmol/L LAB CHEMISTRY METHOD 11/29/2024 2:[address] [facility] Potassium 3.0(L) 3.5 - 5.5 mmol/L LAB CHEMISTRY METHOD 11/29/2024 2:46 PM [facility] Chloride 106 96 - 110 mmol/L LAB CHEMISTRY METHOD 11/29/2024 2:46 PM [facility] CO2 23 21 - 32 mmol/L LAB CHEMISTRY METHOD 11/29/2024 2:46 PM [facility] Anion Gap 10 3 - 11 LAB CHEMISTRY METHOD 11/29/2024 2:46 PM [facility] Glucose 159(H) 70 - 100 mg/dL LAB CHEMISTRY METHOD 11/29/2024 2:46 PM [facility] BUN 24 5 - 25 mg/dL LAB CHEMISTRY METHOD 11/29/2024 2:46 PM [facility] Creatinine 0.94 0.50 - 1.10 mg/dL LAB CHEMISTRY METHOD 11/29/2024 2:46 PM [facility] eGFR 67 >=60 mL/min/1. 73m2 LAB CHEMISTRY METHOD 11/29/2024 2:46 PM [facility] Comment:Calculation based on the??Chronic Kidney Disease Epidemiology Collaboration (CKD-EPI) equation refit??without adjustment for race. BUN/Creatinine Ratio 25.5 LAB CHEMISTRY METHOD 11/29/2024 2:46 PM [facility] Calcium 8.9 8.5 - 10.5 mg/dL LAB CHEMISTRY METHOD 11/29/2024 2:[address] [facility] AST (SGOT) 14 10 - 42 unit/L LAB CHEMISTRY METHOD 11/29/2024 2:[address] [facility] ALT (SGPT) 19 10 - 60 unit/L LAB CHEMISTRY METHOD 11/29/2024 2:[address] [facility] Alkaline Phosphatase 114 42 - 121 unit/L LAB CHEMISTRY METHOD 11/29/2024 2:[address] [facility] Total Protein 6.7 6.0 - 8.0 g/dL LAB CHEMISTRY METHOD 11/29/2024 2:[address] [facility] Albumin 3.1(L) 3.2 - 5.0 g/dL LAB CHEMISTRY METHOD 11/29/2024 2:[address] [facility] Total Bilirubin 0.3 0.0 - 1.4 mg/dL LAB CHEMISTRY METHOD 11/29/2024 2:[address] [facility] Blood Blood sample taken from central line / Unknown Existing Catheter / Unknown 11/29/2024 1:37 PM EDT 11/29/2024 2:04 PM EDT [facility] COLLIER LAB BLOOD ORDERABLES Final R esult [facility] [address] [place] [address], documented in this encounter Visit Diagnoses Diagnosis Malignant neoplasm of ascending colon (CMS/HCC V24, CMS/HCC V28) Malignant neoplasm of ascending colon documented in this encounter Care Teams Porter Luggage Relationship Specialty Start Date End Date Arabella Decker NP [address] [address] PCP - General 08/20/23 documented as of this encounter
--- OUTSIDE RECORDS SUMMARY | 2024-12-03 11:41 | XMS_ITS | Encounter Summary ---
Author Organization [facility] Address [address] [place] [address] Care Team Providers Care Extract Puller Name Role Phone Arabella Decker NP Primary Care Provider [phone] Reason for Visit * Episode Based Medications (Routine) - Authorized Specialty Diagnoses / Procedures Referred By Contac t Referred To Contact Diagnoses Malignant neoplasm of ascending colon (CMS/HCC V24, CMS/HCC V28) Quoc Bernal MD [address] [place] [address] Phone: tel: fax: [address] [address] Phone: tel: fax: Referral ID Status Reason Start Date Expiration Date V isits Requested Visits Authorized [id number] Authorized 10/08/2024 10/08/2025 1 13 Encounter Details Date Type Department Care Team (Latest Contact Info) Description 11/30/2024 11:00 AM EDT Hospital Encounter [address] [phone] Quoc Bernal MD [address] [place] [address] Malignant neoplasm of ascending colon (CMS/HCC V24, CMS/HCC V28) (Primary Dx) Social History Tobacco Use Types [...] 11/30/2024 1 1:22 AM EDT Respiratory Rate - - Oxygen Saturation 100% 11/30/2024 11: 22 AM EDT Inhaled Oxygen Concentration - - Weight 81.1 kg (178 lb 12.8 oz) 025 11:22 AM EDT Height - - Body Mass Index 30.69 10/29/2024 9:07 AM EDT documented in this encounter Progress Notes * Feli Marshall RN - 11/30/2024 11:00 AM EDT Patient arrives ambulatory to unit accompanied by for cycle 4 of FOLFOX. Patient appears elliott weak, pale. Patient reports that she is not feeling well; weak, fatigued. states that patient had 3 explosive bouts of diarrhea. She continues to have nausea but without vomiting. Patient and state that blood sugars have been under control. Labs are stable but potassium is 3.0. Dr. Bernal aware; Orders are to replace Potassium with 10 meq IV, draw Magnesium level, administered NS one liter of 90 minutes. Postpone treatment to next week. Patient and in agreement with plan. Port accessed, +BR. Labs collected: magnesium-sent stat. Potassium infusing over one hour. Call guerrero within reach. at chairside. 1240 Patient tolerated potassium infusion without incident. Magnesium level is 2.1. NS one liter infusing over 90 minutes. Call guerrero within reach. remains at chairside and given updated schedule. 1400 Patient tolerated remainder of infusion well, without adverse reaction/complaint. Next appt scheduled. Patient states that she feels a little better. Port flushed per protocol. Deaccessed, intact. Patient discharged stable, with steady gait, accompanied. documented in this encounter Plan of Treatment Upcoming Encounters Date Type Department Care Team (Late st Contact Info) Description 12/06/2024 1:00 PM EDT Appointment [facility] [address] [place] [phone] 12/07/2024 10:00 AM EDT Appointment [facility] [address] [place] [phone] 12/09/2024 9:00 AM EDT Office Visit [facility] Hematology Oncology [address] [place] [phone] Quoc Bernal MD [address] [place] [address] 12/14/2024 11:15 AM EDT Office Visit General Surgery - [place] [address] [phone] Diogo Martinez MD [address] [address] documented as of this encounter Procedures Procedure Name Priority Date/Time Associated Diagnosis Comments MAGNESIUM STAT 11/30/2024 11:28 AM EDT Malignant neoplasm of ascending colon (CMS/HCC V24, CMS/HCC V28) documented in this encounter Results * Magnesium (11/30/2024 11:28 AM EDT) Magnesium 2.1 1.9 - 2.6 mg/dL LAB CHEMISTRY METHOD 11/30/2024 11:58 AM EDT [facility] Blood Blood sample taken from central line / Unknown Existing Catheter / Unknown 11/30/2024 11:28 AM EDT 11/30/2024 11:38 AM EDT us Quoc Bernal MD LAB BLOOD ORDERABLES Final R esult [facility] [address] [place] [address], documented in this encounter Visit Diagnoses Diagnosis Malignant neoplasm of ascending colon (CMS/HCC V24, CMS/HCC V28)- Primary Malignant neoplasm of ascending colon documented in this encounter Administered Medications Active Administered Medications - up to 3 most recent administrations Medication Order MAR Action Action Date Dose Rate Site potassium chloride 10 mEq/100 mL IVPB 10 mEq 10 mEq, intravenous, at 100 mL/hr, Administer over 1 Hours, Every 1 hour PRN, For Potassium Level of 3.0 - 3.3 mmol/L., Starting on Fri11/30/24 at 1145, For 6 doses, For Potassium Level of 3.0 - 3.3 mmol/L (Six doses for a total of 60 mEq). Administer at a rate not to exceed 10 mEQ KCL per hour.Indications:Malignant neoplasm of ascending colon (CMS/HCC V24, CMS/HCC V28) New Bag 11/30/2024 11:36 AM EDT 10 mEq 100 mL/hr sodium chloride 0.9 % infusion 647 mL/hr, intravenous, Continuous, Starting on Fri11/30/24 at 1145Indications:Malignant neoplasm of ascending colon (CMS/HCC V24, CMS/HCC V28) New Bag 11/30/2024 12:40 PM EDT 647 mL/hr 647 mL/hr documented in this encounter Orders Nursing Count Last Ordered Date First Orde red Date ONC NURSING COMMUNICATION 1 11/30/2024 ONC NURSING COMMUNICATION 5 1 11/30/2024 TREATMENT CONDITIONS 1 11/30/2024 Appointment Requests Count Last Ordered Date Fi rst Ordered Date ONCBCN CALCULATED LENGTH INF USION APPOINTMENT REQUEST 1 1 11/30/2024 documented in this encounter Care Teams Extract Puller Relationship Specialty Start Date End Date Arabella Decker NP [address] [address] PCP - General 08/20/23 documented as of this encounter
== END 2024-12-03 11:33 | disposition home or self-care (01) ==
LOC: HO.HOS 10:55
PROVIDERS: Visit Provider Physician Assistant
DX: S42.201A Unspecified fracture of upper end of right humerus, initial encounter for closed fracture (principal)
CPT/HCPCS: 99213

== ENCOUNTER → 2024-12-03 11:01 | Outpatient (BNV) | payer MEDICARE, OTHER, SELFPAY | PROVIDERS: Visit Provider Radiology Diagnostic Radiology | DX: S42.201A Unspecified fracture of upper end of right humerus, initial encounter for closed fracture (principal) | CPT/HCPCS: 73030 ==

== ENCOUNTER 2024-12-31 08:14 | Outpatient (REF) | payer MEDICARE, OTHER, SELFPAY ==
--- NOTE | ~2024-12-31 | XR_ITS ---
EXAMINATION: XR SHOULDER, RIGHT CLINICAL INFORMATION: M25.519 - Pain in unspecified shoulder COMPARISON: December 03, 2024. TECHNIQUE: Two views of the right shoulder. FINDINGS: Comminuted fracture right humeral head without callus formation. No gross malalignment. Osteopenia versus osteoporosis. Sternal wires. There is a central venous line catheter towards the SVC/right atrial junction. XR/XR shoulder RT min 2V IMPRESSION: No gross healing, right humeral head fracture. Electronically signed by: Kendall South MD 12/31/2024 10:48 AM EDT
== END 2024-12-31 08:15 | disposition home or self-care (01) ==
LOC: HO.HOSX 08:14
PROVIDERS: Visit Provider Physician Assistant
DX: M25.511 Pain in right shoulder (principal); S42.201A Unspecified fracture of upper end of right humerus, initial encounter for closed fracture
CPT/HCPCS: 73030; 99212

== ENCOUNTER 2024-12-31 10:34 | Outpatient (AMB) | payer MEDICARE, OTHER, SELFPAY ==
--- NOTE | 2024-12-31 10:55 | A.OFFVIS_ITS ---
Vital Signs 12/31/24 10:57 Height 5 ft 4 in Weight 178 lb BMI 30.6 Intake Visit Reasons: OV - right proximal humerus fx, DOI 09/11/24 Intake Note: Cait is a 69 year old right hand dominant female who presents today with her for a follow up of her right proximal humerus fx, DOI 09/11/24. Patient reports she is doing better. She does find it difficult to move her arm across her body and lift her arm. Patient hasn't seen PT for about a month since they want patient to be seen first. Allergies No Known Allergies Allergy (Verified 12/31/24 10:56) HPI HPI OV - right proximal humerus fx, DOI 09/11/24: Details: Ms. Medrano is a 69-year-old right-hand dominant female who presents to the office today accompanied by her for follow-up of a right proximal humerus fracture that she sustained on 09/11/2024. Patient states that she is doing better than the last visit on 12/03/2024 she reports that she has not been able to attend physical therapy for the past month because the therapist wanted her to be seen by the orthopedist before continuing. She is attending [facility] in [place]. Unfortunately, I feel as though this has hindered her recovery process by not assisting with progression in range of motion. [facility] Surgical History (Updated 09/24/24 @ 10:43 by Zach Roach) History of shoulder surgery Social History Alcohol intake: current Alcohol intake frequency: holidays/special occasions only Patient Tobacco Use Status: Never used Tobacco Current occupational status: retired Current occupation: right hand dominant Review of Systems Const All systems reviewed & are unremarkable except as noted in HPI and below Physical Exam Vital Signs: BMI result Body Mass Index 30.6 Const General: cooperative, healthy appearing and no acute distress Resp Effort & Inspection: normal respiratory effort and able to speak in complete sentences Cardio Rate: regular rate Peripheral pulses: Peripheral pulses 2+ throughout Skin Lesions: no lesions Rashes: no rashes Extrem Other: Right upper extremity: Able to reach the top of her head with pain. Able to perform roughly 90 degrees of forward flexion and abduction. Able to perform wrist flexion and extension. Able to perform full finger flexion and extension finger cross, abduction, adduction, thumbs-up and okay sign without deficit. Sensation is intact. Cap refill is brisk. Of note, the range of motion is closed with the patient's baseline prior to this most recent injury as she has had a prior right proximal humerus fracture on the shoulder in the past. Assessment & Plan Assessment & Plan (1) Closed fracture of right proximal humerus: Code(s): S42.201A - Unspecified fracture of upper end of right humerus, initial encounter for closed fracture Category: Medical Plan Ms. Medrano is a 69-year-old right-hand dominant female who presents to the office today accompanied by her for follow-up of a right proximal humerus fracture that she sustained on 09/11/2024. Patient states that she is doing better than the last visit on 12/03/2024 she reports that she has not been able to attend physical therapy for the past month because the therapist wanted her to be seen by the orthopedist before continuing. She is attending [facility] in [place]. Unfortunately, I feel as though this has hindered her recovery process by not assisting with progression in range of motion. On the office today, we discussed continuation of physical therapy. A new order has been placed and given to the patient while in the office today. I did attach my business card to the order if the physical therapist has any questions or concerns. She will follow up in 6-8 weeks with repeat x-rays, sooner if needed. X-rays of the right shoulder which were obtained while in the office today and were reviewed by me, Abbie Holt PA-C, revealed routine healing right proximal humerus fracture. Orders: Orders XR shoulder RT min 2V Today M25.519 - Pain in unspecified shoulder PT Evaluation and Treatment Today S42.201A - Unspecified fracture of upper end of right humerus, initial encounter for closed fracture Coding Level of Care Code Global (64066) Diagnoses Closed fracture of right proximal humerus S42.201A
[2024-12-31 10:57] VITALS: BMI 30.6
== END 2024-12-31 11:09 | disposition home or self-care (01) ==
LOC: HO.HOS 10:35
PROVIDERS: Visit Provider Physician Assistant
DX: S42.201A Unspecified fracture of upper end of right humerus, initial encounter for closed fracture (principal)
CPT/HCPCS: 99213

== ENCOUNTER → 2024-12-31 10:37 | Outpatient (BNV) | payer MEDICARE, OTHER, SELFPAY | PROVIDERS: Visit Provider Radiology Diagnostic Radiology | DX: M25.511 Pain in right shoulder (principal) | CPT/HCPCS: 73030 ==

== ENCOUNTER 2025-02-09 15:25 | Outpatient (AMB) | payer MEDICARE, OTHER, SELFPAY ==
--- NOTE | 2025-02-09 15:28 | MHC.OFFVIS ---
Vital Signs 02/09/25 15:32 Height 5 ft 4 in Intake Visit Reasons: migraine Accompanied by: Spouse Allergies No Known Allergies Allergy (Verified 02/09/25 15:34) Medication List - Last Reconciled 02/09/25 by Katie Villegas CNP acetaminophen 1,000 mg PO Q8H alprazolam 0.5 mg PO DAILY alprazolam 0.5 mg PO BEDTIME PRN aspirin 81 mg PO DAILY blood sugar diagnostic (Contour Next Test Strips) As directed bumetanide 1 mg PO DAILY bupropion HCl XL 300 mg PO QAM vcaimlxsar-cughugrhni-txn-cod [id number] mg 1 cap PO Q4H PRN cevimeline 30 mg PO BID cevimeline 1 cap PO TID cholecalciferol (vitamin D3) 125 mcg PO DAILY cilostazol 50 mg PO BID clopidogrel mg PO DAILY coenzyme Q10 (Co Q-10) 300 mg PO DAILY dexlansoprazole (Dexilant) 60 mg PO DAILY diphenhydramine HCl (Sleep Aid (diphenhydramine)) 50 mg PO BEDTIME docusate sodium (Stool Softener) 250 mg PO BEDTIME ezetimibe 10 mg PO DAILY PRN famotidine (Zantac-360 (famotidine)) 20 mg PO DAILY insulin lispro (Humalog U-100 Insulin) 1 sliding scale dose subcut USEASDIRECTD isosorbide mononitrate ER mg PO DAILY meclizine 25 mg PO BID PRN melatonin 10 mg PO BEDTIME PRN metoprolol succinate ER mg PO DAILY midodrine 10 mg PO ONCE nitroglycerin mg sublingual ondansetron HCl mg PO DAILY oxycodone-acetaminophen 5-325 mg 1 tab PO Q8H PRN 7 days pantoprazole 40 mg PO DAILY ranolazine ER 1,000 mg PO BID rosuvastatin 40 mg PO DAILY sertraline 200 mg PO DAILY topiramate mg PO DAILY HPI Comments Details: She was here with her . She was diagnosed with colon cancer on routine colonoscopy in 07/2024 s/p R yoseph-colectomy in 08/2024 and currently undergoing chemotherapy treatments. Migraines have been happening about once every other week. She uses butalbital 2 tabs as needed which helps. Triggers include stress and low blood sugar, has insulin pump and Dexcom sensor. Blood sugar has been controlled, reports last A1c on 02/08/2025 of 5.6. Some occasional dizziness, using meclizine as needed. Systolic orthostatic BP drop of around 30-35mm, taking midodrine 10mg daily. No falls. More stress lately, was also dealing with health issues. Sleep was not so good. She was working with psychiatrist. Had episode of chest pain requiring nitro in 06/2024. Following with chief operating engineer in [place]. Diagnosed with dysautonomia at [facility] with tilt test with 40mm systolic drop. Systolic orthostatic BP drop of around 30-35mm. Taking midodrine 10mg daily. Tried Droxidopa 100mg tid for 3 wks and stopped as she was dizzy and BP did not improve. Has coronary artery issues with chest pain and a blocked arteries and has 5 stents in Obtuse artery at [facility] and [facility]. the artery is small. Joints pain. Negative for RA and Sjogren's in [place] and [facility]. Could be part of diabetes or sicca. Had another stent and brachytherapy at [facility] for angina. Had another stent put in 09/17/18. Had CABG x1 Jun 2014. 2015 had a stent put in the circumflex and in November 2016 it collapsed and had 2 caths in the summer. Went to [facility] on 03/18/17 and had another stent put in and the crease straightened and is feeling much better. CT head was normal. 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 She has chronic tension-type headaches as well as migraines and a long history of insulin-dependent diabetes that has been difficult to control. She is on an insulin pump. 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 Vision is stable. [facility] Medical History (Updated 02/09/25 @ 16:02 by Katie Villegas CNP) Depression Retinopathy Anxiety Hypertension Dysautonomia Hyperlipidemia CAD (coronary artery disease) of artery bypass graft Diabetes mellitus Migraine Pure hypercholesterolemia Carpal tunnel syndrome Background diabetic retinopathy DM w/o complication type II Migraine without status migrainosus, not intractable Surgical History (Updated 02/09/25 @ 16:01 by Katie Villegas CNP) S/P right hemicolectomy Hx of CABG S/P coronary artery stent placement History of shoulder surgery Social History Alcohol intake: current Alcohol intake frequency: holidays/special occasions only Patient Tobacco Use Status: Never used Tobacco Current occupational status: retired Current occupation: right hand dominant Review of Systems Const Denies chills, Denies daytime sleepiness, Reports difficulty sleeping, Denies fatigue, Denies fever(s), Denies frequent falls, Reports headache(s), Denies increased appetite, Denies poor appetite, Denies snoring, Denies weakness, Denies weight gain and Denies weight loss ENT Reports dizziness, Reports headache(s) and Denies neck pain Card Denies chest pain at rest, Denies chest pain with activity, Denies syncope, Denies leg edema, Denies palpitations, Denies dyspnea and Denies dyspnea on exertion Resp Denies cough, Denies dyspnea, Denies dyspnea on exertion and Denies snoring GI Denies abdominal pain, Denies constipation, Denies heartburn, Denies diarrhea and Denies nausea Denies urinary frequency, Denies urinary incontinence and Denies urinary urgency Musc Denies abnormal gait, Denies back pain, Denies myalgias, Denies arthralgias, Denies neck pain, Reports numbness, Denies stiffness and Reports tingling Neuro Denies abnormal gait, Reports dizziness, Denies syncope, Denies frequent falls, Reports headache(s), Denies lack of coordination, Denies memory loss, Reports numbness, Denies Other visual disturbances, Denies restless legs, Denies seizure-like activity, Reports tingling, Denies paresthesias, Denies tremor(s) and Denies weakness Psych Reports anxiety, Reports depression, Denies memory loss, Denies visual hallucinations and Denies hallucinations Endo Denies fatigue and Denies palpitations Physical Exam Const Other: General Appearance:? normal, in no acute distress. Heart:? S1, S2 normal, no murmurs. Lungs:? clear anteriorly and posteriorly. Musculoskeletal:? normal. Extremities:? no edema. Psych:? alert, oriented, cognitive function intact, cooperative with exam. Neuro Other: Abnormal Neurological Findings:?Blind in the right eye. Severe retinopathy on the left. Absent ankle reflexes Mental Status: alert and oriented X 3. Normal attention, orientation, memory, and affect. 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 Retinopathy on the left. External occular muscles are intact. Visual eason are full, no ptosis. Face is symmetrical, no facial weakness or droop. Facial sensations are normal. Tongue protrudes in midline. Palate elevates symmetrically. Shoulder shrugging is normal. Motor Examination: As above, otherwise normal muscle tone, bulk and strength. No atrophy or fasciculations. No drift of the extended upper extremities. DTR 2+. Plantars are flexor. Straight Leg Raisin degrees. Sensory Exam: Normal light touch, temperature, pinprick, vibration, and joint-position sensations. Rhomberg sign is absent. Coordination: No ataxia. No titubation. Uhouof-lm-xdmn, nqgx-stpy-xhmh test, and rapid alternating movements were normal. Gait Exam: Within normal limits. Cerebellar Signs: Wzlqij-gq-kyhf and sbkg-cx-eeun is normal. No dysdiadochokinesia. Extrapyramidal System: No tremor, rigidity with normal facial expressions. No bradykinesia. No bradyphrenia. Normal arm swing and posture. No propulsion or retropulsion. Speech: Normal. No dysphasia or dysarthria. Assessment & Plan Assessment & Plan (1) Migraine: Code(s): G43.909 - Migraine, unspecified, not intractable, without status migrainosus Category: Medical Qualifiers: Migraine type: unspecified Status migrainosus presence: without status migrainosus Intractability: not intractable Qualified Code(s): G43.909 - Migraine, unspecified, not intractable, without status migrainosus Plan: Continue dvpentexiv-EAJM-joamwrpk 50-325-40mg tablet, 1-2 tablets orally as needed every 8 hours for migraine Continue meclizine 25mg 1 tablet twice a day as needed for migraines/dizziness Plan . Coding Level of Care Code Est Pt Level 4 (05490) Diagnoses Migraine without status migrainosus, not intractable, unspecified migraine type G43.909 Migraine type: unspecified Status migrainosus presence: without status migrainosus Intractability: not intractable
--- OUTSIDE RECORDS SUMMARY | 2025-02-09 15:39 | XMS_ITS ---
Author Name [facility] Organization Unknown Encounters Encounter Type Encounter Reason Primary Diagnosis Location Date Ambulatory [facility]
--- OUTSIDE RECORDS SUMMARY | 2025-02-09 15:39 | XMS_ITS | Data Portability ---
Author Organization [place] - [facility], Allergy Address [address] [address] Assessment Encounter Date Assessment Date Assessment LastModified by Organization Details LastModified Time 01/10/2025 01/10/2025 69-year-old female presents for evaluation of hearing loss. Cerumen impaction removed bilaterally. Bilateral TMs are intact with aerated middle ear spaces. Audiometric testing demonstrated an essentially stable normal to moderate conductive hearing loss on the right and normal sloping to mild sensorineural hearing loss on the left. We discussed observation vs amplification vs consult with Dr. Beal. Patient and her elected to proceed with observation at this time. She will follow up in 1 year for audiometric testing, or sooner with any sudden changes in her hearing, tinnitus, or vertigo. [email or web address] Not available 01/10/2025 10:28:30 Plan of Treatment Reminders Order Date Submit Date Provider Last Modified By Organization Details Last Modified Time Details Appointments Hearing Test 2025 11:00A M Hearing Test Not available Not available Not available Otology Referral 30 2025 11:30A M KYLAH BEAL MD Not available Not available Not available Lab None recorded. Referral None recorded. Procedures None recorded. Surgeries None recorded. Imaging None recorded. Medication Orders None recorded. Patient TargetsNo targets recorded. Patient InstructionsNo instructions recorded. Reason for Referral None Reported. Results Created Date Observation Date Name Description Value Unit Range Abnormal Flag Note LastModifiedBy Organization Detail LastModifiedTime 01/11/20 25 audio gram No observ ation record ed. BARCODE Not Available 2024 11:15:14 Result Notes None recorded. Problems Name Problem SNOMED Code Status Onset Date Resolution Date Notes Provider Name and Address Organization Details Recorded Time Headache 09422618 Active 2016 Headache ; Note: Date Diagnose d: 01/13/2015 10:10 AM (784.0) ; Start Date : 01/14/20 15 Facia l pain NOS; Note: Date Diagnose d: 7 4:32 PM (R51) Not Available [facility] 4 03:08:20 Conducti ve hearing loss 72784470 Active 2015 Conducti ve hearing loss, unilater al, right ear, with unrestri cted hearing on the contrala teral side; Note: Date Diagnose d: 12/15/2015 3:18 PM (H90.11) Not Available [facility] 4 03:08:19 Orthosta tic hypotens ion 05993872 Active 2020 Orthosta tic hypotens ion; Note: Date Diagnose d: 1 11:25 AM (I95.1) Not Available [facility] 4 03:08:20 Diabetes mellitus 79244188 Active 2016 Other specifie d diabetes mellitus without complica tions; Note: Date Diagnose d: 7 4:27 PM (E13.9) Not Available [facility] 4 03:08:18 Dizzines s and giddines s 540522167 Active 2015 Dizzines s and giddines s; Note: Date Diagnose d: 12/15/2015 3:18 PM (R42) Not Available [facility] 4 03:08:19 Sensorin eural hearing loss in left ear 99754872148 109 Active 2020 Sensorin eural hearing loss, unilater al, left ear, with restrict ed hearing on the contrala teral side; Note: Date Diagnose d: 1 11:06 AM (H90.A22 ) Not Available [facility] 4 03:08:19 Posterio r rhinorrh ea 05453821 Active 2016 Postnasa l drip; Note: Date Diagnose d: 7 4:33 PM (R09.82) Not Available [facility] 4 03:08:18 Migraine 84780603 Active 2016 Other migraine , not intracta ble, without status migraino germaine; Note: Changed from G43 to G43.809 (12/08/19 21 12:08 PM) , Date Diagnose d: 10/16/2016 4:14 PM (G43) Not Available [facility] 4 03:08:20 Chronic maxillar y sinusiti s 67675290 Completed 201403/12/2024 Chronic sinusiti s: Maxillar y; Note: Date Diagnose d: 5 11:49 AM (473.0) Not Available [facility] 4 03:08:20 Allergic rhinitis 02658384 Active 2016 Other allergic rhinitis ; Note: Date Diagnose d: 10/16/2016 4:14 PM (J30.89) Not Available [facility] 4 03:08:19 Conducti ve hearing loss of right ear 1561440502 Active 2020 Conducti ve hearing loss, unilater al, right ear with restrict ed hearing on the contrala teral side; Note: Date Diagnose d: 1 11:06 AM (H90.A11 ) Not Available [facility] 4 03:08:20 Impacted cerumen of bilatera l ears 69006004727 66045 Active 2024 UTE SHEPARD PA-C 100 [facility],[address], [address] , [facility] - [facility] 5 10:28:55 Problem Notes None recorded. Procedures Surgical History Date Name Laterality Status Provider Name and Address Organization Details Recorded Time 5 Comp Audio with Tymps - 18767 & 16079 completed RADHA MENENDEZ 100 [facility],[address], [address], [facility] - [facility] [place] 01/10/2025 09:58:47 5 Cerumen removal without microscope bilat completed UTE SHEPARD PA-C 100 [facility],[place] [address], [place], [address], [facility] 01/10/2025 09:46:42 Imaging Results None recorded. Procedure Notes None recorded. Medical Equipment None Reported. Medications Name Sig Start Date Stop Date Status Note LastModified by Organization Details LastModified Time amoxicill in 500 mg capsule TAKE 1 CAPSULE BY MOUTH THREE TIMES A DAY UNTIL FINISHED active Not Available Not Available No t Available cilostazo l 100 mg tablet active Medicati on ID: [id number] B rand Name: cilostaz ol Send Method: E-Prescr ibed Sub s Allowed: subs OK Medic ationGen ericName : cilostaz ol Not Available Not Available Not Available terconazo le 0.4 % vaginal cream 11/02 completed Medicati on ID: [id number] Du ration Value: 7 Brand Name: terconaz ole Send Method: E-Prescr ibed Sub s Allowed: subs OK Speci al Instruct ion: INSERT 1 APPLICAT ORFUL VAGINALL Y EVERY DAY AT BEDTIME FOR 7 DAYS. Me dication GenericN rita: terconaz ole Not Available Not Available Not Available bupropion HCl SR 150 mg tablet,12 hr sustained -release 11/02 completed Medicati on ID: [id number] Du ration Value: 30 Brand Name: bupropio n HCl Send Method: E-Prescr ibed Sub s Allowed: subs OK Speci al Instruct ion: TAKE 1 TABLET BY MOUTH TWICE A DAY Medi cationGe nericNam e: bupropio n HCl Not Available Not Available Not Available cefuroxim e axetil 250 mg tablet 11/02 completed Medicati on ID: [id number] Du ration Value: 10 Brand Name: cefuroxi me axetil S end Method: E-Prescr ibed Sub s Allowed: subs OK Speci al Instruct ion: TAKE 1 TABLET BY MOUTH TWICE A DAY ANTIBI OTIC M edicatio nGeneric Name: cefuroxi me axetil Not Available Not Available Not Available torsemide 20 mg tablet 11/02 completed Medicati on ID: [id number] Du ration Value: 30 Brand Name: torsemid e Send Method: E-Prescr ibed Sub s Allowed: subs OK Speci al Instruct ion: TAKE ONE TABLET BY MOUTH EVERY OTHER DAY UNLESS OTHERWIS E INSTRUCT ED Medic ationGen ericName : torsemid e Not Available Not Available Not Available tizanidin e 2 mg tablet TAKE 1 TO 2 TABLETS BY MOUTH DAILY NEEDED FOR SPASM active Not Available Not Available No t Available alprazola m 1 mg tablet TAKE 1 TABLET BY MOUTH TWICE A DAY NEEDED active Not Available Not Available No t Available ofloxacin 0.3 % eye drops 11/02 completed Medicati on ID: [id number] Du ration Value: 15 Brand Name: ofloxaci n Send Method: E-Prescr ibed Sub s Allowed: subs OK Speci al Instruct ion: INSTILL 1 DROP INTO LEFT EYE 4 TIMES A DAY Medi cationGe nericNam e: ofloxaci n Not Available Not Available Not Available fluconazo le 150 mg tablet TAKE 1 TABLET BY MOUTH EVERY DAY FOR 1 DAY active Not Available Not Available No t Available metoprolo l succinate ER 50 mg tablet,ex tended release 24 hr active Medicati on ID: [id number] B rand Name: metoprol ol succinat e Send Method: E-Prescr ibed Sub s Allowed: subs OK Medic ationGen ericName : metoprol ol succinat e Not Available Not Available Not Available valacyclo vir 1 gram tablet TAKE 2 TABLETS EVERY 12 HOURS FOR ONE DAY, NEEDED FOR COLD SORES DRINK PLENTY OF FLUIDS active Not Available Not Available No t Available Marni Low Dose Aspirin 81 mg tablet,de layed release active Medicati on ID: [id number] B rand Name: Aspirin Low Dose Sen d Method: E-Prescr ibed Sub s Allowed: subs OK Medic ationGen ericName : Aspirin Low Dose Not Available Not Available Not Available amlodipin e 2.5 mg tablet active Medicati on ID: [id number] B rand Name: amlodipi ne Send Method: E-Prescr ibed Sub s Allowed: subs OK Speci al Instruct ion: TAKE 1 TABLET BY MOUTH EVERY DAY Medi cationGe nericNam e: amlodipi ne Not Available Not Available Not Available metronida zole 500 mg tablet PLEASE SEE ATTACHED FOR DETAILED DIRECTIO NS active Not Available Not Available No t Available clopidogr el 75 mg tablet 2014 active Medicati on ID: [id number] Du ration Value: 30 Brand Name: clopidog rel Send Method: E-Prescr ibed Sub s Allowed: subs OK Speci al Instruct ion: TAKE 1 TABLET BY MOUTH EVERY DAY Medi cationGe nericNam e: clopidog rel Not Available Not Available Not Available prochlorp erazine maleate 10 mg tablet TAKE 1 TABLET (10 MG TOTAL) BY MOUTH EVERY 8 HOURS IF NEEDED FOR NAUSEA. active Not Available Not Available No t Available sulfameth oxazole 800 mg-trimet hoprim 160 mg tablet TAKE 1 TABLET BY MOUTH TWICE A DAY FOR 5 DAYS active Not Available Not Available No t Available peg-elect rolyte solution 420 gram oral solution TAKE 8 OUNCE BY MOUTH DIRECTED FOLLOW INSTRUCT IONS PROVIDED TO YOU BY DOCTORS OFFICE active Not Available Not Available No t Available acetamino phen 500 mg tablet TAKE 2 TABLETS (1,000 MG TOTAL) BY MOUTH EVERY 8 HOURS FOR 10 DAYS active Not Available Not Available No t Available butalbita l-acetami nophen-ca ffeine 50 mg-325 mg-40 mg tablet active Medicati on ID: [id number] B rand Name: butalbit al-aceta minophen -caff Se nd Method: E-Prescr ibed Sub s Allowed: subs OK Medic ationGen ericName : butalbit al-aceta minophen -caff Not Available Not Available Not Available lidocaine -prilocai ne 2.5 %-2.5 % topical cream APPLY 1 APPLICAT ION TOPICALL Y 1 TIME FOR 1 DOSE. 30 MINUTES PRIOR TO MEDIPORT ACCESS active Not Available Not Available No t Available lamotrigi ne 25 mg tablet 11/02 completed Medicati on ID: [id number] Du ration Value: 30 Brand Name: lamotrig ine Send Method: E-Prescr ibed Sub s Allowed: subs OK Speci al Instruct ion: TAKE 3 TABLETS BY MOUTH EVERY DAY Medi cationGe nericNam e: lamotrig ine Not Available Not Available Not Available oxycodone -acetamin ophen 5 mg-325 mg tablet TAKE 1 TABLET BY MOUTH EVERY 8 HOURS NEEDED FOR PAIN FOR 1 WEEK active Not Available Not Available No t Available isosorbid e mononitra te ER 60 mg tablet,ex tended release 24 hr active Medicati on ID: [id number] B rand Name: isosorbi de mononitr ate Send Method: E-Prescr ibed Sub s Allowed: subs OK Speci al Instruct ion: TAKE 3 TABLETS BY MOUTH ONCE DAILY Me dication GenericN rita: isosorbi de mononitr ate Not Available Not Available Not Available alprazola m 0.5 mg tablet active Medicati on ID: [id number] B rand Name: alprazol am Send Method: E-Prescr ibed Sub s Allowed: subs OK Medic ationGen ericName : alprazol am Not Available Not Available Not Available trazodone 100 mg tablet 11/02 completed Medicati on ID: [id number] Du ration Value: 30 Brand Name: trazodon e Send Method: E-Prescr ibed Sub s Allowed: subs OK Speci al Instruct ion: TAKE 1 TABLET BY MOUTH AT BEDTIME Medicati onGeneri cName: trazodon e Not Available Not Available Not Available meclizine 25 mg tablet active Medicati on ID: [id number] B rand Name: meclizin e Send Method: E-Prescr ibed Sub s Allowed: subs OK Speci al Instruct ion: TAKE 1 TABLET BY MOUTH AT BEDTIME AND 1 TABLET DAILY NEEDED DIRECTED Medicat ionGener icName: meclizin e Not Available Not Available Not Available cephalexi n 500 mg capsule TAKE 1 CAPSULE BY MOUTH TWICE A DAY FOR 10 DAYS active Not Available Not Available No t Available pantopraz ole 40 mg tablet,de layed release TAKE 1 TABLET BY MOUTH TWICE A DAY active Not Available Not Available No t Available trazodone 150 mg tablet 11/02 completed Medicati on ID: [id number] Du ration Value: 30 Brand Name: trazodon e Send Method: E-Prescr ibed Sub s Allowed: subs OK Speci al Instruct ion: TAKE 1 TABLET BY MOUTH EVERY DAY AT BEDTIME Medicati onGeneri cName: trazodon e Not Available Not Available Not Available cevimelin e 30 mg capsule TAKE 1 CAPSULE BY MOUTH TWICE A DAY active Not Available Not Available No t Available dexametha sone 4 mg tablet TAKE 1 TABLET BY MOUTH ONCE DAILY FOR 3 DAYS. STARTING THE DAY OF 5FU PUMP DISCONNE CT FOR 3 DAYS active Not Available Not Available No t Available oxycodone 5 mg capsule TAKE 1 CAPSULE BY MOUTH EVERY 6 HOURS IF NEEDED FOR SEVERE PAIN FOR UP TO 10 DOSES. MAX 4 CAPS/DAY active Not Available Not Available No t Available nitroglyc nael 0.4 mg sublingua l tablet active Medicati on ID: [id number] B rand Name: nitrogly cerin Se nd Method: E-Prescr ibed Sub s Allowed: subs OK Medic ationGen ericName : nitrogly cerin Not Available Not Available Not Available sertralin e 25 mg tablet TAKE ONE TABLET BY MOUTH ONCE DAILY AT BEDTIME active Not Available Not Available No t Available bumetanid e 1 mg tablet active Medicati on ID: [id number] B rand Name: bumetani de Send Method: E-Prescr ibed Sub s Allowed: subs OK Medic ationGen ericName : bumetani de Not Available Not Available Not Available mupirocin 2 % topical ointment APPLY TO WOUND DAILY UNTIL HEALED active Not Available Not Available No t Available lorazepam 1 mg tablet TAKE 1 TABLET BY MOUTH AT BEDTIME NEEDED FOR ANXIETY OR SLEEP. MAX DAILY AMOUNT: 1 MG active Not Available Not Available No t Available levofloxa arslan 500 mg tablet 11/02 completed Medicati on ID: [id number] Du ration Value: 10 Brand Name: levoflox acin Sen d Method: E-Prescr ibed Sub s Allowed: subs OK Speci al Instruct ion: TAKE 1 TABLET BY MOUTH ONCE A DAY (ANTIBIO TIC) Med icationG enericNa me: levoflox acin Not Available Not Available Not Available neomycin 500 mg tablet TAKE 2 TABLETS BY MOUTH AT 2:00PM, 3:00PM AND 8:00PM ON THE DAY PRIOR TO SURGERY active Not Available Not Available No t Available diltiazem 30 mg tablet 11/02 completed Medicati on ID: [id number] Du ration Value: 30 Brand Name: diltiaze m HCl Send Method: E-Prescr ibed Sub s Allowed: subs OK Speci al Instruct ion: TAKE 1 TABLET BY MOUTH 3 TIMES A DAY UNLESS OTHERWIS E INSTRUCT ED. Medi cationGe nericNam e: diltiaze m HCl Not Available Not Available Not Available colchicin e 0.6 mg tablet active Medicati on ID: [id number] B rand Name: colchici ne Send Method: E-Prescr ibed Sub s Allowed: subs OK Medic ationGen ericName : colchici ne Not Available Not Available Not Available topiramat e 100 mg tablet active Medicati on ID: [id number] B rand Name: topirama te Send Method: E-Prescr ibed Sub s Allowed: subs OK Medic ationGen ericName : topirama te Not Available Not Available Not Available metoclopr amide 10 mg tablet active Medicati on ID: [id number] B rand Name: metoclop ramide HCl Send Method: E-Prescr ibed Sub s Allowed: subs OK Medic ationGen ericName : metoclop ramide HCl Not Available Not Available Not Available amoxicill in 875 mg-potass ium clavulana te 125 mg tablet 11/02 completed Medicati on ID: [id number] Du ration Value: 14 Brand Name: amoxicil alvaro-pot clavulan ate Send Method: E-Prescr ibed Sub s Allowed: subs OK Speci al Instruct ion: TAKE 1 TABLET BY MOUTH EVERY 12 HOURS ANTIBI OTIC M edicatio nGeneric Name: amoxicil alvaro-pot clavulan ate Not Available Not Available Not Available oxycodone 5 mg tablet TAKE 1 TABLET (5 MG TOTAL) BY MOUTH EVERY 6 (SIX) HOURS IF NEEDED FOR SEVERE PAIN. active Not Available Not Available No t Available midodrine 10 mg tablet TAKE 1 TABLET BY MOUTH THREE TIMES A DAY active Not Available Not Available No t Available escitalop mike 20 mg tablet active Medicati on ID: [id number] B rand Name: escitalo pram oxalate Send Method: E-Prescr ibed Sub s Allowed: subs OK Medic ationGen ericName : escitalo pram oxalate Not Available Not Available Not Available ezetimibe 10 mg tablet TAKE 1 TABLET BY MOUTH EVERY DAY active Not Available Not Available No t Available Vitamin D3 25 mcg (1,000 unit) tablet active Medicati on ID: [id number] B rand Name: Vitamin D3 Send Method: E-Prescr ibed Sub s Allowed: subs OK Medic ationGen ericName : Vitamin D3 Not Available Not Available Not Available rosuvasta tin 20 mg tablet active Medicati on ID: [id number] B rand Name: rosuvast atin Sen d Method: E-Prescr ibed Sub s Allowed: subs OK Medic ationGen ericName : rosuvast atin Not Available Not Available Not Available bupropion HCl XL 300 mg 24 hr tablet, extended release TAKE 1 TABLET BY MOUTH EVERY DAY IN THE MORNING active Not Available Not Available No t Available metoprolo l tartrate 25 mg tablet 11/02 completed Medicati on ID: [id number] Du ration Value: 30 Brand Name: metoprol ol tartrate Send Method: E-Prescr ibed Sub s Allowed: subs OK Speci al Instruct ion: TAKE 1/2 TABLET BY MOUTH TWICE A DAY Medi cationGe nericNam e: metoprol ol tartrate Not Available Not Available Not Available tizanidin e 2 mg capsule TAKE 1 CAPSULE BY MOUTH ONCE A DAY NEEDED FOR MUSCLE SPASM active Not Available Not Available No t Available chlorhexi dine gluconate 0.12 % mouthwash RINSE MOUTH WITH 15ML (1 CAPFUL) FOR 30 SECONDS IN MORNING AND EVENING AFTER BRUSHING , THEN SPIT active Not Available Not Available No t Available ranolazin e ER 500 mg tablet,ex tended release,1 2 hr active Medicati on ID: [id number] B rand Name: ranolazi ne Send Method: E-Prescr ibed Sub s Allowed: subs OK Medic ationGen ericName : ranolazi ne Not Available Not Available Not Available peg 3350-elec trolytes 236 gram-22.7 4 gram-6.74 gram-5.86 gram solution PLEASE SEE ATTACHED FOR DETAILED DIRECTIO NS active Not Available Not Available No t Available CoQ-10 100 mg capsule active Medicati on ID: [id number] B rand Name: CoQ-10 S end Method: E-Prescr ibed Sub s Allowed: subs OK Medic ationGen ericName : CoQ-10 Not Available Not Available Not Available ranolazin e ER 1,000 mg tablet,ex tended release,1 2 hr TAKE 1 TABLET BY MOUTH TWICE A DAY active Not Available Not Available No t Available estradiol 10 mcg vaginal tablet active Medicati on ID: [id number] B rand Name: estradio l Send Method: E-Prescr ibed Sub s Allowed: subs OK Medic ationGen ericName : estradio l Not Available Not Available Not Available Dexilant 60 mg capsule, delayed release active Medicati on ID: [id number] B rand Name: Dexilant Send Method: E-Prescr ibed Sub s Allowed: subs OK Medic ationGen ericName : Dexilant Not Available Not Available Not Available Lyumjev U-100 Insulin 100 unit/mL subcutane ous solution ADMINIST ER DIRECTED VIA INSULIN PUMP 120 UNITS DAILY E10.40 Z96.41 active Not Available Not Available No t Available Vitals Date Recorded Body height Body mass index (BMI) Body weight Provider Name and Address Organization Details Last Updated DateTime 01/10/2025 162.56 cm 29.5 kg/m2 24072.89 g Zehra Dunaway [place] - [facility] 01/10/2025 09:09:10 Social History None recorded. Functional Status None recorded. Mental Status None recorded. Family History Nothing Reported. Medical History Condition Response Cancer Y Gynecological HistoryNo gynecological history recorded. Obstetrics History GPAL:G 0 P 0 0 0 0 Past Encounters Encounter ID Performer Location Encounter Start Date Encounter Closed Date Diagnosis/Indication Diagnosis SNOMED-CT Code Diagnosis ICD10 Code Diagnosis Note [id number] UTE SHEPARD PA-C [facility] [address] [address] 01/10/2025 08:54:15 01/10/2025 10:23:50 Conductive hearing loss of right ear 1484630233 H90.A11 Sensorineu ral hearing loss in left ear 3656946681 9109 H90.A22 Impacted c erumen of bilateral ears 8777290554 454211 H61.23 [id number] RADHA MENENDEZ [facility] [address] [address] 01/10/2025 08:55:52 01/10/2025 10:10:59 Sensorineural hearing loss in left ear 8363176783 9109 H90.A22 Conductive hearing loss of right ear 9221305910 H90.A11 Audiologic al evaluation results: Right ear: Normal to a moderate conductive hearing loss with excellent word recognitio n. Left ear: Normal sloping to a mild sensorineu ral hearing loss with excellent word recognitio n. Tympanomet ry: Right Ear:Type A Left Ear:Type A Health Concerns Section Related Observation LastModified by Organization Detai ls LastModified Time None Recorded Concern Status LastModified by Organization Details LastModified Time None Recorded Advance Directives Directive None Recorded Payers Insurance Date Sequence Insurance Name Policy Number Policy Herrmann Covered Member ID Herrmann Member ID Guarantor Name 01/10/2025 1 [place]: [employer] Cait Medrano [id number] Cait Medrano 01/10/2025 2 [employer] (MEDICARE SUPPLEMENT) Cait Medrano [id number] Cait Medrano Notes Date Note Type Note Provider Name and Address Organization Details Recorded Time 01/10/2025 text/html 69-year-old female presents for evaluation of hearing loss. Reports worsening hearing loss L>R for the past year . Denies otalgia, otorrhea, vertigo, and tinnitus. Reports having tubes as a child. RUBY CORDERO MD [address] [place] [address], [phone] - [facility] 01/10/2025 18:05:50 OBGyn Episode No OBEpisode recorded.
== END 2025-02-09 15:51 | disposition home or self-care (01) ==
LOC: HO.HSM 15:26
PROVIDERS: PCP Nurse Practitioner Family; Referring Provider Nurse Practitioner Family; Visit Provider Registered Nurse
DX: G43.909 Migraine, unspecified, not intractable, without status migrainosus (principal)
CPT/HCPCS: 99214

== ENCOUNTER → 2025-02-09 15:25 | Outpatient (BNVA) | payer MEDICARE, OTHER, SELFPAY | PROVIDERS: PCP Nurse Practitioner Family; Referring Provider Nurse Practitioner Family; Visit Provider Registered Nurse | DX: G43.909 Migraine, unspecified, not intractable, without status migrainosus (principal); G44.229 Chronic tension-type headache, not intractable; Z79.899 Other long term (current) drug therapy; Z79.4 Long term (current) use of insulin; Z96.41 Presence of insulin pump (external) (internal) | CPT/HCPCS: 99212 ==

== ENCOUNTER 2025-03-01 08:06 | Outpatient (REF) | payer MEDICARE, OTHER, SELFPAY ==
--- NOTE | ~2025-03-01 | XR_ITS ---
EXAMINATION: XR SHOULDER, RIGHT CLINICAL INFORMATION: M25.519 - Pain in unspecified shoulder COMPARISON: December 31, 2024. TECHNIQUE: AP and Y-view projections of the right shoulder. FINDINGS: Old traumatic deformity right humeral head neck with similar morphology since prior exam. No gross malalignment. XR/XR shoulder RT min 2V IMPRESSION: No gross change. Electronically signed by: Kendall South MD 03/01/2025 09:56 AM EDT
--- OUTSIDE RECORDS SUMMARY | 2025-03-01 08:10 | XMS_ITS | Encounter Summary ---
Author Organization [facility] Address [address] [place] [address] Care Team Providers Care Skimmer Name Role Phone Arabella Decker NP Primary Care Provider [phone] Encounter Details Date Type Department Care Team (Late Contact Info) Description 02/08/[address] [facility] - Main Lab [address] [facility] [place] [address] Diane Rosa NP [address] [place] [id number] Type 1 diabetes mellitus with diabetic polyneuropathy (CMS/HCC V24, CMS/HCC V28) Social History Tobacco Use Types Packs/Day Years [...] AM EST documented as of this encounter Plan of Treatment Upcoming Encounters Date Type Department Care Team (Late Contact Info) Description 03/07/2025 11:30 AM EDT Appointment [facility] [address] [place] [phone] 03/08/2025 10:00 AM EDT Appointment [facility] [address] [facility] 2nd [place] [phone] 03/21/2025 1:00 PM EDT Office Visit [facility] Hematology Oncology [address] [place] [phone] Quoc Bernal MD [address] [place] [address] 09/20/2025 11:00 AM EST Office Visit General Surgery - [place] [address] [phone] Diogo Martinez MD [address] [address] documented as of this encounter Procedures Procedure Name Priority Date/Time Associated Diagnosis Comments HEMOGLOBIN A1C Routine 02/08/2025 10:35 AM EDT Type 1 diabetes mellitus with diabetic polyneuropathy ([facility] V24, [facility] V28) documented in this encounter Results * Hemoglobin A1c (02/08/2025 10:35 AM EDT) Hemoglobin A1C 5.6 <6.5 % LAB CHEMISTRY METHOD 02/08/2025 2:30 PM EDT [facility] Mean Bld Glu Estim. 114 mg/dL LAB CHEMISTRY METHOD 02/08/2025 2:30 PM EDT [facility] Blood Venous blood specimen / Unknown 02/08/2025 10:35 AM EDT 02/08/2025 11:25 AM EDT us Diane Rosa SECRETARY OFFICE CLERK LAB BLOOD ORDERABLES Final R esult [facility] [address] [place] [address], [place] [phone] documented in this encounter Visit Diagnoses Diagnosis Type 1 diabetes mellitus with diabetic polyneuropathy (CMS/[facility] V24, CMS/[facility] V28) documented in this encounter Care Teams Skimmer Relationship Specialty Start Date End Date Arabella Decker NP [address] [address] PCP - General 08/20/23 documented as of this encounter
--- OUTSIDE RECORDS SUMMARY | 2025-03-01 08:11 | XMS_ITS | Data Portability ---
Author Organization [place] - [facility], Allergy Address [address] [address] Assessment Encounter Date Assessment Date Assessment LastModified [...] observation vs amplification vs consult with Dr. Mcgarry. Patient and her elected to proceed with observation at this time. She will follow up in 1 year for audiometric testing, or sooner with any sudden changes in her hearing, tinnitus, or vertigo. [email or web address] Not available 01/10/2025 10:28:30 Plan of Treatment Reminders Order Date Submit Date Provider Last Modified By Organization Details Last Modified Time Details Appointments Hearing Test 2025 11:00A M Hearing Test Not available Not available Not available Otology Referral 30 2025 11:30A M KYLAH MCGARRY MD Not available Not available Not available [...] Name and Address Organization Details Recorded Time Chronic maxillar y sinusiti s 21916308 Completed 201403/12/2024 Chronic sinusiti s: Maxillar y; Note: Date Diagnose d: 5 11:49 AM (473.0) Not Available [facility] 4 03:08:20 Conducti ve hearing loss 44035653 Active 2015 Conducti ve hearing loss, unilater al, right ear, with unrestri cted hearing on the contrala teral side; Note: Date Diagnose d: 12/15/2015 3:18 PM (H90.11) Not Available [facility] 4 03:08:19 Dizzines s and giddines s 296018867 Active 2015 Dizzines s and giddines s; Note: Date Diagnose d: 12/15/2015 3:18 PM (R42) Not Available [facility] 4 03:08:19 Headache 52331825 Active 2016 Headache ; Note: Date Diagnose d: 01/13/2015 10:10 AM (784.0) ; Start Date : 01/14/20 15 Facia l pain NOS; Note: Date Diagnose d: 7 4:32 PM (R51) Not Available [facility] 4 03:08:20 Diabetes mellitus 61316007 Active 2016 Other specifie d diabetes mellitus without complica tions; Note: Date Diagnose d: 7 4:27 PM (E13.9) Not Available [facility] 4 03:08:18 Posterio r rhinorrh ea 67682994 Active 2016 Postnasa l drip; Note: Date Diagnose d: 7 4:33 PM (R09.82) Not Available [facility] 4 03:08:18 Migraine 24987538 Active 2016 Other migraine , not intracta ble, without status migraino germaine; Note: Changed from G43 to G43.809 (12/08/19 21 12:08 PM) , Date Diagnose d: 10/16/2016 4:14 PM (G43) Not Available [facility] 4 03:08:20 Allergic rhinitis 78107709 Active 2016 Other allergic rhinitis ; Note: Date Diagnose d: 10/16/2016 4:14 PM (J30.89) Not Available [facility] 4 03:08:19 Sensorin eural hearing loss in left ear 23644070776 109 Active 2020 Sensorin eural hearing loss, unilater al, left ear, with restrict ed hearing on the contrala teral side; Note: Date Diagnose d: 1 11:06 AM (H90.A22 ) Not Available [facility] 4 03:08:19 Conducti ve hearing loss of right ear 9483758653 Active 2020 Conducti ve hearing loss, unilater al, right ear with restrict ed hearing on the contrala teral side; Note: Date Diagnose d: 1 11:06 AM (H90.A11 ) Not Available [facility] 4 03:08:20 Orthosta tic hypotens ion 06770943 Active 2020 Orthosta tic hypotens ion; Note: Date Diagnose d: 1 11:25 AM (I95.1) Not Available [facility] 4 03:08:20 Impacted cerumen of bilatera l ears 94694753047 25692 Active 2024 UTE SHEPARD PA-C [address] [facility],[address], [address] , [facility] 5 10:28:55 Problem Notes None recorded. Procedures Surgical History Date Name Laterality Status Provider Name and Address Organization Details Recorded Time 5 Comp Audio with Tymps - 32639 & 47029 completed RADHA MENENDEZ [address] [facility],[place] [address], [place], [address], [facility] 01/10/2025 09:58:47 5 Cerumen removal without microscope bilat completed UTE SHEPARD PA-C [address] [facility],[place] [address], [place], [address], [facility] 01/10/2025 09:46:42 Imaging Results None recorded. Procedure Notes None recorded. Medical Equipment None Reported. Medications Name Sig Start Date Stop Date Status Note LastModified by Organization Details LastModified Time amoxicill in 500 mg capsule TAKE 1 CAPSULE BY MOUTH THREE TIMES A DAY UNTIL FINISHED active Not Available Not Available No t Available cilostazo l 100 mg tablet active Medicati on ID: 165047 B rand Name: cilostaz ol Send Method: E-Prescr ibed Sub s Allowed: subs OK Medic ationGen ericName : cilostaz ol Not Available Not Available Not Available terconazo le 0.4 % vaginal cream 11/02 completed Medicati on ID: [id number] Du ration Value: 7 Brand Name: terconaz ole Send Method: E-Prescr ibed Sub s Allowed: subs OK Speci al Instruct ion: INSERT 1 APPLICAT ORFUL VAGINALL Y EVERY DAY AT BEDTIME FOR 7 DAYS. Me dication GenericN rita: terconaz ole Not Available Not Available Not Available bupropion HCl SR 150 mg tablet,12 hr sustained -release 11/02 completed Medicati on ID: 90387 Du ration Value: 30 Brand Name: bupropio n HCl Send Method: E-Prescr ibed Sub s Allowed: subs OK Speci al Instruct ion: TAKE 1 TABLET BY MOUTH TWICE A DAY Medi cationGe nericNam e: bupropio n HCl Not Available Not Available Not Available cefuroxim e axetil 250 mg tablet 11/02 completed Medicati on ID: 92737 Du ration Value: 10 Brand Name: cefuroxi me axetil S end Method: E-Prescr ibed Sub s Allowed: subs OK Speci al Instruct ion: TAKE 1 TABLET BY MOUTH TWICE A DAY ANTIBI OTIC M edicatio nGeneric Name: cefuroxi me axetil Not Available Not Available Not Available torsemide 20 mg tablet 11/02 completed Medicati on ID: 69162 Du ration Value: 30 Brand Name: torsemid [...] eye drops 11/02 completed Medicati on ID: 99390 Du ration Value: 15 Brand Name: ofloxaci [...] release 24 hr active Medicati on ID: 997703 B rand Name: metoprol ol succinat e [...] tablet,de layed release active Medicati on ID: 348992 B rand Name: Aspirin Low Dose Sen d Method: E-Prescr ibed Sub s Allowed: subs OK Medic ationGen ericName : Aspirin Low Dose Not Available Not Available Not Available amlodipin e 2.5 mg tablet active Medicati on ID: 934070 B rand Name: amlodipi ne Send Method: [...] mg tablet 2014 active Medicati on ID: 24628 Du ration Value: 30 Brand Name: clopidog [...] mg-40 mg tablet active Medicati on ID: 601232 B rand Name: butalbit al-aceta minophen -caff [...] mg tablet 11/02 completed Medicati on ID: 03414 Du ration Value: 30 Brand Name: lamotrig [...] release 24 hr active Medicati on ID: 311626 B rand Name: isosorbi de mononitr ate Send Method: E-Prescr ibed Sub s Allowed: subs OK Speci al Instruct ion: TAKE 3 TABLETS BY MOUTH ONCE DAILY Me dication GenericN rita: isosorbi de mononitr ate Not Available Not Available Not Available alprazola m 0.5 mg tablet active Medicati on ID: 273393 B rand Name: alprazol am Send Method: E-Prescr ibed Sub s Allowed: subs OK Medic ationGen ericName : alprazol am Not Available Not Available Not Available trazodone 100 mg tablet 11/02 completed Medicati on ID: 93844 Du ration Value: 30 Brand Name: trazodon e Send Method: E-Prescr ibed Sub s Allowed: subs OK Speci al Instruct ion: TAKE 1 TABLET BY MOUTH AT BEDTIME Medicati onGeneri cName: trazodon e Not Available Not Available Not Available meclizine 25 mg tablet active Medicati on ID: [id number] B rand Name: meclizin e Send Method: [...] mg tablet 11/02 completed Medicati on ID: 68466 Du ration Value: 30 Brand Name: trazodon [...] sublingua l tablet active Medicati on ID: 393448 B rand Name: nitrogly cerin Se nd Method: E-Prescr ibed Sub s Allowed: subs OK Medic ationGen ericName : nitrogly cerin Not Available Not Available Not Available sertralin e 25 mg tablet TAKE ONE TABLET BY MOUTH ONCE DAILY AT BEDTIME active Not Available Not Available No t Available bumetanid e 1 mg tablet active Medicati on ID: 657955 B rand Name: bumetani de Send Method: [...] mg tablet 11/02 completed Medicati on ID: 33371 Du ration Value: 10 Brand Name: levoflox [...] mg tablet 11/02 completed Medicati on ID: 50308 Du ration Value: 30 Brand Name: diltiaze m HCl Send Method: E-Prescr ibed Sub s Allowed: subs OK Speci al Instruct ion: TAKE 1 TABLET BY MOUTH 3 TIMES A DAY UNLESS OTHERWIS E INSTRUCT ED. Medi cationGe nericNam e: diltiaze m HCl Not Available Not Available Not Available colchicin e 0.6 mg tablet active Medicati on ID: 763709 B rand Name: colchici ne Send Method: E-Prescr ibed Sub s Allowed: subs OK Medic ationGen ericName : colchici ne Not Available Not Available Not Available topiramat e 100 mg tablet active Medicati on ID: 068163 B rand Name: topirama te Send Method: E-Prescr ibed Sub s Allowed: subs OK Medic ationGen ericName : topirama te Not Available Not Available Not Available metoclopr amide 10 mg tablet active Medicati on ID: 253785 B rand Name: metoclop ramide HCl Send Method: E-Prescr ibed Sub s Allowed: subs OK Medic ationGen ericName : metoclop ramide HCl Not Available Not Available Not Available amoxicill in 875 mg-potass ium clavulana te 125 mg tablet 11/02 completed Medicati on ID: 38262 Du ration Value: 14 Brand Name: amoxicil [...] 20 mg tablet active Medicati on ID: 744642 B rand Name: escitalo pram oxalate Send Method: E-Prescr ibed Sub s Allowed: subs OK Medic ationGen ericName : escitalo pram oxalate Not Available Not Available Not Available ezetimibe 10 mg tablet TAKE 1 TABLET BY MOUTH EVERY DAY active Not Available Not Available No t Available Vitamin D3 25 mcg (1,000 unit) tablet active Medicati on ID: 086956 B rand Name: Vitamin D3 Send Method: E-Prescr ibed Sub s Allowed: subs OK Medic ationGen ericName : Vitamin D3 Not Available Not Available Not Available rosuvasta tin 20 mg tablet active Medicati on ID: 671626 B rand Name: rosuvast atin Sen d [...] mg tablet 11/02 completed Medicati on ID: 14201 Du ration Value: 30 Brand Name: metoprol [...] release,1 2 hr active Medicati on ID: 613287 B rand Name: ranolazi ne Send Method: E-Prescr ibed Sub s Allowed: subs OK Medic ationGen ericName : ranolazi ne Not Available Not Available Not Available peg 3350-elec trolytes 236 gram-22.7 4 gram-6.74 gram-5.86 gram solution PLEASE SEE ATTACHED FOR DETAILED DIRECTIO NS active Not Available Not Available No t Available CoQ-10 100 mg capsule active Medicati on ID: 013759 B rand Name: CoQ-10 S end Method: E-Prescr ibed Sub s Allowed: subs OK Medic ationGen ericName : CoQ-10 Not Available Not Available Not Available ranolazin e ER 1,000 mg tablet,ex tended release,1 2 hr TAKE 1 TABLET BY MOUTH TWICE A DAY active Not Available Not Available No t Available estradiol 10 mcg vaginal tablet active Medicati on ID: 962758 B rand Name: estradio l Send Method: E-Prescr ibed Sub s Allowed: subs OK Medic ationGen ericName : estradio l Not Available Not Available Not Available Dexilant 60 mg capsule, delayed release active Medicati on ID: 182523 B rand Name: Dexilant Send Method: E-Prescr [...] Updated DateTime 01/10/2025 162.56 cm 29.5 kg/m2 51068.89 g Zehra Dunaway [place] - [facility] 01/10/2025 09:09:10 Social History None recorded. Functional Status None recorded. Mental Status None recorded. Family History Nothing Reported. Medical History Condition Response Cancer Y Gynecological HistoryNo gynecological history recorded. Obstetrics History GPAL:G 0 P 0 0 0 0 Past Encounters Encounter ID Performer Location Encounter Start Date Encounter Closed Date Diagnosis/Indication Diagnosis SNOMED-CT Code Diagnosis ICD10 Code Diagnosis Note [id number] UTE SHEPARD PA-C [facility] [address] [address] 01/10/2025 08:54:15 01/10/2025 10:23:50 Conductive hearing loss of right ear 0765013388 H90.A11 Sensorineu ral hearing loss in left ear 6262479215 9109 H90.A22 Impacted c erumen of bilateral ears 9440631811 266605 H61.23 [id number] RADHA MENENDEZ [facility] [address] [address] 01/10/2025 08:55:52 01/10/2025 10:10:59 Sensorineural hearing loss in left ear 5900290339 9109 H90.A22 Conductive hearing loss of right ear 8488114279 H90.A11 Audiologic al evaluation results: Right ear: [...] MEDIC[place] B-[place]: [employer] Cait Medrano [id number] 1 Cait Medrano 01/10/2025 2 [employer] (MEDICARE SUPPLEMENT) Cait Medrano [id number] Cait Medrano Notes Date Note Type Note Provider Name and Address Organization Details Recorded Time 01/10/2025 text/html 69-year-old female presents for evaluation of hearing loss. Reports worsening hearing loss L>R for the past year . Denies otalgia, otorrhea, vertigo, and tinnitus. Reports having tubes as a child. RUBY CORDERO MD [address] [place] [address], [id number] - [facility] 01/10/2025 18:05:50 OBGyn Episode No OBEpisode recorded.
== END 2025-03-01 08:07 | disposition home or self-care (01) ==
LOC: HO.HOSX 08:06
PROVIDERS: Visit Provider Physician Assistant
DX: M25.511 Pain in right shoulder (principal); S42.201D Unspecified fracture of upper end of right humerus, subsequent encounter for fracture with routine healing; C18.9 Malignant neoplasm of colon, unspecified
CPT/HCPCS: 73030; 99212

== ENCOUNTER 2025-03-01 09:38 | Outpatient (AMB) | payer MEDICARE, OTHER, SELFPAY ==
--- NOTE | 2025-03-01 09:41 | A.OFFVIS_ITS ---
Vital Signs 03/01/25 09:54 Height 5 ft 4 in Weight 178 lb BMI 30.6 Intake Visit Reasons: OV - right proximal humerus fx, DOI 09/11/24 Intake Note: Cait is a 69 year old right hand dominant female who presents today with her for a follow up of her right proximal humerus fx, DOI 09/11/24. At her last visit she was advised to continue physical therapy. Patient reports she has gone to 2 visits of physical therapy since she is doing chemo treatments. She was wondering when she is done with her chemo therapy at the end of March if she can do PT. Allergies No Known Allergies Allergy (Verified 03/01/25 09:54) HPI HPI OV - right proximal humerus fx, DOI 09/11/24: Details: Ms. Medrano is a 69-year-old right-hand dominant female who presents to the office today accompanied by her for follow-up of a right proximal humer us fracture. Date of injury was 09/11/2024. Patient states that overall she is doing very well. She has improved with her range of motion. She continues to attend chemotherapy for recent diagnosis of colon cancer. She is looking to see if she is able to resume physical therapy after her chemotherapy treatment concludes. At this time it is very difficult for her to attend sessions. [facility] Medical History (Updated 02/09/25 @ 16:02 by Katie Villegas CNP) Depression Retinopathy Anxiety Hypertension Dysautonomia Hyperlipidemia CAD (coronary artery disease) of artery bypass graft Diabetes mellitus Migraine Pure hypercholesterolemia Carpal tunnel syndrome Background diabetic retinopathy DM w/o complication type II Migraine without status migrainosus, not intractable Surgical History (Updated 02/09/25 @ 16:01 by aKtie Villegas CNP) S/P right hemicolectomy Hx of CABG S/P coronary artery stent placement History of shoulder surgery Social History Alcohol intake: current Alcohol intake frequency: holidays/special occasions only Patient Tobacco Use Status: Never used Tobacco Current occupational status: retired Current occupation: right hand dominant Review of Systems Const All systems reviewed & are unremarkable except as noted in HPI and below Physical Exam Vital Signs: BMI result Body Mass Index 30.6 Const General: cooperative, healthy appearing and no acute distress Resp Effort & Inspection: normal respiratory effort and able to speak in complete sentences Cardio Rate: regular rate Peripheral pulses: Peripheral pulses 2+ throughout Skin Lesions: no lesions Rashes: no rashes Extrem Other: Right upper extremity: Able to reach the top of her head. Able to perform roughly 90 degrees of forward flexion and abduction. Able to reach T12. NVI. Of note, the range of motion is closed with the patient's baseline prior to this most recent injury as she has had a prior right proximal humerus fracture on the shoulder in the past. Assessment & Plan Assessment & Plan (1) Closed fracture of right proximal humerus: Code(s): S42.201A - Unspecified fracture of upper end of right humerus, initial encounter for closed fracture Category: Medical Plan Ms. Medrano is a 69-year-old right-hand dominant female who presents to the office today accompanied by her for follow-up of a right proximal humerus fracture. Date of injury was 09/11/2024. Patient states that overall she is doing very well. She has improved with her range of motion. She continues to attend chemotherapy for recent diagnosis of colon cancer. She is looking to see if she is able to resume physical therapy after her chemotherapy treatment concludes. At this time it is very difficult for her to attend sessions. While in the office today, I have provided the patient with a physical therapy prescription that she may bring with her to [facility] in [place] once her chemotherapy treatments have been completed. I do believe that she has maximized her range of motion. However, she does have weakness with the right upper extremity especially with opening jars. Therefore, I would like her to progress to strengthening once able to do so. X-rays that were obtained in the office today reveal healed right proximal humerus fracture. She will follow up PRN, sooner if needed. Orders: Orders XR shoulder RT min 2V Today M25.519 - Pain in unspecified shoulder PT Evaluation and Treatment Today S42.201A - Unspecified fracture of upper end of right humerus, initial encounter for closed fracture Coding Level of Care Code Est Pt Level 3 (85135) Diagnoses Closed fracture of right proximal humerus S42.201A
[2025-03-01 09:54] VITALS: BMI 30.6
--- OUTSIDE RECORDS SUMMARY | 2025-03-01 10:21 | XMS_ITS | Encounter Summary ---
Author Organization [facility] Address [address] [place] [address] [place] [phone] Phone Care Team Providers Care [employer] Name Role Phone Yenifer Gerard MD Unavailable [phone] Arabella Decker NP Primary Care Provider + Self-Referred, Patient Unavailable Unavailab Viraj Del Real MD Unavailable [phone] Ezio Omalley MD Unavailable [phone] Quoc Bernal MD Unavailable Encounter Details Date Type Department Care Team (Late st Contact Info) Description 01/02/2025 Procedure Pass [facility], Ct Scan - [address] [address] Social History Tobacco Use Types Packs/Day Years Used Date Smoking Tobacco: Never Passive Smoke Exposure: Never Smokeless Tobacco: Never Alcohol Use Standard Drinks/Week Comments Yes 3 (1 standard drink = 0.6 oz pur e alcohol) 3 per week Child or Family Care Answer Date Record ed Do you have problems with on e of the following making it difficult for you to work, study, or receive health care? No 09/28/2024 Education Answer Date Recorded Are you interested in more education? Not on gladis e 12/05/2022 Are you concerned about learning? Not on file 12/05/2022 No 12/05/2022 No 12/05/2022 Food Answer Date Recorded Within the past 6 months we worried whether our food would run out before we got money to buy more. Never True 09/28/2024 Within the past 6 months the food we bought just didn't last and we didn't have enough money to get more. Never True Residential Stability Answer Date Recor ded What is your housing situation today? I have [place] 09/28/2024 How many times have you move d in the past 12 months? Zero (I did not move) 09/28/2024 Paying for Meds Answer Date Recorded Do you have trouble paying for medicines? No 09/28/2024 Paying Utility Bills Answer Date Record ed Do you have trouble paying your heating or elect ricity bill? No 09/28/2024 Transportation Answer Date Recorded Has the lack of transportati on kept you from medical appointments or from getting medications? No 09/28/2024 Digital Access Answer Date Recorded No 01/01/2023 No 01/01/2023 Reliable internet access at home? Not on file 01/01/2023 Device with a working camera? Not on file Intimate Partner Violence Answer Date R ecorded Are you denied basic needs s uch as food, clothing, or medical care? No 01/02/2025 In the past 12 months have y ou been in a relationship with a person who hurts, threatens, or tries to control you? No 01/02/2025 Are you denied basic needs s uch as food, clothing, or medical care? No 01/02/2025 In the past 12 months have y ou been in a relationship with a person who hurts, threatens, or tries to control you? No 01/02/2025 Comments No Sex and Gender Information Value Date Recorded Sex Assigned at Female 04/29/2020 4:22 PM EDT Legal Sex Female 5:10 AM EST Gender Identity Female 04/29/2020 4:22 PM EDT Sexual Orientation Straight 09/03/2023 11 :13 AM EST documented as of this encounter Functional Status * Patient is deaf or has serious difficulty with hearing Answer Date of Assessment Author No 03/18/2017 9:22 PM EDT Mary Corrigan CNP * Patient is blind or has serious difficulty with seeing, even when wearing glasses Answer Date of Assessment Author Yes 03/18/2017 9:22 PM EDT Mary Corrigan CNP * Patient has serious difficulty walking or climbing stairs (5yr old or older) Answer Date of Assessment Author No 03/18/2017 9:22 PM EDT Mary Corrigan CNP * Patient has serious difficulty dressing or bathing (5yr old or older) Answer Date of Assessment Author No 03/18/2017 9:22 PM EDT Mary Corrigan CNP * Patient has serious difficulty doing errands alone such as visiting a doctor???s office or shopping, due to physical, mental, or emotional condition (15 years old or older) Answer Date of Assessment Author No 03/18/2017 9:22 PM EDT Mary Corrigan CNP * Calculated C-SSRS Risk Score (Lifetime/Recent) Answer Date of Assessment Author No Risk Indicated 01/02/2025 12:31 PM EDT Diane Johnson RN * Anderson Suicide Severity Rating Scale (Screener/Recent Self-Report) Question Answer Date of Assessment Author 1. Wish to be (Past 1 Month) No 01/02/2025 12:31 PM EDT Tony Worrell RN 2. Non-Specific Active Suicidal Thoughts (Past 1 Month) No 01/02/2025 12:31 PM EDT Tony Worrell RN 6. Suicidal Behavior (Lifetime) No 01/02/2025 12:31 PM EDT Tony Worrell RN documented as of this encounter Mental Status * Patient has serious difficulty concentrating, remembering, or making decisions due to physical, mental, or emotional condition Answer Entry Date Author No 03/18/2017 9:22 PM EDT Mary Corrigan CNP documented in this encounter Plan of Treatment Upcoming Encounters Date Type Department Care Team (Late st Contact Info) Description 03/17/2025 1:10 PM EDT Office Visit [facility] [address] [place] [address] Diane Rosa CNP [address] [facility], 1st [place] [address] 04/15/2025 11:30 AM EDT Office Visit [facility] [address] [place] [address] Emilia Haley PA-C [address] [place] [address] [email or web address] 06/16/2025 2:15 PM EST Office Visit [facility] in [address] [address] Matt Mittal MD 50 [facility], [address] [place] [address] [email or web address] 06/16/2025 2:30 PM EST Procedure visit [facility] in [address] [address] 06/20/2025 1:20 PM EST Office Visit [facility] [address] [place] [address] Yenifer Gerard MD [address] [place] [address], [address] [place] [address] [email or web address] 08/24/2025 1:00 PM EST Office Visit [facility] [place] [address] [place] [address] Gilda Mccarty MD [address] [place] [phone] [email or web address] 12/14/2025 8:30 AM EDT Telemedicine [facility] [address] [place] [address] Aristides Naik MD, PhD [address] [place] [address] [email or web address] documented as of this encounter Visit Diagnoses Not on filedocumented in this encounter Additional Health Concerns Assessment Noted Time PHQ-9 Depression Total Score: 4 04/24/20 22 12:02 PM EDT PHQ-2 Depression Total Score: 0 04/24/20 12:02 PM EDT documented as of this encounter Care Teams [employer] Relationship Specialty Start Date End Date Arabella Decker NP [address] [place] [address] PCP - General Family Medicine 02/01/21 Yenifer Gerard MD 22 [facility], [facility] [place] [address] [email or web address] Historical LMR Provider 05/26/17 Self-Referred, Patient 09/20/24 Viraj Villalobos MD [address] [place] [address] [email or web address] 09/20/24 Ezio Omalley MD [address] [place] [phone] [email or web address] Oncology 12/28/24 Quoc Bernal MD [address] [place] [phone] [email or web address] Medical Oncology 01/12/25 documented as of this encounter Additional Source Comments The information contained in this document represents components of the legal health record. It is not the complete legal health record.[facility]
== END 2025-03-01 10:23 | disposition home or self-care (01) ==
LOC: HO.HOS 09:39
PROVIDERS: PCP Nurse Practitioner Family; Visit Provider Physician Assistant
DX: S42.201A Unspecified fracture of upper end of right humerus, initial encounter for closed fracture (principal)
CPT/HCPCS: 99213

== ENCOUNTER → 2025-03-01 09:46 | Outpatient (BNV) | payer MEDICARE, OTHER, SELFPAY | PROVIDERS: Visit Provider Radiology Diagnostic Radiology | DX: M25.511 Pain in right shoulder (principal) | CPT/HCPCS: 73030 ==